=== PATIENT | male | born 1950 | race Caucasian/White ===

== ENCOUNTER 2022-08-11 20:00 | Outpatient (CLI) | payer MEDICARE, BC, SELFPAY | END 2022-08-11 20:01 | disposition home or self-care (01) | LOC: SLEEP 08-12 07:22 | PROVIDERS: Visit Provider Family Medicine | DX: G47.33 Obstructive sleep apnea (adult) (pediatric) (principal) | CPT/HCPCS: 95811 ==

== ENCOUNTER → 2025-08-13 10:20 | Outpatient (BNVA) | payer OTHER, SELFPAY | PROVIDERS: Referring Provider Family Medicine; Visit Provider Internal Medicine Rheumatology | DX: M25.50 Pain in unspecified joint (principal) | CPT/HCPCS: 36415; 80076; 82306; 82565; 83036; 85025; 85651; 86140; 86480; 86704; 86803; 87340 ==

== ENCOUNTER 2025-08-21 09:03 | Inpatient (IN) | payer MEDICARE, SELFPAY ==
[2025-08-21] VITALS (42 sets, daily range): BP systolic 83–146; BP diastolic 55–89; PULSE 67–86; RESP 15–22; TEMP 36.4–36.8; O2SAT 94–99; BMI 36.6
--- OUTSIDE RECORDS SUMMARY | 2025-08-21 09:09 | XMS_ITS | Encounter Summary ---
Author Organization [employer] [facility] Address [address] [place] [address] Care Team Providers Care Health Information Systems Technician Name Role Phone Unavailable Primary Care Provider Unavailabl e Encounter Details Date Type Department Care Team (Latest Contact Info) Description 09/10/1999 Outpatient Historical [facility] Jose Angel Martinez, Ermias Peñaloza MD [address] [place] [phone] Backache, unspecified (Primary Dx) Social History Tobacco Use Types Packs/Day Years Used Date Smoking Tobacco: Never Assessed Sex and Gender Information Value Date Recorded Sex Assigned at Not on file 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
--- OUTSIDE RECORDS SUMMARY | 2025-08-21 09:09 | XMS_ITS | Encounter Summary ---
Author Organization [employer] [facility] Address [address] [place] [address] Care Team Providers Care Lithographic Artist Name Role Phone Unavailable Primary Care Provider Unavailabl e Encounter Details Date Type Department Care Team (Latest Contact Info) Description 09/09/1999 Outpatient Historical [facility] Jose Angel Martinez, Ermias Peñaloza MD [address] [place] [phone] Lumbago (Primary Dx) Social History Tobacco Use Types Packs/Day Years Used Date Smoking Tobacco: Never Assessed Sex and Gender Information Value Date Recorded Sex Assigned at Not on file 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
--- OUTSIDE RECORDS SUMMARY | 2025-08-21 09:09 | XMS_ITS | Encounter Summary ---
Author Organization [employer] [facility] Address [address] [place] [address] Care Team Providers Care Chemist Assistant Name Role Phone Unavailable Primary Care Provider Unavailabl e Encounter Details Date Type Department Care Team (Latest Contact Info) Description 01/05/2000 Outpatient Historical [facility] Martin Whitaker MD [address] [place] [address] Enthesopathy of unspecified site (Primary Dx) Social History Tobacco Use Types Packs/Day Years Used Date Smoking Tobacco: Never Assessed Sex and Gender Information Value Date Recorded Sex Assigned at Not on file 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
--- OUTSIDE RECORDS SUMMARY | 2025-08-21 09:09 | XMS_ITS | Encounter Summary ---
Author Organization [employer] [facility] Address [address] [place] [address] Care Team Providers Care Toggle Press Folder And Feeder Name Role Phone Unavailable Primary Care Provider Unavailabl e Encounter Details Date Type Department Care Team (Latest Contact Info) Description 03/03/1999 Outpatient Historical [facility] Martin Whitaker MD [address] [place] [address] Edema (Primary Dx); Pain in limb Social History Tobacco Use Types Packs/Day Years Used Date Smoking Tobacco: Never Assessed Sex and Gender Information Value Date Recorded Sex Assigned at Not on file 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
--- OUTSIDE RECORDS SUMMARY | 2025-08-21 09:09 | XMS_ITS | Encounter Summary ---
Author Organization [employer] [facility] Address [address] [place] [address] Care Team Providers Care Stencil Machine Operator Name Role Phone Unavailable Primary Care Provider Unavailabl e Encounter Details Date Type Department Care Team (Latest Contact Info) Description 02/09/1999 Outpatient Historical [facility] Martin Whitaker MD [address] [place] [address] Pain in limb (Primary Dx); Arthropathy, unspecified, site unspecified Social History Tobacco Use Types Packs/Day Years Used Date Smoking Tobacco: Never Assessed Sex and Gender Information Value Date Recorded Sex Assigned at Not on file 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
--- OUTSIDE RECORDS SUMMARY | 2025-08-21 09:09 | XMS_ITS | Encounter Summary ---
Author Organization [employer] [facility] Address [address] [place] [address] Care Team Providers Care Profile Grinder Technician Name Role Phone Unavailable Primary Care Provider Unavailabl e Encounter Details Date Type Department Care Team (Latest Contact Info) Description 05/08/1999 Outpatient Historical [facility] Jose Angel Martinez, Ermias Peñaloza MD [address] [place] [phone] Calcaneal spur (Primary Dx); Obesity, unspecified Social History Tobacco Use Types Packs/Day Years Used Date Smoking Tobacco: Never Assessed Sex and Gender Information Value Date Recorded Sex Assigned at Not on file 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
--- OUTSIDE RECORDS SUMMARY | 2025-08-21 09:09 | XMS_ITS | Clinical Summary ---
Author Organization [facility] Address [address] 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
--- OUTSIDE RECORDS SUMMARY | 2025-08-21 09:09 | XMS_ITS | Encounter Summary ---
Author Organization [employer] [facility] Address [address] [place] [address] Care Team Providers Care Manuscripts Archivist Name Role Phone Unavailable Primary Care Provider Unavailabl e Encounter Details Date Type Department Care Team (Latest Contact Info) Description 09/07/1999 Outpatient Historical [facility] Martin Whitaker MD [address] [place] [address] Lumbago (Primary Dx); Mononeuritis of unspecified site Social History Tobacco Use Types Packs/Day Years Used Date Smoking Tobacco: Never Assessed Sex and Gender Information Value Date Recorded Sex Assigned at Not on file 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
--- OUTSIDE RECORDS SUMMARY | 2025-08-21 09:09 | XMS_ITS | Encounter Summary ---
Author Organization [employer] [facility] Address [address] [place] [address] Care Team Providers Care Upholstery Restorer Name Role Phone Unavailable Primary Care Provider Unavailabl e Encounter Details Date Type Department Care Team (Latest Contact Info) Description 04/08/1999 Outpatient Historical [facility] Jose Angel Martinez, Ermias Peñaloza MD [facility] [place] [address] Peripheral vascular disease, unspecified (Primary Dx); Calcaneal spur; Osteoarthrosis, unspecified whether generalized or localized, unspecified site; Obesity, unspecified Social History Tobacco Use Types Packs/Day Years Used Date Smoking Tobacco: Never Assessed Sex and Gender Information Value Date Recorded Sex Assigned at Not on file 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
--- OUTSIDE RECORDS SUMMARY | 2025-08-21 09:09 | XMS_ITS | Patient Health Record ---
Author Organization [facility] Address [address] [place], [place] [address] Care Team Providers Care Marketing Outreach Coordinator Name Role Phone Gurdeep Leblanc MD Primary Care Provider Unav ailable NimaAriel Unavailable [phone] Keep the, Beat Unavailable Unavailable ALLERGIES No Known Allergies REASON FOR REFERRAL No Information MEDICATIONS Medication SIG (Take, Route, Fr equency, Duration) Notes Start Date End Date Status Lasix 20 MG 1 tablet Orally Once a day PRN Active Aspirin 325 MG 1 tablet Orally Once a day Active Simvastatin 40 MG 1 tablet in the even ing Orally Once a day Active metFORMIN HCl 500 MG 1 tablet with a suni l Orally Once a day Active SOCIAL HISTORY Tobacco Use: Social History Observation Description Date Details (start date - stop date) Never Smoker NA - NA Sex Assigned At : Social History Observation Description Sex Assigned At Unknown Tobacco Use/Smoking Question Answer Notes Smoking Status: nonsmoker Alcohol Screen Question Answer Notes Did you have a drink containing alcohol in the p ast year? No Points 0 Interpretation Negative PROBLEMS Problem Type ICD Code Onset Dates Problem Status W/U Status Risk SNOMED Code Notes Problem CT (obstructive sleep apnea) (G47.33) Active confirmed 52795512 Problem Mixed hyperlipidemia (E78.2) Active confirmed 636012222 Problem Bilateral leg edema (R60.0) Active confirmed 675485150 Problem H/O deep venous thrombosis (Z86.718) Active confirmed 758060182 1990s LLE Problem Morbid obesity (E66.01) Active confirmed 181455367 Problem Mild concentric left ventricular hypertrophy (LVH) (I51.7) Active confirmed Cardiomegaly (7913446) Problem Anginal equivalent (I20.8) Active confirmed 956274709 Problem Agatston CAC score, >400 (R93.1) Active confirmed 399794610 Problem Impaired left ventricular relaxation (I51.9) Active confirmed Heart disease (07101739) Problem Type 2 diabetes mellitus without complication, without long-term current use of insulin (E11.9) Active confirmed 849367954 Problem Dyspnea on exertion (R06.00) Active confirmed 03853866 Problem Body mass index [BMI] 40.0-44.9, adult (Z68.41) Active confirmed 381660547 Problem Primary osteoarthritis involving multiple joints (M15.9) Active confirmed 629688750 PLAN OF TREATMENT Pending Test Test Name Order Date CT - Cardiac Calcium Score 04/14/2022 ECG 04/14/2022 ECG 04/15/2022 ECG 11/30/2022 Nuclear - MPI Lexiscan 05/17/2022 Echo - 2D Echo (with 3D if indicated) Future Test Test Name Order Date Echo - 2D Echo (with 3D if indicated) Insurance Providers Payer Name Payer Address Payer Phone Subscriber Number Group Number Insured Name Patient Relationship to Insured Coverage Start Date Coverage End Date Medicare Part B [address] [place] [phone] [id number] Kenneth Scott Self - patient is the insured [employer] SUPPLEMENT [address] [place] [address] [id number] Kenneth Scott Self - patient is the insured MEDICAL (GENERAL) HISTORY Medical History History ICD Code bradycardia Surgical History Surgery Date(Month/Year) right knee replacement 2018 left knee replacement 2016 cataract-lens implants cholecystectomy 2009 Hospitalization History Reason Date(Month/Year) proferated colon Ca Score (03/2022)- Total ca lcium was measured at 706.82 (78th percentile) MPI (04/2022)- Normal myocardial perfusi on scan TTE (04/2022)- Mod LAE, mild cLVH, nl LVSF/EF 55-60%, grade I diast dysfxn, mod AoV sclerosis/calcification s evidence of , nl IVC
--- NOTE | 2025-08-21 09:41 | CT_ITS ---
WS: [id number] CT ABDOMEN PELVIS TECHNIQUE: Noncontrast CT of the abdomen and pelvis with coronal and sagittal reformatted images. CLINICAL INFORMATION: Abdominal pain COMPARISON: CT 2009 DLP: 1063.[address] scans at [facility] use at least one of these dose optimization techniques: automated exposure control; mA and/or kV adjustment per patient size (includes targeted exams where dose is matched to clinical indication); or iterative reconstruction. FINDINGS: Prior cholecystectomy. Pneumobilia. Prior RIGHT hemicolectomy. Normal sigmoid colon. Fat-containing LEFT inguinal hernia. Fluid-filled dilated small bowel loops in the mid abdomen and pelvis suspicious for developing partial small bowel obstruction. Anastomosis appears patent. Swirling of the mesentery in the midabdomen and LEFT lower quadrant suspicious for internal hernia or retraction with adhesions with areas of small bowel transition. See bookmarked images. Induration in this area with a few reactive lymph nodes and mesenteric congestion. Residual colon is normal in appearance Normal noncontrast liver. Prior cholecystectomy. Pneumobilia. Noncontrast spleen is normal. Small esophageal hiatal hernia. Fatty atrophy of the pancreas. Adrenal glands are normal. No hydronephrosis. Small amount of free fluid in the cul-de-sac. Normal caliber abdominal aorta. Aortic calcification. Tiny fat- containing umbilical hernia. Subsegmental atelectasis LEFT lower lobe. Chronic spondylolysis L5-S1 with grade [address]/CT abdomen pelvis wo con [id number] IMPRESSION: 1. Prior RIGHT hemicolectomy with anastomosis. Anastomosis appears patent invo lving the transverse colon. 2. Dilated loops of fluid distended small bowel with swirling in the mesentery with mesenteric congestion and reactive lymph nodes in the mid abdomen and LEF T lower quadrant. Segmental areas of collapsed small bowel, see bookmarked imag es suspicious for internal hernia or adhesions with partial small bowel obstruc tion. 3. Residual colon is normal in appearance. 4. Prior cholecystectomy with pneumobilia. 5. Small amount of free fluid in the cul-de-sac Notified José Antonio Giordano DO at 08/21/2025 10:40 AM.
--- NOTE | 2025-08-21 09:42 | W.ED.ABDPA2 ---
HPI - Abdominal Pain General: Chief Complaint: Abdominal Pain Stated Complaint: sent by geovani gonsales abd pain [id number] Time Seen by Provider: 08/21/25 09:15 History of Present Illness: 75-year-old male presents to the emergency room with complaint of abdominal pain for the last 3 weeks intermittently had some loose stools with it as well. He has a history of colon cancer in the past. He denies any vomiting. He has had a few streaks of blood in his stool he is not on any anticoagulation he equates to streaking of blood with hemorrhoids he has had problems intermittently with that in the past. He is diabetic is on metformin. No recent dose changes. Patient had a previous colon resection related to his colon cancer he denies any other abdominal surgeries. Associated Symptoms: Reports nausea and vomiting; Denies chills, dysuria and fever(s) Related Data Home Medications ?Medication ?Instructions ?Recorded ?Confirmed aspirin 325 mg tablet 325 mg PO DAILY 08/12/25 08/21/25 clotrimazole 1 % topical cream 1 applic topical BID PRN Rash 08/12/25 08/21/25 metformin 500 mg tablet 500 mg PO DAILY 08/12/25 08/21/25 potassium chloride 10 mEq 10 meq PO DAILY 08/12/25 08/21/25 capsule,extended release simvastatin 40 mg tablet 40 mg PO DAILY 08/12/25 08/21/25 fluticasone propionate 50 2 spray intranasal DAILY PRN 08/21/25 08/21/25 mcg/actuation nasal allergies spray,suspension methotrexate sodium 2.5 mg tablet 125 mg PO Q7D 08/21/25 08/21/25 Previous Rx's ?Medication ?Instructions ?Recorded folic acid 1 mg tablet 1 mg PO DAILY #90 tabs 08/13/25 prednisone 10 mg tablet See Rx Instructions PO .COMPLEX 08/13/25 PRN joint pain #30 tabs adalimumab 40 mg/0.4 mL 40 mg (0.4 mL) SUBCUT Q14D #2 ea 08/15/25 subcutaneous pen kit (Humira(CF) Pen) Allergies Allergy/AdvReac Type Severity Reaction Status Date / Time No Known Allergies Allergy Verified 08/21/25 09:21 Review of Systems Const: Denies: fever(s) or chills Card: Denies: chest pain Resp: Denies: dyspnea GI: Reports: abdominal pain, nausea and vomiting : Denies: dysuria, urinary frequency or urinary urgency Musc: Denies: neck pain or back pain Skin/Breast: Denies: rash PFSH ED PFSH: Medical History Immunization counseling High risk medication use Seronegative rheumatoid arthritis of both hands Polyarthralgia Diabetes Hyperlipidemia Elevated antinuclear antibody (ADELINA) level Obstructive sleep apnea PVD (peripheral vascular disease) Low back pain Surgical History History of colon resection ruptured not cancer History of bilateral knee replacement Family History Other Brain cancer Diabetes Heart disease Hypertension Lung cancer Peripheral vascular disease Rheumatoid arthritis Skin cancer Skin disease Denies family history of Lupus (systemic lupus erythematosus) Liver disease Migraines Stroke Social History Smoking and tobacco/nicotine status: never used tobacco/nicotine Physical Exam Const: GENERAL APPEARANCE: cooperative ORIENTATION/CONSCIOUSNESS: Yes awake, Yes oriented to person, Yes oriented to place and Yes oriented to time HENMT: COMMON NORMALS: normocephalic, atraumatic and hearing grossly normal bilaterally HEAD & SCALP: normocephalic and atraumatic Resp: COMMON NORMALS: normal respiratory effort, No retractions, No use of accessory muscles and clear to auscultation bilaterally AUSCULTATION: clear to auscultation bilaterally Cardio: COMMON NORMALS: regular rate, regular rhythm and No murmurs present (Cardio) RATE: regular rate RHYTHM: regular rhythm GI: COMMON NORMALS: No hepatosplenomegaly present AUSCULTATION: Yes Hypoactive bowel sounds present PALPATION: Yes Tenderness to palpation present (GI) (Diffusely tender no guarding), No Guarding due to palpation present (GI), No Rigid due to palpation and Yes No hepatosplenomegaly present Extremity: COMMON NORMALS: normal to inspection, capillary refill normal, no clubbing, cyanosis or edema, no calf tenderness and no pedal edema Neuro: SENSORIUM/ORIENTATION: Yes oriented to person, Yes oriented to place and Yes oriented to time Skin: COMMON NORMALS: no rashes or lesions noted GENERAL SKIN EXAM: no rashes or lesions noted Course Vital Signs: Vital signs: Vital Signs Temperature 97.5 F L 08/21/25 11:45 Pulse Rate 70 08/21/25 11:45 Respiratory Rate 18 08/21/25 11:45 Blood Pressure 139/85 08/21/25 11:45 Pulse Oximetry 95 08/21/25 11:45 Oxygen Delivery Me thod Room Air 08/21/25 11:45 MDM - Abdominal Pain Medical Decision Making CT shows closed-loop partial obstruction of the small bowel with some tethering. Discussed with Dr. Burrell he has seen the patient and is recommending exploratory laparoscopy. Patient was taken directly from the department to the operating room. Dr. Burrell did see the patient in the emergency room. Orders per Dr. Burrell. Medical Records I reviewed the patient's medical records. Lab Data I reviewed the patient's lab results. 08/21/25 09:48 08/21/25 09:48 Labs/Radiology: Radiology Impressions Abdomen/Pelvis CT 08/21/25 09:41 IMPRESSION: 1. Prior RIGHT hemicolectomy with anastomosis. Anastomosis appears patent involving the transverse colon. 2. Dilated loops of fluid distended small bowel with swirling in the mesentery with mesenteric congestion and reactive lymph nodes in the mid abdomen and LEFT lower quadrant. Segmental areas of collapsed small bowel, see bookmarked images suspicious for internal hernia or adhesions with partial small bowel obstruction. 3. Residual colon is normal in appearance. 4. Prior cholecystectomy with pneumobilia. 5. Small amount of free fluid in the cul-de-sac Notified José Antonio Giordano DO at 08/21/2025 10:40 AM. Laboratory Results WBC 6.73 10^3/uL (3.29-11.43) 08/21/25 09:48 RBC 4.28 10^6/uL (3.85-5.65) 08/21/25 09:48 Hgb 14.20 g/dL (11.27-16.99) 08/21/25 09:48 Hct 43.4 % (37-53) 08/21/25 09:48 MCV 101.4 fl (82-101) H 08/21/25 09:48 MCH 33.2 pg (27-33) H 08/21/25 09:48 MCHC 32.7 g/dL (30-55) 09/24/25 09:48 RDW 21.0 % (12.1-15.1) H 08/21/25 09:48 Plt Count 239 10^3/cmm (157-399) 08/21/25 09:48 MPV 9.3 fL (7.4-10.4) 08/21/25 09:48 Neut % (Auto) 72.9 % 08/21/25 09:48 Lymph % (Auto) 7.9 % 08/21/25 09:48 Tyrrell % (Auto) 14.7 % 08/21/25 09:48 Eos % (Auto) 3.3 % 08/21/25 09:48 Baso % (Auto) 0.6 % 08/21/25 09:48 Neut # (Auto) 4.91 10^3/uL (1.8-7.7) 08/21/25 09:48 Lymph # (Auto) 0.5 10^3/uL (0.8-4.8) L 08/21/25 09:48 Tyrrell # (Auto) 1.0 10^3/uL (0.2-0.9) H 08/21/25 09:48 Eos # (Auto) 0.2 10^3/uL (0.0-0.8) 08/21/25 09:48 Baso # (Auto) 0.0 10^3/uL (0.0-0.1) 08/21/25 09:48 Nucleated RBC % (auto) 0 % 08/21/25 09:48 Nucleated RBCs # 0.0 /100WBC 08/21/25 09:48 Sodium 138 mmol/L (136-145) 08/21/25 09:48 Potassium 4.2 mmol/L (3.5-5.1) 08/21/25 09:48 Chloride 102 mmol/L (98-107) 08/21/25 09:48 Carbon Dioxide 23 mmol/L (22-29) 08/21/25 09:48 Anion Gap 17.2 (5-19) 08/21/25 09:48 BUN 15 mg/dL (8-23) 08/21/25 09:48 Creatinine 0.8 mg/dL (0.7-1.2) 08/21/25 09:48 GFR Calculation Not Reportable 08/21/25 09:48 Glucose 136 mg/dL (65-115) H 08/21/25 09:48 Calculated Osmolality 289 mOsm/kg (285-295) 08/21/25 09:48 Lactic Acid 1.9 mmol/L (0.5-2.2) 08/21/25 09:48 Calcium 9.0 mg/dL (8.5-10.5) 08/21/25 09:48 Total Bilirubin 0.5 mg/dL (0.15-1.2) 08/21/25 09:48 AST 32 U/L (0-40) 08/21/25 09:48 ALT 29 U/L (0-41) 08/21/25 09:48 Alkaline Phosphatase 86 U/L (40-130) 08/21/25 09:48 Total Protein 7.8 g/dL (6.6-8.7) 08/21/25 09:48 Albumin 3.7 g/dL (3.5-5.2) 08/21/25 09:48 Globulin 4.1 g/dL (1.3-4.6) 08/21/25 09:48 Lipase 17 U/L (13-60) 08/21/25 09:48 Urine Color [facility] (Yellow) A 08/21/25 10:25 Urine Appearance Cloudy (CLEAR) A 08/21/25 10:25 Urine pH 5.0 (5-7) 08/21/25 10:25 Ur Specific [facility] 1.032 (1.005-1.030) H 08/21/25 10:25 Urine Protein 1+ (Negative) A 08/21/25 10:25 Urine Glucose (UA) Negative (Normal) 08/21/25 10:25 Urine Ketones Trace (Negative) 08/21/25 10:25 Urine Blood Negative (Negative) 08/21/25 10:25 Urine Nitrate Negative (Negative) 08/21/25 10:25 Urine Bilirubin 1+ (Negative) H 08/21/25 10:25 Urine Urobilinogen 1.0 mg/dL (Negative) 08/21/25 10:25 Ur Leukocyte Esterase Trace (Negative) A 08/21/25 10:25 Urine RBC 0-2 /hpf (0-2) 08/21/25 10:25 Urine WBC 0-5 /hpf (0-5) 08/21/25 10:25 Ur Squamous Epith Cells 0-5 /hpf (0-5) 08/21/25 10:25 Amorphous Sediment Not Reportable 08/21/25 10:25 Urine Bacteria None seen /hpf (NONE) 08/21/25 10:25 Hyaline Casts 9.07 /lpf 08/21/25 10:25 All radiology interpretation(s) finalized by discharge Discharge Plan Discharge Patient Disposition: Admitted As Inpatient Admit Provider: Bishnu Burrell Clinical Impression: Internal hernia, History of colon cancer, Hx of right hemicolectomy Condition: Stable Coding Level of Care Code ED Vice President Of Human Resources for [facility]
[2025-08-21 10:06] LABS: Hematocrit 43.4 % (37-53); Hemoglobin 14.20 g/dL (11.27-16.99); Mean Corpuscular HGB Conc 32.7 g/dL (30-55); Mean Corpuscular Hemoglobin 33.2 pg (27-33); Mean Corpuscular Volume 101.4 fl (82-101); Nucleated Red Blood Cells % 0 %; Platelet Count 239 10^3/cmm (157-399); Red Blood Count 4.28 10^6/uL (3.85-5.65); White Blood Count 6.73 10^3/uL (3.29-11.43)
[2025-08-21 10:24] LABS: Alanine Aminotransferase 29 U/L (0-41); Albumin Level 3.7 g/dL (3.5-5.2); Alkaline Phosphatase 86 U/L (40-130); Anion Gap 17.2 (5-19); Aspartate Amino Transferase 32 U/L (0-40); Blood Urea Nitrogen 15 mg/dL (8-23); Calcium 9.0 mg/dL (8.5-10.5); Carbon Dioxide 23 mmol/L (22-29); Chloride 102 mmol/L (98-107); Creatinine Clr Calc Pharmacy 97.7520; Globulin 4.1 g/dL (1.3-4.6); Glucose 136 mg/dL (65-115); Lipase 17 U/L (13-60); Osmolality Calculated 289 mOsm/kg (285-295); Potassium 4.2 mmol/L (3.5-5.1); Sodium 138 mmol/L (136-145); Total Protein 7.8 g/dL (6.6-8.7)
[2025-08-21 10:33] LABS: Glucose Urine UA Negative (Normal); Nitrate Urine Negative (Negative)
[2025-08-21 10:35] LABS: Add Urine Microscopic? YES
[2025-08-21 10:38] LABS: Specific Gravity, Urine 1.032 (1.005-1.030); UA Slide Review UA Slide Review Perf
--- NOTE | 2025-08-21 11:17 | PM.HP ---
Providers/Chief Complaint Chief Complaint: sent by geovani gonsales abd pain [id number] History of Present Illness Kenneth Scott is a 75 year old male who presented with a closed-loop SBO. Patient had an open right colectomy for cancer about 10 years ago. Now in remission. Patient reports 3 weeks of abdominal pain. Intermittent diarrhea. No nausea no vomiting. CT scan showed evidence of a closed-loop SBO. Clinically patient is hemodynamically stable. Abdomen is soft, tender in mesogastrium, nonperitonitic. No leukocytosis. Lactic acid pending. Medications/Allergies Home Medications ?Medication ?Instructions ?Recorded ?Confirmed ?Last Taken ?Type aspirin 325 mg tablet 325 mg PO DAILY 08/12/25 08/21/25 08/20/25 History clotrimazole 1 % topical cream 1 applic topical BID PRN Rash 08/12/25 08/21/25 Unknown History metformin 500 mg tablet 500 mg PO DAILY 08/12/25 08/21/25 08/20/25 History potassium chloride 10 mEq 10 meq PO DAILY 08/12/25 08/21/25 08/20/25 History capsule,extended release simvastatin 40 mg tablet 40 mg PO DAILY 08/12/25 08/21/25 08/20/25 History folic acid 1 mg tablet 1 mg PO DAILY #90 tabs 08/13/25 08/21/25 Unknown Rx prednisone 10 mg tablet See Rx Instructions PO .COMPLEX 08/13/25 08/21/25 Unknown Rx PRN joint pain #30 tabs adalimumab 40 mg/0.4 mL 40 mg (0.4 mL) SUBCUT Q14D #2 ea 08/15/25 08/21/25 Unknown Rx subcutaneous pen kit (Humira(CF) Pen) fluticasone propionate 50 2 spray intranasal DAILY PRN 08/21/25 08/21/25 Unknown History mcg/actuation nasal allergies spray,suspension methotrexate sodium 2.5 mg tablet 125 mg PO Q7D 08/21/25 08/21/25 Unknown History Allergies Allergy/AdvReac Type Severity Reaction Status Date / Time No Known Allergies Allergy Verified 08/21/25 09:21 PFSH Acute PFSH: Medical History (Updated 08/21/25 @ 11:19 by Bishnu Burrell MD) Immunization counseling High risk medication use Seronegative rheumatoid arthritis of both hands Polyarthralgia Diabetes Hyperlipidemia Elevated antinuclear antibody (ADELINA) level Obstructive sleep apnea PVD (peripheral vascular disease) Low back pain Surgical History History of colon resection ruptured not cancer History of bilateral knee replacement Family History Other Brain cancer Diabetes Heart disease Hypertension Lung cancer Peripheral vascular disease Rheumatoid arthritis Skin cancer Skin disease Denies family history of Lupus (systemic lupus erythematosus) Liver disease Migraines Stroke Social History Smoking and tobacco/nicotine status: never used tobacco/nicotine Vitals/I&O/Wt Last Vital Signs Temp 98.2 F 08/21/25 09:14 Pulse 69 08/21/25 11:00 Resp 18 08/21/25 10:20 BP 121/71 08/21/25 11:00 Pulse Ox 96 08/21/25 11:00 O2 Del Method Room Air 08/21/25 10:20 Weight last 48 hrs Weight 244 lb Physical Exam Narrative: Chest: Unlabored breathing room air. No lymphadenopathy. Heart: Regular rate and rhythm. Abdomen: Soft, mesogastric tenderness. Non peritonitic. Nondistended. Midline scar present from prior right colectomy. Data 08/21/25 09:48 08/21/25 09:48 A&P Assessment and plan 1. Internal hernia: Plan: 75-year-old male who had a right colectomy 10 years ago for cancer now in remission. Presents with 3 weeks of mesogastric abdominal pain. CT scan concerning for closed-loop SBO secondary to ventral hernia. Had an extensive discussion with the patient and answered all of his questions. My recommendation is to proceed with exploratory laparotomy, possible bowel resection, possible ostomy, possible ABThera. I explained the risks and benefits and patient agrees to proceed. Patient understands that he is at risk of bowel injury, anastomotic leak, infection, bleeding, incisional hernia, prolonged intubation, prolonged ICU and hospital course, and . Explained that the alternative is to not do surgery but the risk of that is that his bowel may progress to ischemia and subsequent necrosis which may lead to his . PDMP PDMP Reviewed: Not Reviewed Attestations Medical Necessity Statement*: Closed-loop SBO with threatened bowel. Hospital stay expected to cross 2 midnights. Coding Level of Care Code 74698 Diagnoses Internal hernia K45.8
[2025-08-21 11:24] LABS: Lactic Sepsis W/Reflex 1.9 mmol/L (0.5-2.2)
--- NOTE | 2025-08-21 12:01 | ANES.PREANE2 ---
Pre-Anesthetic Assessment Height/Weight: Height 1.73 m Weight 110.677 kg Temp Pulse Resp BP Pulse Ox O2 Del Method 97.5 F L 70 18 139/85 95 Room Air 08/21/25 11:45 08/21/25 11:45 08/21/25 11:45 08/21/25 11:45 08/21/25 11:45 08/21/25 11:45 Operation Date: 08/21/25 13:55 Proposed Procedures p Exploratory Laparotomy, possible bowel resection,abthera(Not Applicable) - Bishnu Burrell MD Familial anesthetic complications: none Was Beta Marie taken within 24 hours: N/A Was Clonidine taken within 24 hours: N/A Last intake: Intake Last Liquid Date 08/21/25 Last Liquid Time 04:00 Last Solid Date 08/20/25 Last Solid Time 12:00 Social No alcohol and No tobacco Exam alert, oriented x 3, clear to auscultation bilaterally and regular rate & rhythm Airway Mallampati: Class II Dentition: false Pulmonary Sleep Apnea Metabolic Diabetes Mellitus, Hyperlipidemia and Morbid Obesity Anesthetic Plan ASA status: 3E Anesthesia: General Risk of > 500 ml blood loss (7ml/kg in children): No Medications/Allergies Home Medications ?Medication ?Instructions ?Recorded ?Confirmed ?Last Taken ?Type aspirin 325 mg tablet 325 mg PO DAILY 08/12/25 08/21/25 08/20/25 History clotrimazole 1 % topical cream 1 applic topical BID PRN Rash 08/12/25 08/21/25 Unknown History metformin 500 mg tablet 500 mg PO DAILY 08/12/25 08/21/25 08/20/25 History potassium chloride 10 mEq 10 meq PO DAILY 08/12/25 08/21/25 08/20/25 History capsule,extended release simvastatin 40 mg tablet 40 mg PO DAILY 08/12/25 08/21/25 08/20/25 History folic acid 1 mg tablet 1 mg PO DAILY #90 tabs 08/13/25 08/21/25 Unknown Rx prednisone 10 mg tablet See Rx Instructions PO .COMPLEX 08/13/25 08/21/25 Unknown Rx PRN joint pain #30 tabs adalimumab 40 mg/0.4 mL 40 mg (0.4 mL) SUBCUT Q14D #2 ea 08/15/25 08/21/25 Unknown Rx subcutaneous pen kit (Humira(CF) Pen) fluticasone propionate 50 2 spray intranasal DAILY PRN 08/21/25 08/21/25 Unknown History mcg/actuation nasal allergies spray,suspension methotrexate sodium 2.5 mg tablet 125 mg PO Q7D 08/21/25 08/21/25 Unknown History Allergies Allergy/AdvReac Type Severity Reaction Status Date / Time No Known Allergies Allergy Verified 08/21/25 09:21 Current Medications Generic Name Dose Route Start Last Admin Trade Name Freq PRN Reason Stop Dose Admin Sodium Chloride 1,000 mls @ 30 mls/hr 08/21/25 11:30 08/21/25 11:38 Sodium Chloride 0.9% IV 08/22/25 11:29 30 mls/hr .Q24H JEANE Administration PFSH Anesthesia Medical History (Updated 08/21/25 @ 11:19 by Bishnu Burrell MD) Immunization counseling High risk medication use Seronegative rheumatoid arthritis of both hands Polyarthralgia Diabetes Hyperlipidemia Elevated antinuclear antibody (ADELINA) level Obstructive sleep apnea PVD (peripheral vascular disease) Low back pain Surgical History History of colon resection ruptured not cancer History of bilateral knee replacement Family History Other Brain cancer Diabetes Heart disease Hypertension Lung cancer Peripheral vascular disease Rheumatoid arthritis Skin cancer Skin disease Denies family history of Lupus (systemic lupus erythematosus) Liver disease Migraines Stroke Social History Smoking and tobacco/nicotine status: never used tobacco/nicotine Data Anesthesia 08/21/25 09:48 08/21/25 09:48 Short CBC 08/21/25 Range/Units 09:48 WBC 6.73 (3.29-11.43) 10^3/uL Hgb 14.20 (11.27-16.99) g/dL Hct 43.4 (37-53) % MCV 101.4 H (82-101) fl Plt Count 239 (157-399) 10^3/cmm Neut % (Auto) 72.9 % Neut # (Auto) 4.91 (1.8-7.7) 10^3/uL BMP 08/21/25 09:48 Sodium 138 Potassium 4.2 Chloride 102 Carbon Dioxide 23 BUN 15 Creatinine 0.8 Glucose 136 H Calcium 9.0 Liver Function 08/21/25 Range/Units 09:48 Total Bilirubin 0.5 (0.15-1.2) mg/dL AST 32 (0-40) U/L ALT 29 (0-41) U/L Alkaline Phosphatase 86 (40-130) U/L Albumin 3.7 (3.5-5.2) g/dL Urine 08/21/25 Range/Units 10:25 Urine Color [place] A (Yellow) Urine Appearance Cloudy A (CLEAR) Urine pH 5.0 (5-7) Ur Specific [place] 1.032 H (1.005-1.030) Urine Protein 1+ A (Negative) Urine Glucose (UA) Negative (Normal) Urine Ketones Trace (Negative) Urine Nitrate Negative (Negative) Urine Bilirubin 1+ H (Negative) Ur Leukocyte Esterase Trace A (Negative) Urine RBC 0-2 (0-2) /hpf Urine WBC 0-5 (0-5) /hpf
[2025-08-21] MEDS: metroNIDAZOLE IV 500 MG/100 ML PREMIX 100 MG IV (12:49)
[2025-08-21] MEDS: cefTRIAXone 2,000 mg SDV 2000 MG IVP (12:49)
--- NOTE | 2025-08-21 16:22 | PM.OP ---
Operative Report Date of procedure: August 21, 2025 Pre-op diagnosis: Closed-loop SBO secondary to internal hernia Post-op diagnosis: same Post-op findings: Extensive dense adhesions throughout the abdomen (most abundant in pelvis) which was technically difficult. Reduction of internal hernia in pelvis. Loop of small bowel in the right upper quadrant densely adhesed to the liver was dissected off. Adhesiolysis and dissection of right upper quadrant small bowel loop was extremely challenging and therefore I asked Dr. Alaniz to assist. At the end of the case ran the bowel 5 times from ligament of Treitz to the ileocolonic anastomosis (prior right colectomy) and only found one enterotomy in the mid ileum. We resected the 4cm segment of small bowel that had the entertomy and left the patient in discontinuity. The rest of the small bowel as well as transverse colon, descending colon and rectum were found to be intact. The abdomen was washed out with 2L of warm NS and 0.9L of irrisept. NGT positioning in stomach confirmed intraoperatively. All counts were correct. The abdomen was closed temporarily with an abthera. Patient transferred to ICU in stable condition. Procedure done: Opening of recent exploratory laparotomy, washout, small bowel anastomosis, closure of abdomen. Implants: N/A Specimens removed/disposition: Segment of small bowel Pathology: Segment of small bowel Surgeon: Bishnu Burrell MD [employer] Agent: Allan Alaniz Anesthesia: General Estimated blood loss (mL): 300 Complications: NA Findings: Extensive dense adhesions throughout the abdomen (most abundant in pelvis) which was technically difficult. Reduction of internal hernia in pelvis. Loop of small bowel in the right upper quadrant densely adhesed to the liver was dissected off. Adhesiolysis and dissection of right upper quadrant small bowel loop was extremely challenging and therefore I asked Dr. Alaniz to assist. At the end of the case ran the bowel 5 times from ligament of Treitz to the ileocolonic anastomosis (prior right colectomy) and only found one enterotomy in the mid ileum. We resected the 4cm segment of small bowel that had the entertomy and left the patient in discontinuity. The rest of the small bowel as well as transverse colon, descending colon and rectum were found to be intact. The abdomen was washed out with 2L of warm NS and 0.9L of irrisept. NGT positioning in stomach confirmed intraoperatively. All counts were correct. The abdomen was closed temporarily with an abthera. Patient transferred to ICU in stable condition. Condition: critical Disposition: ICU Brief History: 75-year-old male history of right colectomy for cancer in remission who presented with a closed-loop SBO and threatened bowel. Discussed risk and benefits and patient agreed to proceed with exploratory laparotomy, possible bowel resection, possible ostomy, possible ABThera. Had an extensive discussion with the patient and answered all his questions. Patient understands the alternative is to not do surgery but the risk of ischemic bowel progressing to necrotic bowel is high and therefore patient decided to proceed with surgery. Procedure: Consent obtained in the preop area. NG tube was placed successfully in the preop area. It was hooked up to suction and gastric contents were obtained. Prophylactic antibiotics administered. Patient was transferred to the OR. SCDs were on and working. General anesthesia was induced. The abdomen was prepped and draped in the usual sterile fashion. A midline incision was carried out using a 10 blade. The peritoneal cavity was entered using Metzenbaum scissors. I encountered dense adhesions on entering the peritoneal cavity. Adhesions were more prominent in the pelvis. I did find dilated loops of small bowel. I performed extensive adhesiolysis for at least an hour. I then managed to get to the internal hernia that was causing the closed-loop SBO in the pelvis. I lysed the adhesions that were causing the internal hernia and managed to reduce the internal hernia and therefore resolve the closed-loop SBO. I was still not able to run the bowel in its entirety given that there was a loop of bowel that was densely adhesed to the liver. I called my partner Dr. Alaniz given the difficulty of the lysis of adhesions in the right upper quadrant. Dissection was extremely challenging and we performed lysis of adhesions for at least 45 minutes in the right upper quadrant. We managed to free up this loop of bowel in the right upper quadrant. Upon inspection of this loop of bowel an enterotomy was found and there was spillage of succus. We controlled the enterotomy with a [place]. We then proceeded to run the bowel 5 times from ligament of Treitz all the way to the ileocolic anastomosis to the transverse colon. We did not identify any additional enterotomies and the small bowel appeared viable in its entirety. We also inspected the transverse colon as well as the descending colon and rectum which all appeared intact and healthy. Given the extensive dissection as well as the small bowel edema and the extensive lysis of adhesions, we elected to resect loop of bowel with the enterotomy, leave the patient in discontinuity, and explore a second time in 24 to 48 hours. At this point we performed to windows in the mesentery and using a DELFINO stapler with a 45 mm blue staple load we resected the small bowel segment with the enterotomy which represented about a 5 cm length. We then used a LigaSure impact to transect the mesentery. The specimen was passed off and sent to pathology. The abdomen was then washed out with 4 L of warm normal saline. I also used 900 cc of Irrisept to washout the abdomen. The patient was left in discontinuity. Adequate hemostasis was confirmed. Adequate NG tube positioning in the stomach was confirmed intraoperatively. An ABThera was then placed. The patient was then transferred to the ICU in critical condition. At the time of finishing the operation he was hemodynamically stable. The family was updated at the end of the surgery.
--- NOTE | 2025-08-21 16:22 | W.PM.BPON ---
Date of Procedure: 08/21/25 Surgeon: Dr. Burrell Airframe Technician(s): Dr. Alaniz Procedure(s) performed: exploratory laparotomy, extensive lysis of adhesions, reduction of internal hernia, small bowel resection, temporary closure with abthera. Findings of the procedure(s): extensive dense adhesions throughout the abdomen (most abundant in pelvis) which was technically difficult. Reduction of internal hernia in pelvis. Loop of small bowel in the right upper quadrant densely adhesed to the liver was dissected off. Adhesiolysis and dissection of right upper quadrant small bowel loop was extremely challenging and therefore I asked Dr. Alaniz to assist. At the end of the case ran the bowel 5 times from ligament of Treitz to the ileocolonic anastomosis (prior right colectomy) and only found one enterotomy in the mid ileum. We resected the 4cm segment of small bowel that had the entertomy and left the patient in discontinuity. The rest of the small bowel as well as transverse colon, descending colon and rectum were found to be intact. The abdomen was washed out with 2L of warm NS and 1L of irrisept. NGT positioning in stomach confirmed intraoperatively. All counts were correct. The abdomen was closed temporarily with an abthera. Patient transferred to ICU in stable condition. Family updated. Estimated blood loss: 300cc Specimen(s) removed: Segment of small bowel Post-operative diagnosis: internal hernia secondary to adhesions, enterotomy.
--- NOTE | 2025-08-21 17:00 | ANE.PACU2 ---
Inpatient post-anesthesia follow up: Airway intact: Yes Vital signs: Temperature 98.8 F Pulse Rate 92 Respiratory Rate 18 Blood Pressure 88/65 Pulse Oximetry 97 Oxygen Delivery Me thod Mechanical Ventila tion Oxygen Flow Rate Fraction of Inspir ed Oxygen 40 Hydration adequate: Yes Nausea and vomiting: No Pain level: 1 Mental status: Altered Additional Comments: intubated and sedated
[2025-08-21] MEDS: fentaNYL 1,000 MCG/100 ML BAG 2.5 MCG IV (17:08)
[2025-08-21] MEDS: propofol 1,000 MG/100 ML INJ 3.32 MG IV (17:09)
--- NOTE | 2025-08-21 17:24 | XRR_ITS ---
PROCEDURE INFORMATION: Exam: XR Chest Exam date and time: 08/21/2025 5:33 PM Age: 75 years old Clinical indication: Device placement; Ett placement (vent status); Additional info: Et tube placement TECHNIQUE: Imaging protocol: Radiologic exam of the chest. Views: 1 view. COMPARISON: CR XR chest 2V* [id number] 04/18/2025 1:35 PM FINDINGS: Tubes, catheters and devices: The ET tube is positioned 2.6 cm above the jacek. The NG tube is coiled in the proximal stomach. Lungs: Atelectatic changes in the left lung base laterally. There is a 14 mm calcified granuloma in the left lung base medially. Pleural spaces: Unremarkable. No pleural effusion. No pneumothorax. Heart/Mediastinum: Unremarkable. No cardiomegaly. Diaphragm: There is abnormal elevation of the left hemidiaphragm seen to better advantage on the abdominal CT dated 08/21/2025. Bones/joints: Unremarkable. XR/XR chest 1V portable [id number] IMPRESSION: 1. The ET tube is positioned 2.6 cm above the jacek. 2. The NG tube is coiled in the proximal stomach. 3. Atelectatic changes in the left lung base laterally.
--- NOTE | 2025-08-21 17:27 | PM.CONSULT ---
Providers/Reason For Consult Consulting Physician/Specialty*: General Surgery Reason for Consult*: Mechanical ventilation, sepsis, type 2 diabetes, sedation Attending Physician: Bishnu Burrell MD History of Present Illness History of Present Illness Kenneth Scott is a 75 year old male with a past medical history of seronegative rheumatoid arthritis, history of colon cancer, status post colon resection, methotrexate, type 2 diabetes, on metformin, who presents to [facility] for abdominal pain for the last 3 weeks, patient was admitted to [facility] taken to operating room for exploratory laparotomy, extensive lysis of adhesions, reduction of internal hernia, small bowel resection, temporary closure with ABThera, currently intubated, sedated, in the ICU, no family members at bedside, he is sedated, pupils are minimally reactive to light, he is on 50% FiO2, normotensive, nursing staff at bedside Review of Systems General: Reports: ROS unobtainable due to endotracheal tube Medications/Allergies Home Medications ?Medication ?Instructions ?Recorded ?Confirmed ?Last Taken ?Type aspirin 325 mg tablet 325 mg PO DAILY 08/12/25 08/21/25 08/20/25 History clotrimazole 1 % topical cream 1 applic topical BID PRN Rash 08/12/25 08/21/25 Unknown History metformin 500 mg tablet 500 mg PO DAILY 08/12/25 08/21/25 08/20/25 History potassium chloride 10 mEq 10 meq PO DAILY 08/12/25 08/21/25 08/20/25 History capsule,extended release simvastatin 40 mg tablet 40 mg PO DAILY 08/12/25 08/21/25 08/20/25 History folic acid 1 mg tablet 1 mg PO DAILY #90 tabs 08/13/25 08/21/25 Unknown Rx prednisone 10 mg tablet See Rx Instructions PO .COMPLEX 08/13/25 08/21/25 Unknown Rx PRN joint pain #30 tabs adalimumab 40 mg/0.4 mL 40 mg (0.4 mL) SUBCUT Q14D #2 ea 08/15/25 08/21/25 Unknown Rx subcutaneous pen kit (Humira(CF) Pen) fluticasone propionate 50 2 spray intranasal DAILY PRN 08/21/25 08/21/25 Unknown History mcg/actuation nasal allergies spray,suspension methotrexate sodium 2.5 mg tablet 125 mg PO Q7D 08/21/25 08/21/25 Unknown History Allergies Allergy/AdvReac Type Severity Reaction Status Date / Time No Known Allergies Allergy Verified 08/21/25 09:21 Current Medications Generic Name Dose Route Start Last Admin Trade Name Smith PRN Reason Stop Dose Admin Propofol 1,000 mg in 100 mls @ 0 mls/hr 08/21/25 16:45 08/21/25 17:09 Diprivan IV 5 mcg/kg/min .Q0M JEANE 3.32 mls/hr Protocol Administration Per Protocol Fentanyl 1,000 mcg in 100 mls @ 0 mls/hr 08/21/25 16:45 08/21/25 17:08 Sublimaze IV 25 mcg/hr .Q0M JEANE 2.5 mls/hr Protocol Administration Per Protocol PFSH Acute PFSH: Medical History Immunization counseling High risk medication use Seronegative rheumatoid arthritis of both hands Polyarthralgia Diabetes Hyperlipidemia Elevated antinuclear antibody (ADELINA) level Obstructive sleep apnea PVD (peripheral vascular disease) Low back pain Surgical History History of colon resection ruptured not cancer History of bilateral knee replacement Family History Other Brain cancer Diabetes Heart disease Hypertension Lung cancer Peripheral vascular disease Rheumatoid arthritis Skin cancer Skin disease Denies family history of Lupus (systemic lupus erythematosus) Liver disease Migraines Stroke Social History Smoking and tobacco/nicotine status: never used tobacco/nicotine Vitals/I&O/Wt Last Vital Signs Temp 97.5 F L 08/21/25 11:45 Pulse 70 08/21/25 11:45 Resp 18 08/21/25 16:37 BP 139/85 08/21/25 11:45 Pulse Ox 97 08/21/25 16:37 O2 Del Method Room Air 08/21/25 11:45 FiO2 50 08/21/25 16:37 08/21/25 08/21/25 08/21/25 06:59 14:59 22:59 Intake Total 100 / 100 Balance 100 / 100 Weight last 48 hrs Weight 110.677 kg Physical Exam Const: COMMON NORMALS: no acute distress HENMT: COMMON NORMALS: normocephalic HEAD & SCALP: normocephalic OTHER: Endotracheal tube in place Eye: OTHER: Reactive to light Neck/C-Spine: COMMON NORMALS: no JVD Resp: COMMON NORMALS: normal respiratory effort, No retractions, No use of accessory muscles and clear to auscultation bilaterally AUSCULTATION: clear to auscultation bilaterally Cardio: COMMON NORMALS: no JVD, regular rate, regular rhythm, S1 normal heart sound present and S2 normal heart sound present RATE: regular rate RHYTHM: regular rhythm HEART SOUNDS: S1 normal heart sound present and S2 normal heart sound present GI: OTHER: Abdomen soft, slightly distended, diminished bowel sounds in all 4 quadrants, ABThera in place, Extremity: COMMON NORMALS: no calf tenderness and no pedal edema NARRATIVE EXTREMITY EXAM: Right arm arterial line in place Urinary Catheter Management: Mast Latex: Cath Placed During This Visit: yes Urinary Catheter Date of Insertion: 08/21/25 Urinary Catheter Time of Insertion: 13:05 Data 08/21/25 09:48 08/21/25 09:48 A&P Assessment and plan 1. Internal hernia: 2. Acute hypoxic respiratory failure: 3. Diabetes: 4. Sepsis: 5. Small bowel obstruction due to adhesions: 6. On mechanically assisted ventilation: 7. Ledesma Agitation Sedation Scale (RASS) score minus 4, deep sedation: Plan: Acute hypoxic respiratory failure Plan - Currently intubated, sedated, RASS -4, on mechanical ventilation - Propofol for sedation - Fentanyl for pain - Precedex for sedation -DuoNeb as needed - Protonix for GI prophylaxis - General Surgery would like to hold off on Lovenox for today, start SCDs for DVT prophylaxis for now - Chest x-ray to confirm ET tube placement Sepsis - Blood pressures are soft, MAP around 65, will give 1 L LR bolus -Will consider stress dose steroids given history of prednisone use, check cortisol levels - Keep MAP greater than 65 - Fluid bolus to keep MAP more than 65 - will consider Levophed based on clinical progress Closed-loop small bowel obstruction due to ventral hernia CT/CT abdomen pelvis wo con [id number] IMPRESSION: 1. Prior RIGHT hemicolectomy with anastomosis. Anastomosis appears patent involving the transverse colon. 2. Dilated loops of fluid distended small bowel with swirling in the mesentery with mesenteric congestion and reactive lymph nodes in the mid abdomen and LEFT lower quadrant. Segmental areas of collapsed small bowel, see bookmarked images suspicious for internal hernia or adhesions with partial small bowel obstruction. 3. Residual colon is normal in appearance. 4. Prior cholecystectomy with pneumobilia. 5. Small amount of free fluid in the cul-de-sac -Patient's status post exploratory laparotomy, extensive lysis of adhesions, reduction internal hernia, small bowel resection, temporary closure with ABThera Plan - Serial abdominal exam - ABThera in place - Keep patient on deep sedation, RASS -4 - Continue IV Zosyn Type 2 diabetes mellitus, low-dose sliding scale Full code SCDs for DVT prophylaxis PDMP PDMP Reviewed: Not Reviewed Consult Attestations Medical Necessity Statement: Patient requires hospitalization, inpatient, greater than 2 midnights, acute hypoxic respiratory failure, sepsis, exploratory laparotomy extensive lysis of adhesions, reduction of internal hernia, small bowel resection, temporary closure with ABThera Coding Level of Care Code Critical Care >/= 30 minutes Critical care time (in minutes): 45 The high probability of a clinically significant, sudden or life threatening deterioration, as referenced in this documentation, required my full and direct attention, intervention and personal management. The critical care time shown is in addition to time spent performing any reported separately billable procedures and includes the following: [x] Data and vital sign review and interpretation [x] Patient assessment, examination and intervention [x] Medication orders and management [x] Patient/Family updates as able [x] Care Coordination and Documentation. Diagnoses Internal hernia K45.8 Acute hypoxic respiratory failure J96.01 Diabetes E11.9 Sepsis A41.9 Small bowel obstruction due to adhesions K56.50 On mechanically assisted ventilation Z99.11 Ledesma Agitation Sedation Scale (RASS) score minus 4, deep sedation Z78.9 Sepsis Event Note Evaluation Current stage of sepsis: sepsis Possible source: GI tract/intra-abdominal Focused Exam Vital Signs Temp Pulse Resp BP Pulse Ox O2 Del Method FiO2 08/21/25 16:37 18 97 50 08/21/25 11:45 97.5 F L 70 18 139/85 95 Room Air 08/21/25 11:00 69 121/71 96 08/21/25 10:20 78 18 118/68 95 Room Air 08/21/25 09:14 98.2 F 83 146/89 97 Room Air Peripheral pulse strength: 2+ Slightly Diminished Peripheral pulse location: Radial Skin exam: pale Date exam was performed: 08/21/25 Time exam was performed: 17:40 Problem List 1. Internal hernia: Status: Acute 2. Acute hypoxic respiratory failure: Status: Acute 3. Diabetes: Status: Acute 4. Sepsis: Status: Acute 5. Small bowel obstruction due to adhesions: Status: Acute 6. On mechanically assisted ventilation: Status: Acute 7. Ledesma Agitation Sedation Scale (RASS) score minus 4, deep sedation: Status: Acute
[2025-08-21] MEDS: norepinephrine 4 MG/250 ML BAG 7.5 MG IV (17:28)
[2025-08-21 18:14] LABS: Cholesterol 125 mg/dL (0-200); HDL Cholesterol 37 mg/dL (60-100); Thyroid Stimulating Hormone 2.86 uIU/mL (0.27-4.20); Triglycerides 105 mg/dL (0-150)
[2025-08-21] MEDS: piperacillin-tazobactam 3.375 GM in sodium chloride 0.9% (plus) 50 ML IV ×2 (18:24→23:52)
[2025-08-21] MEDS: pantoprazole 40 mg SDV IVP (18:25)
[2025-08-21 18:45] LABS: Estmated Average Glucose 134; Hemoglobin A1C 6.3 % (4.0-6.0)
[2025-08-21] MEDS: propofol 1,000 MG/100 ML INJ 26.56 MG IV (20:55)
[2025-08-21 21:04] LABS: ABG PCO2 36.0 mmHg (35-45); ABG PH Result 7.32 (7.35-7.45); Arterial Blood Gas Hematocrit 43.5 % (42-52); Blood Gas Allen Test Pos; Blood Gas Sample Type Arterial; Carboxyhemoglobin 1.0 %THgb (0.4-20.1); Glucose Level-ABG 151.0 mg/dL (70-115); HCO3 ABG 18.4 mmol/L (22-26); Ionized Calcium Level - ABG 1.1 mmol/L (1.1-1.4); Methemoglobin 0.0 % (0.4-1.5); Oxygen Saturation ABG 98.5; PO2 ABG 111.0 mmHg (80.0-100.0); Potassium Level - ABG 3.3 mmol/L (3.5-5.0); Sodium Level - ABG 140.0 mmol/L (131-143)
[2025-08-21 21:05] LABS: Alveolar-Arterial Oxygen Gradi 25.7 mmHg (5-10); Blood Gas Operator Identificat SAM; Blood Gas Sample Site Radial, left; Blood Gas Tidal Volume 0.50; PEEP 8.0 cmH20; PO2 FiO2 Ratio Arterial Blood 222
[2025-08-21] MEDS: chlorhexidine gluconate 4% Btl 118 mL 1 APPLIC TOPICAL (23:24)
[2025-08-21] MEDS: fentaNYL 1,000 MCG/100 ML BAG 12.5 MCG IV (23:45)
[2025-08-22] VITALS (104 sets, daily range): BP systolic 76–132; BP diastolic 36–89; PULSE 64–127; RESP 14–18; TEMP 36.4–37.2; O2SAT 96–99; BMI 37.5
[2025-08-22] MEDS: propofol 1,000 MG/100 ML INJ 26.56 MG IV (00:33)
--- NOTE | 2025-08-22 02:19 | P.MISC_ITS ---
Miscellaneous Note Note: Now at levo@16. Abthera output is serosanguineous. Suspect under resuscitation. Discussed with nurse. Hospitalist guiding resuscitation and recently ordered a bolus of crystalloid. May need stress dose steroids. Will hold off on re- exploration at 0700 until he's resuscitated so that I can construct his small bowel anatomosis off pressors. Discussed with family (daughter - Lou Herrera), unable to reach son via phone. Daughter expressed understanding.
[2025-08-22 02:29] LABS: Hematocrit 40.9 % (37-53); Hemoglobin 13.30 g/dL (11.27-16.99); Mean Corpuscular HGB Conc 32.5 g/dL (30-55); Mean Corpuscular Hemoglobin 34.0 pg (27-33); Mean Corpuscular Volume 104.6 fl (82-101); Nucleated Red Blood Cells % 0 %; Platelet Count 271 10^3/cmm (157-399); Red Blood Count 3.91 10^6/uL (3.85-5.65); White Blood Count 20.35 10^3/uL (3.29-11.43)
--- NOTE | 2025-08-22 02:32 | PC.NURSE ---
Low BP: Patient had multiple low BPs, levophed dose had increased. Dr. Crowder gave telephone orders for 1L NS bolus, CBC, CMP, Lactic, and c reactive protein.
--- NOTE | 2025-08-22 02:35 | PC.NURSE ---
Oral blood: Patient was gargling, this nurse suctioned a fair amount of beto red blood from patient's mouth. Dr. Lakesha lara.
[2025-08-22] MEDS: norepinephrine 4 MG/250 ML BAG 37.5 MG IV ×2 (02:42→08:41)
[2025-08-22 02:51] LABS: Alanine Aminotransferase 23 U/L (0-41); Albumin Level 2.4 g/dL (3.5-5.2); Alkaline Phosphatase 63 U/L (40-130); Anion Gap 15.7 (5-19); Aspartate Amino Transferase 27 U/L (0-40); Blood Urea Nitrogen 16 mg/dL (8-23); Calcium 7.4 mg/dL (8.5-10.5); Carbon Dioxide 18 mmol/L (22-29); Chloride 108 mmol/L (98-107); Creatinine Clr Calc Pharmacy 140.7593; Globulin 3.0 g/dL (1.3-4.6); Glucose 164 mg/dL (65-115); Osmolality Calculated 291 mOsm/kg (285-295); Potassium 3.7 mmol/L (3.5-5.1); Sodium 138 mmol/L (136-145); Total Protein 5.4 g/dL (6.6-8.7)
[2025-08-22 02:55] LABS: Slide Review Slide Review Perform
[2025-08-22 02:56] LABS: Lactic Sepsis W/Reflex 4.3 mmol/L (0.5-2.2)
--- NOTE | 2025-08-22 03:28 | PC.NURSE ---
[facility]: [facility], referral # [id number].
[2025-08-22 04:14] LABS: Reflex Lactate Order REFLEX LACTIC ORDERD
[2025-08-22] MEDS: pantoprazole 40 mg SDV IVP ×2 (04:50→16:46)
[2025-08-22] MEDS: propofol 1,000 MG/100 ML INJ 19.92 MG IV (05:26)
[2025-08-22 05:28] LABS: INR 1.05 (0.8-1.2); Prothrombin Time 14.40 SECONDS (12.1-14.9)
[2025-08-22 05:29] LABS: Partial Thromboplastin Time 30.6 SECONDS (23.9-36.7)
[2025-08-22 05:33] LABS: Lactic Acid level (Lactate) 3.0 mmol/L (0.5-2.2)
[2025-08-22 05:34] LABS: Alanine Aminotransferase 26 U/L (0-41); Albumin Level 2.7 g/dL (3.5-5.2); Alkaline Phosphatase 66 U/L (40-130); Anion Gap 18.2 (5-19); Aspartate Amino Transferase 28 U/L (0-40); Blood Urea Nitrogen 17 mg/dL (8-23); Calcium 7.6 mg/dL (8.5-10.5); Carbon Dioxide 17 mmol/L (22-29); Chloride 108 mmol/L (98-107); Creatinine Clr Calc Pharmacy 86.3916; Globulin 3.1 g/dL (1.3-4.6); Glucose 177 mg/dL (65-115); Osmolality Calculated 294 mOsm/kg (285-295); Potassium 4.2 mmol/L (3.5-5.1); Sodium 139 mmol/L (136-145); Total Protein 5.8 g/dL (6.6-8.7)
[2025-08-22 05:44] LABS: NT Pro B Type Natriuretic Pept 1057 pg/mL (0-125)
--- OUTSIDE RECORDS SUMMARY | 2025-08-22 06:19 | XMS_ITS | Encounter Summary ---
Author Organization [employer] [facility] Address [address] [place] [address] Care Team Providers Care Senior Research Project Manager Name Role Phone Unavailable Primary Care Provider Unavailabl e Encounter Details Date Type Department Care Team (Latest Contact Info) Description 03/03/1999 Outpatient Historical [facility] Martin Whitaker MD [address] [place] [address] Edema (Primary Dx); Pain in limb Social History Tobacco Use Types Packs/Day Years Used Date Smoking Tobacco: Never Assessed Sex and Gender Information Value Date Recorded Sex Assigned at Not on file 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
--- OUTSIDE RECORDS SUMMARY | 2025-08-22 06:19 | XMS_ITS | Encounter Summary ---
Author Organization [email or web address] [facility] Address [address] [place] [address] Care Team Providers Care Prevocational/Rehabilitation Counselor Name Role Phone Unavailable Primary Care Provider Unavailabl e Encounter Details Date Type Department Care Team (Latest Contact Info) Description 09/07/1999 Outpatient Historical [facility] Martin Whitaker MD [address] [place] [address] Lumbago (Primary Dx); Mononeuritis of unspecified site Social History Tobacco Use Types Packs/Day Years Used Date Smoking Tobacco: Never Assessed Sex and Gender Information Value Date Recorded Sex Assigned at Not on file 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
--- OUTSIDE RECORDS SUMMARY | 2025-08-22 06:19 | XMS_ITS | Patient Health Record ---
Author Organization [facility] Address [address] [place], [place] [id number] Care Team Providers Care Superintendent Automotive Name Role Phone Gurdeep Leblanc MD Primary Care Provider Unav ailable NimaAriel Unavailable [phone] Keep the, Beat Unavailable Unavailable ALLERGIES No [...] CT (obstructive sleep apnea) (G47.33) Active confirmed 61849064 Problem Mixed hyperlipidemia (E78.2) Active confirmed 226296862 Problem Bilateral leg edema (R60.0) Active confirmed 839969079 Problem H/O deep venous thrombosis (Z86.718) Active confirmed 928923999 1990s LLE Problem Morbid obesity (E66.01) Active confirmed 971029096 Problem Mild concentric left ventricular hypertrophy (LVH) (I51.7) Active confirmed Cardiomegaly (3279028) Problem Anginal equivalent (I20.8) Active confirmed 471116105 Problem Agatston CAC score, >400 (R93.1) Active confirmed 664810652 Problem Impaired left ventricular relaxation (I51.9) Active confirmed Heart disease (43903101) Problem Type 2 diabetes mellitus without complication, without long-term current use of insulin (E11.9) Active confirmed 865756106 Problem Dyspnea on exertion (R06.00) Active confirmed 37576849 Problem Body mass index [BMI] 40.0-44.9, adult (Z68.41) Active confirmed 420947572 Problem Primary osteoarthritis involving multiple joints (M15.9) Active confirmed 774812024 PLAN OF TREATMENT Pending Test Test Name [...] Part B [address] [place] [phone] [id number] Kenneth Scott Self - patient is the insured [employer] [address] [place] [address] [id number] Kenneth Scott Self - patient is the [...]
--- OUTSIDE RECORDS SUMMARY | 2025-08-22 06:19 | XMS_ITS | Encounter Summary ---
Author Organization [email or web address] [facility] Address [address] [place] [address] Care Team Providers Care Warp Tier Name Role Phone Unavailable Primary Care Provider Unavailabl e Encounter Details Date Type Department Care Team (Latest Contact Info) Description 05/08/1999 Outpatient Historical [facility] Jose Angel Martinez, Ermias Peñaloza MD [address] [place] [address] Calcaneal spur (Primary Dx); Obesity, unspecified Social History Tobacco Use Types Packs/Day Years Used Date Smoking Tobacco: Never Assessed Sex and Gender Information Value Date Recorded Sex Assigned at Not on file 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
--- OUTSIDE RECORDS SUMMARY | 2025-08-22 06:19 | XMS_ITS | Encounter Summary ---
Author Organization [email or web address] [facility] Address [address] [place] [address] Care Team Providers Care Traveling Inventory Associate Name Role Phone Unavailable Primary Care Provider Unavailabl e Encounter Details Date Type Department Care Team (Latest Contact Info) Description 04/08/1999 Outpatient Historical [facility] Jose Angel Martinez, Ermias Peñaloza MD [facility] [place] [address] Peripheral vascular disease, unspecified (Primary Dx); Calcaneal spur; Osteoarthrosis, unspecified whether generalized or localized, unspecified site; Obesity, unspecified Social History Tobacco Use Types Packs/Day Years Used Date Smoking Tobacco: Never Assessed Sex and Gender Information Value Date Recorded Sex Assigned at Not on file 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
--- OUTSIDE RECORDS SUMMARY | 2025-08-22 06:19 | XMS_ITS | Encounter Summary ---
Author Organization [employer] [facility] Address [address] [place] [address] Care Team Providers Care Cloth Mender Name Role Phone Unavailable Primary Care Provider Unavailabl e Encounter Details Date Type Department Care Team (Latest Contact Info) Description 01/05/2000 Outpatient Historical [facility] Martin Whitaker MD [address] [place] [address] Enthesopathy of unspecified site (Primary Dx) Social History Tobacco Use Types Packs/Day Years Used Date Smoking Tobacco: Never Assessed Sex and Gender Information Value Date Recorded Sex Assigned at Not on file 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
--- OUTSIDE RECORDS SUMMARY | 2025-08-22 06:19 | XMS_ITS | Clinical Summary ---
Author Organization [facility] [facility] Address [address] Magaña: Epic Prelude ADT LYNN GARRETT [address] Care Team Providers Care Pharmacy Tech Name Role Phone Unavailable Primary Care Provider Unavailabl e Social History Tobacco Use Types Packs/Day Years Used Date Smoking Tobacco: Never Assessed Sex and Gender Information Value Date Recorded Sex Assigned at Not on file Legal Sex Male 6:26 AM DISPATCH SPECIALIST Gender Identity Not on file Sexual [...]
--- OUTSIDE RECORDS SUMMARY | 2025-08-22 06:19 | XMS_ITS | Encounter Summary ---
Author Organization [employer] [facility] Address [address] [place] [address] Care Team Providers Care Customer Service And Sales Consultant Name Role Phone Unavailable Primary Care Provider Unavailabl e Encounter Details Date Type Department Care Team (Latest Contact Info) Description 02/09/1999 Outpatient Historical [facility] Martin Whitaker MD [address] [place] [address] Pain in limb (Primary Dx); Arthropathy, unspecified, site unspecified Social History Tobacco Use Types Packs/Day Years Used Date Smoking Tobacco: Never Assessed Sex and Gender Information Value Date Recorded Sex Assigned at Not on file 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
--- OUTSIDE RECORDS SUMMARY | 2025-08-22 06:19 | XMS_ITS | Encounter Summary ---
Author Organization [employer] [facility] Address [address] [place] [address] Care Team Providers Care Bi Tri Operator Name Role Phone Unavailable Primary Care Provider Unavailabl e Encounter Details Date Type Department Care Team (Latest Contact Info) Description 09/09/1999 Outpatient Historical [facility] Jose Angel Martinez, Ermias Peñaloza MD [address] [place] [phone] Lumbago (Primary Dx) Social History Tobacco Use Types Packs/Day Years Used Date Smoking Tobacco: Never Assessed Sex and Gender Information Value Date Recorded Sex Assigned at Not on file 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
--- OUTSIDE RECORDS SUMMARY | 2025-08-22 06:19 | XMS_ITS | Encounter Summary ---
Author Organization [email or web address] [facility] Address [address] [place] [address] Care Team Providers Care Mat Cleaning Machine Operator Name Role Phone Unavailable Primary Care Provider Unavailabl e Encounter Details Date Type Department Care Team (Latest Contact Info) Description 09/10/1999 Outpatient Historical [facility] Jose Angel Martniez, Ermias Peñaloza MD [address] [place] [phone] Backache, unspecified (Primary Dx) Social History Tobacco Use Types Packs/Day Years Used Date Smoking Tobacco: Never Assessed Sex and Gender Information Value Date Recorded Sex Assigned at Not on file Legal Sex Male 6:26 AM VP PATIENT Gender Identity Not on file Sexual Orientation Not on file documented as of this encounter Plan of Treatment Not on file documented as of this encounter Visit Diagnoses Diagnosis Backache, unspecified- Primary documented in this encounter
[2025-08-22] MEDS: fentaNYL 1,000 MCG/100 ML BAG 12.5 MCG IV ×3 (06:31→22:09)
[2025-08-22] MEDS: piperacillin-tazobactam 3.375 GM in sodium chloride 0.9% (plus) 50 ML IV ×2 (07:49→16:46)
[2025-08-22] MEDS: hydrocortisone 100 mg/2 mL SDV IVP (08:17)
[2025-08-22] MEDS: chlorhexidine gluconate 4% Btl 118 mL 1 APPLIC TOPICAL (08:19)
[2025-08-22 09:13] LABS: ABG PCO2 33.1 mmHg (35-45); ABG PH Result 7.33 (7.35-7.45); Alveolar-Arterial Oxygen Gradi 19.1 mmHg (5-10); Arterial Blood Gas Hematocrit 41.5 % (42-52); Blood Gas Operator Identificat CAK; Blood Gas Sample Site ALINE; Blood Gas Sample Type Arterial; Blood Gas Tidal Volume 0.50; Carboxyhemoglobin 0.9 %THgb (0.4-20.1); Glucose Level-ABG 189.0 mg/dL (70-115); HCO3 ABG 17.3 mmol/L (22-26); Ionized Calcium Level - ABG 1.0 mmol/L (1.1-1.4); Methemoglobin 1.1 % (0.4-1.5); Oxygen Saturation ABG > 99.1; PEEP 8.0 cmH20; PO2 ABG 164.0 mmHg (80.0-100.0); PO2 FiO2 Ratio Arterial Blood 328; Potassium Level - ABG 4.2 mmol/L (3.5-5.0); Sodium Level - ABG 138.0 mmol/L (131-143)
--- NOTE | 2025-08-22 09:28 | XR_ITS ---
WS: [id number] Exam: XR chest 1V portable [id number] Date/Time of Exam: 08/22/2025 9:41 AM Reason For Exam: post picc insertion Comparison 08/21/2025. Right-sided PICC line appears to and in the lower one third of the SVC in satisfactory position. Mild plaque atelectasis in the LEFT base. The lungs are otherwise clear. ET tube ends about 5 cm above the jacek in good position. An enteric tube is looped in the body of the stomach. Heart size within normal limits. Bony structures are intact. XR/XR chest 1V portable [id number] IMPRESSION: 1. Right-sided PICC line ending in the lower one third of the SVC. ET tube and enteric tube both in satisfactory position. 2. Plaque atelectasis in the LEFT base. No acute process noted.
[2025-08-22] MEDS: propofol 1,000 MG/100 ML INJ 23.24 MG IV ×4 (09:44→22:09)
--- NOTE | 2025-08-22 10:19 | PICC.NOTE ---
Triple lumen PICC placed to right basilic vein. Referred to vascular access nurse for PICC placement due to multiple IV meds and vasopressors. Risks and benefits discussed and informed consent obtained from pt son, Dennis, at bedside. Right arm assessed with right basilic vein measuring 5.2 mm, straight, and apparent best choice for placement. Using sterile technique and MST, right basilic vein accessed x 1 stick. Mid-arm circumference measured 10 cm from right AC 36 cm. Trimmed cath 43 cm with 0 cm external length noted. CXR shows tip in distal third of SVC, in good position for use per radiologist. Line secured with stat-lock. Insertion site covered with Biopatch and TSM. Report given to bedside nurse, YUMIKO Moctezuma.
--- NOTE | 2025-08-22 10:23 | USCV_ITS ---
Kenneth Scott Age: 75 Gender: M : 1950 Exam Date: 08/22/2025 15:32 Ordering Phys: Jose Laureano MD Technologist: Exam Location: [facility] [place] Indication: SoB BP: 94 / 51 HR: 83 Rhythm: Sinus Technical Quality: Adequate MEASUREMENTS (Male / Female) Normal Values 2D ECHO LV Diastolic Diameter PLAX 3.7 cm 4.2 - 5.9 / 3.9 - 5.3 cm IVS Diastolic Thickness 1.2 cm 0.6 - 1.0 / 0.6 - 0.9 cm IVS Systolic Thickness 2.0 cm LVPW Diastolic Thickness 1.1 cm 0.6 - 1.0 / 0.6 - 0.9 cm LVPW Systolic Thickness 1.1 cm LVOT Diameter 2.0 cm LV Ejection Fraction 2D Teich 66.0 % LV Ejection Fraction MOD 4C 69.0 % LV Ejection Fraction MOD 2C 72.6 % LV Ejection Fraction 2C AL 73.4 % LA Diameter 3.5 cm RA Systolic Volume 4C AL 60.3 ml RA Systolic Volume 4C MOD 57.3 ml LA Sys Volume AL 66.6 cm cubed LA Sys Volume Index AL 27.5 cm cubed/m squared Aorta at Sinotubular Diameter 3.0 cm M-MODE LA Ao Ratio MM 1.5 AV Cusp Separation MM 1.5 cm DOPPLER AV Peak Velocity 251.3 cm/s LVOT Peak Velocity 94.0 cm/s AV Area Cont Eq vti 1.3 cm squared AV Area Cont Eq pk 1.2 cm squared MV Peak Velocity 94.0 cm/s MV Area PHT 5.8 cm squared Mitral E to A Ratio 0.8 TR Peak Velocity 128.0 cm/s TR Peak Gradient 6.6 mmHg TV Peak E Velocity 84.0 cm/s PV Peak Velocity 117.0 cm/s FINDINGS Left Ventricle Normal left ventricular cavity size. Normal left ventricular systolic function. Left ventricular ejection fraction is 65%. Mild left ventricular hypertrophy. Grade I/IV diastolic dysfunction (abnormal relaxation filling pattern), normal to mildly elevated filling pressures. Right Ventricle Normal right ventricular size and systolic function. RVSP could not be calculated due to incomplete tricuspid regurgitation velocity profile. Right Atrium Normal right atrial size. Left Atrium Normal left atrial size. Mitral Valve No mitral valve stenosis. No mitral valve regurgitation. Aortic Valve Aortic valve not well visualized. Aortic valve calcification. Moderate aortic valve stenosis with a LVOT/AV velocity ratio of 0.37 and an AV max velocity of 2.4 m/s. No aortic valve regurgitation. Tricuspid Valve Trace tricuspid valve regurgitation. Pulmonic Valve No pulmonary valve stenosis. No pulmonary valve regurgitation. Pericardium No pericardial effusion. Aorta Normal size aortic root and proximal ascending aorta. IVC Inferior vena cava not visualized. CONCLUSIONS 1. Normal LV systolic cavity size and systolic function. EF 65%. 2. Mild concentric left ventricualr hypertrophy. 3. Moderate aortic valve stenosis. Brodie Harris MD, FACC (Electronically Signed) Final Date: 22 August 2025 19:55 S
--- NOTE | 2025-08-22 10:29 | ECG_ITS ---
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
--- NOTE | 2025-08-22 10:32 | PHA.VACGOAL ---
Vancomycin Goal - Goal Vancomycin Goal:: 15-20 mg/L Vancomycin Indication:: Other - Therapy Current therapy:: Pip/Tazo Day of therpy:: Day []of [] . Actual body weight (kg): 247 lb 1.6 oz - Data Labs: WBC 20.35 10^3/uL (3.29-11.43) H 08/22/25 02:08 RBC 3.91 10^6/uL (3.85-5.65) 08/22/25 02:08 Hgb 13.30 g/dL (11.27-16.99) 08/22/25 02:08 Hct 40.9 % (37-53) 08/22/25 02:08 MCV 104.6 fl (82-101) H 08/22/25 02:08 MCH 34.0 pg (27-33) H 08/22/25 02:08 MCHC 32.5 g/dL (30-55) 08/22/25 02:08 RDW 20.6 % (12.1-15.1) H 08/22/25 02:08 Sodium 139 mmol/L (136-145) 08/22/25 04:54 Potassium 4.2 mmol/L (3.5-5.1) 08/22/25 04:54 Chloride 108 mmol/L (98-107) H 08/22/25 04:54 Carbon Dioxide 17 mmol/L (22-29) L 08/22/25 04:54 Anion Gap 18.2 (5-19) 08/22/25 04:54 BUN 17 mg/dL (8-23) 08/22/25 04:54 Creatinine 0.9 mg/dL (0.7-1.2) 08/22/25 04:54 GFR Calculation Not Reportable 08/22/25 04:54 Last dialysis session:: N/A Treatment plan:: new consult Regimen:: LOADING DOSE OF 3000 MG X 1 PER DOSING PROTOCOL MAINTENANCE DOSE OF 1750 MG Q12H Follow up:: WILL CONTINUE TO MONITOR AND FOLLOW UP DAILY
[2025-08-22] MEDS: vasopressin 40 UNIT/100 ML PREMIX IV (10:41)
[2025-08-22] MEDS: albumin 25 G/100 ML BAG 60 G IV ×2 (10:44→17:48)
[2025-08-22 11:17] LABS: Alanine Aminotransferase 25 U/L (0-41); Albumin Level 2.6 g/dL (3.5-5.2); Alkaline Phosphatase 61 U/L (40-130); Anion Gap 22.3 (5-19); Aspartate Amino Transferase 24 U/L (0-40); Blood Urea Nitrogen 17 mg/dL (8-23); Calcium 7.3 mg/dL (8.5-10.5); Carbon Dioxide 16 mmol/L (22-29); Chloride 109 mmol/L (98-107); Creatinine Clr Calc Pharmacy 78.7171; Globulin 3.3 g/dL (1.3-4.6); Glucose 189 mg/dL (65-115); Osmolality Calculated 303 mOsm/kg (285-295); Potassium 4.3 mmol/L (3.5-5.1); Sodium 143 mmol/L (136-145); Total Protein 5.9 g/dL (6.6-8.7)
[2025-08-22 11:18] LABS: Troponin(5th) Baseline 16 ng/L (0-15)
--- NOTE | 2025-08-22 12:24 | ECG_ITS ---
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
--- NOTE | 2025-08-22 12:54 | P.PN_ITS ---
Subjective 2 Subjective: Levo at 10 ABThera output serosanguineous Patient sedated intubated BNP 1000 Urine output 0.1 cc per kg per hour Vitals/I&O/Wt Last Vital Signs Temp 98.8 F 08/22/25 08:00 Pulse 122 H 08/22/25 11:15 Resp 14 08/22/25 11:34 BP 97/73 08/22/25 11:15 Pulse Ox 99 08/22/25 11:34 O2 Del Method Mechanical Ventilation 08/22/25 08:00 FiO2 40 08/22/25 11:34 08/21/25 08/22/25 08/22/25 22:59 06:59 14:59 Intake Total 716.583 / 569.482 9383.667 / 2608.250 823.975 / 823.975 Output Total 660 / 660 500 / 1160 Balance 56.583 / 799.367 1511.667 / 1448.250 823.975 / 823.975 Weight last 48 hrs Weight 247 lb 1.6 oz Weight 241 lb 4.8 oz Weight 535 lb 8.045 oz Weight 244 lb Physical Exam 2 Narrative: Chest: On vent, sedated Heart: Regular rate and rhythm. Levo at 10 Abdomen: Soft, ABThera serosanguineous Urinary Catheter Management: Mast Latex: Cath Placed During This Visit: yes Reason for Continuing Indwelling Catheter: Accurate Measurement of Urinary Output in Critically Ill Patients Urinary Catheter Date of Insertion: 08/21/25 Urinary Catheter Time of Insertion: 13:05 Data 08/22/25 02:08 08/22/25 10:48 A&P Assessment and plan 1. Internal hernia: 2. Small bowel obstruction due to adhesions: Plan: 75-year-old male who was taken emergently to the OR yesterday for closed- loop SBO. Required resection of a loop of bowel that was perforated. Left in discontinuity given extensive lysis of adhesions and edematous bowel. Close temporary with an ABThera. Initially patient was hemodynamically stable but has required Levophed overnight. Levophed requirements slightly down this morning. ABThera output serosanguineous, not bilious. Noted leukocytosis which is expected given extensive lysis of adhesions performed yesterday. Noted BNP 1000. Low urine output. Suspect pressor requirement is due to under resuscitation. However, discussed with hospitalist the need for a cardiac workup including an echo given his high BNP and pressor requirement. Started stress dose steroids. Will hold off on exploration today to allow for resuscitation and plan for reexploration and small bowel anastomosis when on minimal vasopressor support. Had an extensive discussion with the son and family and explained that he is in critical condition. They understand that his prognosis is guarded and that he has had risk of rapid decompensation. I answered all of their questions. Appreciate ICU care by hospitalist. PDMP PDMP Reviewed: Not Reviewed Attestations 2 Medical Necessity Statement*: N/A Coding Level of Care Code 78368 Diagnoses Internal hernia K45.8 Small bowel obstruction due to adhesions K56.50
[2025-08-22] MEDS: norepinephrine 4 MG/250 ML BAG 60 MG IV (12:55)
[2025-08-22 12:57] LABS: Troponin 5 2HR 8.66 ng/L (0-15)
[2025-08-22 13:08] LABS: Troponin 5 2HR Delta -7.34 ABS# (0-10)
--- NOTE | 2025-08-22 13:11 | PC.NURSE ---
While off the floor for mandatory training [id number], YUMIKO Zarate in charge of care of this patient.
--- NOTE | 2025-08-22 15:18 | P.PN_ITS ---
Subjective 2 Subjective: - Patient was examined multiple times th roughout the morning into the afternoon - Early in the morning he was seen - Currently intubated, sedated on mechan ical ventilation - Overnight he received fluid therapy, r equired Levophed, currently on 10 of Levophed - Afebrile, currently MAP around 65, uri ne output 350 -Intubated, on 50% FiO2 - Patient's daughters at bedside - Discussed with daughter patient's curr ent septic shock, acute hypoxic respiratory failure, ELIAS, - Discussed support, PICC line placement , continue pressors, continued sedation, - Discussed case with general surgery, p lester on keeping patient sedated, potentially takeback to the OR tomorrow - PICC line placed - Examined throughout the afternoon, - Reexamined this afternoon, currently o n 20 of Levophed, on vasopressin, 50% FiO2, PICC line in place, urine output is about 300 cc, ABThera output serosanguineous, no family present bedside Vitals/I&O/Wt Last Vital Signs Temp 98.9 F 08/22/25 13:37 Pulse 81 08/22/25 14:27 Resp 15 08/22/25 15:12 BP 98/66 08/22/25 13:00 Pulse Ox 97 08/22/25 15:12 O2 Del Method Mechanical Ventilation 08/22/25 13:00 FiO2 35 08/22/25 15:12 08/22/25 08/22/25 08/22/25 06:59 14:59 22:59 Intake Total 1791.667 / 2608.250 1902.048 / 1902.048 85.5 / 1986.548 Output Total 500 / 1160 100 / 100 Balance 1291.667 / 1399.513 1661.048 / 1802.048 85.5 / 1887.548 Weight last 48 hrs Weight 112.083 kg Weight 109.452 kg Weight 242.9 kg Weight 110.677 kg Physical Exam 2 Const: COMMON NORMALS: no acute distress Eye: OTHER: Pupils pinpoint, minimally reactive to light Neck/C-Spine: OTHER: No JVD distention, Resp: COMMON NORMALS: normal respiratory effort, No retractions, No use of accessory muscles and clear to auscultation bilaterally AUSCULTATION: clear to auscultation bilaterally Cardio: COMMON NORMALS: regular rate, regular rhythm, S1 normal heart sound present and S2 normal heart sound present RATE: regular rate RHYTHM: r egular rhythm HEART SOUNDS: S1 normal heart sound present and S2 normal heart sound present GI: OTHER: Abdomen soft, slightly distended, no guarding, no rebound, no rigidity, diminished bowel sounds in all 4 quadrants, ABThera in place Extremity: COMMON NORMALS: no pedal edema Urinary Catheter Management: Mast Latex: Cath Placed During This Visit: yes Reason for Continuing Indwelling Catheter: Accurate Measurement of Urinary Output in Critically Ill Patients Urinary Catheter Date of Insertion: 08/21/25 Urinary Catheter Time of Insertion: 13:05 Data 08/22/25 02:08 08/22/25 10:48 A&P Assessment and plan 1. Internal hernia: 2. Acute hypoxic respiratory failure: 3. Diabetes: 4. Sepsis: 5. Small bowel obstruction due to adhesions: 6. On mechanically assisted ventilation: 7. Ledesma Agitation Sedation Scale (RASS) score minus 4, deep sedation: 8. Metabolic acidosis: 9. Septic shock: 10. Acute kidney injury: 11. Hypoalbuminemia: Plan: Acute hypoxic respiratory failure Plan - Currently intubated, sedated, RASS -4, on mechanical ventilation - Propofol for sedation - Fentanyl for pain - Precedex for sedation -DuoNeb as needed - Protonix for GI prophylaxis - Lovenox for DVT prophylaxis - PICC line in place - Arterial line in place Septic shock - PICC line in place -Arterial line in place -Levophed -Vasopressin - Albumin therapy -Stress dose steroids, history of chronic steroid use - Keep MAP greater than 65 - Blood cultures - Sputum cultures - Vancomycin - Zosyn NSTEMI - Serial EKGs, serial troponins, telemetry monitoring - Type I versus type II - Cardiac echo Metabolic acidosis - Likely sec to septic shock, lactic acidosis, renal failure - Bicarb drip Acute kidney injury - Secondary to sepsis, septic shock - Monitor urine output, monitor creatinine - Bicarbonate drip Closed-loop small bowel obstruction due to ventral hernia CT/CT abdomen pelvis wo con [id number] IMPRESSION: 1. Prior RIGHT hemicolectomy with anastomosis. Anastomosis appears patent involving the transverse colon. 2. Dilated loops of fluid distended small bowel with swirling in the mesentery with mesenteric congestion and reactive lymph nodes in the mid abdomen and LEFT lower quadrant. Segmental areas of collapsed small bowel, see bookmarked images suspicious for internal hernia or adhesions with partial small bowel obstruction. 3. Residual colon is normal in appearance. 4. Prior cholecystectomy with pneumobilia. 5. Small amount of free fluid in the cul-de-sac -Patient's status post exploratory laparotomy, extensive lysis of adhesions, reduction internal hernia, small bowel resection, temporary closure with ABThera Plan - Serial abdominal exam - ABThera in place - Keep patient on deep sedation, RASS -4 - Continue IV Zosyn Type 2 diabetes mellitus, low-dose sliding scale Full code SCDs for DVT prophylaxis Status critical Prognosis guarded PDMP PDMP Reviewed: Not Reviewed Attestations 2 Medical Necessity Statement*: Patient requires hospitalization, inpatient, greater than 2 midnights, for septic shock, acute hypoxic respiratory failure, closed-loop small bowel obstruction, metabolic acidosis, lactic acidosis Coding Level of Care Code Critical Care >/= 30 minutes Critical care time (in minutes): 60 The high probability of a clinically significant, sudden or life threatening deterioration, as referenced in this documentation, required my full and direct attention, intervention and personal management. The critical care time shown is in addition to time spent performing any reported separately billable procedures and includes the following: [x] Data and vital sign review and interpretation [x ] Patient assessment, examination and intervention [x] Medication orders and management [x] Patient/Family updates as able [x] Care Coordination and Documentation. Diagnoses Internal hernia K45.8 Acute hypoxic respiratory failure J96.01 Diabetes E11.9 Sepsis A41.9 Small bowel obstruction due to adhesions K56.50 On mechanically assisted ventilation Z99.11 Ledesma Agitation Sedation Scale (RASS) score minus 4, deep sedation Z78.9 Metabolic acidosis E87.20 Septic shock A41.9; R65.21 Acute kidney injury N17.9 Hypoalbuminemia E88.09 Sepsis Event Note Evaluation Current stage of sepsis: septic shock Initial hypotension due to sepsis/infection: SBP < 90 mmHg and MAP < 65 mmHg Persistent hypotension due to sepsis/infection: SBP < 90 mmHg and MAP < 65 mmHg Possible source: GI tract/intra-abdominal Focused Exam Vital Signs Temp Pulse Resp BP Pulse Ox O2 Del Method FiO2 08/22/25 15:12 15 97 35 08/22/25 14:27 81 08/22/25 13:37 98.9 F 08/22/25 13:20 16 98 40 08/22/25 13:00 113 H 98/66 97 Mechanical Ventilation 08/22/25 12:45 114 H 104/80 98 Mechanical Ventilation 08/22/25 12:30 112 H 91/67 98 Mechanical Ventilation 08/22/25 12:15 114 H 96/70 97 Mechanical Ventilation 08/22/25 12:00 117 H 97/71 97 Mechanical Ventilation 08/22/25 11:45 120 H 98/74 97 Mechanical Ventilation 08/22/25 11:34 14 99 40 08/22/25 11:30 120 H 94/75 97 Mechanical Ventilation 08/22/25 11:15 122 H 97/73 97 08/22/25 11:00 123 H 93/73 96 08/22/25 10:45 126 H 79/64 96 08/22/25 10:30 127 H 96/78 96 08/22/25 10:15 115 H 78/63 96 08/22/25 10:00 92 99/60 97 08/22/25 09:45 93 84/63 97 08/22/25 09:34 18 97 40 08/22/25 09:30 93 84/61 97 08/22/25 09:15 93 96/62 98 08/22/25 09:00 92 90/61 98 08/22/25 08:45 93 103/64 98 08/22/25 08:33 50 08/22/25 08:30 93 84/63 98 08/22/25 08:15 92 103/66 98 08/22/25 08:00 98.8 F 92 88/65 98 Mechanical Ventilation 50 08/22/25 07:45 91 89/65 98 Mechanical Ventilation 50 08/22/25 07:30 90 99/66 98 Mechanical Ventilation 50 08/22/25 07:15 92 95/64 98 Mechanical Ventilation 50 08/22/25 07:08 18 98 50 08/22/25 07:00 90 99/66 98 Mechanical Ventilation 50 08/22/25 06:45 90 91/66 98 Mechanical Ventilation 50 08/22/25 06:20 90 08/22/25 05:30 98.5 F 90 84/60 97 Mechanical Ventilation 50 08/22/25 05:15 90 81/59 97 Mechanical Ventilation 50 08/22/25 05:00 91 90/64 97 Mechanical Ventilation 50 08/22/25 04:45 88 94/65 Mechanical Ventilation 50 08/22/25 04:30 87 98/62 98 Mechanical Ventilation 50 08/22/25 04:15 89 94/60 98 Mechanical Ventilation 50 08/22/25 04:08 16 97 50 08/22/25 04:00 88 100/58 98 Mechanical Ventilation 50 08/22/25 03:45 88 102/64 98 Mechanical Ventilation 50 08/22/25 03:30 88 106/67 98 Mechanical Ventilation 50 Capillary refill: < 3 Seconds Peripheral pulse strength: 1+ Faint Peripheral pulse location: Radial Skin exam: flushed and pale Date exam was performed: 08/22/25 Time exam was performed: 15:24 Problem List 1. Internal hernia: Status: Acute 2. Small bowel obstruction due to adhesions: Status: Acute 3. Metabolic acidosis: Status: Acute 4. Septic shock: Status: Acute 5. Acute kidney injury: Status: Acute 6. Hypoalbuminemia: Status: Acute
--- NOTE | 2025-08-22 16:00 | PM.MISC ---
Miscellaneous Note Note: Updated family on rising vasopressor requirements. Now on Levophed at 18 and vasopressin. Concern for NSTEMI. Hospitalist guiding workup and resuscitation. At this point we will plan on a second look on 08/23/2025 to run the bowel again, however, suspect decompensation is medical in nature.
[2025-08-22] MEDS: norepinephrine 4 MG/250 ML BAG 67.5 MG IV (16:12)
--- NOTE | 2025-08-22 16:23 | ECG_ITS ---
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1950 Requested By: Jose Laureano Order Number: [id number] Genevieve MD: SASHA MARLOW Measurements Intervals [place] Rate: 85 P: 7 NC: 263 QRS: 64 QRSD: 133 T: 4 QT: 389 QTc: 463 Interpretive Statements SINUS RHYTHM WITH FIRST DEGREE AV BLOCK RIGHT BUNDLE BRANCH BLOCK [120+ ms QRS DURATION, UPRIGHT V1, 40+ ms S IN I/aVL/V4/V5/V6] Compared to ECG 08/22/2025 12:41:21 First degree AV block now present Junctional tachycardia no longer present Electronically Signed On 08-24-2025 21:41:42 CDT by SASHA MARLOW [email or web address] [id number]
[2025-08-22] MEDS: hydrocortisone 100 mg/2 mL SDV 50 MG IVP (17:20)
--- NOTE | 2025-08-22 18:18 | PC.NURSE ---
Shift note: Patients blood pressure fluctuated throughout shift. See MAR for titration of levo and vaso for pressure support. Urine output 350ml. NG 100ml. Wound vac 250ml. Difficulty with lab work, hemolysis of samples. PICC line placed today, does draw, however also hemolysis occurs. Son and daughter at bedside provided with updates throughout shift. Patient is diaphoretic. No fever, BG as documented. Turning Q2 HR as tolerated. Dr. Laureano to bedside several times through shift.
[2025-08-22 18:27] LABS: Troponin 5 6HR 13.12 ng/L (0-15)
[2025-08-22 18:28] LABS: Troponin 5 6HR Delta -2.88 ng/L (0-12)
[2025-08-22 18:45] LABS: Hematocrit 35.2 % (37-53); Hemoglobin 11.30 g/dL (11.27-16.99); Mean Corpuscular HGB Conc 32.1 g/dL (30-55); Mean Corpuscular Hemoglobin 34.0 pg (27-33); Mean Corpuscular Volume 106.0 fl (82-101); Platelet Count 275 10^3/cmm (157-399); Red Blood Count 3.32 10^6/uL (3.85-5.65)
[2025-08-22 18:55] LABS: INR 1.32 (0.8-1.2); Prothrombin Time 17.30 SECONDS (12.1-14.9)
[2025-08-22 19:07] LABS: White Blood Count 30.42 10^3/uL (3.29-11.43)
[2025-08-22 19:16] LABS: Slide Review Slide Review Perform
[2025-08-22 19:17] LABS: Absolute Segmented Neutrophil 12.5 10/cmm (1.6-7.1); Atypical Lymphs 1.0 % (0-5); Band Neutrophils Absolute 14.6 10^3/cmm (0.0-1.2); Total Cells Counted 100 (0-100)
[2025-08-22 19:18] LABS: Anisocytosis 2+; Macrocytosis 2+
[2025-08-22 19:47] LABS: Blood Urea Nitrogen 16 mg/dL (8-23); Calcium 7.1 mg/dL (8.5-10.5); Carbon Dioxide 14 mmol/L (22-29); Chloride 106 mmol/L (98-107); Creatinine Clr Calc Pharmacy 98.3964; Glucose 198 mg/dL (65-115); Osmolality Calculated 289 mOsm/kg (285-295); Sodium 136 mmol/L (136-145)
[2025-08-22 19:49] LABS: Anion Gap 20.1 (5-19); Potassium 4.1 mmol/L (3.5-5.1)
[2025-08-22] MEDS: norepinephrine 4 MG/250 ML BAG 52.5 MG IV (19:52)
[2025-08-22] MEDS: vancomycin 1,750 MG/350 ML PIGGYBACK 175 MG IV (22:09)
[2025-08-22 23:22] LABS: Hematocrit 27.8 % (37-53); Hemoglobin 9.20 g/dL (11.27-16.99)
[2025-08-23] VITALS (89 sets, daily range): BP systolic 65–157; BP diastolic 37–75; PULSE 52–95; RESP 14–15; TEMP 36.4–36.7; O2SAT 92–99
[2025-08-23] MEDS: piperacillin-tazobactam 3.375 GM in sodium chloride 0.9% (plus) 50 ML IV ×3 (01:26→16:20)
[2025-08-23] MEDS: norepinephrine 4 MG/250 ML BAG 56.25 MG IV (01:27)
[2025-08-23] MEDS: albumin 25 G/100 ML BAG 60 G IV ×3 (01:42→18:15)
[2025-08-23] MEDS: propofol 1,000 MG/100 ML INJ 23.24 MG IV (02:54)
[2025-08-23 04:04] LABS: Hematocrit 27.1 % (37-53); Hemoglobin 9.10 g/dL (11.27-16.99); Mean Corpuscular HGB Conc 33.6 g/dL (30-55); Mean Corpuscular Hemoglobin 35.1 pg (27-33); Mean Corpuscular Volume 104.6 fl (82-101); Nucleated Red Blood Cells % 0 %; Platelet Count 171 10^3/cmm (157-399); Red Blood Count 2.59 10^6/uL (3.85-5.65); White Blood Count 22.35 10^3/uL (3.29-11.43)
[2025-08-23 04:19] LABS: INR 1.38 (0.8-1.2); Prothrombin Time 17.90 SECONDS (12.1-14.9)
[2025-08-23 04:20] LABS: Partial Thromboplastin Time 36.6 SECONDS (23.9-36.7)
[2025-08-23 04:29] LABS: Albumin Level 2.6 g/dL (3.5-5.2); Alkaline Phosphatase 45 U/L (40-130); Blood Urea Nitrogen 13 mg/dL (8-23); Calcium 6.3 mg/dL (8.5-10.5); Carbon Dioxide 19 mmol/L (22-29); Chloride 108 mmol/L (98-107); Creatinine Clr Calc Pharmacy 98.3964; Globulin 1.6 g/dL (1.3-4.6); Glucose 219 mg/dL (65-115); Osmolality Calculated 295 mOsm/kg (285-295); Sodium 139 mmol/L (136-145); Total Protein 4.2 g/dL (6.6-8.7)
[2025-08-23 04:31] LABS: Lactate (Lactic Acid level) 1.9 mmol/L (0.5-2.2)
[2025-08-23 04:32] LABS: Procalcitonin 11.62 ng/mL (0-0.5)
[2025-08-23 04:42] LABS: Alanine Aminotransferase < 5 U/L (0-41); Aspartate Amino Transferase 5 U/L (0-40)
[2025-08-23 04:45] LABS: Anion Gap 15.7 (5-19); Potassium 3.7 mmol/L (3.5-5.1)
[2025-08-23 04:48] LABS: Slide Review Slide Review Perform
[2025-08-23] MEDS: norepinephrine 4 MG/250 ML BAG 60 MG IV (05:23)
[2025-08-23] MEDS: pantoprazole 40 mg SDV IVP ×2 (05:23→16:30)
[2025-08-23] MEDS: hydrocortisone 100 mg/2 mL SDV 50 MG IVP ×2 (05:24→11:08)
[2025-08-23 06:24] LABS: ABG PCO2 35.3 mmHg (35-45); ABG PH Result 7.39 (7.35-7.45); Arterial Blood Gas Hematocrit 36.6 % (42-52); Blood Gas Allen Test Pos; Blood Gas Operator Identificat SAM; Blood Gas Sample Site Radial, right; Blood Gas Sample Type Arterial; Blood Gas Tidal Volume 0.50; HCO3 ABG 21.6 mmol/L (22-26); PEEP 8.0 cmH20; PO2 ABG 106.0 mmHg (80.0-100.0); PO2 FiO2 Ratio Arterial Blood 302
[2025-08-23] MEDS: fentaNYL 1,000 MCG/100 ML BAG 12.5 MCG IV ×2 (06:38→16:06)
--- NOTE | 2025-08-23 07:00 | XR_ITS ---
WS: [id number] Exam: XR chest 1V portable [id number] Date/Time of Exam: 08/23/2025 6:51 AM Reason For Exam: sob Comparison 08/22/2025. Lungs are fully expanded and clear. ET tube ends about 6 cm above the jacek in good position. An enteric tube is looped in the fundus of the stomach. Right- sided PICC line ends in the lower one third of the SVC. Cardiomediastinal silhouette is unremarkable for technique. Bony structures are intact. XR/XR chest 1V portable [id number] IMPRESSION: 1. No acute cardiopulmonary finding. 2. PICC line, ET tube and enteric tube all in satisfactory position.
[2025-08-23] MEDS: propofol 1,000 MG/100 ML INJ 19.92 MG IV (07:56)
--- NOTE | 2025-08-23 08:31 | P.PN_ITS ---
Subjective 2 Subjective: Levo down to 10 from 20 overnight Vasopressin on ABThera output serosanguineous White count down to 22 Afebrile Cardiac workup unremarkable Urine output improved about 0.7 cc per kg per hour Vitals/I&O/Wt Last Vital Signs Temp 98.4 F 08/22/25 23:30 Pulse 81 08/23/25 06:15 Resp 14 08/23/25 08:00 BP 136/61 08/23/25 06:15 Pulse Ox 99 08/23/25 08:00 O2 Del Method Mechanical Ventilation 08/22/25 16:00 FiO2 30 08/23/25 08:00 08/22/25 08/23/25 08/23/25 22:59 06:59 14:59 Intake Total 3906.037 / 5808.085 1189.313 / 6997.398 100 / 100 Output Total 600 / 700 1425 / 2125 Balance 3306.037 / 5108.085 -235.687 / 4872.398 100 / 100 Weight last 48 hrs Weight 254 lb 6.4 oz Weight 247 lb 1.6 oz Weight 241 lb 4.8 oz Weight 535 lb 8.045 oz Weight 244 lb Physical Exam 2 Narrative: Chest: Intubated, sedated, on vent. Levo 10, vasopressin on. Heart: Regular rate and rhythm. Abdomen: Soft, ABThera in place. Serosanguineous ABThera output. Urinary Catheter Management: Mast Latex: Cath Placed During This Visit: yes Reason for Continuing Indwelling Catheter: Accurate Measurement of Urinary Output in Critically Ill Patients Urinary Catheter Date of Insertion: 08/21/25 Urinary Catheter Time of Insertion: 13:05 Data 08/23/25 03:20 08/23/25 03:20 Micro: Microbiology 08/22/25 16:37 Blood Culture - Preliminary Blood SPECIMEN COLLECTED 08/22/25 16:39 Blood Culture - Preliminary Blood SPECIMEN COLLECTED 08/22/25 11:40 Gram Stain - Final Sputum - Endotracheal Tube Aspirate A&P Assessment and plan 1. Small bowel obstruction due to adhesions: 2. Sepsis: 3. Internal hernia: Plan: 75-year-old male status post exploratory laparotomy for closed-loop SBO secondary to internal hernia. Extensive adhesiolysis. Small bowel resected and left in discontinuity. Cardiac workup unremarkable. White count down. Vasopressor requirement down. ABThera output serosanguineous. Had an extensive discussion with the family including the son who is the POA. Explained that the plan will be to take him back to the OR for a second look, possible bowel resection, possible ostomy, possible closure. Family understands that the patient is critically ill. If intra-abdominal findings are unremarkable may construct the small bowel anastomosis and close the abdomen as it may be harder to close the abdomen if we wait too long. The family understands that he is at risk of anastomotic leak given that he is so sick and on vasopressors. The family also understand that he is a risk of sudden decompensation. Discussed risk and benefits and POA agreed to proceed with opening a recent exploratory laparotomy, possible resection, possible ostomy, possible closure. PDMP PDMP Reviewed: Not Reviewed Attestations 2 Medical Necessity Statement*: Closed-loop SBO Coding Level of Care Code 78820 Diagnoses Small bowel obstruction due to adhesions K56.50 Sepsis A41.9 Internal hernia K45.8
--- NOTE | 2025-08-23 08:41 | PC.NURSE ---
Bradycardia: This morning patient has been bradycardic in the mid 50's. Has started occaisonally dropping into the 40's/ Nurse has reduced propofol per protocol, but this has not helped. Patient has a versed drip ordered. Nurse called Dr caballero to discuss changing from propofol drip to versed drip. Dr caballero ordered 1mg prn versed pushes for agitation.
[2025-08-23] MEDS: midazolam 1 mg/mL INJ 2 mL IVP (09:39)
[2025-08-23] MEDS: chlorhexidine gluconate 4% Btl 118 mL 1 APPLIC TOPICAL (09:45)
--- NOTE | 2025-08-23 10:43 | ECG_ITS ---
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
[2025-08-23] MEDS: norepinephrine 4 MG/250 ML BAG 30 MG IV (10:55)
[2025-08-23] MEDS: vancomycin 1,750 MG/350 ML PIGGYBACK 175 MG IV ×2 (11:08→22:10)
--- NOTE | 2025-08-23 11:53 | ANES.PREANE2 ---
Pre-Anesthetic Assessment Height/Weight: Height 5 ft 8 in Weight 254 lb 6.4 oz Temp Pulse Resp BP Pulse Ox O2 Del Method FiO2 98.1 F 57 L 14 121/60 99 Mechanical Ventilation 30 08/23/25 08:15 08/23/25 09:00 08/23/25 11:41 08/23/25 09:00 08/23/25 11:41 08/23/25 09:00 08/23/25 11:41 Preop Diagnosis: Open belly Operation Date: 08/21/25 13:55 Proposed Procedures p Exploratory Laparotomy, possible bowel resection,abthera(Not Applicable) - Bishnu Burrell MD Operation Date: 08/22/25 07:00 Proposed Procedures p Abdominal washout/ possible anastomosis/ possible closure(Not Applicable) - Bishnu Burrell MD Operation Date: 08/23/25 12:20 Proposed Procedures p washout/anastomsis/closure(Not Applicable) - Bishnu Burrell MD Was Beta Marie taken within 24 hours: N/A Was Clonidine taken within 24 hours: N/A Last intake: Intake Last Liquid Date 08/21/25 Last Liquid Time 04:00 Last Solid Date 08/20/25 Last Solid Time 12:00 Social No alcohol and No tobacco Exam Sedated currently, RR&R Airway Comments: Comments: Unable to examine due to ETT in place Anesthetic Plan ASA status: 4 Anesthesia: General Other: No prior issues with anesthesia Patient is currently intubated and sedated in the ICU Patient is currently on fentanyl and propofol gtt. with intermittent boluses of Versed Patient requiring significant amounts of vasopressors overnight, Levophed up to 20 and vasopressin at 0.2. Currently vasopressin is at 0.1 and Levophed is at 6 mics per minute Recent echo showing EF of 65% Labs from today showing a WBC 22.3, hemoglobin 9.1 Radial A-line is unreliable will plan on exchanging and surgery ABG showing 7.39, pCO2 35, pO2 106 Extensive discussion had with patient's family about anesthesia risks. Informed family that patient will remain intubated and sedated following surgery and taken directly to the ICU. Patient understands risks including but not limited to respiratory or cardiac events Plan for general anesthesia Medications/Allergies Home Medications ?Medication ?Instructions ?Recorded ?Confirmed ?Last Taken ?Type aspirin 325 mg tablet 325 mg PO DAILY 08/12/25 08/21/2525 History clotrimazole 1 % topical cream 1 applic topical BID PRN Rash 08/12/25 08/21/25 Unknown History metformin 500 mg tablet 500 mg PO DAILY 08/12/25 08/21/25 08/20/25 History potassium chloride 10 mEq 10 meq PO DAILY 08/12/25 08/21/25 08/20/25 History capsule,extended release simvastatin 40 mg tablet 40 mg PO DAILY 08/12/25 08/21/25 08/20/25 History folic acid 1 mg tablet 1 mg PO DAILY #90 tabs 08/13/25 08/21/25 Unknown Rx prednisone 10 mg tablet See Rx Instructions PO .COMPLEX 08/13/25 08/21/25 Unknown Rx PRN joint pain #30 tabs adalimumab 40 mg/0.4 mL 40 mg (0.4 mL) SUBCUT Q14D #2 ea 08/15/25 08/21/25 Unknown Rx subcutaneous pen kit (Humira(CF) Pen) fluticasone propionate 50 2 spray intranasal DAILY PRN 08/21/25 08/21/25 Unknown History mcg/actuation nasal allergies spray,suspension methotrexate sodium 2.5 mg tablet 125 mg PO Q7D 08/21/25 08/21/25 Unknown History Allergies Allergy/AdvReac Type Severity Reaction Status Date / Time No Known Allergies Allergy Verified 08/21/25 09:21 Current Medications Generic Name Dose Route Start Last Admin Trade Name Freq PRN Reason Stop Dose Admin Chlorhexidine Gluconate 1 applic 08/22/25 00:00 08/23/25 09:45 Chlorhexidine Gluconate 4% Btl 118 Ml TOPICAL 1 applic DAILY JEANE Administration Hydrocortisone Sodium Succinate 50 mg 08/23/25 11:30 08/23/25 11:08 Hydrocortisone 100 Mg/2 Ml Sdv IVP 50 mg Q6H JEANE Administration Propofol 1,000 mg in 100 mls @ 0 mls/hr 08/21/25 16:45 08/23/25 07:56 Diprivan IV 30 mcg/kg/min .Q0M JEANE 19.92 mls/hr Protocol Administration Per Protocol Fentanyl 1,000 mcg in 100 mls @ 0 mls/hr 08/21/25 16:45 08/23/25 06:38 Sublimaze IV 125 mcg/hr .Q0M JEANE 12.5 mls/hr Protocol Administration Per Protocol Piperacillin Sod/Tazobactam 50 mls @ 12.5 mls/hr 08/21/25 16:45 08/23/25 07:58 Sod 3.375 gm/ Sodium Chloride IV 12.5 mls/hr Q8H JEANE Administration Protocol Norepinephrine Bitartrate 4 mg in 250 mls @ 0 mls/hr 08/21/25 17:15 08/23/25 10:55 Levophed IV 8 mcg/min .Q0M JEANE 30 mls/hr Protocol Administration Per Protocol Albumin Human 25 g in 100 mls @ 60 mls/hr 08/22/25 10:30 08/23/25 10:18 Albumin IV 60 mls/hr Q8H JEANE Administration Sodium Bicarbonate 150 meq/ 1,150 mls @ 50 mls/hr 08/22/25 11:00 08/23/25 09:00 Dextrose IV 50 mls/hr .Q23H JEANE Administration Vasopressin 40 unit in 100 mls @ 0 mls/hr 08/22/25 10:30 08/23/25 01:35 Vasostrict IV 0.01 unit/min .Q0M JEANE 1.5 mls/hr Protocol Titration Per Protocol Vancomycin HCl 1,750 mg in 350 mls @ 175 mls/hr 08/22/25 23:00 08/23/25 11:08 Vancocin IV 175 mls/hr Q12H JEANE Administration Insulin Human Lispro 0 unit 08/21/25 18:00 08/23/25 11:25 Insulin Lispro 100 Unit/1 Ml SUBCUT 4 unit TIDWM JEANE Administration Protocol Midazolam HCl 1 mg 08/23/25 08:35 08/23/25 09:39 Midazolam 1 Mg/Ml Inj 2 Ml IVP 1 mg Q4H PRN Administration AGITATION Pantoprazole Sodium 40 mg 08/21/25 17:30 08/23/25 05:23 Pantoprazole 40 Mg Sdv IVP 40 mg Q12H JEANE Administration PFSH Anesthesia Medical History (Updated 08/22/25 @ 15:28 by Jose Laureano MD) Immunization counseling High risk medication use Seronegative rheumatoid arthritis of both hands Polyarthralgia Diabetes Hyperlipidemia Elevated antinuclear antibody (ADELINA) level Obstructive sleep apnea PVD (peripheral vascular disease) Low back pain Surgical History History of colon resection ruptured not cancer History of bilateral knee replacement Family History Other Brain cancer Diabetes Heart disease Hypertension Lung cancer Peripheral vascular disease Rheumatoid arthritis Skin cancer Skin disease Denies family history of Lupus (systemic lupus erythematosus) Liver disease Migraines Stroke Social History Smoking and tobacco/nicotine status: never used tobacco/nicotine Data Anesthesia 08/23/25 03:20 08/23/25 03:20 Short CBC 08/22/25 08/22/25 08/22/25 Range/Units 02:08 16:37 17:48 WBC 20.35 H Cancelled Cancelled (3.29-11.43) 10^3/uL Hgb 13.30 Cancelled Cancelled (11.27-16.99) g/dL Hct 40.9 Cancelled Cancelled (37-53) % MCV 104.6 H Cancelled Cancelled (82-101) fl Plt Count 271 Cancelled Cancelled (157-399) 10^3/cmm Neut % (Auto) 88.6 Cancelled Cancelled % Neut # (Auto) 18.02 H Cancelled Cancelled (1.8-7.7) 10^3/uL 08/22/25 08/22/25 08/23/25 Range/Units 18:26 23:00 03:20 WBC 30.42 H* 22.35 H (3.29-11.43) 10^3/uL Hgb 11.30 9.20 L 9.10 L (11.27-16.99) g/dL Hct 35.2 L 27.8 L 27.1 L (37-53) % MCV 106.0 H 104.6 H (82-101) fl Plt Count 275 171 D (157-399) 10^3/cmm Neut % (Auto) 89.4 % Neut # (Auto) 19.96 H (1.8-7.7) 10^3/uL BMP 08/22/25 08/22/25 08/22/25 02:08 04:54 10:48 Sodium 138 139 143 Potassium 3.7 4.2 4.3 Chloride 108 H 108 H 109 H Carbon Dioxide 18 L 17 L 16 L BUN 16 17 17 Creatinine 0.9 0.9 1.0 Glucose 164 H 177 H 189 H Calcium 7.4 L 7.6 L 7.3 L 08/22/25 08/22/25 08/23/25 16:37 17:48 03:20 Sodium Cancelled 136 139 Potassium Cancelled 4.1 3.7 Chloride Cancelled 106 108 H Carbon Dioxide Cancelled 14 L 19 L BUN Cancelled 16 13 Creatinine Cancelled 0.8 0.6 L Glucose Cancelled 198 H 219 H Calcium Cancelled 7.1 L 6.3 L Cardiac Enzymes 08/22/25 08/22/25 08/22/25 Range/Units 04:54 10:48 12:31 Creatine Kinase (39-308) U/L Troponin T Baseline 16 H (0-15) ng/L Troponin T 120 Minute 8.66 (0-15) ng/L Delta Troponin T -7.34 L (0-10) ABS# Troponin T Hi Sens 6Hr Troponin T Hi Sens 6Hr Delta NT-Pro-B Natriuret Pep 1057 H (0-125) pg/mL 08/22/25 08/22/25 08/23/25 Range/Units 16:37 17:48 03:20 Creatine Kinase 45 (39-308) U/L Troponin T Baseline (0-15) ng/L Troponin T 120 Minute (0-15) ng/L Delta Troponin T (0-10) ABS# Troponin T Hi Sens 6Hr Cancelled 13.12 Troponin T Hi Sens 6Hr Delta Cancelled -2.88 L NT-Pro-B Natriuret Pep (0-125) pg/mL Liver Function 08/22/25 08/22/25 08/22/25 Range/Units 02:08 04:54 10:48 Total Bilirubin 0.4 0.5 0.4 (0.15-1.2) mg/dL AST 27 28 24 (0-40) U/L ALT 23 26 25 (0-41) U/L Alkaline Phosphatase 63 66 61 (40-130) U/L Albumin 2.4 L 2.7 L 2.6 L (3.5-5.2) g/dL 08/23/25 Range/Units 03:20 Total Bilirubin 0.4 (0.15-1.2) mg/dL AST 5 (0-40) U/L ALT < 5 (0-41) U/L Alkaline Phosphatase 45 (40-130) U/L Albumin 2.6 L (3.5-5.2) g/dL Blood Bank 08/21/25 08/22/25 15:00 18:26 Blood Type Cancelled O Positive Rho(D) Type Cancelled Rh positive Antibody Screen Cancelled Negative Coags 08/22/25 08/22/25 08/22/25 02:08 04:54 17:48 PT 14.40 Cancelled INR 1.05 Cancelled APTT 30.6 C-Reactive Protein 42.3 H 08/22/25 08/23/25 18:26 03:20 PT 17.30 H 17.90 H INR 1.32 H 1.38 H APTT 36.6 C-Reactive Protein 184.7 H ABG 08/21/25 08/22/25 08/23/25 20:53 09:01 06:12 Specimen Type Arterial Arterial Arterial Sample Site Radial, left Mei Radial, right ABG pH 7.32 L 7.33 L 7.39 ABG pCO2 36.0 33.1 L 35.3 ABG pO2 111.0 H 164.0 H 106.0 H ABG PO2/FiO2 Ratio 222 328 302 ABG HCO3 18.4 L 17.3 L 21.6 L ABG O2 Saturation 98.5 > 99.1 ABG Base Excess -7.0 L -7.7 L -2.8 L A-a O2 Gradient 25.7 H 19.1 H O2 Delivery Device Vent Vent Vent FiO2 50.0 50.0 35.0 Tidal Volume 0.50 0.50 0.50 PEEP 8.0 8.0 8.0 Microbiology 08/22/25 11:40 Gram Stain - Final Sputum - Endotracheal Tube Aspirate Sputum Culture - Preliminary 08/22/25 16:37 Blood Culture - Preliminary Blood SPECIMEN COLLECTED 08/22/25 16:39 Blood Culture - Preliminary Blood SPECIMEN COLLECTED Cardiac Studies: Echocardiogram 08/22/25
--- NOTE | 2025-08-23 13:57 | P.BOP_ITS ---
Date of Procedure: 08/23/2025 Surgeon: Dr. Burrell Pediatric Speech Language Pathologist(s): N/A Procedure(s) performed: Opening of recent exploratory laparotomy, washout, small bowel anastomosis, closure of abdomen. Findings of the procedure(s): Washed out the abdomen. Took cultures from right upper quadrant. No abscess found. Entirety of the small bowel was healthy and viable. Examined the right colon, transverse colon, descending colon, and rectum which all looked viable and healthy. Performed a small bowel anastomosis of the mid ileum and restored continuity. Washed out the abdomen using 900 cc of Irrisept. Closed the abdomen. Estimated blood loss: 50 cc Specimen(s) removed: Cultures sent from peritoneal fluid Post-operative diagnosis: Closed-loop SBO
--- NOTE | 2025-08-23 13:57 | PM.OP ---
Operative Report Date of procedure: August 23, 2025 Pre-op diagnosis: Closed-loop SBO Post-op diagnosis: same Post-op findings: Washed out the abdomen. Took cultures from right upper quadrant. No abscess found. Entirety of the small bowel was healthy and viable. Examined ileocolonic anastomosis, transverse colon, descending colon, and rectum which all looked viable and healthy. Performed a small bowel anastomosis of the mid ileum and restored continuity. Washed out the abdomen using 900 cc of Irrisept. Closed the abdomen. Procedure done: Opening of recent exploratory laparotomy, abdominal washout, small bowel anastomosis Implants: N/A Specimens removed/disposition: Peritoneal fluid cultures from right upper quadrant sent to microbiology Pathology: none sent Surgeon: Bishnu Burrell MD Fiction And Nonfiction Prose Writer: N/A Anesthesia: General Estimated blood loss (mL): 50 Complications: N/A Findings: Washed out the abdomen. Took cultures from right upper quadrant. No abscess found. Entirety of the small bowel was healthy and viable. Examined ileocolonic anastomosis, transverse colon, descending colon, and rectum which all looked viable and healthy. Performed a small bowel anastomosis of the mid ileum and restored continuity. Washed out the abdomen using 900 cc of Irrisept. Closed the abdomen. Condition: critical Disposition: ICU Brief History: 75-year-old male who initially presented with a closed-loop SBO. On the first operation performed a small bowel resection and left in discontinuity. POA consented for opening of recent exploratory laparotomy, possible bowel resection, possible ostomy, possible closure. Procedure: Patient was transported from ICU to the OR. SCDs were on and working. Patient on scheduled antibiotics. The ABThera dressing was removed. The abdomen was prepped and draped in the usual sterile fashion. The abdomen was washed out with 500 cc of warm normal saline. The small bowel was ran 5 times from ligament of Treitz to the ileocolonic anastomosis to the transverse colon. The entirety of the small bowel was viable and healthy. I also inspected the transverse colon, descending colon, rectum and they all appeared healthy. At this time the patient was on low-dose Levophed and therefore decided to restore continuity by performing the small bowel anastomosis. An enterotomy was carried out using electrocautery on the proximal and distal small bowel loops that were used to create the small bowel anastomosis. A hemostat was used to dilate the enterotomy. Using an Endo DELFINO stapler with a 45 mm blue load I proceeded to create the small bowel anastomosis. I inspected the anastomosis prior to closing the enterotomy and was satisfied with the result. The enterotomy was closed using a TA stapler 30 mm with a blue load. I then proceeded to oversew the staple line using a running 3-0 silk. I closed the mesenteric defect using running 3-0 silk. I inspected the anastomosis again and was satisfied with its result. I ran the bowel 2 more times from ligament of Treitz towards the ileocolic anastomosis and again was satisfied with the viability of the small bowel as well as the result of the small bowel anastomosis. I washed the abdomen with 900 cc of Irrisept. I closed the peritoneal cavity using #1 looped PDS. I changed gloves. Washed out the wound. I then closed the skin using surgical judy. A sterile dressing was applied. The patient was transferred to the ICU in critical condition. Family was updated.
--- NOTE | 2025-08-23 14:14 | ANE.PACU2 ---
Inpatient post-anesthesia follow up: Airway intact: Yes Vital signs: Temperature 97.6 F Pulse Rate 95 Respiratory Rate 15 Blood Pressure 139/69 Pulse Oximetry 92 Oxygen Delivery Me thod Mechanical Ventila tion Oxygen Flow Rate Fraction of Inspir ed Oxygen 30 Hydration adequate: Yes Nausea and vomiting: No Pain level: 1 Mental status: Baseline
--- NOTE | 2025-08-23 15:39 | P.PN_ITS ---
Subjective 2 Subjective: - Patient was seen this morning - Currently intubated, sedated on mechan ical ventilation -Propofol and fentanyl for sedation - On 35% FiO2 - Currently 10 of Levophed, vasopressin - Has had good urine output overnight - Remains afebrile, normotensive - Spoke to general surgery, plan on taki ng to the OR today for for washout and closure - I had a family meeting with patient's family - Discussed patient's initial surgery, c urrent septic shock, requiring pressors, respiratory failure, overall clinical improvement, plan for surgery this afternoon - Family requested for Kenneth to be trans ferred to [facility] to [facility] - Spoke to [facility] , currently they do not have any beds, Kenneth has been put on the waiting list, as he is in [place] resident he has been given priority Vitals/I&O/Wt Last Vital Signs Temp 97.6 F 08/23/25 12:30 Pulse 95 08/23/25 14:00 Resp 15 08/23/25 14:21 BP 139/69 08/23/25 13:15 Pulse Ox 92 08/23/25 14:21 O2 Del Method Mechanical Ventilation 08/23/25 12:30 FiO2 30 08/23/25 14:21 08/23/25 08/23/25 08/23/25 06:59 14:59 22:59 Intake Total 1189.313 / 6997.398 1475.833 / 5804.017 1337.375 / 3099.208 Output Total 1425 / 2125 300 / 300 Balance -235.687 / 4872.398 1175.833 / 3937.739 0225.375 / 2799.208 Weight last 48 hrs Weight 115.394 kg Weight 112.083 kg Weight 109.452 kg Weight 242.9 kg Physical Exam 2 Const: COMMON NORMALS: no acute distress Eye: OTHER: Pupils are reactive to light, Resp: COMMON NORMALS: normal respiratory effort, No retractions, No use of accessory muscles and clear to auscultation bilaterally AUSCULTATION: clear to auscultation bilaterally Cardio: COMMON NORMALS: regular rate, regular rhythm, S1 normal heart sound present and S2 normal heart sound present RATE: regular rate RHYTHM: r egular rhythm HEART SOUNDS: S1 normal heart sound present and S2 normal heart sound present GI: OTHER: Abdomen soft, nondistended, scattered bowel sounds, ABThera in place, Extremity: COMMON NORMALS: no pedal edema Skin: NARRATIVE SKIN EXAM: Left arterial line in place Right PICC line in place Urinary Catheter Management: Mast Latex: Cath Placed During This Visit: yes Reason for Continuing Indwelling Catheter: Accurate Measurement of Urinary Output in Critically Ill Patients Urinary Catheter Date of Insertion: 08/21/25 Urinary Catheter Time of Insertion: 13:05 Data 08/23/25 03:20 08/23/25 03:20 Micro: Microbiology 08/22/25 11:40 Gram Stain - Final Sputum - Endotracheal Tube Aspirate Sputum Culture - Preliminary 08/22/25 16:37 Blood Culture - Preliminary Blood SPECIMEN COLLECTED 08/22/25 16:39 Blood Culture - Preliminary Blood SPECIMEN COLLECTED A&P Assessment and plan 1. Small bowel obstruction due to adhesions: 2. Sepsis: 3. Internal hernia: 4. Acute hypoxic respiratory failure: 5. Diabetes: 6. On mechanically assisted ventilation: 7. Ledesma Agitation Sedation Scale (RASS) score minus 4, deep sedation: 8. Metabolic acidosis: 9. Septic shock: 10. Acute kidney injury: 11. Hypoalbuminemia: Plan: Acute hypoxic respiratory failure Plan - Currently intubated, sedated, RASS -4, on mechanical ventilation - Propofol for sedation - Fentanyl for pain - Precedex for sedation -DuoNeb as needed - Protonix for GI prophylaxis - Lovenox for DVT prophylaxis - PICC line in place - Arterial line in place Septic shock - PICC line in place -Arterial line in place -Levophed -Vasopressin - Albumin therapy -Stress dose steroids, history of chronic steroid use - Keep MAP greater than 65 - Blood cultures - Sputum cultures - Vancomycin - Zosyn NSTEMI - Serial EKGs, serial troponins, telemetry monitoring - Type I versus type II - Cardiac echo CONCLUSIONS 1. Normal LV systolic cavity size and systolic function. EF 65%. 2. Mild concentric left ventricualr hypertrophy. 3. Moderate aortic valve stenosis. Metabolic acidosis - Likely sec to septic shock, lactic acidosis, renal failure - Bicarb drip Acute kidney injury - Secondary to sepsis, septic shock - Monitor urine output, monitor creatinine - Bicarbonate drip Acute anemia, recheck hemoglobin Closed-loop small bowel obstruction due to ventral hernia CT/CT abdomen pelvis wo con [id number] IMPRESSION: 1. Prior RIGHT hemicolectomy with anastomosis. Anastomosis appears patent involving the transverse colon. 2. Dilated loops of fluid distended small bowel with swirling in the mesentery with mesenteric congestion and reactive lymph nodes in the mid abdomen and LEFT lower quadrant. Segmental areas of collapsed small bowel, see bookmarked images suspicious for internal hernia or adhesions with partial small bowel obstruction. 3. Residual colon is normal in appearance. 4. Prior cholecystectomy with pneumobilia. 5. Small amount of free fluid in the cul-de-sac -Patient's status post exploratory laparotomy, extensive lysis of adhesions, reduction internal hernia, small bowel resection, temporary closure with ABThera Plan - Serial abdominal exam - ABThera in place - Keep patient on deep sedation, RASS -4 - Continue IV Zosyn, IV vancomycin Type 2 diabetes mellitus, low-dose sliding scale Full code SCDs for DVT prophylaxis, Lovenox for DVT prophylaxis Status stable Prognosis guarded PDMP PDMP Reviewed: Not Reviewed Attestations 2 Medical Necessity Statement*: Patient requires hospitalization, for septic shock, bowel obstruction, open abdomen, acute hypoxic respiratory failure, sedation, Coding Level of Care Code Critical Care >/= 30 minutes Critical care time (in minutes): 60 The high probability of a clinically significant, sudden or life threatening deterioration, as referenced in this documentation, required my full and direct attention, intervention and personal management. The critical care time shown is in addition to time spent performing any reported separately billable procedures and includes the following: [x] Data and vital sign review and interpretation [x ] Patient assessment, examination and intervention [x] Medication orders and management [x] Patient/Family updates as able [x] Care Coordination and Documentation. Diagnoses Small bowel obstruction due to adhesions K56.50 Sepsis A41.9 Internal hernia K45.8 Acute hypoxic respiratory failure J96.01 Diabetes E11.9 On mechanically assisted ventilation Z99.11 Ledesma Agitation Sedation Scale (RASS) score minus 4, deep sedation Z78.9 Metabolic acidosis E87.20 Septic shock A41.9; R65.21 Acute kidney injury N17.9 Hypoalbuminemia E88.09 Sepsis Event Note Evaluation Current stage of sepsis: septic shock Initial hypotension due to sepsis/infection: SBP < 90 mmHg Possible source: GI tract/intra-abdominal Focused Exam Vital Signs Temp Pulse Resp BP Pulse Ox O2 Del Method FiO2 08/23/25 14:21 15 92 30 08/23/25 14:00 95 08/23/25 13:15 139/69 08/23/25 13:00 139/69 08/23/25 12:45 139/69 08/23/25 12:30 97.6 F 52 L 14 126/61 98 Mechanical Ventilation 08/23/25 12:15 54 L 117/61 98 08/23/25 12:00 54 L 127/61 98 08/23/25 11:45 54 L 129/63 99 08/23/25 11:41 14 99 30 08/23/25 11:30 67 113/57 98 08/23/25 11:15 61 132/65 97 08/23/25 11:00 56 L 115/57 98 08/23/25 10:45 55 L 106/55 98 08/23/25 10:30 57 L 107/55 98 08/23/25 10:15 57 L 108/57 98 08/23/25 10:00 60 105/60 98 08/23/25 09:45 60 123/69 98 08/23/25 09:30 61 115/62 98 08/23/25 09:27 14 99 30 08/23/25 09:15 59 L 143/67 98 08/23/25 09:00 57 L 121/60 98 Mechanical Ventilation 08/23/25 08:45 53 L 115/57 98 08/23/25 08:30 53 L 120/61 98 08/23/25 08:15 98.1 F 58 L 14 123/62 98 Mechanical Ventilation 08/23/25 08:00 61 122/62 98 08/23/25 08:00 14 99 30 08/23/25 07:45 60 118/65 98 08/23/25 07:30 61 122/63 98 08/23/25 07:15 62 121/63 98 08/23/25 07:00 63 131/62 97 08/23/25 06:45 72 125/68 97 08/23/25 06:30 68 98 08/23/25 06:15 81 136/61 98 08/23/25 06:00 64 150/66 98 08/23/25 06:00 61 08/23/25 05:45 62 153/61 98 08/23/25 05:30 60 65/37 98 08/23/25 05:15 59 L 127/59 98 08/23/25 05:00 60 100/57 98 08/23/25 05:00 14 97 35 08/23/25 04:45 65 127/62 98 08/23/25 04:30 65 118/63 98 08/23/25 04:15 66 130/63 98 08/23/25 04:00 59 L 141/66 98 08/23/25 03:45 61 157/66 98 Peripheral pulse strength: 2+ Slightly Diminished Peripheral pulse location: Radial Skin exam: normal turgor Date exam was performed: 08/23/25 Time exam was performed: 15:53 Problem List 1. Small bowel obstruction due to adhesions: Status: Acute 2. Sepsis: Status: Acute 3. Internal hernia: Status: Acute 4. Acute hypoxic respiratory failure: Status: Acute 5. Diabetes: Status: Acute 6. On mechanically assisted ventilation: Status: Acute 7. Ledesma Agitation Sedation Scale (RASS) score minus 4, deep sedation: Status: Acute 8. Metabolic acidosis: Status: Acute 9. Septic shock: Status: Acute 10. Acute kidney injury: Status: Acute 11. Hypoalbuminemia: Status: Acute
[2025-08-23 16:18] LABS: Hematocrit 25.6 % (37-53); Hemoglobin 8.50 g/dL (11.27-16.99); Mean Corpuscular HGB Conc 33.2 g/dL (30-55); Mean Corpuscular Hemoglobin 34.1 pg (27-33); Mean Corpuscular Volume 102.8 fl (82-101); Nucleated Red Blood Cells % 0 %; Platelet Count 160 10^3/cmm (157-399); Red Blood Count 2.49 10^6/uL (3.85-5.65); White Blood Count 15.73 10^3/uL (3.29-11.43)
[2025-08-23 16:44] LABS: Slide Review Slide Review Perform
[2025-08-23] MEDS: propofol 1,000 MG/100 ML INJ 16.6 MG IV ×2 (17:04→23:21)
--- NOTE | 2025-08-23 18:16 | PC.SOCIAL ---
*IMM* Patient received copy of important message from [employer]. concert manager initialled and placed copy in chart.
--- NOTE | 2025-08-23 18:36 | PC.NURSE ---
Shift SUmmary: Went to surgery around 12 pm, was in surgery for 2 hours. Anastomosis performed. Since arrival back in ICU his pressor requirements have been much lower. CUrrently 6mcg/mon of levophed versus 12 mcg this morming. Vasopressing was at 0.02 units but is now turned off. Surgical site is unremarkable with a siverlon dressing in place. Plan is to start weaning sedation at 0400 (critical care message to nurse order). Total urine output: 1300
--- NOTE | 2025-08-23 20:58 | PC.NURSE ---
Cassie with MTA called for update. Informed pt belly closed and no longer on vaso.
[2025-08-23] MEDS: norepinephrine 4 MG/250 ML BAG 22.5 MG IV (21:28)
[2025-08-23] MEDS: fentaNYL 1,000 MCG/100 ML BAG 15 MCG IV (22:55)
[2025-08-24] VITALS (55 sets, daily range): BP systolic 103–144; BP diastolic 58–89; PULSE 65–130; RESP 7–23; TEMP 36.6–37; O2SAT 94–99
[2025-08-24] MEDS: piperacillin-tazobactam 3.375 GM in sodium chloride 0.9% (plus) 50 ML IV ×3 (00:34→16:39)
[2025-08-24] MEDS: albumin 25 G/100 ML BAG 60 G IV ×3 (02:28→15:23)
[2025-08-24 04:30] LABS: ABG PCO2 37.4 mmHg (35-45); ABG PH Result 7.48 (7.35-7.45); Arterial Blood Gas Hematocrit 22.8 % (42-52); Blood Gas Operator Identificat JDB; Blood Gas Sample Site Brachial, right; Blood Gas Sample Type Arterial; Blood Gas Tidal Volume 0.50; HCO3 ABG 27.7 mmol/L (22-26); PEEP 8.0 cmH20; PO2 ABG 87.7 mmHg (80.0-100.0); PO2 FiO2 Ratio Arterial Blood 292
[2025-08-24] MEDS: pantoprazole 40 mg SDV IVP ×2 (04:30→16:42)
[2025-08-24 04:43] LABS: Hematocrit 24.0 % (37-53); Hemoglobin 8.00 g/dL (11.27-16.99); Mean Corpuscular HGB Conc 33.3 g/dL (30-55); Mean Corpuscular Hemoglobin 33.9 pg (27-33); Mean Corpuscular Volume 101.7 fl (82-101); Platelet Count 165 10^3/cmm (157-399); Red Blood Count 2.36 10^6/uL (3.85-5.65); White Blood Count 13.58 10^3/uL (3.29-11.43)
[2025-08-24] MEDS: fentaNYL 1,000 MCG/100 ML BAG 15 MCG IV (04:43)
[2025-08-24 05:04] LABS: INR 1.21 (0.8-1.2); Partial Thromboplastin Time 35.8 SECONDS (23.9-36.7); Prothrombin Time 16.10 SECONDS (12.1-14.9)
[2025-08-24 05:15] LABS: Alanine Aminotransferase 10 U/L (0-41); Albumin Level 3.1 g/dL (3.5-5.2); Alkaline Phosphatase 49 U/L (40-130); Anion Gap 12.8 (5-19); Aspartate Amino Transferase 10 U/L (0-40); Blood Urea Nitrogen 10 mg/dL (8-23); Calcium 7.2 mg/dL (8.5-10.5); Carbon Dioxide 26 mmol/L (22-29); Chloride 109 mmol/L (98-107); Globulin 1.5 g/dL (1.3-4.6); Glucose 121 mg/dL (65-115); Osmolality Calculated 300 mOsm/kg (285-295); Sodium 145 mmol/L (136-145); Total Protein 4.6 g/dL (6.6-8.7)
[2025-08-24 05:19] LABS: Lactate (Lactic Acid level) 1.5 mmol/L (0.5-2.2)
[2025-08-24 05:20] LABS: Procalcitonin 8.73 ng/mL (0-0.5)
[2025-08-24 05:23] LABS: Slide Review Slide Review Perform
[2025-08-24 05:28] LABS: Creatinine Clr Calc Pharmacy 103.8221; Potassium 2.8 mmol/L (3.5-5.1)
[2025-08-24] MEDS: lidocaine 1% 5 ML in potassium chloride premix 100 ML 26.25 ML IV (05:54)
[2025-08-24 06:24] LABS: Absolute Segmented Neutrophil 7.9 10/cmm (1.6-7.1); Atypical Lymphs 0.0 % (0-5); Band Neutrophils Absolute 4.1 10^3/cmm (0.0-1.2); Total Cells Counted 100 (0-100)
[2025-08-24] MEDS: hydrocortisone 100 mg/2 mL SDV 50 MG IVP (08:06)
[2025-08-24] MEDS: dexmedeTOMIDine 0.9 % NaCL 400 MCG/100 ML PREMIX IV (08:43)
[2025-08-24] MEDS: lidocaine 1% 5 ML in potassium chloride premix 100 ML 52.5 ML IV ×2 (09:59→15:28)
[2025-08-24] MEDS: FUROsemide 10 mg/mL SDV 4mL 40 MG IVP ×2 (10:00→15:27)
--- NOTE | 2025-08-24 10:23 | P.PN_ITS ---
Subjective 2 Subjective: NAEON Levo@2 Leukocytosis trending down Vitals/I&O/Wt Last Vital Signs Temp 97.9 F 08/24/25 08:00 Pulse 66 08/24/25 09:30 Resp 12 08/24/25 09:46 BP 126/63 08/24/25 09:30 Pulse Ox 96 08/24/25 09:46 O2 Del Method Mechanical Ventilation 08/24/25 08:00 FiO2 30 08/24/25 09:46 08/23/25 08/24/25 08/24/25 22:59 06:59 14:59 Intake Total 1990.125 / 3565.958 1835.170 / 5401.128 1325.387 / 1325.387 Output Total 1000 / 1300 925 / 2225 150 / 150 Balance 990.125 / 2265.958 910.170 / 3176.128 1175.387 / 1175.387 Weight last 48 hrs Weight 273 lb 3.2 oz Weight 254 lb 6.4 oz Physical Exam 2 Narrative: Chest: Intubated sedated on mechanical ventilation Heart: Regular rate and rhythm. Abdomen: Soft, midline wound with dressing in place Urinary Catheter Management: Mast Latex: Cath Placed During This Visit: yes Reason for Continuing Indwelling Catheter: Accurate Measurement of Urinary Output in Critically Ill Patients Urinary Catheter Date of Insertion: 08/21/25 Urinary Catheter Time of Insertion: 13:05 Data 08/24/25 03:49 08/24/25 03:49 Micro: Microbiology 08/22/25 16:37 Blood Culture - Preliminary Blood NEGATIVE TO DATE 08/22/25 16:39 Blood Culture - Preliminary Blood NEGATIVE TO DATE 08/22/25 11:40 Gram Stain - Final Sputum - Endotracheal Tube Aspirate Sputum Culture - Preliminary A&P Assessment and plan 1. Small bowel obstruction due to adhesions: 2. Internal hernia: Plan: 75-year-old male status post ex lap and reexploration. Now in continuity. Minimal pressor requirements. Leukocytosis trending down. Progressing as expected. ICU working on extubation. Await return of bowel function. Keep NG tube to low intermittent suction. PDMP PDMP Reviewed: Not Reviewed Attestations 2 Medical Necessity Statement*: Closed-loop SBO Coding Level of Care Code 80511 Diagnoses Small bowel obstruction due to adhesions K56.50 Internal hernia K45.8
[2025-08-24] MEDS: vancomycin 1,750 MG/350 ML PIGGYBACK 175 MG IV ×2 (11:15→22:31)
--- NOTE | 2025-08-24 11:27 | P.PN_ITS ---
Subjective 2 Subjective: - Patient was seen this morning - Currently intubated, weaning sedation - family members at bedside - Continue Levophed -good urine output, - Normotensive, afebrile - Discussed plans on spontaneous breathi ng trial, weaning sedation, possibly extubating today - Discussed risk of reintubation, morbid ity mortality associated, voiced understanding, answered discussed plans: - Patient was given 40 of IV push Lasix, - Patient has had about 1000 mL urine ou tput, sedation is off, he is alert awake and follow commands, drowsy spontaneous breathing trial - Nursing staff reported continues to fo llow commands, 30% FiO2, doing well with spontaneous breathing trial, off all sedation, - Reexamined, patient is alert can nod h is head moves bilateral upper and lower extremities, equal strength bilaterally, he nods he understands what I am saying and my questions -Plan on extubation - Patient was extubated to nasal cannula , does have a weak cough, generalized deconditioning - initially on placed on 2 L reports up to 6 L, now trending down back to 2 L - Reexamine, he is drowsy, can still fol low commands, at times can be encephalopathic requires redirection, but I cannot discern any focal weakness, he moves bilateral upper extremities although generally weak moves bilateral lower extremities, generally weak, cannot turn his head tongue [id number] can nod his head to yes or no questions, pupils equal and reactive to light, - Will continue to monitor throughout e afternoon - Will give another dose of Lasix for fl uid overload/edema Vitals/I&O/Wt Last Vital Signs Temp 97.9 F 08/24/25 08:00 Pulse 66 08/24/25 09:30 Resp 7 L 08/24/25 11:10 BP 126/63 08/24/25 09:30 Pulse Ox 96 08/24/25 11:10 O2 Del Method Mechanical Ventilation 08/24/25 08:00 FiO2 30 08/24/25 11:10 08/23/25 08/24/25 08/24/25 22:59 06:59 14:59 Intake Total 1989.125 / 3565.958 1835.170 / 5401.128 1335.887 / 1335.887 Output Total 1000 / 1300 925 / 2225 150 / 150 Balance 990.125 / 2265.958 910.170 / 3176.128 1185.887 / 1185.887 Weight last 48 hrs Weight 123.921 kg Weight 115.394 kg Physical Exam 2 Const: COMMON NORMALS: no acute distress OTHER: Initially intubated, sedated, endotracheal tube in place, nasogastric tube in place extubated, orotracheal tube noted, NG tube with bilious Eye: OTHER: Pupils equal and reactive to light Resp: COMMON NORMALS: normal respiratory effort, No retractions and No use of accessory muscles AUSCULTATION: crackles Cardio: COMMON NORMALS: regular rate, regular rhythm, S1 normal heart sound present and S2 normal heart sound present RATE: regular rate RHYTHM: r egular rhythm HEART SOUNDS: S1 normal heart sound present and S2 normal heart sound present GI: OTHER: Surgical site looks clean and dry, abdomen soft, slightly distended, diminished bowel sounds in all 4 quadrants, Neuro: OTHER: Moves bilateral upper and lower extremities equal strength bilaterally but diffusely has weakness, is able to turn head [id number] without did not answer other questions, pupils equal reactive to light Urinary Catheter Management: Mast Latex: Cath Placed During This Visit: yes Reason for Continuing Indwelling Catheter: Accurate Measurement of Urinary Output in Critically Ill Patients Urinary Catheter Date of Insertion: 08/21/25 Urinary Catheter Time of Insertion: 13:05 Data 08/24/25 14:00 08/24/25 14:00 Micro: Microbiology 08/22/25 16:37 Blood Culture - Preliminary Blood NEGATIVE TO DATE 08/22/25 16:39 Blood Culture - Preliminary Blood NEGATIVE TO DATE 08/22/25 11:40 Gram Stain - Final Sputum - Endotracheal Tube Aspirate Sputum Culture - Preliminary A&P Assessment and plan 1. Small bowel obstruction due to adhesions: 2. Sepsis: 3. Internal hernia: 4. Acute hypoxic respiratory failure: 5. Diabetes: 6. On mechanically assisted ventilation: 7. Ledesma Agitation Sedation Scale (RASS) score minus 4, deep sedation: 8. Metabolic acidosis: 9. Septic shock: 10. Acute kidney injury: 11. Hypoalbuminemia: Plan: Acute hypoxic respiratory failure Plan - Extubated to nasal cannula - Monitor respiratory status closely - keep n.p.o. -For fluid overload/pulmonary edema, 2 doses of IV Lasix today -Hypokalemia will replace IV -Has some degree of encephalopathy, likely anesthetic effect, no focal weakness that it can discern, does follow commands, will monitor mentation closely neurochecks overnight stroke scale, - Precedex for agitation -DuoNeb as needed - Protonix for GI prophylaxis - Lovenox for DVT prophylaxis - PICC line in place - Arterial line removed Septic shock resolved - PICC line in place -Arterial line in place -Levophed -Vasopressin - Albumin therapy -Stress dose steroids, history of chronic steroid use - Keep MAP greater than 65 - Blood cultures - Sputum cultures - Vancomycin - Zosyn NSTEMI - Serial EKGs, serial troponins, telemetry monitoring - Type I versus type II - Cardiac echo CONCLUSIONS 1. Normal LV systolic cavity size and systolic function. EF 65%. 2. Mild concentric left ventricualr hypertrophy. 3. Moderate aortic valve stenosis. Metabolic acidosis, resolved - Likely sec to septic shock, lactic acidosis, renal failure - Bicarb drip Acute kidney injury, resolved - Secondary to sepsis, septic shock - Monitor urine output, monitor creatinine - Bicarbonate drip Acute anemia, recheck hemoglobin, monitor hemoglobin Closed-loop small bowel obstruction due to ventral hernia CT/CT abdomen pelvis wo con [id number] IMPRESSION: 1. Prior RIGHT hemicolectomy with anastomosis. Anastomosis appears patent involving the transverse colon. 2. Dilated loops of fluid distended small bowel with swirling in the mesentery with mesenteric congestion and reactive lymph nodes in the mid abdomen and LEFT lower quadrant. Segmental areas of collapsed small bowel, see bookmarked images suspicious for internal hernia or adhesions with partial small bowel obstruction. 3. Residual colon is normal in appearance. 4. Prior cholecystectomy with pneumobilia. 5. Small amount of free fluid in the cul-de-sac -Patient's status post exploratory laparotomy, extensive lysis of adhesions, reduction internal hernia, small bowel resection, temporary closure with ABThera -Status post opening a recent exploratory laparotomy washout, small bowel anastomosis, closure of abdomen Plan -Keep n.p.o. -NG tube in place -Serial abdominal exams - Serial abdominal exam - Continue IV Zosyn, IV vancomycin Type 2 diabetes mellitus, low-dose sliding scale Full code SCDs for DVT prophylaxis, Lovenox for DVT prophylaxis Status stable Prognosis guarded PDMP PDMP Reviewed: Not Reviewed Attestations 2 Medical Necessity Statement*: Patient requires hospitalization for acute hypoxic respiratory failure, closed- loop bowel obstruction, acute encephalopathy, closed-loop bowel obstruction Coding Level of Care Code Critical Care >/= 30 minutes Critical care time (in minutes): 60 The high probability of a clinically significant, sudden or life threatening deterioration, as referenced in this documentation, required my full and direct attention, intervention and personal management. The critical care time shown is in addition to time spent performing any reported separately billable procedures and includes the following: [x] Data and vital sign review and interpretation [x ] Patient assessment, examination and intervention [x] Medication orders and management [x] Patient/Family updates as able [x] Care Coordination and Documentation. Diagnoses Small bowel obstruction due to adhesions K56.50 Sepsis A41.9 Internal hernia K45.8 Acute hypoxic respiratory failure J96.01 Diabetes E11.9 On mechanically assisted ventilation Z99.11 Ledesma Agitation Sedation Scale (RASS) score minus 4, deep sedation Z78.9 Metabolic acidosis E87.20 Septic shock A41.9; R65.21 Acute kidney injury N17.9 Hypoalbuminemia E88.09
[2025-08-24 12:44] LABS: Blood Urea Nitrogen 11 mg/dL (8-23); Calcium 7.8 mg/dL (8.5-10.5); Carbon Dioxide 27 mmol/L (22-29); Chloride 109 mmol/L (98-107); Creatinine Clr Calc Pharmacy 103.8221; Glucose 178 mg/dL (65-115); Osmolality Calculated 306 mOsm/kg (285-295); Sodium 146 mmol/L (136-145)
[2025-08-24 12:47] LABS: Anion Gap 13.6 (5-19); Potassium 3.6 mmol/L (3.5-5.1)
[2025-08-24 14:12] LABS: Hematocrit 25.1 % (37-53); Hemoglobin 8.10 g/dL (11.27-16.99); Mean Corpuscular HGB Conc 32.3 g/dL (30-55); Mean Corpuscular Hemoglobin 33.2 pg (27-33); Mean Corpuscular Volume 102.9 fl (82-101); Nucleated Red Blood Cells % 0 %; Platelet Count 147 10^3/cmm (157-399); Red Blood Count 2.44 10^6/uL (3.85-5.65); White Blood Count 10.51 10^3/uL (3.29-11.43)
[2025-08-24 14:29] LABS: Blood Urea Nitrogen 11 mg/dL (8-23); Calcium 7.8 mg/dL (8.5-10.5); Carbon Dioxide 29 mmol/L (22-29); Chloride 108 mmol/L (98-107); Creatinine Clr Calc Pharmacy 103.8221; Glucose 169 mg/dL (65-115); Osmolality Calculated 305 mOsm/kg (285-295); Sodium 146 mmol/L (136-145)
[2025-08-24 14:30] LABS: Anion Gap 12.6 (5-19); Potassium 3.6 mmol/L (3.5-5.1)
--- NOTE | 2025-08-24 16:24 | ECG_ITS ---
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1950 Requested By: Jose Laureano Order Number: [id number] Reading MD: SASHA MARLOW Measurements Intervals Girard Rate: 120 P: -24 MD: 237 QRS: -18 QRSD: 141 T: 61 QT: 365 QTc: 516 Interpretive Statements SINUS TACHYCARDIA WITH FIRST DEGREE AV BLOCK RIGHT BUNDLE BRANCH BLOCK [120+ ms QRS DURATION, UPRIGHT V1, 40+ ms S IN I/aVL/V4/V5/V6] POSSIBLE SEPTAL MYOCARDIAL INFARCTION , PROBABLY OLD [30 ms Q WAVE IN V1/V2] Compared to ECG 08/23/2025 10:46:57 Myocardial infarct finding now present Sinus bradycardia no longer present Electronically Signed On 08-24-2025 21:37:54 CDT by SASHA MARLOW [email or web address]
--- NOTE | 2025-08-24 16:37 | PC.NURSE ---
Extubated at 1310 to 6L Nasal cannula. Was able to quickly titrate down to 2 L NC.
--- NOTE | 2025-08-24 16:37 | PC.NURSE ---
Tachycardia..... Heart rate has slowly increased since extubation. Now in the 120's. SVT, cannot identify any p waves. But there is variable in the rate. Nurse alerted Dr laureano. Received orders for ekg to rule out afib. Ekg shows sintus tach with first degree and bundle branch block ALerted Dr Laureano. Advised to continue monitoring.
--- NOTE | 2025-08-24 16:55 | CTR_ITS ---
PROCEDURE INFORMATION: Exam: CT Head Without Contrast Exam date and time: 08/24/2025 6:18 PM Age: 75 years old Clinical indication: Altered mental status/memory loss and malaise or fatigue; Confusion or disorientation; Additional info: Lethargy, AMS post extubation TECHNIQUE: Imaging protocol: Computed tomography of the head without contrast. Radiation optimization: All CT scans at this facility use at least one of these dose optimization techniques: automated exposure control; mA and/or kV adjustment per patient size (includes targeted exams where dose is matched to clinical indication); or iterative reconstruction. COMPARISON: No relevant prior studies available. RADIATION DOSE METRICS: Total DLP (mGy-cm): 1125.48 FINDINGS: Tubes, catheters and devices: Nasoenteric tube incompletely visualized. Brain: Global cortical atrophy commensurate with the patient's age. Basal cisterns are patent. No hemorrhage, mass effect, extra-axial collection. No acute intracranial abnormality. Punctate calcifications of the basal ganglia. Cerebral ventricles: No ventriculomegaly. Paranasal sinuses: Visualized sinuses are unremarkable. No fluid levels. Mastoid air cells: Visualized mastoid air cells are well aerated. Orbital cavities: Evidence of prior cataract surgery otherwise the intraorbital contents are unremarkable. Bones: Unremarkable. No acute fracture. Soft tissues: Unremarkable. CT/CT head wo con* [id number] IMPRESSION: No acute intracranial abnormality.
--- NOTE | 2025-08-24 17:04 | PC.NURSE ---
NIH: Patient scored 17 on the NIH scale. No one sided defecits detected, high score due to patient being unbable to participate in testing due to deconditioning post intubation. Nurse alerted Dr caballero. No concern for stroke at this time, but due to patient's continued lethargy post extubation, Dr caballero ordered a head CT. He feels that the patient should have become more alert by now.
--- NOTE | 2025-08-24 18:34 | PC.NURSE ---
Shift SUmmary: Extubated at 1310. Was uneventful. Currently on 2LNC Mental status continues to improve since extubation, but is still lethargic. Voice is a barely audible whisper, but it appears as though he is mouthing correct responses to name and questions. Bilateral instrument and control service person weak, but equal. CT head completed due to continued lethargy, results pending at time of this note. weaned off of pressors today. Voided 5050mL
[2025-08-25] VITALS (55 sets, daily range): BP systolic 115–146; BP diastolic 67–97; PULSE 74–103; RESP 14–18; TEMP 36.7–37.4; O2SAT 86–98
[2025-08-25] MEDS: piperacillin-tazobactam 3.375 GM in sodium chloride 0.9% (plus) 50 ML IV ×4 (00:33→23:51)
[2025-08-25 05:07] LABS: ABG PCO2 45.3 mmHg (35-45); ABG PH Result 7.48 (7.35-7.45); Arterial Blood Gas Hematocrit 27.4 % (42-52); Blood Gas Allen Test Pos; Blood Gas LPM 2.0 %; Blood Gas Operator Identificat JDB; Blood Gas Sample Site Radial, right; Blood Gas Sample Type Arterial; HCO3 ABG 33.3 mmol/L (22-26); PO2 ABG 92.4 mmHg (80.0-100.0)
[2025-08-25] MEDS: pantoprazole 40 mg SDV IVP ×2 (06:01→17:11)
[2025-08-25 06:08] LABS: Hematocrit 23.9 % (37-53); Hemoglobin 7.70 g/dL (11.27-16.99); Mean Corpuscular HGB Conc 32.2 g/dL (30-55); Mean Corpuscular Hemoglobin 33.2 pg (27-33); Mean Corpuscular Volume 103.0 fl (82-101); Nucleated Red Blood Cells % 0 %; Platelet Count 153 10^3/cmm (157-399); Red Blood Count 2.32 10^6/uL (3.85-5.65); White Blood Count 9.18 10^3/uL (3.29-11.43)
[2025-08-25 06:32] LABS: Lactate (Lactic Acid level) 1.2 mmol/L (0.5-2.2)
[2025-08-25 06:37] LABS: INR 1.13 (0.8-1.2); Prothrombin Time 15.30 SECONDS (12.1-14.9)
--- NOTE | 2025-08-25 07:00 | XRR_ITS ---
PROCEDURE INFORMATION: Exam: XR Chest Exam date and time: 08/25/2025 10:02 AM Age: 75 years old Clinical indication: Shortness of breath; Additional info: SOB TECHNIQUE: Imaging protocol: Radiologic exam of the chest. Views: 1 view. COMPARISON: CR XR chest 1V portable [id number] 08/23/2025 6:57 AM FINDINGS: Tubes, catheters and devices: Right arm PICC terminates in the SVC. NG tube terminates in the body of the stomach. Lungs: Increased atelectasis and/or pneumonitis in the lung bases. Unchanged low lung volumes. Pleural spaces: Increased small-moderate bilateral pleural effusions. No pneumothorax. Heart/Mediastinum: Heart borders are mostly obscured. Bones/joints: Nothing acute. No change. XR/XR chest 1V portable [id number] IMPRESSION: 1. Increased atelectasis and/or pneumonitis in the lung bases. 2. Unchanged low lung volumes. 3. Increased small-moderate bilateral pleural effusions.
[2025-08-25 07:42] LABS: Procalcitonin 5.47 ng/mL (0-0.5)
[2025-08-25 08:26] LABS: Alanine Aminotransferase 9 U/L (0-41); Albumin Level 3.2 g/dL (3.5-5.2); Alkaline Phosphatase 49 U/L (40-130); Anion Gap 16.8 (5-19); Aspartate Amino Transferase 15 U/L (0-40); Blood Urea Nitrogen 16 mg/dL (8-23); Calcium 7.5 mg/dL (8.5-10.5); Carbon Dioxide 30 mmol/L (22-29); Chloride 108 mmol/L (98-107); Creatinine Clr Calc Pharmacy 101.5667; Globulin 1.8 g/dL (1.3-4.6); Glucose 124 mg/dL (65-115); Magnesium 2.2 mg/dL (1.7-2.3); Osmolality Calculated 317 mOsm/kg (285-295); Sodium 152 mmol/L (136-145); Total Protein 5.0 g/dL (6.6-8.7)
[2025-08-25 08:29] LABS: Potassium 2.8 mmol/L (3.5-5.1)
[2025-08-25] MEDS: hydrocortisone 100 mg/2 mL SDV 25 MG IVP (08:49)
[2025-08-25] MEDS: potassium phosphate (mEq K) 40 MEQ in sodium chloride 0.9% (100 ml) 100 ML 27.25 MEQ IV (08:49)
[2025-08-25] MEDS: chlorhexidine gluconate 4% Btl 118 mL 1 APPLIC TOPICAL (10:16)
[2025-08-25] MEDS: vancomycin 1,750 MG/350 ML PIGGYBACK 175 MG IV ×2 (11:39→23:51)
--- NOTE | 2025-08-25 12:26 | PC.SLP ---
GIOVANNY hardin attempted. Nursing stated to hold evaluation at this time.
--- NOTE | 2025-08-25 13:37 | P.PN_ITS ---
Subjective 2 Subjective: Patient seen this morning, patient's son is at bedside, he is alert to person, to place, to time does easily fall back asleep during conversations, but can follow commands, denies any fevers, no chills, no cough, Vitals/I&O/Wt Last Vital Signs Temp 98.3 F 08/25/25 12:44 Pulse 80 08/25/25 12:44 Resp 16 08/25/25 12:44 BP 135/75 08/25/25 12:44 Pulse Ox 96 08/25/25 12:44 O2 Del Method Nasal Cannula 08/25/25 12:00 O2 Flow Rate 1 08/25/25 08:35 FiO2 30 08/24/25 12:50 08/24/25 08/25/25 08/25/25 22:59 06:59 14:59 Intake Total 965 / 2352.122 400 / 2752.025 948.4018 / 159.0909 Output Total 3125 / 5325 850 / 6175 350 / 350 Balance -2160 / -2972.878 -450 / -3422.878 -190.9091 / -190.9091 Weight last 48 hrs Weight 119 kg Weight 123.921 kg Physical Exam 2 Const: COMMON NORMALS: no acute distress ORIENTATION/CONSCIOUSNESS: Yes awake, Yes oriented to person and Yes oriented to place; not oriented to time OTHER: Does follow commands, requires redirection Eye: COMMON NORMALS: Equal, round and reactive pupils present PUPIL: Yes Equal, round and reactive pupils present Chest: COMMONS NORMALS: normal inspection of the chest Resp: COMMON NORMALS: normal respiratory effort, No retractions, No use of accessory muscles and clear to auscultation bilaterally AUSCULTATION: clear to auscultation bilaterally Cardio: COMMON NORMALS: regular rate, regular rhythm, S1 normal heart sound present and S2 normal heart sound present RATE: regular rate RHYTHM: r egular rhythm HEART SOUNDS: S1 normal heart sound present and S2 normal heart sound present GI: OTHER: Surgical site clean dry, judy in place with clean and dry, abdomen soft, slightly distended, diminished bowel sounds in all 4 quadrants, no guarding, rebound, rigidity Extremity: COMMON NORMALS: no calf tenderness OTHER: 1+ edema, anasarca Neuro: SENSORIUM/ORIENTATION: Yes oriented to person, Yes oriented to place and No oriented to time OTHER: Moves bilateral upper and lower extremity, has generalized weakness Urinary Catheter Management: Mast Latex: Cath Placed During This Visit: yes Reason for Continuing Indwelling Catheter: Accurate Measurement of Urinary Output in Critically Ill Patients Urinary Catheter Date of Insertion: 08/21/25 Urinary Catheter Time of Insertion: 13:05 Data 08/25/25 04:35 08/25/25 04:35 Micro: Microbiology 08/23/25 13:05 Gram Stain - Final Abdomen Anaerobic Culture - Preliminary Abscess Culture - Preliminary 08/22/25 11:40 Gram Stain - Final Sputum - Endotracheal Tube Aspirate Sputum Culture - Final A&P Assessment and plan 1. Small bowel obstruction due to adhesions: 2. Sepsis: 3. Internal hernia: 4. Acute hypoxic respiratory failure: 5. Diabetes: 6. On mechanically assisted ventilation: 7. Ledesma Agitation Sedation Scale (RASS) score minus 4, deep sedation: 8. Metabolic acidosis: 9. Septic shock: 10. Acute kidney injury: 11. Hypoalbuminemia: Plan: Acute hypoxic respiratory failure Plan - Extubated to nasal cannula - Monitor respiratory status closely - keep n.p.o. -Weak cough, generalized weakness - Diuresed 6 L yesterday hold diuresis for today given hypernatremia -Recheck serum BMP this afternoon -Hypokalemia # hypophosphatemia will replace IV -Has some degree of encephalopathy, likely anesthetic effect, no focal weakness that it can discern, does follow commands, will monitor mentation closely neurochecks overnight stroke scale, CT head no acute findings - Precedex for agitation -DuoNeb as needed - Protonix for GI prophylaxis - Lovenox for DVT prophylaxis - PICC line in place - Arterial line removed Acute encephalopathy -CT head - As above - Monitor mentation closely Septic shock resolved - PICC line in place -Arterial line in place -Levophed -Vasopressin - Albumin therapy currently on hold -Stress dose steroids, history of chronic steroid use, weaning hydrocortisone therapy - Keep MAP greater than 65 - Blood cultures - Sputum cultures - Vancomycin - Zosyn NSTEMI - Serial EKGs, serial troponins, telemetry monitoring - Type I versus type II - Cardiac echo CONCLUSIONS 1. Normal LV systolic cavity size and systolic function. EF 65%. 2. Mild concentric left ventricualr hypertrophy. 3. Moderate aortic valve stenosis. Metabolic acidosis, resolved - Likely sec to septic shock, lactic acidosis, renal failure - Bicarb drip Acute kidney injury, resolved - Secondary to sepsis, septic shock - Monitor urine output, monitor creatinine - Bicarbonate drip Acute anemia, recheck hemoglobin, monitor hemoglobin - Transfuse 1 unit PRBC Closed-loop small bowel obstruction due to ventral hernia CT/CT abdomen pelvis wo con [id number] IMPRESSION: 1. Prior RIGHT hemicolectomy with anastomosis. Anastomosis appears patent involving the transverse colon. 2. Dilated loops of fluid distended small bowel with swirling in the mesentery with mesenteric congestion and reactive lymph nodes in the mid abdomen and LEFT lower quadrant. Segmental areas of collapsed small bowel, see bookmarked images suspicious for internal hernia or adhesions with partial small bowel obstruction. 3. Residual colon is normal in appearance. 4. Prior cholecystectomy with pneumobilia. 5. Small amount of free fluid in the cul-de-sac -Patient's status post exploratory laparotomy, extensive lysis of adhesions, reduction internal hernia, small bowel resection, temporary closure with ABThera -Status post opening a recent exploratory laparotomy washout, small bowel anastomosis, closure of abdomen Plan -Keep n.p.o. -NG tube in place -Serial abdominal exams - Serial abdominal exam - Continue IV Zosyn, IV vancomycin Type 2 diabetes mellitus, low-dose sliding scale Generalized weakness, will need PT OT today Third spacing/hypoalbuminemia - Will hold diuresis for today Full code SCDs for DVT prophylaxis, Lovenox for DVT prophylaxis Status stable Prognosis guarded PDMP PDMP Reviewed: Not Reviewed Attestations 2 Medical Necessity Statement*: Patient requires hospitalization for closed-loop bowel obstruction requiring surgical invention, generalized deconditioning, respiratory failure, fluid overload, hypernatremia, hypokalemia,, hypophosphatemia Diagnoses Small bowel obstruction due to adhesions K56.50 Sepsis A41.9 Internal hernia K45.8 Acute hypoxic respiratory failure J96.01 Diabetes E11.9 On mechanically assisted ventilation Z99.11 Ledesma Agitation Sedation Scale (RASS) score minus 4, deep sedation Z78.9 Metabolic acidosis E87.20 Septic shock A41.9; R65.21 Acute kidney injury N17.9 Hypoalbuminemia E88.09
--- NOTE | 2025-08-25 14:49 | PC.NURSE ---
Patient sat to side of bed two person assist, Patient unable to stabilize and hold self upright. Patient encouraged to continue with exercises in bed.
[2025-08-25 16:40] LABS: Anion Gap 10.9 (5-19); Blood Urea Nitrogen 19 mg/dL (8-23); Calcium 7.8 mg/dL (8.5-10.5); Carbon Dioxide 30 mmol/L (22-29); Chloride 110 mmol/L (98-107); Creatinine Clr Calc Pharmacy 101.5667; Glucose 139 mg/dL (65-115); Osmolality Calculated 311 mOsm/kg (285-295); Sodium 148 mmol/L (136-145)
[2025-08-25 16:46] LABS: Potassium 2.9 mmol/L (3.5-5.1)
[2025-08-25] MEDS: potassium chloride premix 100 ML 25 MEQ IV (17:11)
--- NOTE | 2025-08-25 17:50 | PC.NURSE ---
Shift note: Patient encouraged to perform self care, suctioning and some exercises such as moving arms and wrists, moving feet and legs while in bed. Patient two person assist to the side of bed, does not support self. Multiple family members given updates through shift. Patient remains without fever, see stable vitals charted. Requires 1LNC. Patient continues to deny pain and refuse pain medication offered. Grandson and Son asks if pain medication can be given without patient reporting pain, family educated that to assess mentation pain medication would not be given if patient denies pain and that patient has right to refuse. Urine output: 600ml NG output:10ml Patient remains NPO, not passing gas, no bowel movements.
[2025-08-25] MEDS: dextrose 5%-sod chloride 0.9% 1,000 ML 30 ML IV (17:58)
[2025-08-26] VITALS (50 sets, daily range): BP systolic 121–150; BP diastolic 59–87; PULSE 70–91; RESP 18; TEMP 36.8–37.4; O2SAT 93–97; BMI 38.7
--- NOTE | 2025-08-26 01:42 | PC.NURSE ---
Lethargy: Patient continues to be lethargic, oriented to person and situation but not time. Reports zero pain but wishes to receive bed bath during the day.
[2025-08-26 05:06] LABS: Hematocrit 26.3 % (37-53); Hemoglobin 8.50 g/dL (11.27-16.99); Mean Corpuscular HGB Conc 32.3 g/dL (30-55); Mean Corpuscular Hemoglobin 32.7 pg (27-33); Mean Corpuscular Volume 101.2 fl (82-101); Nucleated Red Blood Cells % 0 %; Platelet Count 152 10^3/cmm (157-399); Red Blood Count 2.60 10^6/uL (3.85-5.65); White Blood Count 8.60 10^3/uL (3.29-11.43)
[2025-08-26 05:28] LABS: Alanine Aminotransferase 14 U/L (0-41); Albumin Level 3.0 g/dL (3.5-5.2); Alkaline Phosphatase 92 U/L (40-130); Anion Gap 11.1 (5-19); Aspartate Amino Transferase 22 U/L (0-40); Blood Urea Nitrogen 20 mg/dL (8-23); Calcium 7.8 mg/dL (8.5-10.5); Carbon Dioxide 31 mmol/L (22-29); Chloride 116 mmol/L (98-107); Globulin 2.4 g/dL (1.3-4.6); Glucose 115 mg/dL (65-115); Magnesium 2.4 mg/dL (1.7-2.3); Osmolality Calculated 324 mOsm/kg (285-295); Potassium 3.1 mmol/L (3.5-5.1); Sodium 155 mmol/L (136-145); Total Protein 5.4 g/dL (6.6-8.7)
[2025-08-26] MEDS: pantoprazole 40 mg SDV IVP ×2 (05:32→16:59)
[2025-08-26 05:34] LABS: Creatinine Clr Calc Pharmacy 101.5667
[2025-08-26] MEDS: dextrose 5 % 500 ML 100 ML IV (06:47)
--- NOTE | 2025-08-26 06:50 | PC.NURSE ---
Hypernatremia: Patient's Na was 155, Dr. Crowder gave the following orders; D/c D5 NS Give 500mL bag of D5W at 100mL/hr then redraw Na and contact provider.
[2025-08-26] MEDS: potassium phosphate (mEq K) 40 MEQ in sodium chloride 0.9% (100 ml) 100 ML 27.25 MEQ IV (08:37)
[2025-08-26] MEDS: hydrocortisone 100 mg/2 mL SDV 10 MG IVP (08:40)
[2025-08-26] MEDS: dextrose 5%-sod chloride 0.9% 1,000 ML 75 ML IV (08:43)
[2025-08-26] MEDS: piperacillin-tazobactam 3.375 GM in sodium chloride 0.9% (plus) 50 ML IV ×2 (08:55→16:59)
[2025-08-26 11:47] LABS: Urine Random Sodium 80 mmol/L
--- NOTE | 2025-08-26 11:53 | PC.SOCIAL ---
IMM Update pg 2 of IMM updated and reviewed w/ patient. Copy provided and copy dated, initialed and placed in chart.
--- NOTE | 2025-08-26 12:51 | PC.NUTR ---
Verbal consult for PPN recommendations received. Recommend beginning PPN 4.25% AA & 5% dextrose @23mls/hr, increasing 20mls Q4-8H until 83mls/hr is reached with fat emulsion 20 grams/100mls twice weekly, MV 10mls/day and standard electrolytes.
[2025-08-26 13:34] LABS: Blood Urea Nitrogen 18 mg/dL (8-23); Calcium 7.5 mg/dL (8.5-10.5); Carbon Dioxide 30 mmol/L (22-29); Chloride 116 mmol/L (98-107); Creatinine Clr Calc Pharmacy 99.9969; Glucose 147 mg/dL (65-115); Osmolality Calculated 321 mOsm/kg (285-295); Sodium 153 mmol/L (136-145)
[2025-08-26 13:36] LABS: Anion Gap 10.7 (5-19); Potassium 3.7 mmol/L (3.5-5.1)
--- NOTE | 2025-08-26 14:57 | P.PN_ITS ---
Subjective 2 Subjective: High G-tube output Distended otherwise abdomen benign Vitals/I&O/Wt Last Vital Signs Temp 99.4 F 08/26/25 08:30 Pulse 81 08/26/25 14:00 Resp 18 08/26/25 10:16 BP 136/77 08/26/25 13:30 Pulse Ox 96 08/26/25 13:30 O2 Del Method Nasal Cannula 08/26/25 10:16 O2 Flow Rate 1 08/26/25 10:16 FiO2 30 08/24/25 12:50 08/25/25 08/26/25 08/26/25 22:59 06:59 14:59 Intake Total 150 / 1009.0909 782.5 / 1791.5909 659.0909 / 659.0909 Output Total 260 / 610 400 / 1010 Balance -110 / 399.0909 382.5 / 781.5909 659.0909 / 659.0909 Weight last 48 hrs Weight 254 lb 12.8 oz Weight 262 lb 5.601 oz Physical Exam 2 Narrative: Chest: Unlabored breathing room air. No lymphadenopathy. Heart: Regular rate and rhythm. Abdomen: Soft, mildly tender, distended. Midline intact Urinary Catheter Management: Mast Latex: Cath Placed During This Visit: yes Reason for Continuing Indwelling Catheter: Accurate Measurement of Urinary Output in Critically Ill Patients Urinary Catheter Date of Insertion: 08/21/25 Urinary Catheter Time of Insertion: 13:05 Data 08/27/25 04:10 08/27/25 04:10 Micro: Microbiology 08/23/25 13:05 Gram Stain - Final Abdomen Anaerobic Culture - Preliminary Abscess Culture - Final A&P Assessment and plan 1. Small bowel obstruction due to adhesions: Plan: 75-year-old male who presented with a closed-loop SBO. Doing well. High NG tube output and distended. Keep NG tube to suction. Correct electrolytes. Encourage ambulation. Rest of care per hospitalist. PDMP PDMP Reviewed: Not Reviewed Attestations 2 Medical Necessity Statement*: N/A Coding Level of Care Code 49232 Diagnoses Small bowel obstruction due to adhesions K56.50
--- NOTE | 2025-08-26 16:10 | PC.SLP ---
Nursing stated patient was not able to consume food when speech therapy checked in for an evaluation today.
--- NOTE | 2025-08-26 17:03 | P.PN_ITS ---
Subjective 2 Subjective: Patient was seen this morning, he is currently alert to person, to place, to time he can follow commands, pupils are equal round reactive to light, no facial droop no slurring his words does have significant generalized weakness he moves bilateral upper extremities but very weak in bilateral upper extremities, I cannot discern any focal weakness he has better strength in his lower extremities, equal strength bilateral lower extremities but significantly deconditioned, and weak, denies any abdominal pain, has not passed any gas, does have a weak cough, Vitals/I&O/Wt Last Vital Signs Temp 99.4 F 08/26/25 08:30 Pulse 78 08/26/25 16:00 Resp 18 08/26/25 10:16 BP 129/76 08/26/25 16:00 Pulse Ox 95 08/26/25 16:00 O2 Del Method Nasal Cannula 08/26/25 10:16 O2 Flow Rate 1 08/26/25 10:16 FiO2 30 08/24/25 12:50 08/26/25 08/26/25 08/26/25 06:59 14:59 22:59 Intake Total 782.5 / 1791.5909 659.0909 / 659.0909 Output Total 400 / 1010 Balance 382.5 / 781.5909 659.0909 / 659.0909 Weight last 48 hrs Weight 115.575 kg Weight 119 kg Physical Exam 2 Const: COMMON NORMALS: no acute distress ORIENTATION/CONSCIOUSNESS: Yes awake, Yes oriented to person and Yes oriented to place; not oriented to time Eye: COMMON NORMALS: Equal, round and reactive pupils present PUPIL: Yes Equal, round and reactive pupils present Resp: COMMON NORMALS: normal respiratory effort, No retractions, No use of accessory muscles and clear to auscultation bilaterally AUSCULTATION: clear to auscultation bilaterally Cardio: COMMON NORMALS: regular rate, regular rhythm, S1 normal heart sound present and S2 normal heart sound present RATE: regular rate RHYTHM: r egular rhythm HEART SOUNDS: S1 normal heart sound present and S2 normal heart sound present GI: OTHER: Abdomen is soft, slightly distended, scattered bowel sounds, no guarding, no rebound, rigidity Extremity: COMMON NORMALS: no pedal edema Neuro: COMMON NORMALS: CN's II-XII intact bilaterally, moves all extremities and no focal motor deficits SENSORIUM/ORIENTATION: Yes oriented to person, Yes oriented to place and No oriented to time OTHER: Is able to track me around the room, able to turn his head side to side,, pupils equal round reactive to light, no facial droop, no slurring his words - He does have generalized profound weak ness - Bilateral upper extremities profoundly weak, he is has good skilled nursing facilities professional strength, but both arms fall to the bed when lifted, I have equal skilled nursing facilities professional strength - Bilateral lower extremity strength is weak, he is able to plantarflex, able to dorsiflex, is able to raise both legs, equal strength bilaterally Skin: NARRATIVE SKIN EXAM: Does have diffuse anasarca, edema Urinary Catheter Management: Mast Latex: Cath Placed During This Visit: yes Reason for Continuing Indwelling Catheter: Accurate Measurement of Urinary Output in Critically Ill Patients Urinary Catheter Date of Insertion: 08/21/25 Urinary Catheter Time of Insertion: 13:05 Data 08/26/25 04:18 08/26/25 13:11 Micro: Microbiology 08/23/25 13:05 Gram Stain - Final Abdomen Anaerobic Culture - Preliminary Abscess Culture - Final A&P Assessment and plan 1. Small bowel obstruction due to adhesions: 2. Sepsis: 3. Internal hernia: 4. Acute hypoxic respiratory failure: 5. Diabetes: 6. On mechanically assisted ventilation: 7. Ledesma Agitation Sedation Scale (RASS) score minus 4, deep sedation: 8. Metabolic acidosis: 9. Septic shock: 10. Acute kidney injury: 11. Hypoalbuminemia: Plan: Acute hypoxic respiratory failure Plan - Extubated to nasal cannula - Monitor respiratory status closely - keep n.p.o. -Weak cough, generalized weakness - Diuresed 6 L yesterday hold diuresis for today given hypernatremia -Recheck serum BMP this afternoon -Hypokalemia # hypophosphatemia will replace IV -Has some degree of encephalopathy, likely anesthetic effect, no focal weakness that it can discern, does follow commands, will monitor mentation closely neurochecks overnight stroke scale, CT head no acute findings - Precedex for agitation as needed -DuoNeb as needed - Protonix for GI prophylaxis - Lovenox for DVT prophylaxis - PICC line in place - Arterial line removed Hypernatremia - Likely secondary to dehydration, increased NG tube output - Gentle IV hydration Acute encephalopathy -Combination of hypernatremia, anesthetic, ICU delirium -CT head no acute findings - As above - Monitor mentation closely Septic shock resolved - PICC line in place -Arterial line in place -Levophed -Vasopressin - Albumin therapy currently on hold -Stress dose steroids, history of chronic steroid use, weaning hydrocortisone therapy - Keep MAP greater than 65 - Blood cultures - Sputum cultures - Vancomycin - Zosyn NSTEMI - Serial EKGs, serial troponins, telemetry monitoring - Type I versus type II - Cardiac echo CONCLUSIONS 1. Normal LV systolic cavity size and systolic function. EF 65%. 2. Mild concentric left ventricualr hypertrophy. 3. Moderate aortic valve stenosis. Metabolic acidosis, resolved - Likely sec to septic shock, lactic acidosis, renal failure - Bicarb drip Acute kidney injury, resolved - Secondary to sepsis, septic shock - Monitor urine output, monitor creatinine - Bicarbonate drip Acute anemia, recheck hemoglobin, monitor hemoglobin - Status post 1 unit PRBC - Hemoglobin 8.5 Closed-loop small bowel obstruction due to ventral hernia CT/CT abdomen pelvis wo con [id number] IMPRESSION: 1. Prior RIGHT hemicolectomy with anastomosis. Anastomosis appears patent involving the transverse colon. 2. Dilated loops of fluid distended small bowel with swirling in the mesentery with mesenteric congestion and reactive lymph nodes in the mid abdomen and LEFT lower quadrant. Segmental areas of collapsed small bowel, see bookmarked images suspicious for internal hernia or adhesions with partial small bowel obstruction. 3. Residual colon is normal in appearance. 4. Prior cholecystectomy with pneumobilia. 5. Small amount of free fluid in the cul-de-sac -Patient's status post exploratory laparotomy, extensive lysis of adhesions, reduction internal hernia, small bowel resection, temporary closure with ABThera -Status post opening a recent exploratory laparotomy washout, small bowel anastomosis, closure of abdomen Plan -Keep n.p.o. -NG tube in place, has had increased NG tube output -Serial abdominal exams - Serial abdominal exam - Continue IV Zosyn - De-escalate off IV vancomycin Type 2 diabetes mellitus, low-dose sliding scale Generalized weakness, will need PT OT today Third spacing/hypoalbuminemia - Will hold diuresis for today Full code SCDs for DVT prophylaxis, Lovenox for DVT prophylaxis Status stable Prognosis guarded Plan for today, gentle IV hydration, start on peripheral nutrition, de-escalate off vancomycin, PT OT, monitor NG tube output, monitor electrolytes, speech therapy eval, monitor mentation PDMP PDMP Reviewed: Not Reviewed Attestations 2 Medical Necessity Statement*: Patient requires hospitalization for generalized weakness, deconditioning, acute anemia, closed-loop bowel obstruction, acute respiratory failure, hypernatremia, encephalopathy, Diagnoses Small bowel obstruction due to adhesions K56.50 Sepsis A41.9 Internal hernia K45.8 Acute hypoxic respiratory failure J96.01 Diabetes E11.9 On mechanically assisted ventilation Z99.11 Ledesma Agitation Sedation Scale (RASS) score minus 4, deep sedation Z78.9 Metabolic acidosis E87.20 Septic shock A41.9; R65.21 Acute kidney injury N17.9 Hypoalbuminemia E88.09
[2025-08-26] MEDS: multivitamin inj 10 ML in AA-Dex 4.25%-5% w/Lytes 1,000 ML 83 ML IV (17:37)
[2025-08-26 18:56] LABS: Respiratory Syncytial Virus Ce NEGATIVE (Negative); SARS-CoV-2 PCR NEGATIVE (Negative)
[2025-08-26 19:50] LABS: MRSA PCR OZH (swab) MRSA Detected (Negative)
[2025-08-26] MEDS: dextrose 5%-sod chloride 0.9% 1,000 ML 65 ML IV (23:22)
[2025-08-27] VITALS (48 sets, daily range): BP systolic 114–148; BP diastolic 58–87; PULSE 67–86; RESP 18; TEMP 36.6–37.9; O2SAT 87–98
[2025-08-27] MEDS: piperacillin-tazobactam 3.375 GM in sodium chloride 0.9% (plus) 50 ML IV ×3 (00:29→17:16)
[2025-08-27 04:32] LABS: Hematocrit 28.2 % (37-53); Hemoglobin 8.90 g/dL (11.27-16.99); Mean Corpuscular HGB Conc 31.6 g/dL (30-55); Mean Corpuscular Hemoglobin 32.0 pg (27-33); Mean Corpuscular Volume 101.4 fl (82-101); Nucleated Red Blood Cells % 0 %; Platelet Count 155 10^3/cmm (157-399); Red Blood Count 2.78 10^6/uL (3.85-5.65); White Blood Count 8.27 10^3/uL (3.29-11.43)
[2025-08-27 05:01] LABS: Alanine Aminotransferase 13 U/L (0-41); Albumin Level 3.0 g/dL (3.5-5.2); Alkaline Phosphatase 70 U/L (40-130); Anion Gap 11.1 (5-19); Aspartate Amino Transferase 19 U/L (0-40); Blood Urea Nitrogen 17 mg/dL (8-23); Calcium 7.6 mg/dL (8.5-10.5); Carbon Dioxide 29 mmol/L (22-29); Chloride 118 mmol/L (98-107); Creatinine Clr Calc Pharmacy 99.9969; Globulin 2.6 g/dL (1.3-4.6); Glucose 178 mg/dL (65-115); Magnesium 2.5 mg/dL (1.7-2.3); Osmolality Calculated 326 mOsm/kg (285-295); Potassium 3.1 mmol/L (3.5-5.1); Sodium 155 mmol/L (136-145); Total Protein 5.6 g/dL (6.6-8.7)
[2025-08-27 05:07] LABS: NT Pro B Type Natriuretic Pept 2414 pg/mL (0-125); Procalcitonin 1.86 ng/mL (0-0.5)
[2025-08-27] MEDS: pantoprazole 40 mg SDV IVP ×2 (05:42→17:21)
--- NOTE | 2025-08-27 05:53 | PC.NURSE ---
HYPOKALEMIA Dr. Coats notified of patient having a potassium of 3.1 this morning, received orders for 20 meq Potassium IV. NAZARIO reflected to show orders.
[2025-08-27] MEDS: lidocaine 1% 5 ML in potassium chloride premix 100 ML 52.5 ML IV (06:10)
--- NOTE | 2025-08-27 07:00 | XRR_ITS ---
PROCEDURE INFORMATION: Exam: XR Chest Exam date and time: 08/27/2025 7:01 AM Age: 75 years old Clinical indication: Shortness of breath; Additional info: SOB. No history of recent trauma or surgery is provided. TECHNIQUE: Imaging protocol: Radiologic exam of the chest. 1image(s) are provided. Views: 1 view. COMPARISON: 1. CR (CHEST, ) 08/25/2025 10:02 AM 2. CR XR chest 1V portable [id number] 08/23/2025 6:57 AM 3. CR (CHEST, ) 08/21/2025 5:33 PM FINDINGS: Tubes, catheters and devices: The right PICC line remains along with the gastric tube. Lungs: There is some persistent patchy atelectatic consolidation of the left lung base with subtle improvement of aeration of the right lung base with some better definition of the hemidiaphragms. There is some chronic granulomatous calcific appearance on the left similar overall.There is some subsegmental atelectasis versus post inflammatory reticulonodular scarring demonstrated. Pleural spaces: There is some costophrenic angle blunting bilaterally similar overall.No pneumothorax is appreciated. Heart/Mediastinum: The cardiomediastinal silhouette is upper normal in size.This can be seen with central averaging as well as candice enlargement.No cardiac decompensation is appreciated.Atherosclerotic vascular changes are demonstrated. Diaphragm: The hemidiaphragms are somewhat obscured otherwise. Bones/joints: No interval displaced fracture or dislocation is appreciated.There are some degenerative changes of the shoulders and spine overall present. Soft tissues: No radiopaque foreign body or subcutaneous emphysema is appreciated. No other significant interval changes are appreciated. XR/XR chest 1V portable [id number] IMPRESSION: There is some persistent patchy atelectatic consolidation and pleural fluid about the lung bases with subtle intervally improved aeration on the right.
[2025-08-27] MEDS: hydrocortisone 100 mg/2 mL SDV 10 MG IVP (08:25)
[2025-08-27] MEDS: chlorhexidine gluconate 4% Btl 118 mL 1 APPLIC TOPICAL (08:26)
[2025-08-27] MEDS: lidocaine 1% 5 ML in potassium chloride premix 100 ML 26.25 ML IV ×2 (08:45→16:34)
[2025-08-27] MEDS: vancomycin 1,750 MG/350 ML PIGGYBACK 175 MG IV ×2 (12:22→22:54)
[2025-08-27 14:20] LABS: Anion Gap 11.3 (5-19); Blood Urea Nitrogen 17 mg/dL (8-23); Calcium 7.7 mg/dL (8.5-10.5); Carbon Dioxide 27 mmol/L (22-29); Chloride 118 mmol/L (98-107); Creatinine Clr Calc Pharmacy 101.0781; Glucose 196 mg/dL (65-115); Osmolality Calculated 323 mOsm/kg (285-295); Potassium 3.3 mmol/L (3.5-5.1); Sodium 153 mmol/L (136-145)
[2025-08-27] MEDS: multivitamin inj 10 ML in AA-Dex 4.25%-5% w/Lytes 1,000 ML 40 ML IV (17:16)
--- NOTE | 2025-08-27 17:30 | P.PN_ITS ---
Subjective 2 Subjective: Low NGT output Had 2BMs Passing gas Abdomen benign WBC down Vitals/I&O/Wt Last Vital Signs Temp 100.2 F H 08/27/25 08:30 Pulse 70 08/27/25 16:00 Resp 18 08/27/25 09:06 BP 132/66 08/27/25 16:00 Pulse Ox 95 08/27/25 16:00 O2 Del Method Room Air 08/27/25 09:06 O2 Flow Rate 1 08/26/25 10:16 FiO2 30 08/24/25 12:50 08/27/25 08/27/25 08/27/25 06:59 14:59 22:59 Intake Total 1212.599 / 2921.6899 822.25 / 822.25 600.984 / 1423.234 Output Total 525 / 1175 Balance 687.599 / 1746.6899 822.25 / 822.25 600.984 / 1423.234 Weight last 48 hrs Weight 260 lb Weight 254 lb 12.8 oz Physical Exam 2 Narrative: rrr unlabored breathing ra abdomen soft, appropriately tender, non distended Urinary Catheter Management: Mast Latex: Cath Placed During This Visit: yes Reason for Continuing Indwelling Catheter: Acute Urinary Retention or Obstruction Urinary Catheter Date of Insertion: 08/21/25 Urinary Catheter Time of Insertion: 13:05 Data 08/27/25 04:10 08/27/25 13:57 Micro: Microbiology 08/22/25 16:37 Blood Culture - Final Blood NO GROWTH AFTER 5 DAYS 08/22/25 16:39 Blood Culture - Final Blood NO GROWTH AFTER 5 DAYS 08/23/25 13:05 Gram Stain - Final Abdomen Anaerobic Culture - Preliminary Abscess Culture - Final 08/26/25 17:24 Blood Culture - Preliminary Blood SPECIMEN COLLECTED 08/26/25 17:20 Blood Culture - Preliminary Blood SPECIMEN COLLECTED A&P Assessment and plan 1. Internal hernia: Plan: 75yo male who presented with a closed loop SBO. Progressing as expected. Now having bowel function. OK to dc NGT. Speech eval. Start clears if able to swallow. OOB. Transfer to floor. PDMP PDMP Reviewed: Not Reviewed Attestations 2 Medical Necessity Statement*: closed looop sbo Coding Level of Care Code 93415 Diagnoses Internal hernia K45.8
[2025-08-28] VITALS (8 sets, daily range): BP systolic 129–138; BP diastolic 69–81; PULSE 61–75; RESP 15–24; TEMP 36.4–36.8; O2SAT 92–99
[2025-08-28] MEDS: piperacillin-tazobactam 3.375 GM in sodium chloride 0.9% (plus) 50 ML IV ×3 (00:48→16:37)
[2025-08-28] MEDS: pantoprazole 40 mg SDV IVP ×2 (04:35→16:37)
[2025-08-28 05:21] LABS: NT Pro B Type Natriuretic Pept 1792 pg/mL (0-125); Procalcitonin 1.06 ng/mL (0-0.5)
[2025-08-28 08:18] LABS: Hematocrit 28.2 % (37-53); Hemoglobin 8.40 g/dL (11.27-16.99); Mean Corpuscular HGB Conc 29.8 g/dL (30-55); Mean Corpuscular Hemoglobin 32.9 pg (27-33); Mean Corpuscular Volume 110.6 fl (82-101); Nucleated Red Blood Cells % 0 %; Platelet Count 150 10^3/cmm (157-399); Red Blood Count 2.55 10^6/uL (3.85-5.65); White Blood Count 8.81 10^3/uL (3.29-11.43)
[2025-08-28 08:25] LABS: Anion Gap 12.4 (5-19); Blood Urea Nitrogen 17 mg/dL (8-23); Calcium 7.6 mg/dL (8.5-10.5); Carbon Dioxide 24 mmol/L (22-29); Chloride 115 mmol/L (98-107); Creatinine Clr Calc Pharmacy 101.0781; Glucose 177 mg/dL (65-115); Osmolality Calculated 312 mOsm/kg (285-295); Potassium 3.4 mmol/L (3.5-5.1); Sodium 148 mmol/L (136-145)
[2025-08-28 08:47] LABS: Alanine Aminotransferase 12 U/L (0-41); Albumin Level 2.9 g/dL (3.5-5.2); Alkaline Phosphatase 61 U/L (40-130); Aspartate Amino Transferase 16 U/L (0-40); Globulin 2.6 g/dL (1.3-4.6); Total Protein 5.5 g/dL (6.6-8.7)
--- NOTE | 2025-08-28 09:04 | PC.SOCIAL ---
IMM Updated Updated pt on IMM. No questions voiced. Provided pt a copy. Initialed, dated, & timed copy in chart.
[2025-08-28] MEDS: lidocaine 1% 5 ML in potassium chloride premix 100 ML 26.25 ML IV (09:38)
--- NOTE | 2025-08-28 10:11 | P.PN_ITS ---
Subjective 2 Subjective: Having bowel movements Passing gas Abdomen benign Incision clean dry intact. Mild erythema, no fluctuance. Vitals/I&O/Wt Last Vital Signs Temp 98.2 F 08/28/25 08:00 Pulse 61 08/28/25 09:25 Resp 18 08/28/25 09:25 BP 138/69 08/28/25 08:00 Pulse Ox 93 08/28/25 09:25 O2 Del Method Nasal Cannula 08/28/25 09:25 O2 Flow Rate 1 08/28/25 09:25 FiO2 30 08/24/25 12:50 08/27/25 08/28/25 08/28/25 22:59 06:59 14:59 Intake Total 1813.317 / 2635.567 940.833 / 3576.400 862.5 / 862.5 Output Total 600 / 600 Balance 1213.317 / 2035.567 940.833 / 2976.400 862.5 / 862.5 Weight last 48 hrs Weight 260 lb Weight 260 lb Physical Exam 2 Narrative: Chest: Unlabored breathing room air. No lymphadenopathy. Heart: Regular rate and rhythm. Abdomen: Soft, nontender, nondistended. Midline with mild edema in the distal aspect. No fluctuance Urinary Catheter Management: Mast Latex: Cath Placed During This Visit: yes Reason for Continuing Indwelling Catheter: Other Urinary Catheter Date of Insertion: 08/21/25 Urinary Catheter Time of Insertion: 13:05 Data 08/28/25 04:33 08/28/25 07:51 Micro: Microbiology 08/23/25 13:05 Gram Stain - Final Abdomen Anaerobic Culture - Preliminary Abscess Culture - Final 08/26/25 17:24 Blood Culture - Preliminary Blood NEGATIVE TO DATE 08/26/25 17:20 Blood Culture - Preliminary Blood NEGATIVE TO DATE 08/22/25 16:37 Blood Culture - Final Blood NO GROWTH AFTER 5 DAYS 08/22/25 16:39 Blood Culture - Final Blood NO GROWTH AFTER 5 DAYS A&P Assessment and plan 1. Small bowel obstruction due to adhesions: Plan: 75-year-old male status post ex lap for closed-loop SBO. From a surgical perspective having bowel function and tolerating clears. Okay for regular diet. Hospitalist working on placement. May need LTAC. Rest of care per hospitalist. PDMP PDMP Reviewed: Not Reviewed Attestations 2 Medical Necessity Statement*: N/A Coding Level of Care Code 89047 Diagnoses Small bowel obstruction due to adhesions K56.50
[2025-08-28] MEDS: multivitamin inj 10 ML in AA-Dex 4.25%-5% w/Lytes 1,000 ML 60 ML IV (11:40)
[2025-08-28] MEDS: vancomycin 1,750 MG/350 ML PIGGYBACK 175 MG IV (11:42)
--- NOTE | 2025-08-28 13:43 | P.PN_ITS ---
Subjective 2 Subjective: - Patient was seen this morning - Son is at bedside -No fevers overnight - Alert oriented x 2, follows all comman ds - Does report generalized weakness, no f ocal weakness -His cough is improving, no choking no c oughing - Discussed my conversation with general surgery, they recommended diet to be advanced as tolerated -He has had 3 bowel movements overnight, passing gas, no abdominal pain - Advance of dysphagia diet, has speech therapy see him - PT OT - Discussed monitoring his mentation julian sely he does have evidence of encephalopathy but does follow commands, does require frequent reorientation, will monitor closely - Will stop IV fluids, start to de-escal ate PPN Vitals/I&O/Wt Last Vital Signs Temp 98.2 F 08/28/25 12:18 Pulse 63 08/28/25 12:18 Resp 19 H 08/28/25 12:18 BP 137/72 08/28/25 12:18 Pulse Ox 98 08/28/25 12:18 O2 Del Method Nasal Cannula 08/28/25 12:18 O2 Flow Rate 1 08/28/25 09:25 FiO2 30 08/24/25 12:50 08/27/25 08/28/25 08/28/25 22:59 06:59 14:59 Intake Total 1813.317 / 2635.567 940.833 / 3576.400 1718.501 / 1718.501 Output Total 600 / 600 Balance 1213.317 / 2035.567 940.833 / 2976.400 1718.501 / 1718.501 Weight last 48 hrs Weight 117.934 kg Weight 117.934 kg Physical Exam 2 Const: COMMON NORMALS: no acute distress GENERAL APPEARANCE: cooperative ORIENTATION/CONSCIOUSNESS: Yes awake, Yes oriented to person and Yes oriented to place; not oriented to time Eye: COMMON NORMALS: Equal, round and reactive pupils present and EOMs intact bilaterally PUPIL: Yes Equal, round and reactive pupils present Resp: COMMON NORMALS: normal respiratory effort, No retractions, No use of accessory muscles and clear to auscultation bilaterally AUSCULTATION: clear to auscultation bilaterally Cardio: COMMON NORMALS: regular rate, regular rhythm, S1 normal heart sound present and S2 normal heart sound present RATE: regular rate RHYTHM: r egular rhythm HEART SOUNDS: S1 normal heart sound present and S2 normal heart sound present GI: COMMON NORMALS: Normal to inspection, nondistended, normoactive bowel sounds present and non-tender OTHER: Surgical judy in place, looks clean and dry : COMMON NORMALS: Yes no CVA tenderness BLADDER/KIDNEY EXAM: Yes no CVA tenderness Back/Pelvis: COMMON NORMALS: no CVA tenderness Extremity: COMMON NORMALS: no pedal edema Neuro: COMMON NORMALS: CN's II-XII intact bilaterally S ENSORIUM/ORIENTATION: Yes oriented to person, Yes oriented to place and No oriented to time Psych: COMMON NORMALS: mental status grossly normal Urinary Catheter Management: Mast Latex: Cath Placed During This Visit: yes Reason for Continuing Indwelling Catheter: Other Urinary Catheter Date of Insertion: 08/21/25 Urinary Catheter Time of Insertion: 13:05 Data 08/28/25 04:33 08/28/25 07:51 Micro: Microbiology 08/26/25 11:08 Urine Culture - Preliminary Urine Catheterized 08/23/25 13:05 Gram Stain - Final Abdomen Anaerobic Culture - Preliminary Abscess Culture - Final 08/26/25 17:24 Blood Culture - Preliminary Blood NEGATIVE TO DATE 08/26/25 17:20 Blood Culture - Preliminary Blood NEGATIVE TO DATE 08/22/25 16:37 Blood Culture - Final Blood NO GROWTH AFTER 5 DAYS 08/22/25 16:39 Blood Culture - Final Blood NO GROWTH AFTER 5 DAYS A&P Assessment and plan 1. Small bowel obstruction due to adhesions: 2. Sepsis: 3. Internal hernia: 4. Acute hypoxic respiratory failure: 5. Diabetes: 6. On mechanically assisted ventilation: 7. Ledesma Agitation Sedation Scale (RASS) score minus 4, deep sedation: 8. Metabolic acidosis: 9. Septic shock: 10. Acute kidney injury: 11. Hypoalbuminemia: Plan: Acute hypoxic respiratory failure Plan - Extubated to nasal cannula - Monitor respiratory status closely -advance diet as tolerated -Weak cough, generalized weakness -Recheck serum BMP/CBC this afternoon -Hypokalemia # hypophosphatemia will replace IV -Has some degree of encephalopathy, likely anesthetic effect, no focal weakness that it can discern, does follow commands, will monitor mentation closely neurochecks overnight stroke scale, CT head no acute findings - Precedex for agitation as needed -DuoNeb as needed - Protonix for GI prophylaxis - Lovenox for DVT prophylaxis - PICC line in place Hypernatremia, resolving - Likely secondary to dehydration, increased NG tube output - Gentle IV hydration, will deescalate Acute encephalopathy -Combination of hypernatremia, anesthetic, ICU delirium -CT head no acute findings - As above - Monitor mentation closely Septic shock resolved - PICC line in place -off Levophed -off Vasopressin - Albumin therapy currently on hold -Stress dose steroids, history of chronic steroid use, weaning hydrocortisone therapy - Keep MAP greater than 65 - Blood cultures - Sputum cultures - Vancomycin - Zosyn NSTEMI - Serial EKGs, serial troponins, telemetry monitoring - Type I versus type II - Cardiac echo CONCLUSIONS 1. Normal LV systolic cavity size and systolic function. EF 65%. 2. Mild concentric left ventricualr hypertrophy. 3. Moderate aortic valve stenosis. Metabolic acidosis, resolved - Likely sec to septic shock, lactic acidosis, renal failure - Bicarb drip Acute kidney injury, resolved - Secondary to sepsis, septic shock - Monitor urine output, monitor creatinine - Bicarbonate drip Acute anemia, recheck hemoglobin, monitor hemoglobin - Status post 1 unit PRBC - Hemoglobin 8.4 Closed-loop small bowel obstruction due to ventral hernia CT/CT abdomen pelvis wo con [id number] IMPRESSION: 1. Prior RIGHT hemicolectomy with anastomosis. Anastomosis appears patent involving the transverse colon. 2. Dilated loops of fluid distended small bowel with swirling in the mesentery with mesenteric congestion and reactive lymph nodes in the mid abdomen and LEFT lower quadrant. Segmental areas of collapsed small bowel, see bookmarked images suspicious for internal hernia or adhesions with partial small bowel obstruction. 3. Residual colon is normal in appearance. 4. Prior cholecystectomy with pneumobilia. 5. Small amount of free fluid in the cul-de-sac -Patient's status post exploratory laparotomy, extensive lysis of adhesions, reduction internal hernia, small bowel resection, temporary closure with ABThera -Status post opening a recent exploratory laparotomy washout, small bowel anastomosis, closure of abdomen Plan -advance diet as tolerated -NG tube out -Serial abdominal exams - Serial abdominal exam - Continue IV Zosyn - IV vancomycin Type 2 diabetes mellitus, low-dose sliding scale Generalized weakness, will need PT OT today Third spacing/hypoalbuminemia - Will hold diuresis for today Full code SCDs for DVT prophylaxis, Lovenox for DVT prophylaxis Status stable Prognosis guarded Plan for today, peripheral nutrition, IV vancomycin and IV zosyn, PT OT, monitor NG tube output, monitor electrolytes, speech therapy eval, monitor mentation PDMP PDMP Reviewed: Not Reviewed Attestations 2 Medical Necessity Statement*: patient requires hospitalization for deconditioning, poor appetite, laura, acute anemia, hypernatremia, needing PPN Diagnoses Small bowel obstruction due to adhesions K56.50 Sepsis A41.9 Internal hernia K45.8 Acute hypoxic respiratory failure J96.01 Diabetes E11.9 On mechanically assisted ventilation Z99.11 Ledesma Agitation Sedation Scale (RASS) score minus 4, deep sedation Z78.9 Metabolic acidosis E87.20 Septic shock A41.9; R65.21 Acute kidney injury N17.9 Hypoalbuminemia E88.09
[2025-08-28 16:29] LABS: Anion Gap 12.9 (5-19); Blood Urea Nitrogen 18 mg/dL (8-23); Calcium 7.8 mg/dL (8.5-10.5); Carbon Dioxide 23 mmol/L (22-29); Chloride 114 mmol/L (98-107); Creatinine Clr Calc Pharmacy 101.0781; Glucose 206 mg/dL (65-115); Osmolality Calculated 310 mOsm/kg (285-295); Potassium 3.9 mmol/L (3.5-5.1); Sodium 146 mmol/L (136-145)
[2025-08-29] VITALS (10 sets, daily range): BP systolic 121–147; BP diastolic 76–82; PULSE 60–82; RESP 14–22; TEMP 36.3–37.1; O2SAT 90–99; BMI 40.5
[2025-08-29] MEDS: vancomycin 1,750 MG/350 ML PIGGYBACK 175 MG IV ×3 (00:09→23:22)
[2025-08-29] MEDS: piperacillin-tazobactam 3.375 GM in sodium chloride 0.9% (plus) 50 ML IV ×3 (00:15→16:56)
--- NOTE | 2025-08-29 01:04 | PC.NURSE ---
Vancomycin troph was drawn tonight before next dose given. Came back high at 16.3. Range is between 10-15. I called tele-pharmacy and asked them if it was okay to hang next dose of 1,750 mg in 350 mL and they said yes it is okay to hang this dose tonight and will pass on levels to day pharmacy and if they want to redose before next dose they can. I notified Dr. Coats of this and he okayed it. Vanc given per JAN.
[2025-08-29] MEDS: multivitamin inj 10 ML in AA-Dex 4.25%-5% w/Lytes 1,000 ML 40 ML IV (01:51)
[2025-08-29 04:44] LABS: Hematocrit 28.1 % (37-53); Hemoglobin 9.00 g/dL (11.27-16.99); Mean Corpuscular HGB Conc 32.0 g/dL (30-55); Mean Corpuscular Hemoglobin 34.1 pg (27-33); Mean Corpuscular Volume 106.4 fl (82-101); Nucleated Red Blood Cells % 0 %; Platelet Count 170 10^3/cmm (157-399); Red Blood Count 2.64 10^6/uL (3.85-5.65); White Blood Count 11.88 10^3/uL (3.29-11.43)
[2025-08-29 05:18] LABS: NT Pro B Type Natriuretic Pept 1806 pg/mL (0-125); Procalcitonin 0.79 ng/mL (0-0.5)
[2025-08-29] MEDS: chlorhexidine gluconate 4% Btl 118 mL 1 APPLIC TOPICAL (05:19)
[2025-08-29] MEDS: pantoprazole 40 mg SDV IVP ×2 (05:21→16:54)
[2025-08-29 05:24] LABS: Alanine Aminotransferase 12 U/L (0-41); Albumin Level 2.7 g/dL (3.5-5.2); Alkaline Phosphatase 73 U/L (40-130); Anion Gap 14.3 (5-19); Aspartate Amino Transferase 16 U/L (0-40); Blood Urea Nitrogen 18 mg/dL (8-23); Calcium 7.8 mg/dL (8.5-10.5); Carbon Dioxide 21 mmol/L (22-29); Chloride 112 mmol/L (98-107); Creatinine Clr Calc Pharmacy 102.4833; Globulin 3.0 g/dL (1.3-4.6); Glucose 170 mg/dL (65-115); Osmolality Calculated 304 mOsm/kg (285-295); Potassium 3.3 mmol/L (3.5-5.1); Sodium 144 mmol/L (136-145); Total Protein 5.7 g/dL (6.6-8.7)
--- NOTE | 2025-08-29 09:20 | P.PN_ITS ---
Subjective 2 Subjective: Tolerating clears Abdomen benign Removed 4 judy in the distal midline and drain a seroma. Packed with Kerlix. Son at bedside. Questions answered Very weak Vitals/I&O/Wt Last Vital Signs Temp 98.5 F 08/29/25 07:48 Pulse 77 08/29/25 07:48 Resp 14 08/29/25 07:48 BP 142/82 08/29/25 07:48 Pulse Ox 91 08/29/25 07:48 O2 Del Method Nasal Cannula 08/29/25 07:48 O2 Flow Rate 1 08/29/25 07:38 FiO2 30 08/24/25 12:50 08/28/25 08/29/25 08/29/25 22:59 06:59 14:59 Intake Total 442 / 2615.501 962.833 / 3578.334 Output Total 350 / 350 Balance 442 / 2615.501 612.833 / 3228.334 Weight last 48 hrs Weight 266 lb 12.149 oz Weight 260 lb Physical Exam 2 Narrative: Chest: Unlabored breathing room air. No lymphadenopathy. Heart: Regular rate and rhythm. Abdomen: Soft, nontender, nondistended. Midline with judy in place. Removed 4 judy and packed wound with Kerlix. Urinary Catheter Management: Mast Latex: Cath Placed During This Visit: yes Reason for Continuing Indwelling Catheter: Other Urinary Catheter Date of Insertion: 08/21/25 Urinary Catheter Time of Insertion: 13:05 Data 08/29/25 04:25 08/29/25 04:25 Micro: Microbiology 08/23/25 13:05 Gram Stain - Final Abdomen Anaerobic Culture - Preliminary Abscess Culture - Final 08/26/25 11:08 Urine Culture - Preliminary Urine Catheterized A&P Assessment and plan 1. Small bowel obstruction due to adhesions: Plan: 75-year-old male who presented with a closed-loop SBO and threatened bowel. Status post ex lap and reexploration and closure. Has a small bowel anastomosis. Patient is having bowel movements and passing gas. He is tolerating liquids. Very weak and frail. From a surgical standpoint okay to advance diet as tolerated. Daily packing changes to distal midline using Kerlix, nurse at bedside and was instructed on how to do it. Ready for dispo to LTAC potentially. Follow-up with me in 2 weeks. Rest of care per hospitalist. PDMP PDMP Reviewed: Not Reviewed Attestations 2 Medical Necessity Statement*: N/A Coding Level of Care Code 07117 Diagnoses Small bowel obstruction due to adhesions K56.50
[2025-08-29] MEDS: POTASSIUM PHOSPHATE IV (09:56)
[2025-08-29] MEDS: SODIUM CHLORIDE 0.9% IV (09:56)
--- NOTE | 2025-08-29 12:29 | P.PN_ITS ---
Subjective 2 Subjective: Patient was seen this morning, son is at bedside, no nausea, vomiting, his cough is improving, he had a bowel movement he tells me he ate last night, he is passing gas, no fevers, chills does report generalized weakness Vitals/I&O/Wt Last Vital Signs Temp 97.9 F 08/29/25 11:50 Pulse 75 08/29/25 11:50 Resp 18 08/29/25 11:50 BP 121/76 08/29/25 11:50 Pulse Ox 97 08/29/25 11:50 O2 Del Method Nasal Cannula 08/29/25 11:50 O2 Flow Rate 2 08/29/25 08:00 FiO2 30 08/24/25 12:50 08/28/25 08/29/25 08/29/25 22:59 06:59 14:59 Intake Total 442 / 2615.501 962.833 / 3578.334 122.917 / 122.917 Output Total 350 / 350 Balance 442 / 2615.501 612.833 / 3228.334 122.917 / 122.917 Weight last 48 hrs Weight 121 kg Weight 117.934 kg Physical Exam 2 Const: COMMON NORMALS: no acute distress and patient oriented x3 Resp: COMMON NORMALS: normal respiratory effort, No retractions, No use of accessory muscles and clear to auscultation bilaterally AUSCULTATION: clear to auscultation bilaterally Cardio: COMMON NORMALS: regular rate, regular rhythm, S1 normal heart sound present and S2 normal heart sound present RATE: regular rate RHYTHM: r egular rhythm HEART SOUNDS: S1 normal heart sound present and S2 normal heart sound present GI: COMMON NORMALS: Normal to inspection, nondistended, normoactive bowel sounds present and non-tender OTHER: Surgical site, abdomen, inferior part of abdomen, opening of surgical site, currently packed, judy superior to this look intact, clean and dry Extremity: COMMON NORMALS: no pedal edema Neuro: COMMON NORMALS: patient oriented x3 Psych: COMMON NORMALS: mental status grossly normal Urinary Catheter Management: Mast Latex: Cath Placed During This Visit: yes Reason for Continuing Indwelling Catheter: Other Urinary Catheter Date of Insertion: 08/21/25 Urinary Catheter Time of Insertion: 13:05 Data 08/29/25 04:25 08/29/25 04:25 Micro: Microbiology 08/26/25 11:08 Urine Culture - Final Urine Catheterized 08/23/25 13:05 Gram Stain - Final Abdomen Anaerobic Culture - Preliminary Abscess Culture - Final A&P Assessment and plan 1. Small bowel obstruction due to adhesions: 2. Sepsis: 3. Internal hernia: 4. Acute hypoxic respiratory failure: 5. Diabetes: 6. On mechanically assisted ventilation: 7. Led[place]ma Agitation Sedation Scale (RASS) score minus 4, deep sedation: 8. Metabolic acidosis: 9. Septic shock: 10. Acute kidney injury: 11. Hypoalbuminemia: Plan: Acute hypoxic respiratory failure Plan - Extubated to nasal cannula - Monitor respiratory status closely -advance diet as tolerated, currently on dysphagia level 4 diet, mildly thickened -Weak cough, generalized weakness -Hypokalemia # hypophosphatemia will replace IV -Has some degree of encephalopathy, likely anesthetic effect, no focal weakness that it can discern, does follow commands, will monitor mentation closely neurochecks overnight stroke scale, CT head no acute findings -DuoNeb as needed - Protonix for GI prophylaxis - Lovenox for DVT prophylaxis - PICC line in place Hypernatremia, resolving - Likely secondary to dehydration, increased NG tube output - Gentle IV hydration, will deescalate Acute encephalopathy -Combination of hypernatremia, anesthetic, ICU delirium -CT head no acute findings - As above - Monitor mentation closely Septic shock resolved - PICC line in place -off Levophed -off Vasopressin - Albumin therapy currently on hold -Stress dose steroids, history of chronic steroid use, weaning hydrocortisone therapy - Keep MAP greater than 65 - Blood cultures - Sputum cultures - Vancomycin - Zosyn NSTEMI - Serial EKGs, serial troponins, telemetry monitoring - Type I versus type II - Cardiac echo CONCLUSIONS 1. Normal LV systolic cavity size and systolic function. EF 65%. 2. Mild concentric left ventricualr hypertrophy. 3. Moderate aortic valve stenosis. Metabolic acidosis, resolved - Likely sec to septic shock, lactic acidosis, renal failure - Bicarb drip Acute kidney injury, resolved - Secondary to sepsis, septic shock - Monitor urine output, monitor creatinine - Bicarbonate drip currently off Acute anemia, recheck hemoglobin, monitor hemoglobin - Status post 1 unit PRBC - Hemoglobin 9 point Closed-loop small bowel obstruction due to ventral hernia CT/CT abdomen pelvis wo con [id number] IMPRESSION: 1. Prior RIGHT hemicolectomy with anastomosis. Anastomosis appears patent involving the transverse colon. 2. Dilated loops of fluid distended small bowel with swirling in the mesentery with mesenteric congestion and reactive lymph nodes in the mid abdomen and LEFT lower quadrant. Segmental areas of collapsed small bowel, see bookmarked images suspicious for internal hernia or adhesions with partial small bowel obstruction. 3. Residual colon is normal in appearance. 4. Prior cholecystectomy with pneumobilia. 5. Small amount of free fluid in the cul-de-sac -Patient's status post exploratory laparotomy, extensive lysis of adhesions, reduction internal hernia, small bowel resection, temporary closure with ABThera -Status post opening a recent exploratory laparotomy washout, small bowel anastomosis, closure of abdomen -Surgical site drainage, currently packed, requiring wound care Plan -advance diet as tolerated -NG tube out -Serial abdominal exams - Serial abdominal exam - Continue IV Zosyn - IV vancomycin Type 2 diabetes mellitus, low-dose sliding scale Generalized weakness, will need PT OT today Third spacing/hypoalbuminemia - Will hold diuresis for today Full code SCDs for DVT prophylaxis, Lovenox for DVT prophylaxis Status stable Prognosis guarded Plan for today, remove Mast catheter, de-escalate peripheral nutrition, remove PICC line, PT OT, speech therapy eval, working on transfer PDMP PDMP Reviewed: Not Reviewed Attestations 2 Medical Necessity Statement*: Patient requires hospitalization for closed-loop bowel obstruction Diagnoses Small bowel obstruction due to adhesions K56.50 Sepsis A41.9 Internal hernia K45.8 Acute hypoxic respiratory failure J96.01 Diabetes E11.9 On mechanically assisted ventilation Z99.11 Led[place]ma Agitation Sedation Scale (RASS) score minus 4, deep sedation Z78.9 Metabolic acidosis E87.20 Septic shock A41.9; R65.21 Acute kidney injury N17.9 Hypoalbuminemia E88.09
[2025-08-29] MEDS: multivitamin therapeutic Tablet 1 TAB PO (13:32)
[2025-08-29 13:39] LABS: Vitamin B12 835 pg/mL (232-1245)
[2025-08-30] VITALS (9 sets, daily range): BP systolic 100–130; BP diastolic 51–70; PULSE 65–79; RESP 16–18; TEMP 36.5–36.8; O2SAT 95–98
[2025-08-30] MEDS: piperacillin-tazobactam 3.375 GM in sodium chloride 0.9% (plus) 50 ML IV ×3 (00:03→17:04)
[2025-08-30 04:42] LABS: Hematocrit 26.8 % (37-53); Hemoglobin 8.70 g/dL (11.27-16.99); Mean Corpuscular HGB Conc 32.5 g/dL (30-55); Mean Corpuscular Hemoglobin 33.1 pg (27-33); Mean Corpuscular Volume 101.9 fl (82-101); Nucleated Red Blood Cells % 0 %; Platelet Count 174 10^3/cmm (157-399); Red Blood Count 2.63 10^6/uL (3.85-5.65); White Blood Count 14.14 10^3/uL (3.29-11.43)
[2025-08-30 04:58] LABS: Magnesium 1.9 mg/dL (1.7-2.3)
[2025-08-30 05:00] LABS: Alanine Aminotransferase 13 U/L (0-41); Albumin Level 2.6 g/dL (3.5-5.2); Alkaline Phosphatase 77 U/L (40-130); Anion Gap 15.4 (5-19); Aspartate Amino Transferase 19 U/L (0-40); Blood Urea Nitrogen 13 mg/dL (8-23); Calcium 7.5 mg/dL (8.5-10.5); Carbon Dioxide 22 mmol/L (22-29); Chloride 110 mmol/L (98-107); Creatinine Clr Calc Pharmacy 102.4833; Globulin 2.9 g/dL (1.3-4.6); Glucose 125 mg/dL (65-115); Osmolality Calculated 300 mOsm/kg (285-295); Potassium 3.4 mmol/L (3.5-5.1); Sodium 144 mmol/L (136-145); Total Protein 5.5 g/dL (6.6-8.7)
[2025-08-30] MEDS: multivitamin therapeutic Tablet 1 TAB PO (05:23)
[2025-08-30] MEDS: pantoprazole 40 mg SDV IVP ×2 (05:24→17:04)
--- NOTE | 2025-08-30 08:01 | XR_ITS ---
WS: [id number] XR chest 1V portable [id number] REASON FOR EXAM: sob FINDINGS: Bilateral PICC line in place with the tip in the mid to distal SVC. Moderate tortuosity and ectasia of the aortic arch and thoracic aorta. Mild cardiomegaly. Blunting of the costophrenic angles indicating the presence of bilateral pleural effusions. Pleural fluid volume is may be somewhat reduced compared to the previous examination 08/27/2025. Atelectasis in the left lower lung. XR/XR chest 1V portable [id number] IMPRESSION: Bilateral pleural effusions possibly reduced in volume. Atelectasis in the left lower lung.
--- NOTE | 2025-08-30 09:03 | PC.SOCIAL ---
IMM Updated Updated pt & pt's family on IMM. No questions voiced. Provided pt a copy. Initialed, dated, & timed copy in chart.
[2025-08-30] MEDS: potassium phosphate (mEq K) 40 MEQ in sodium chloride 0.9% (100 ml) 100 ML 27.25 MEQ IV (09:27)
[2025-08-30] MEDS: vancomycin 1,750 MG/350 ML PIGGYBACK 175 MG IV (13:19)
[2025-08-30] MEDS: chlorhexidine gluconate 4% Btl 118 mL 1 APPLIC TOPICAL (13:25)
--- NOTE | 2025-08-30 13:25 | P.PN_ITS ---
Subjective 2 Subjective: Patient was seen this morning, patient's son is at bedside, afebrile overnight, discussed his leukocytosis, does have a weak cough this morning, no aspiration, discussed his increased risk of pneumonias, atelectasis, on the incentive spirometer, he is able to get to 500, discussed that we have to get him up Vitals/I&O/Wt Last Vital Signs Temp 98.3 F 08/30/25 11:38 Pulse 71 08/30/25 11:38 Resp 16 08/30/25 11:38 BP 108/62 08/30/25 11:38 Pulse Ox 97 08/30/25 11:38 O2 Del Method Nasal Cannula 08/30/25 11:38 O2 Flow Rate 1 08/30/25 11:38 FiO2 30 08/24/25 12:50 08/29/25 08/30/25 08/30/25 22:59 06:59 14:59 Intake Total 879.516 / 1336.933 400 / 1736.933 Output Total 750 / 750 Balance 129.516 / 586.933 400 / 986.933 Weight last 48 hrs Weight 121.109 kg Weight 121 kg Physical Exam 2 Const: COMMON NORMALS: no acute distress and patient oriented x3 Eye: COMMON NORMALS: Equal, round and reactive pupils present PUPIL: Yes Equal, round and reactive pupils present Resp: COMMON NORMALS: normal respiratory effort, No retractions, No use of accessory muscles and clear to auscultation bilaterally AUSCULTATION: clear to auscultation bilaterally Cardio: COMMON NORMALS: regular rate, regular rhythm, S1 normal heart sound present and S2 normal heart sound present RATE: regular rate RHYTHM: r egular rhythm HEART SOUNDS: S1 normal heart sound present and S2 normal heart sound present GI: COMMON NORMALS: Normal to inspection, nondistended, normoactive bowel sounds present and non-tender OTHER: Surgical site, lower surgical site, packed, with ABD pad on top, : OTHER: CVA tenderness Extremity: COMMON NORMALS: no pedal edema Neuro: COMMON NORMALS: patient oriented x3, CN's II-XII intact bilaterally and moves all extremities Urinary Catheter Management: Mast Latex: Cath Placed During This Visit: yes, but has since been removed by the nurse Reason for Continuing Indwelling Catheter: Decision to DC Catheter Urinary Catheter Date of Insertion: 08/21/25 Urinary Catheter Time of Insertion: 13:05 Date Urinary Catheter Removed: 08/29/25 Time Urinary Catheter Discontinued: 17:00 Data 08/30/25 04:13 08/30/25 04:13 Micro: Microbiology 08/30/25 08:31 Blood Culture - Preliminary Blood SPECIMEN COLLECTED 08/30/25 08:18 Blood Culture - Preliminary Blood SPECIMEN COLLECTED 08/26/25 11:08 Urine Culture - Final Urine Catheterized 08/23/25 13:05 Gram Stain - Final Abdomen Anaerobic Culture - Preliminary Abscess Culture - Final A&P Assessment and plan 1. Small bowel obstruction due to adhesions: 2. Sepsis: 3. Internal hernia: 4. Acute hypoxic respiratory failure: 5. Diabetes: 6. On mechanically assisted ventilation: 7. Ledesma Agitation Sedation Scale (RASS) score minus 4, deep sedation: 8. Metabolic acidosis: 9. Septic shock: 10. Acute kidney injury: 11. Hypoalbuminemia: Plan: Acute hypoxic respiratory failure Plan - Extubated to nasal cannula - Monitor respiratory status closely -advance diet as tolerated, currently on dysphagia level 4 diet, mildly thickened -Weak cough, generalized weakness -Hypokalemia # hypophosphatemia will replace IV -Has some degree of encephalopathy, likely anesthetic effect, no focal weakness that it can discern, does follow commands, will monitor mentation closely neurochecks overnight stroke scale, CT head no acute findings -DuoNeb as needed - Protonix for GI prophylaxis - Lovenox for DVT prophylaxis - PICC line in place, will remove Leukocytosis? - Repeat UA - Repeat blood cultures - Chest x-ray shows bilateral pleural effusions, does show left lower lobe atelectasis - Monitor for fevers - Encourage incentive spirometer use - Up out of bed Hypernatremia, resolving - Likely secondary to dehydration, increased NG tube output - Gentle IV hydration, will deescalate Acute encephalopathy, resolving -Combination of hypernatremia, anesthetic, ICU delirium -CT head no acute findings - As above - Monitor mentation closely Septic shock resolved - PICC line in place, will remove -off Levophed -off Vasopressin - Albumin therapy currently on hold -Stress dose steroids, history of chronic steroid use, weaning hydrocortisone therapy - Keep MAP greater than 65 - Blood cultures - Sputum cultures - Vancomycin - Zosyn NSTEMI - Serial EKGs, serial troponins, telemetry monitoring - Type I versus type II - Cardiac echo CONCLUSIONS 1. Normal LV systolic cavity size and systolic function. EF 65%. 2. Mild concentric left ventricualr hypertrophy. 3. Moderate aortic valve stenosis. Metabolic acidosis, resolved - Likely sec to septic shock, lactic acidosis, renal failure - Bicarb drip Acute kidney injury, resolved - Secondary to sepsis, septic shock - Monitor urine output, monitor creatinine - Bicarbonate drip currently off Acute anemia, recheck hemoglobin, monitor hemoglobin - Status post 1 unit PRBC - Hemoglobin 9 point Closed-loop small bowel obstruction due to ventral hernia CT/CT abdomen pelvis wo con [id number] IMPRESSION: 1. Prior RIGHT hemicolectomy with anastomosis. Anastomosis appears patent involving the transverse colon. 2. Dilated loops of fluid distended small bowel with swirling in the mesentery with mesenteric congestion and reactive lymph nodes in the mid abdomen and LEFT lower quadrant. Segmental areas of collapsed small bowel, see bookmarked images suspicious for internal hernia or adhesions with partial small bowel obstruction. 3. Residual colon is normal in appearance. 4. Prior cholecystectomy with pneumobilia. 5. Small amount of free fluid in the cul-de-sac -Patient's status post exploratory laparotomy, extensive lysis of adhesions, reduction internal hernia, small bowel resection, temporary closure with ABThera -Status post opening a recent exploratory laparotomy washout, small bowel anastomosis, closure of abdomen -Surgical site/breakdown drainage, currently packed, requiring wound care Plan -advance diet as tolerated -NG tube out -Serial abdominal exams - Serial abdominal exam - Continue IV Zosyn - IV vancomycin Type 2 diabetes mellitus, low-dose sliding scale Generalized weakness, will need PT OT Weak cough, speech therapy eval, dysphagia level 4 diet, mildly thickened, aspiration precautions, supervised feeds Third spacing/hypoalbuminemia - Will hold diuresis for today Full code SCDs for DVT prophylaxis, Lovenox for DVT prophylaxis Status stable Prognosis guarded Plan for today, will remove PICC line, replace with peripheral IV, workup for leukocytosis, chest x-ray, UA, repeat blood cultures monitor for fevers replace electrolytes, PT OT, incentive spirometer use flutter valve, up into a chair, PDMP PDMP Reviewed: Not Reviewed Attestations 2 Medical Necessity Statement*: Patient require hospitalization due to acute hypoxic respiratory failure, closed-loop bowel obstruction, leukocytosis, deconditioning, Diagnoses Small bowel obstruction due to adhesions K56.50 Sepsis A41.9 Internal hernia K45.8 Acute hypoxic respiratory failure J96.01 Diabetes E11.9 On mechanically assisted ventilation Z99.11 Ledesma Agitation Sedation Scale (RASS) score minus 4, deep sedation Z78.9 Metabolic acidosis E87.20 Septic shock A41.9; R65.21 Acute kidney injury N17.9 Hypoalbuminemia E88.09
--- NOTE | 2025-08-30 14:00 | PC.NURSE ---
Patient's PICC line was removed by [facility] CALDERON at time.
[2025-08-30 21:47] LABS: Glucose Urine UA Negative (Normal); Nitrate Urine Negative (Negative); Specific Gravity, Urine 1.018 (1.005-1.030)
[2025-08-30 22:18] LABS: Add Urine Microscopic? YES; UA Manual Slide Review YES; UA Slide Review UA Slide Review Perf
[2025-08-31] VITALS (9 sets, daily range): BP systolic 99–124; BP diastolic 57–71; PULSE 64–70; RESP 16–20; TEMP 36.4–36.6; O2SAT 94–99
[2025-08-31] MEDS: vancomycin 1,750 MG/350 ML PIGGYBACK 175 MG IV ×2 (00:21→12:46)
[2025-08-31] MEDS: piperacillin-tazobactam 3.375 GM in sodium chloride 0.9% (plus) 50 ML IV ×3 (02:57→16:26)
[2025-08-31 04:15] LABS: Hematocrit 26.0 % (37-53); Hemoglobin 8.20 g/dL (11.27-16.99); Mean Corpuscular HGB Conc 31.5 g/dL (30-55); Mean Corpuscular Hemoglobin 32.7 pg (27-33); Mean Corpuscular Volume 103.6 fl (82-101); Nucleated Red Blood Cells % 0 %; Platelet Count 165 10^3/cmm (157-399); Red Blood Count 2.51 10^6/uL (3.85-5.65); White Blood Count 13.48 10^3/uL (3.29-11.43)
[2025-08-31 04:39] LABS: Procalcitonin 0.47 ng/mL (0-0.5)
[2025-08-31 04:41] LABS: Magnesium 2.0 mg/dL (1.7-2.3)
[2025-08-31 04:50] LABS: Alanine Aminotransferase 12 U/L (0-41); Albumin Level 2.6 g/dL (3.5-5.2); Alkaline Phosphatase 82 U/L (40-130); Anion Gap 13.5 (5-19); Aspartate Amino Transferase 19 U/L (0-40); Blood Urea Nitrogen 10 mg/dL (8-23); Calcium 7.4 mg/dL (8.5-10.5); Carbon Dioxide 23 mmol/L (22-29); Chloride 107 mmol/L (98-107); Globulin 2.5 g/dL (1.3-4.6); Glucose 106 mg/dL (65-115); Osmolality Calculated 289 mOsm/kg (285-295); Potassium 3.5 mmol/L (3.5-5.1); Sodium 140 mmol/L (136-145); Total Protein 5.1 g/dL (6.6-8.7)
[2025-08-31 05:02] LABS: Creatinine Clr Calc Pharmacy 102.5292
[2025-08-31] MEDS: multivitamin therapeutic Tablet 1 TAB PO (06:14)
[2025-08-31] MEDS: chlorhexidine gluconate 4% Btl 118 mL 1 APPLIC TOPICAL (06:14)
[2025-08-31] MEDS: pantoprazole 40 mg SDV IVP ×2 (06:16→16:32)
--- NOTE | 2025-08-31 08:37 | CTR_ITS ---
PROCEDURE INFORMATION: Exam: CT Chest With Contrast; Diagnostic Exam date and time: 08/31/2025 09:07 AM Age: 75 years old Clinical indication: Abdominal tenderness; Dyspnea; Prior surgery; Surgery date: <1 month; Surgery type: Colon, gb; Additional info: Leukocytosis, recent bowel obst, with surgery TECHNIQUE: Imaging protocol: Diagnostic computed tomography of the chest with contrast. Radiation optimization: All CT scans at this facility use at least one of these dose optimization techniques: automated exposure control; mA and/or kV adjustment per patient size (includes targeted exams where dose is matched to clinical indication); or iterative reconstruction. Contrast material: OMNIPAQUE 350; Contrast volume: 100 ml; Contrast route: INTRAVENOUS (IV); COMPARISON: CR XR chest 1V portable [id number] 08/30/2025 08:55 AM RADIATION DOSE METRICS: Total DLP (mGy-cm): 1671.48 FINDINGS: Lungs: Motion artifact is noted while evaluating the lungs. Left basilar calcified granulomas. Pleural spaces: Bilateral pleural effusions with bibasilar airspace disease, likely atelectasis, however pneumonia can not be excluded. Heart: Unremarkable. No cardiomegaly. No pericardial effusion. Coronary arteries: Coronary artery calcifications. Lymph nodes: Normal-sized prevascular lymph nodes. Normal-sized paratracheal and subcarinal lymph nodes. Calcified bilateral hilar lymph nodes. Vasculature: Atherosclerotic vascular disease. Thoracic aorta is unremarkable without dissection. Ectatic thoracic aorta. No occlusive pulmonary embolism. Bones/joints: Degenerative changes of the spine with osteophytic bridging. Soft tissues: Unremarkable. PROCEDURE INFORMATION: Exam: CT Abdomen And Pelvis With Contrast Exam date and time: 08/31/2025 09:07 AM Age: 75 years old Clinical indication: Abdominal tenderness; Dyspnea; Prior surgery; Surgery date: <1 month; Surgery type: Colon, gb; Additional info: Leukocytosis, recent bowel obst, with surgery TECHNIQUE: Imaging protocol: Computed tomography of the abdomen and pelvis with contrast. Radiation optimization: All CT scans at this facility use at least one of these dose optimization techniques: automated exposure control; mA and/or kV adjustment per patient size (includes targeted exams where dose is matched to clinical indication); or iterative reconstruction. Contrast material: OMNIPAQUE 350; Contrast volume: 100 ml; Contrast route: INTRAVENOUS (IV); COMPARISON: CT abdomen pelvis wo con [id number] 08/21/2025 10:07 AM RADIATION DOSE METRICS: Total DLP (mGy-cm): 1671.48 FINDINGS: Liver: Normal. No mass. Gallbladder and biliary ducts: Prior cholecystectomy. Previously seen pneumobilia has resolved. Pancreas: Normal. No ductal dilation. Spleen: Normal. No splenomegaly. Adrenal glands: Normal. No mass. Kidneys and ureters: Right inferior pole renal cyst versus dilated calyx. Stomach and bowel: Anastomotic staple line associated with the small bowel within the anterior aspect of the rightward abdomen. Anastomotic staple line associated with the colon in the right lower quadrant. Mild stool load is noted within the colon. The small bowel is predominantly decompressed. Appendix: No evidence of appendicitis. Intraperitoneal space: Hazy appearance to the mesentery that could represent edema versus inflammation. Vasculature: Atherosclerotic vascular disease. Lymph nodes: Unremarkable. No enlarged lymph nodes. Urinary bladder: Unremarkable as visualized. Reproductive: Unremarkable as visualized. Bones/joints: Unremarkable. No acute fracture. Soft tissues: Artifact from the patient's arms being at the side. Fatty left inguinal hernia with fluid in the left inguinal canal. Right paramidline subcutaneous incision with skin judy. The inferior aspect of this incision demonstrates soft tissue thickening, which is thought to be related to the umbilicus. Inferior to the umbilicus there is air in the soft tissues extending from the incision to the abdominal wall musculature (series 6, image 79). There are partially loculated fluid collections in the rightward abdomen that could be postoperative seroma versus developing abscess. The largest is in the right lower quadrant (series 6, image 59; series 11, image 31). Fluid level in the rectum is consistent with diarrhea. Other findings: No evidence for complete obstruction. CT/CT chest [facility] w/*[id number] IMPRESSION: 1. Bilateral pleural effusions with bibasilar airspace disease, likely atelectasis, however pneumonia can not be excluded. 2. Atherosclerotic vascular disease and coronary artery calcifications. 3. Left basilar calcified granulomas. Hilar calcified lymph nodes. IMPRESSION: 1. Inferior to the umbilicus there is air in the soft tissues extending from the incision to the abdominal wall musculature. Infectious or inflammatory process can not be excluded. No rim enhancing soft tissue fluid collection along the incision. 2. Partially loculated fluid collections in the rightward abdomen that could be postoperative seroma versus developing abscess. 3. Hazy appearance to the mesentery that could represent edema versus inflammation. 4. Fatty left inguinal hernia with fluid in the left inguinal canal. 5. Previously seen pneumobilia has resolved. COMMENTS: Consistent with the [employer]'s Incidental Findings Committee white paper (J Am Kristin Radiol 2018): Any incidental renal lesion less than 1 cm or classified as too small to characterize, or any incidental cystic renal lesion characterized as simple-appearing, is likely benign. No follow-up imaging is recommended for these lesions per consensus recommendations based on imaging criteria.
[2025-08-31] MEDS: iohexol 350 mg/mL 500 mL Btl (per mL) IV (09:11)
[2025-08-31] MEDS: FUROsemide 10 mg/mL SDV 4mL 40 MG IVP (11:48)
[2025-08-31] MEDS: potassium phosphate (mEq K) 40 MEQ in sodium chloride 0.9% (100 ml) 100 ML 27.25 MEQ IV (11:48)
--- NOTE | 2025-08-31 14:06 | P.PN_ITS ---
Subjective 2 Subjective: - Patient was seen this morning - Alert oriented x 3, follow commands - Denies any fevers, chills, - His cough is improving, - He did sit up in a chair yesterday acc ording to son, slid in the chair -Did use incentive spirometer he is up t o 500 - Discussed his CT scan findings - Discussed bilateral pleural effusions, bilateral lower lung travis atelectasis - Certainly there could be a pneumonia i n these areas, nonetheless he is on broad-spectrum antibiotic therapy, he remains afebrile, blood cultures so far unremarkable, - Would recommend for him to sit up in a chair with all meals, continue to use incentive spirometer, improve mobility - Discussed CT scan abdomen findings 1. Inferior to the umbilicus there is air in the soft tissues extending from the incision to the abdominal wall musculature. Infectious or inflammatory process can not be excluded. No rim enhancing soft tissue fluid collection along the incision. 2. Partially loculated fluid collectio ns in the rightward abdomen that could be postoperative seroma versus developing abscess. 3. Hazy appearance to the mesentery th at could represent edema versus inflammation. - Discussed the possibility of postopera tive seroma versus abscess - Will continue to monitor - Discussed the case with general surger y - Discussed the possibility that if thes e are abscess would require IR guided drainage, but will discuss case with general surgery and IR once available on Tuesday - Nonetheless plan is to continue antibi otics and clinical monitoring Vitals/I&O/Wt Last Vital Signs Temp 97.7 F 08/31/25 12:00 Pulse 64 08/31/25 12:00 Resp 17 08/31/25 12:00 BP 113/66 08/31/25 12:00 Pulse Ox 97 08/31/25 12:00 O2 Del Method Room Air 08/31/25 12:00 O2 Flow Rate 2 08/31/25 09:38 FiO2 30 08/24/25 12:50 08/30/25 08/31/25 08/31/25 22:59 06:59 14:59 Intake Total 556.1739 / 656.1739 350 / 1006.1739 50 / 50 Output Total 1275 / 1275 / 1975 Balance -718.8261 / -618.8261 -350 / -968.8261 50 / 50 Weight last 48 hrs Weight 121.1 kg Weight 121.109 kg Physical Exam 2 Const: COMMON NORMALS: no acute distress and patient oriented x3 Resp: COMMON NORMALS: normal respiratory effort, No retractions and No use of accessory muscles OTHER: Good air movement bilateral upper lung travis Diminished breath sounds bilateral lower lung travis Cardio: COMMON NORMALS: regular rate, regular rhythm, S1 normal heart sound present and S2 normal heart sound present RATE: regular rate RHYTHM: r egular rhythm HEART SOUNDS: S1 normal heart sound present and S2 normal heart sound present GI: COMMON NORMALS: Normal to inspection, nondistended, normoactive bowel sounds present and non-tender OTHER: Surgical site looks clean and dry Inferior surgical site, dressing on top does not appear to be saturated Extremity: COMMON NORMALS: no calf tenderness and no pedal edema Neuro: COMMON NORMALS: patient oriented x3 Psych: COMMON NORMALS: mental status grossly normal Urinary Catheter Management: Mast Latex: Cath Placed During This Visit: yes, but has since been removed by the nurse Reason for Continuing Indwelling Catheter: Decision to DC Catheter Urinary Catheter Date of Insertion: 08/21/25 Urinary Catheter Time of Insertion: 13:05 Date Urinary Catheter Removed: 08/29/25 Time Urinary Catheter Discontinued: 17:00 Data 08/31/25 02:32 08/31/25 02:32 Micro: Microbiology 08/30/25 08:31 Blood Culture - Preliminary Blood NEGATIVE TO DATE 08/30/25 08:18 Blood Culture - Preliminary Blood NEGATIVE TO DATE 08/23/25 13:05 Gram Stain - Final Abdomen Anaerobic Culture - Final Abscess Culture - Final A&P Assessment and plan 1. Small bowel obstruction due to adhesions: 2. Sepsis: 3. Internal hernia: 4. Acute hypoxic respiratory failure: 5. Diabetes: 6. On mechanically assisted ventilation: 7. Ledesma Agitation Sedation Scale (RASS) score minus 4, deep sedation: 8. Metabolic acidosis: 9. Septic shock: 10. Acute kidney injury: 11. Hypoalbuminemia: Plan: Acute hypoxic respiratory failure Plan - Extubated to nasal cannula -Bilateral pleural effusions, 1 dose IV Lasix today -Bilateral lower lung atelectasis versus pneumonia, has been on broad-spectrum antibiotic therapy since admission continue vancomycin and Zosyn -Needs to get up out of bed 3 times daily, into a chair, incentive spirometer use -Monitor for aspiration risk, aspiration precautions, dysphagia diet - Monitor respiratory status closely -advance diet as tolerated, currently on dysphagia level 4 diet, mildly thickened -Weak cough, generalized weakness -Hypokalemia # hypophosphatemia will replace IV -DuoNeb as needed - Protonix for GI prophylaxis - Lovenox for DVT prophylaxis - PICC line in place, removed Leukocytosis? Down to 13.48 today - Repeat UA within normal limits -Mast catheter out -PICC line removed - Repeat blood cultures, so far no growth - CT/CT chest abdpel w/*[id number] IMPRESSION: 1. Bilateral pleural effusions with bibasilar airspace disease, likely atelectasis, however pneumonia can not be excluded. 2. Atherosclerotic vascular disease and coronary artery calcifications. 3. Left basilar calcified granulomas. Hilar calcified lymph nodes. IMPRESSION: 1. Inferior to the umbilicus there is air in the soft tissues extending from the incision to the abdominal wall musculature. Infectious or inflammatory process can not be excluded. No rim enhancing soft tissue fluid collection along the incision. 2. Partially loculated fluid collections in the rightward abdomen that could be postoperative seroma versus developing abscess. 3. Hazy appearance to the mesentery that could represent edema versus inflammation. 4. Fatty left inguinal hernia with fluid in the left inguinal canal. 5. Previously seen pneumobilia has resolved. - Monitor for fevers - Encourage incentive spirometer use - Up out of bed 3 times daily - Aspiration precautions, dysphagia level 4 diet - Remains on vancomycin, Zosyn Hypernatremia, resolving - Likely secondary to dehydration, increased NG tube output - Gentle IV hydration, will deescalate Acute encephalopathy, resolving -Combination of hypernatremia, anesthetic, ICU delirium -CT head no acute findings - As above - Monitor mentation closely Septic shock resolved - PICC line in place, will remove -off Levophed -off Vasopressin - Albumin therapy currently on hold -Stress dose steroids, history of chronic steroid use, weaning hydrocortisone therapy - Keep MAP greater than 65 - Blood cultures - Sputum cultures - Vancomycin - Zosyn NSTEMI - Serial EKGs, serial troponins, telemetry monitoring - Type I versus type II - Cardiac echo CONCLUSIONS 1. Normal LV systolic cavity size and systolic function. EF 65%. 2. Mild concentric left ventricualr hypertrophy. 3. Moderate aortic valve stenosis. Metabolic acidosis, resolved - Likely sec to septic shock, lactic acidosis, renal failure - Bicarb drip Acute kidney injury, resolved - Secondary to sepsis, septic shock - Monitor urine output, monitor creatinine - Bicarbonate drip currently off Acute anemia, recheck hemoglobin, monitor hemoglobin - Status post 1 unit PRBC - Hemoglobin 9 point Closed-loop small bowel obstruction due to ventral hernia CT/CT abdomen pelvis wo con [id number] IMPRESSION: 1. Prior RIGHT hemicolectomy with anastomosis. Anastomosis appears patent involving the transverse colon. 2. Dilated loops of fluid distended small bowel with swirling in the mesentery with mesenteric congestion and reactive lymph nodes in the mid abdomen and LEFT lower quadrant. Segmental areas of collapsed small bowel, see bookmarked images suspicious for internal hernia or adhesions with partial small bowel obstruction. 3. Residual colon is normal in appearance. 4. Prior cholecystectomy with pneumobilia. 5. Small amount of free fluid in the cul-de-sac -Patient's status post exploratory laparotomy, extensive lysis of adhesions, reduction internal hernia, small bowel resection, temporary closure with ABThera -Status post opening a recent exploratory laparotomy washout, small bowel anastomosis, closure of abdomen -Surgical site/breakdown drainage, currently packed, requiring wound care CT scan abdomen pelvis IMPRESSION: 1. Inferior to the umbilicus there is air in the soft tissues extending from the incision to the abdominal wall musculature. Infectious or inflammatory process can not be excluded. No rim enhancing soft tissue fluid collection along the incision. 2. Partially loculated fluid collections in the rightward abdomen that could be postoperative seroma versus developing abscess. 3. Hazy appearance to the mesentery that could represent edema versus inflammation. 4. Fatty left inguinal hernia with fluid in the left inguinal canal. 5. Previously seen pneumobilia has resolved. Plan -advance diet as tolerated -NG tube out -Serial abdominal exams - Serial abdominal exam - Continue IV Zosyn - IV vancomycin - Will discuss case with general surgery - Discussed case with IR Type 2 diabetes mellitus, low-dose sliding scale Generalized weakness, will need PT OT Weak cough, speech therapy eval, dysphagia level 4 diet, mildly thickened, aspiration precautions, supervised feeds Third spacing/hypoalbuminemia - 1 dose IV Lasix today History of seronegative rheumatoid arthritis - Had received stress dose IV steroids initially during his hospitalization - Weaned down to prednisone - Will complete prednisone burst today - Last dose of prednisone Full code SCDs for DVT prophylaxis, Lovenox for DVT prophylaxis Status stable Prognosis guarded Plan for today, continue IV antibiotics, PT OT, speech therapy, up out of bed, PDMP PDMP Reviewed: Not Reviewed Attestations 2 Medical Necessity Statement*: Patient requires hospitalization for closed-loop bowel obstruction leukocytosis, respiratory failure Diagnoses Small bowel obstruction due to adhesions K56.50 Sepsis A41.9 Internal hernia K45.8 Acute hypoxic respiratory failure J96.01 Diabetes E11.9 On mechanically assisted ventilation Z99.11 Ledesma Agitation Sedation Scale (RASS) score minus 4, deep sedation Z78.9 Metabolic acidosis E87.20 Septic shock A41.9; R65.21 Acute kidney injury N17.9 Hypoalbuminemia E88.09
[2025-09-01] VITALS (9 sets, daily range): BP systolic 104–115; BP diastolic 60–78; PULSE 62–76; RESP 16–19; TEMP 36.3–36.8; O2SAT 96–99
[2025-09-01] MEDS: piperacillin-tazobactam 3.375 GM in sodium chloride 0.9% (plus) 50 ML IV ×3 (00:15→16:15)
[2025-09-01] MEDS: vancomycin 1,750 MG/350 ML PIGGYBACK 175 MG IV (00:15)
[2025-09-01 03:26] LABS: Hematocrit 26.9 % (37-53); Hemoglobin 8.70 g/dL (11.27-16.99); Mean Corpuscular HGB Conc 32.3 g/dL (30-55); Mean Corpuscular Hemoglobin 33.6 pg (27-33); Mean Corpuscular Volume 103.9 fl (82-101); Nucleated Red Blood Cells % 0 %; Platelet Count 197 10^3/cmm (157-399); Red Blood Count 2.59 10^6/uL (3.85-5.65); White Blood Count 12.30 10^3/uL (3.29-11.43)
[2025-09-01 03:54] LABS: Alanine Aminotransferase 13 U/L (0-41); Albumin Level 2.6 g/dL (3.5-5.2); Alkaline Phosphatase 80 U/L (40-130); Anion Gap 15.3 (5-19); Aspartate Amino Transferase 20 U/L (0-40); Blood Urea Nitrogen 11 mg/dL (8-23); Calcium 7.5 mg/dL (8.5-10.5); Carbon Dioxide 24 mmol/L (22-29); Chloride 107 mmol/L (98-107); Globulin 2.5 g/dL (1.3-4.6); Glucose 107 mg/dL (65-115); Osmolality Calculated 296 mOsm/kg (285-295); Potassium 3.3 mmol/L (3.5-5.1); Sodium 143 mmol/L (136-145); Total Protein 5.1 g/dL (6.6-8.7)
[2025-09-01 03:56] LABS: Creatinine Clr Calc Pharmacy 102.5292; Magnesium 2.1 mg/dL (1.7-2.3)
[2025-09-01 03:57] LABS: Procalcitonin 0.38 ng/mL (0-0.5)
[2025-09-01] MEDS: multivitamin therapeutic Tablet 1 TAB PO (05:19)
[2025-09-01] MEDS: pantoprazole 40 mg SDV IVP ×2 (05:19→17:28)
[2025-09-01] MEDS: potassium phosphate (mEq K) 40 MEQ in sodium chloride 0.9% (100 ml) 100 ML 27.25 MEQ IV (09:45)
--- NOTE | 2025-09-01 11:05 | P.PN_ITS ---
Subjective 2 Subjective: - Patient was seen this morning - Currently alert oriented x 3, followin g all commands - No fevers, no chills, -Passing gas, had a bowel movement last night - He has a good cough this morning, does report 2 episodes of productive cough - He is strength is improving sitting up in a chair - Discussed his decreasing leukocytosis - Medically he has atelectasis bilateral lung travis with bilateral pleural effusions, suspicious that he might have a pneumonia he needs to continue to use incentive spirometer, sit up in a chair, - Discussed normal CT scan findings with general surgery yesterday, general surgery recommended for us to discuss case with Dr. Burrell, and interventional radiology tomorrow - Discussed with family - Goal would be to discussed the case wi Dr. Burrell in IR tomorrow - Discussed with their opinion is - Discussion of seroma versus abscess - Viability of placing a drain, risks an d benefits based on location, and size, and opinion if this is a seroma versus abscess -Discussed source control - Versus medical management with oral an tibiotics for 2 weeks -Discussed long-term complications of in tra-abdominal abscess - Nonetheless I would recommend that pro bably within a week or so he should have another CT scan abdomen pelvis, with monitoring of CBC - For monitor leukocytosis and if he barrett s develop worsening leukocytosis or fevers then might require repeat CT scan of the abdomen and pelvis sooner - Patient and son voiced understanding, questions answered Vitals/I&O/Wt Last Vital Signs Temp 97.7 F 09/01/25 08:00 Pulse 63 09/01/25 08:01 Resp 16 09/01/25 08:01 BP 109/66 09/01/25 08:00 Pulse Ox 98 09/01/25 08:01 O2 Del Method Nasal Cannula 09/01/25 08:01 O2 Flow Rate 2 09/01/25 08:01 FiO2 30 08/24/25 12:50 08/31/25 09/01/25 09/01/25 22:59 06:59 14:59 Intake Total 749.0909 / 849.0909 640 / 1489.0909 Output Total 3075 / 3075 300 / 3375 Balance -2325.9091 / -2225.9091 340 / -1885.9091 Weight last 48 hrs Weight 115.8 kg Weight 121.1 kg Physical Exam 2 Const: COMMON NORMALS: no acute distress and patient oriented x3 Eye: COMMON NORMALS: Equal, round and reactive pupils present PUPIL: Yes Equal, round and reactive pupils present Resp: COMMON NORMALS: normal respiratory effort, No retractions, No use of accessory muscles and clear to auscultation bilaterally AUSCULTATION: clear to auscultation bilaterally Cardio: COMMON NORMALS: regular rate, regular rhythm, S1 normal heart sound present and S2 normal heart sound present RATE: regular rate RHYTHM: r egular rhythm HEART SOUNDS: S1 normal heart sound present and S2 normal heart sound present GI: COMMON NORMALS: Normal to inspection, nondistended, normoactive bowel sounds present and non-tender OTHER: Surgical site - Yary look clean and dry - Inferior surgical site Extremity: COMMON NORMALS: no calf tenderness and no pedal edema Neuro: COMMON NORMALS: patient oriented x3 Psych: COMMON NORMALS: mental status grossly normal Urinary Catheter Management: Mast Latex: Cath Placed During This Visit: yes, but has since been removed by the nurse Reason for Continuing Indwelling Catheter: Decision to DC Catheter Urinary Catheter Date of Insertion: 08/21/25 Urinary Catheter Time of Insertion: 13:05 Date Urinary Catheter Removed: 08/29/25 Time Urinary Catheter Discontinued: 17:00 Data 09/01/25 02:16 09/01/25 02:16 Micro: Microbiology 08/26/25 17:24 Blood Culture - Final Blood NO GROWTH AFTER 5 DAYS 08/26/25 17:20 Blood Culture - Final Blood NO GROWTH AFTER 5 DAYS 08/30/25 08:31 Blood Culture - Preliminary Blood NEGATIVE TO DATE 08/30/25 08:18 Blood Culture - Preliminary Blood NEGATIVE TO DATE A&P Assessment and plan 1. Small bowel obstruction due to adhesions: 2. Sepsis: 3. Internal hernia: 4. Acute hypoxic respiratory failure: 5. Diabetes: 6. On mechanically assisted ventilation: 7. Ledesma Agitation Sedation Scale (RASS) score minus 4, deep sedation: 8. Metabolic acidosis: 9. Septic shock: 10. Acute kidney injury: 11. Hypoalbuminemia: Plan: Acute hypoxic respiratory failure Plan - Extubated to nasal cannula -Lasix yesterday -3 L -Bilateral pleural effusions, 1 dose Lasix today -Bilateral lower lung atelectasis versus pneumonia, has been on broad-spectrum antibiotic therapy since admission continue vancomycin and Zosyn -Needs to get up out of bed 3 times daily, into a chair, incentive spirometer use -Monitor for aspiration risk, aspiration precautions, dysphagia diet - Monitor respiratory status closely -advance diet as tolerated, currently on dysphagia level 4 diet, mildly thickened - Strengthening cough, generalized weakness -Hypokalemia # hypophosphatemia will replace IV -DuoNeb as needed - Protonix for GI prophylaxis - Lovenox for DVT prophylaxis - PICC line in place, removed Leukocytosis? Down to 12.3 today - Repeat UA within normal limits -Mast catheter out -PICC line removed - Repeat blood cultures, so far no growth -Remains afebrile - CT/CT chest abdpel w/*[id number] IMPRESSION: 1. Bilateral pleural effusions with bibasilar airspace disease, likely atelectasis, however pneumonia can not be excluded. 2. Atherosclerotic vascular disease and coronary artery calcifications. 3. Left basilar calcified granulomas. Hilar calcified lymph nodes. IMPRESSION: 1. Inferior to the umbilicus there is air in the soft tissues extending from the incision to the abdominal wall musculature. Infectious or inflammatory process can not be excluded. No rim enhancing soft tissue fluid collection along the incision. 2. Partially loculated fluid collections in the rightward abdomen that could be postoperative seroma versus developing abscess. 3. Hazy appearance to the mesentery that could represent edema versus inflammation. 4. Fatty left inguinal hernia with fluid in the left inguinal canal. 5. Previously seen pneumobilia has resolved. - Monitor for fevers - Encourage incentive spirometer use - Up out of bed 3 times daily - Aspiration precautions, dysphagia level 4 diet - Remains on vancomycin, Zosyn Hypernatremia, resolving - Likely secondary to dehydration, increased NG tube output - Gentle IV hydration, will deescalate Acute encephalopathy, resolving -Combination of hypernatremia, anesthetic, ICU delirium -CT head no acute findings - As above - Monitor mentation closely Septic shock resolved - PICC line in place, will remove -off Levophed -off Vasopressin - Albumin therapy currently on hold -Stress dose steroids, history of chronic steroid use, weaning hydrocortisone therapy - Keep MAP greater than 65 - Blood cultures - Sputum cultures - Vancomycin - Zosyn NSTEMI - Serial EKGs, serial troponins, telemetry monitoring - Type I versus type II - Cardiac echo CONCLUSIONS 1. Normal LV systolic cavity size and systolic function. EF 65%. 2. Mild concentric left ventricualr hypertrophy. 3. Moderate aortic valve stenosis. Metabolic acidosis, resolved - Likely sec to septic shock, lactic acidosis, renal failure - Bicarb drip Acute kidney injury, resolved - Secondary to sepsis, septic shock - Monitor urine output, monitor creatinine - Bicarbonate drip currently off Acute anemia, recheck hemoglobin, monitor hemoglobin - Status post 1 unit PRBC - Hemoglobin 9 point Closed-loop small bowel obstruction due to ventral hernia CT/CT abdomen pelvis wo con [id number] IMPRESSION: 1. Prior RIGHT hemicolectomy with anastomosis. Anastomosis appears patent involving the transverse colon. 2. Dilated loops of fluid distended small bowel with swirling in the mesentery with mesenteric congestion and reactive lymph nodes in the mid abdomen and LEFT lower quadrant. Segmental areas of collapsed small bowel, see bookmarked images suspicious for internal hernia or adhesions with partial small bowel obstruction. 3. Residual colon is normal in appearance. 4. Prior cholecystectomy with pneumobilia. 5. Small amount of free fluid in the cul-de-sac -Patient's status post exploratory laparotomy, extensive lysis of adhesions, reduction internal hernia, small bowel resection, temporary closure with ABThera -Status post opening a recent exploratory laparotomy washout, small bowel anastomosis, closure of abdomen -Surgical site/breakdown drainage, currently packed, requiring wound care CT scan abdomen pelvis IMPRESSION: 1. Inferior to the umbilicus there is air in the soft tissues extending from the incision to the abdominal wall musculature. Infectious or inflammatory process can not be excluded. No rim enhancing soft tissue fluid collection along the incision. 2. Partially loculated fluid collections in the rightward abdomen that could be postoperative seroma versus developing abscess. 3. Hazy appearance to the mesentery that could represent edema versus inflammation. 4. Fatty left inguinal hernia with fluid in the left inguinal canal. 5. Previously seen pneumobilia has resolved. -Will discuss the case with Dr. Burrell in IR tomorrow Plan -advance diet as tolerated -NG tube out -Serial abdominal exams - Serial abdominal exam - Continue IV Zosyn - IV vancomycin - Will discuss case with general surgery - Need to discuss case with IR tomorrow Type 2 diabetes mellitus, low-dose sliding scale Generalized weakness, will need PT OT Weak cough, speech therapy eval, dysphagia level 4 diet, mildly thickened, aspiration precautions, supervised feeds Third spacing/hypoalbuminemia - 1 dose po Lasix today History of seronegative rheumatoid arthritis - Had received stress dose IV steroids initially during his hospitalization - Weaned down to prednisone - Will complete prednisone burst today - Last dose of prednisone Full code SCDs for DVT prophylaxis, Lovenox for DVT prophylaxis Status stable Prognosis guarded Plan for today, continue IV antibiotics, PT OT, speech therapy, up out of bed, PDMP PDMP Reviewed: Not Reviewed Attestations 2 Medical Necessity Statement*: Patient requires hospitalization for closed-loop bowel obstruction, intra- abdominal fluid collection seroma versus abscess, postoperative atelectasis versus pneumonia, acute anemia, fluid overload Diagnoses Small bowel obstruction due to adhesions K56.50 Sepsis A41.9 Internal hernia K45.8 Acute hypoxic respiratory failure J96.01 Diabetes E11.9 On mechanically assisted ventilation Z99.11 Ledesma Agitation Sedation Scale (RASS) score minus 4, deep sedation Z78.9 Metabolic acidosis E87.20 Septic shock A41.9; R65.21 Acute kidney injury N17.9 Hypoalbuminemia E88.09
[2025-09-02] VITALS (11 sets, daily range): BP systolic 103–118; BP diastolic 63–69; PULSE 62–75; RESP 16–22; TEMP 36.3–36.6; O2SAT 96–98
[2025-09-02] MEDS: piperacillin-tazobactam 3.375 GM in sodium chloride 0.9% (plus) 50 ML IV ×3 (00:11→17:30)
[2025-09-02 03:29] LABS: Hematocrit 27.7 % (37-53); Hemoglobin 8.90 g/dL (11.27-16.99); Mean Corpuscular HGB Conc 32.1 g/dL (30-55); Mean Corpuscular Hemoglobin 32.7 pg (27-33); Mean Corpuscular Volume 101.8 fl (82-101); Nucleated Red Blood Cells % 0 %; Platelet Count 209 10^3/cmm (157-399); Red Blood Count 2.72 10^6/uL (3.85-5.65); White Blood Count 11.65 10^3/uL (3.29-11.43)
[2025-09-02 03:43] LABS: Alanine Aminotransferase 14 U/L (0-41); Albumin Level 2.6 g/dL (3.5-5.2); Alkaline Phosphatase 80 U/L (40-130); Anion Gap 16.1 (5-19); Aspartate Amino Transferase 19 U/L (0-40); Blood Urea Nitrogen 9 mg/dL (8-23); Calcium 7.4 mg/dL (8.5-10.5); Carbon Dioxide 24 mmol/L (22-29); Chloride 106 mmol/L (98-107); Globulin 2.7 g/dL (1.3-4.6); Glucose 109 mg/dL (65-115); Osmolality Calculated 295 mOsm/kg (285-295); Potassium 3.1 mmol/L (3.5-5.1); Sodium 143 mmol/L (136-145); Total Protein 5.3 g/dL (6.6-8.7)
[2025-09-02 03:45] LABS: Procalcitonin 0.29 ng/mL (0-0.5)
[2025-09-02 03:56] LABS: Creatinine Clr Calc Pharmacy 100.1000
[2025-09-02] MEDS: multivitamin therapeutic Tablet 1 TAB PO (04:32)
[2025-09-02] MEDS: pantoprazole 40 mg SDV IVP ×2 (04:35→17:16)
--- NOTE | 2025-09-02 11:19 | P.PN_ITS ---
Subjective 2 Subjective: Tolerating p.o. Having bowel function Abdomen benign Midline intact, packing distal aspect of wound. Leukocytosis down. No fevers Albumin 2.6 Family at bedside Vitals/I&O/Wt Last Vital Signs Temp 97.8 F 09/02/25 11:09 Pulse 62 09/02/25 11:09 Resp 19 H 09/02/25 11:09 BP 104/63 09/02/25 11:09 Pulse Ox 98 09/02/25 11:09 O2 Del Method Nasal Cannula 09/02/25 11:09 O2 Flow Rate 2 09/02/25 08:00 FiO2 30 08/24/25 12:50 09/01/25 09/02/25 09/02/25 22:59 06:59 14:59 Intake Total 150 / 549.0909 300 / 849.0909 240 / 240 Output Total 975 / 1250 550 / 1800 400 / 400 Balance -825 / -700.9091 -250 / -950.9091 -160 / -160 Weight last 48 hrs Weight 251 lb 8.759 oz Weight 255 lb 4.725 oz Physical Exam 2 Narrative: Chest: Unlabored breathing room air. No lymphadenopathy. Heart: Regular rate and rhythm. Abdomen: Soft, nontender, nondistended. Midline intact. Packing distal end of wound. No cellulitis. Urinary Catheter Management: Mast Latex: Cath Placed During This Visit: yes, but has since been removed by the nurse Reason for Continuing Indwelling Catheter: Decision to DC Catheter Urinary Catheter Date of Insertion: 08/21/25 Urinary Catheter Time of Insertion: 13:05 Date Urinary Catheter Removed: 08/29/25 Time Urinary Catheter Discontinued: 17:00 Data 09/02/25 02:04 09/02/25 02:04 A&P Assessment and plan 1. Small bowel obstruction due to adhesions: Plan: 75-year-old male who was initially admitted with a closed-loop SBO. Underwent small bowel resection, small bowel anastomosis, subsequent closure. He has had bowel function since late last week. White count hovering at around 10. Afebrile. Patient is taking p.o. but not enough. Patient is severely deconditioned. Last week judy in the distal aspect of the wound were removed and the wound was packed. A seroma was drained. No beto purulence. Holding off on removing all judy since his albumin is 2.6, which raises concern about his risk for fascial dehiscence and evisceration. I reviewed the CT scan images myself and I can see a small amount of fluid in the abdomen with no rim- enhancement. I can also see what appears to be my packing in the distal aspect of the wound. Given this findings I would not pursue IR percutaneous drain. I do not think the risk-benefit justifies it. I will continue empiric antibiotics for now. It is entirely possible he has developed a pneumonia secondary to atelectasis. I have had an extensive discussion with the patient's family, answered all of their questions. I have also had an extensive discussion with Dr. Levy and the hospitalist. We will work on nutrition in the hopes of getting the albumin higher than 3.0 to allow for adequate healing from surgery. I have presented the option of a PEG tube but the family is not convinced the benefits outweigh the risks. From a surgical perspective, evaluation by machine pie maker for possible calorie count and protein supplementation is an option. Other options include TPN and Dobbhoff tube for tube feeds. PDMP PDMP Reviewed: Not Reviewed Attestations 2 Medical Necessity Statement*: N/A Coding Level of Care Code 81375 Diagnoses Small bowel obstruction due to adhesions K56.50
--- NOTE | 2025-09-02 13:05 | P.PN_ITS ---
Subjective 2 Subjective: 75-year-old male seen this aft [facility] with his son Dennis Scott, one of his cousins and a nephew all present at bedside. Patient states he ate half of his meat and potato patties today for lunch. He is also drinking some caloric shakes. Question of starting him on TPN but his PICC line was recently removed for persistently elevated white count. Blood cultures negative to date from August [address] scan yesterday shows some fluid collection in the right abdomen as well as some air in the wound inferior to the umbilicus. Patient denies being in much pain. He denies coughing or choking with his food. Patient is being considered for acute inpatient rehab. He has been declined by LT[facility]. Hospitalization thus far 12 days Vitals/I&O/Wt Last Vital Signs Temp 97.8 F 09/02/25 11:09 Pulse 62 09/02/25 11:09 Resp 19 H 09/02/25 11:09 BP 104/63 09/02/25 11:09 Pulse Ox 98 09/02/25 11:09 O2 Del Method Nasal Cannula 09/02/25 11:09 O2 Flow Rate 2 09/02/25 08:00 FiO2 30 08/24/25 12:50 09/01/25 09/02/25 09/02/25 22:59 06:59 14:59 Intake Total 150 / 549.0909 300 / 849.0909 240 / 240 Output Total 975 / 1250 550 / 1800 400 / 400 Balance -825 / -700.9091 -250 / -950.9091 -160 / -160 Weight last 48 hrs Weight 114.1 kg Weight 115.8 kg Physical Exam 2 Narrative: General well-developed obese male in no acute cardiopulmonary distress on room air Regular rate and rhythm with a 4/6 systolic ejection murmur best heard at the left sternal border but radiates to the right upper chest consistent with aortic stenosis. Lungs crackles heard in both bases partially clear with deep breaths and cough but not completely Abdomen diminished bowel tones soft obese incisional judy still in place is not tender to palpation Calves trace edema Urinary Catheter Management: Mats Latex: Cath Placed During This Visit: yes, but has since been removed by the nurse Reason for Continuing Indwelling Catheter: Decision to DC Catheter Urinary Catheter Date of Insertion: 08/21/25 Urinary Catheter Time of Insertion: 13:05 Date Urinary Catheter Removed: 08/29/25 Time Urinary Catheter Discontinued: 17:00 Data 09/02/25 02:04 09/02/25 02:04 Echo: Radiologist's impression: 1. Normal LV systolic cavity size and systolic function. EF 65%. 2. Mild concentric left ventricualr hypertrophy. 3. Moderate aortic valve stenosis. A&P Assessment and plan 1. Small bowel obstruction due to adhesions: Due to internal hernia and suffering from pain at home with intermittent pain and diarrhea for 3 weeks. This has been surgically repaired on 08/21/2025, closure 08/23/[address] scan 08/31/2025 shows no failure of the anastomosis. There are some fluid collections not ring-enhancing or abscess like yet but concerning for phlegmon, inflammatory fluid possibly infected. Continue with Zosyn and vancomycin. Not comfortable putting the patient on oral antibiotics at this time until we show an improvement of these collections. I concur with not operating or draining these fluid collections as he is at high risk of failure, wound dehiscence, fistula. Recommend repeat CT scan Tuesday or this week with contrast Patient had postoperatively patient was with respiratory failure, hypotension, metabolic acidosis, prolonged intubation and pressors recovered largely by August 24, 2025 and extubated 2. Seronegative rheumatoid arthritis: Patient is on chronic immune suppression with prednisone as needed and chronic methotrexate and Humira this complicates his recovery and puts him at risk for infection. For this reason patient requires additional IV antibiotics for his nonlocalized fluid collections to see if they will resolve without further surgery or IR drainage. He is at high risk of complication 3. Diabetes: A1c on admission was 6.3 4. Hypoalbuminemia: I do not think the patient requires TPN or feeding tube at this time. He is taking about 50% of his meal plus supplements. Will ask for nutritional consult. Encourage patient to eat more. Increase activity as tolerated. Plan: Full code SCDs for DVT prophylaxis, Lovenox for DVT prophylaxis Status stable Prognosis fair but at risk of developing complicating abscess or fistula Questions were sought and answered with the patient's son Dennis at bedside PDMP PDMP Reviewed: Not Reviewed Attestations 2 Medical Necessity Statement*: Patient remains hospitalized for IV antibiotics therapy and progression of diet anticipate repeat CT scan on Tuesday with IV and oral contrast Coding Level of Care Code Acute Code for Chg Fwd Diagnoses Small bowel obstruction due to adhesions K56.50 Seronegative rheumatoid arthritis M06.00 Diabetes E11.9 Hypoalbuminemia E88.09 Time Spent (min) 50
--- NOTE | 2025-09-02 13:34 | PC.SOCIAL ---
IMM Update pg 2 of IMM Updated and reviewed w/ patients son. Copy provided and copy dated, initialed and placed in chart.
[2025-09-03] VITALS (10 sets, daily range): BP systolic 90–114; BP diastolic 52–68; PULSE 56–83; RESP 16–18; TEMP 36.3–36.9; O2SAT 93–98
[2025-09-03] MEDS: piperacillin-tazobactam 3.375 GM in sodium chloride 0.9% (plus) 50 ML IV ×3 (02:04→18:30)
[2025-09-03] MEDS: pantoprazole 40 mg SDV IVP (05:03)
[2025-09-03] MEDS: chlorhexidine gluconate 4% Btl 118 mL 1 APPLIC TOPICAL (05:03)
[2025-09-03] MEDS: multivitamin therapeutic Tablet 1 TAB PO (05:07)
[2025-09-03 08:02] LABS: Hematocrit 27.8 % (37-53); Hemoglobin 8.70 g/dL (11.27-16.99); Mean Corpuscular HGB Conc 31.3 g/dL (30-55); Mean Corpuscular Hemoglobin 32.7 pg (27-33); Mean Corpuscular Volume 104.5 fl (82-101); Nucleated Red Blood Cells % 0 %; Platelet Count 232 10^3/cmm (157-399); Red Blood Count 2.66 10^6/uL (3.85-5.65); White Blood Count 10.54 10^3/uL (3.29-11.43)
[2025-09-03 08:34] LABS: Alanine Aminotransferase 12 U/L (0-41); Albumin Level 2.6 g/dL (3.5-5.2); Alkaline Phosphatase 80 U/L (40-130); Anion Gap 16.2 (5-19); Aspartate Amino Transferase 18 U/L (0-40); Blood Urea Nitrogen 10 mg/dL (8-23); Calcium 7.5 mg/dL (8.5-10.5); Carbon Dioxide 23 mmol/L (22-29); Chloride 105 mmol/L (98-107); Creatinine Clr Calc Pharmacy 99.4148; Globulin 2.7 g/dL (1.3-4.6); Glucose 137 mg/dL (65-115); Osmolality Calculated 293 mOsm/kg (285-295); Potassium 3.2 mmol/L (3.5-5.1); Sodium 141 mmol/L (136-145); Total Protein 5.3 g/dL (6.6-8.7)
--- NOTE | 2025-09-03 12:48 | P.PN_ITS ---
Subjective 2 Subjective: Tolerating p.o. Abdomen benign Incision clean dry intact. Distal end being packed. White count down. Afebrile Vitals/I&O/Wt Last Vital Signs Temp 97.7 F 09/03/25 11:56 Pulse 69 09/03/25 11:56 Resp 18 09/03/25 11:56 BP 110/63 09/03/25 11:56 Pulse Ox 98 09/03/25 11:56 O2 Del Method Nasal Cannula 09/03/25 11:56 O2 Flow Rate 1.5 09/03/25 09:33 FiO2 30 08/24/25 12:50 09/02/25 09/03/25 09/03/25 22:59 06:59 14:59 Intake Total 540 / 950 50 / 1000 240 / 240 Output Total 400 / 800 200 / 200 Balance 140 / 150 50 / 200 40 / 40 Weight last 48 hrs Weight 252 lb Weight 251 lb 8.759 oz Physical Exam 2 Narrative: Chest: Unlabored breathing 2 L nasal cannula. Heart: Regular rate and rhythm. Abdomen: Soft, nontender, nondistended. Incision clean dry intact. Distal end of wound being packed. Urinary Catheter Management: Mast Latex: Cath Placed During This Visit: yes, but has since been removed by the nurse Reason for Continuing Indwelling Catheter: Decision to DC Catheter Urinary Catheter Date of Insertion: 08/21/25 Urinary Catheter Time of Insertion: 13:05 Date Urinary Catheter Removed: 08/29/25 Time Urinary Catheter Discontinued: 17:00 Data 09/04/25 04:32 09/04/25 04:32 A&P Assessment and plan 1. Seronegative rheumatoid arthritis: 2. Small bowel obstruction due to adhesions: Plan: 75-year-old male admitted with a closed-loop SBO. Having bowel function and tolerating p.o. Severely deconditioned. Malnourished albumin 2.6. Working on placement. Rest of care per hospitalist. PDMP PDMP Reviewed: Not Reviewed Attestations 2 Medical Necessity Statement*: N/A Coding Level of Care Code 09211 Diagnoses Seronegative rheumatoid arthritis M06.00 Small bowel obstruction due to adhesions K56.50
--- NOTE | 2025-09-03 15:29 | P.PN_ITS ---
Subjective 2 Subjective: 75-[facility] with his son Dennis Scott present at bedside. Patient complains that he has buttock pain from being immobile. Patient and his son both report that he was ambulatory without a walker a month ago prior to the abdominal pain and diarrhea episodes that lasted 2 to 3 weeks. Patient states he thought it was going to go away and a temporary problem. Son reports that he was unaware of it being a problem until the day patient came in with need for emergent surgery Patient is being considered for acute inpatient rehab. He has been declined by LTAC. Hospitalization thus far 12 days. He is on IV antibiotics due to fluid collections in his abdomen that are not organized abscesses. He has had elevated white count now decreasing. Patient has been working with nutrition and eating better. Vitals/I&O/Wt Last Vital Signs Temp 97.7 F 09/03/25 11:56 Pulse 69 09/03/25 11:56 Resp 18 09/03/25 11:56 BP 110/63 09/03/25 11:56 Pulse Ox 98 09/03/25 11:56 O2 Del Method Nasal Cannula 09/03/25 11:56 O2 Flow Rate 1.5 09/03/25 09:33 FiO2 30 08/24/25 12:50 09/03/25 09/03/25 09/03/25 06:59 14:59 22:59 Intake Total 50 / 1000 360 / 360 Output Total 200 / 200 Balance 50 / 200 160 / 160 Weight last 48 hrs Weight 114.305 kg Weight 114.1 kg Physical Exam 2 Narrative: General well-developed obese male in no acute cardiopulmonary distress on room air Regular rate and rhythm with a 4/6 systolic ejection murmur best heard at the left sternal border but radiates to the right upper chest consistent with aortic stenosis. Lungs crackles heard in both bases partially clear with deep breaths and cough but not completely Abdomen diminished bowel tones soft obese incisional judy still in place is not tender to palpation Calves trace edema Urinary Catheter Management: Mast Latex: Cath Placed During This Visit: yes, but has since been removed by the nurse Reason for Continuing Indwelling Catheter: Decision to DC Catheter Urinary Catheter Date of Insertion: 08/21/25 Urinary Catheter Time of Insertion: 13:05 Date Urinary Catheter Removed: 08/29/25 Time Urinary Catheter Discontinued: 17:00 Data 09/03/25 07:44 10/07/25 07:44 A&P Assessment and plan 1. Small bowel obstruction due to adhesions: Due to internal hernia and suffering from pain at home with intermittent pain and diarrhea for 3 weeks. This has been surgically repaired on 08/21/2025, closure 08/23/[address] scan 08/31/2025 shows no failure of the anastomosis. There are some fluid collections not ring-enhancing or abscess like yet but concerning for phlegmon, inflammatory fluid possibly infected. Continue with Zosyn and vancomycin. Not comfortable putting the patient on oral antibiotics at this time until we show an improvement of these collections. I concur with not operating or draining these fluid collections as he is at high risk of failure, wound dehiscence, fistula. Recommend repeat CT scan Tuesday or this week with contrast Patient had postoperatively patient was with respiratory failure, hypotension, metabolic acidosis, prolonged intubation and pressors recovered largely by August 24, 2025 and extubated Patient is immunocompromised and malnourished currently with prolonged abdominal illness related to incarcerated hernia internally. Repeat CT scan with IV and oral contrast in morning. 2. Seronegative rheumatoid arthritis: Patient is on chronic immune suppression with prednisone as needed and chronic methotrexate and Humira this complicates his recovery and puts him at risk for infection. For this reason patient requires additional IV antibiotics for his nonlocalized fluid collections to see if they will resolve without further surgery or IR drainage. He is at high risk of complication 3. Diabetes: A1c on admission was 6.3. Continue with insulin and increased calories for healing 4. Hypoalbuminemia: I do not think the patient requires TPN or feeding tube at this time. He is taking about 50% of his meal plus supplements. Will ask for nutritional consult. Encourage patient to eat more. Increase activity as tolerated. 5. Moderate aortic stenosis: This along with LVH on echo done 08/22/2025 explains patient's murmur Plan: Full code SCDs for DVT prophylaxis, Lovenox for DVT prophylaxis Status stable Prognosis fair but at risk of developing complicating abscess or fistula Questions were sought and answered with the patient's son Dennis at bedside PDMP PDMP Reviewed: Not Reviewed Attestations 2 Medical Necessity Statement*: Patient remains in the hospital for 1-2 more midnights to ensure that his abdominal fluid collections are not uncontrolled infections and anticipate discharge to inpatient rehab Coding Level of Care Code 26461 Diagnoses Small bowel obstruction due to adhesions K56.50 Seronegative rheumatoid arthritis M06.00 Diabetes E11.9 Hypoalbuminemia E88.09 Moderate aortic stenosis I35.0 Time Spent (min) 35
[2025-09-04] VITALS (9 sets, daily range): BP systolic 96–123; BP diastolic 51–78; PULSE 65–81; RESP 14–18; TEMP 36.4–36.9; O2SAT 91–99
[2025-09-04] MEDS: piperacillin-tazobactam 3.375 GM in sodium chloride 0.9% (plus) 50 ML IV ×3 (01:59→17:56)
[2025-09-04 04:55] LABS: Hematocrit 27.3 % (37-53); Hemoglobin 8.70 g/dL (11.27-16.99); Mean Corpuscular HGB Conc 31.9 g/dL (30-55); Mean Corpuscular Hemoglobin 32.7 pg (27-33); Mean Corpuscular Volume 102.6 fl (82-101); Nucleated Red Blood Cells % 0 %; Platelet Count 252 10^3/cmm (157-399); Red Blood Count 2.66 10^6/uL (3.85-5.65); White Blood Count 9.15 10^3/uL (3.29-11.43)
[2025-09-04] MEDS: multivitamin therapeutic Tablet 1 TAB PO (05:16)
[2025-09-04] MEDS: chlorhexidine gluconate 4% Btl 118 mL 1 APPLIC TOPICAL (05:17)
[2025-09-04 05:18] LABS: Alanine Aminotransferase 14 U/L (0-41); Albumin Level 2.5 g/dL (3.5-5.2); Alkaline Phosphatase 94 U/L (40-130); Anion Gap 11.8 (5-19); Aspartate Amino Transferase 27 U/L (0-40); Blood Urea Nitrogen 12 mg/dL (8-23); Calcium 7.6 mg/dL (8.5-10.5); Carbon Dioxide 26 mmol/L (22-29); Chloride 108 mmol/L (98-107); Creatinine Clr Calc Pharmacy 99.4148; Globulin 3.6 g/dL (1.3-4.6); Glucose 138 mg/dL (65-115); Osmolality Calculated 298 mOsm/kg (285-295); Sodium 143 mmol/L (136-145); Total Protein 6.1 g/dL (6.6-8.7)
[2025-09-04 05:21] LABS: Magnesium 1.8 mg/dL (1.7-2.3)
[2025-09-04 05:28] LABS: Potassium 2.8 mmol/L (3.5-5.1)
[2025-09-04] MEDS: lidocaine 1% 5 ML in potassium chloride premix 100 ML 50 ML IV (06:58)
--- NOTE | 2025-09-04 09:04 | PC.SOCIAL ---
IMM Update pg 2 of IMM Updated and reviewed w/ patient. Copy provided and copy dated, initialed and placed in chart.
[2025-09-04] MEDS: iohexol 350 mg/mL 500 mL Btl (per mL) PO (09:28)
--- NOTE | 2025-09-04 10:00 | CT_ITS ---
WS: [id number] CT ABDOMEN PELVIS TECHNIQUE: Contrast-enhanced CT of the abdomen and pelvis with coronal and sagittal reformatted images. CLINICAL INFORMATION: Abdominal inflammation and fluid collection COMPARISON: 08/31/2025 DLP: 1207.[address] scans at [facility] use at least one of these dose optimization techniques: automated exposure control; mA and/or kV adjustment per patient size (includes targeted exams where dose is matched to clinical indication); or iterative reconstruction. FINDINGS: Previously described fluid collection in the RIGHT abdomen with slight thin peripheral enhancement is unchanged in size and appearance. Differential considerations are unchanged including postoperative fluid/seroma versus developing abscess. No associated air. Slightly improved induration and edema in the abdominal and RIGHT abdominal mesentery. Stable postoperative fluid along the incision and ventral abdominal wall. Anastomosis in the RIGHT abdomen and mid abdomen appears unchanged. No evidence of high-grade obstruction. Prior RIGHT hemicolectomy. Small amount of pneumobilia. Cholecystectomy. Bibasilar atelectasis. Trace bilateral pleural fluid. Pleural fluid appears slightly improved. Fatty atrophy of the pancreas. Adrenal glands are normal. Normal renal parenchymal enhancement. No hydronephrosis. Normal caliber abdominal aorta. Aortic calcification. Fat-containing LEFT inguinal hernia with fluid similar to previous. Advanced spondylitic changes lumbar spine with chronic spondylolysis L5-S1. Moderate central canal stenosis L3-4 with a RIGHT paracentral disc osteophyte protrusion. CT/CT abdomen pelvis w con* [id number] IMPRESSION: 1. Overall no significant changes in the RIGHT abdominal fluid collection sinc e 08/31/2025 with thin peripheral enhancement. Differential considerations are u nchanged including postoperative fluid/seroma or developing abscess. Recommend correlation with infectious symptoms. No associated air. Recommend follow-up to resolution. 2. Improving edema in the RIGHT central mesentery. 3. Stable fluid and edema along the incision and ventral abdomen. 4. Slightly improved aeration in the lung bases with improved pleural fluid. 5. No evidence of high-grade obstruction. 6. No other significant changes.
[2025-09-04] MEDS: iohexol 350 mg/mL 500 mL Btl (per mL) IV (10:45)
--- NOTE | 2025-09-04 12:43 | P.PN_ITS ---
Subjective 2 Subjective: Afebrile White count down Abdomen benign Incision clean dry intact. Packing to distal aspect of the wound Tolerating p.o. Vitals/I&O/Wt Last Vital Signs Temp 97.8 F 09/04/25 11:20 Pulse 68 09/04/25 11:20 Resp 14 09/04/25 11:20 BP 122/75 09/04/25 11:20 Pulse Ox 92 09/04/25 11:20 O2 Del Method Room Air 09/04/25 11:20 O2 Flow Rate 1.5 09/03/25 20:00 FiO2 30 08/24/25 12:50 09/03/25 09/04/25 09/04/25 22:59 06:59 14:59 Intake Total 290 / 650 100 / 750 240 / 240 Output Total 650 / 850 Balance 290 / 450 -550 / -100 240 / 240 Weight last 48 hrs Weight 252 lb Weight 252 lb Physical Exam 2 Narrative: Chest: Unlabored breathing room air. No lymphadenopathy. Heart: Regular rate and rhythm. Abdomen: Soft, nontender, nondistended. Incision clean dry intact. Distal aspect of wound being packed. Urinary Catheter Management: Mast Latex: Cath Placed During This Visit: yes, but has since been removed by the nurse Reason for Continuing Indwelling Catheter: Decision to DC Catheter Urinary Catheter Date of Insertion: 08/21/25 Urinary Catheter Time of Insertion: 13:05 Date Urinary Catheter Removed: 08/29/25 Time Urinary Catheter Discontinued: 17:00 Data 09/04/25 04:32 09/04/25 04:32 Micro: Microbiology 08/30/25 08:18 Blood Culture - Final Blood NO GROWTH AFTER 5 DAYS 08/30/25 08:31 Blood Culture - Final Blood NO GROWTH AFTER 5 DAYS A&P Assessment and plan 1. Internal hernia: Plan: 75-year-old male who initially presented with a closed-loop SBO. Reviewed repeat CT scan today. I have a low suspicion for intra-abdominal abscess. Therefore I would recommend holding off on any IR peritoneal drains. His white count is down. Afebrile. Nutrition and rehab should be the priority at this point. Rest of care per hospitalist. PDMP PDMP Reviewed: Not Reviewed Attestations 2 Medical Necessity Statement*: N/A Coding Level of Care Code 12907 Diagnoses Internal hernia K45.8
[2025-09-04] MEDS: potassium phosphate (mMol PO4) 15 MMOL in sodium chloride 0.9% (100 ml) 100 ML 47 MMOL IV (14:13)
[2025-09-04] MEDS: dextrose 5%-ns + KCl 20 20 MEQ/1,000 ML BAG 100 MEQ IV (14:13)
--- NOTE | 2025-09-04 17:16 | P.PN_ITS ---
Subjective 2 Subjective: 75-year-old male admitted with closed-loop small bowel obstruction underwent surgery and has had significant debilitation and slow to recover. He is reporting back pain and some right sided pain. His appetite is poor and his p.o. intake has been adequate only with supplements. Patient had bowel movement today and states he is having 1-2 a day that are loose but not diarrhea not bloody. Vitals/I&O/Wt Last Vital Signs Temp 97.7 F 09/04/25 15:58 Pulse 72 09/04/25 15:58 Resp 16 09/04/25 15:58 BP 104/61 09/04/25 15:58 Pulse Ox 95 09/04/25 15:58 O2 Del Method Room Air 09/04/25 15:58 O2 Flow Rate 1.5 09/03/25 20:00 FiO2 30 08/24/25 12:50 09/04/25 09/04/25 09/04/25 06:59 14:59 22:59 Intake Total 100 / 750 240 / 240 155 / 395 Output Total 650 / 850 Balance -550 / -100 240 / 240 155 / 395 Weight last 48 hrs Weight 114.305 kg Weight 114.305 kg Physical Exam 2 Narrative: General well-developed obese male in no acute cardiopulmonary distress on room air Regular rate and rhythm with a 4/6 systolic ejection murmur best heard at the left sternal border but radiates to the right upper chest consistent with aortic stenosis. Lungs crackles heard in both bases partially clear with deep breaths and cough but not completely Abdomen diminished bowel tones soft obese incisional judy still in place patient with mild tenderness right side abdomen but no rebound Calves trace edema Urinary Catheter Management: Mast Latex: Cath Placed During This Visit: yes, but has since been removed by the nurse Reason for Continuing Indwelling Catheter: Decision to DC Catheter Urinary Catheter Date of Insertion: 08/21/25 Urinary Catheter Time of Insertion: 13:05 Date Urinary Catheter Removed: 08/29/25 Time Urinary Catheter Discontinued: 17:00 Data 09/04/25 04:32 09/04/25 04:32 Micro: Microbiology 08/30/25 08:18 Blood Culture - Final Blood NO GROWTH AFTER 5 DAYS 08/30/25 08:31 Blood Culture - Final Blood NO GROWTH AFTER 5 DAYS A&P Assessment and plan 1. Small bowel obstruction due to adhesions: Due to internal hernia and suffering from pain at home with intermittent pain and diarrhea for 3 weeks. This has been surgically repaired on 08/21/2025, closure 08/23/[address] scan 09/04/2025 shows mild decrease in the inflammation and fluid collection is the same but has not formed an abscess Nutrition still marginal with albumin 2.5 2. Seronegative rheumatoid arthritis: Patient's son Dennis states the patient was on prednisone was prescribed methotrexate but possibly never took it and the patient has not yet been on Humira or other injectable Biologics 3. Diabetes: A1c on admission was 6.3. Continue with insulin and increased calories for healing 4. Hypoalbuminemia: I do not think the patient requires TPN or feeding tube at this time. He is taking about 50% of his meal plus supplements. Will ask for nutritional consult. Encourage patient to eat more. Increase activity as tolerated. Start Megace 400 mg twice daily first dose now. Speech therapy is evaluating patient now to see if diet consistencies can be advanced to make it more palatable to patient 5. Moderate aortic stenosis: This along with LVH on echo done 08/22/2025 explains patient's murmur Plan: Full code SCDs for DVT prophylaxis, Lovenox for DVT prophylaxis Status stable Prognosis fair but at risk of developing complicating abscess or fistula Questions were sought and answered with the patient's son Dennis at bedside. Case was also discussed with Dr. Burrell in detail PDMP PDMP Reviewed: Not Reviewed Attestations 2 Medical Necessity Statement*: Patient rossy in the hospital for IV antibiotics up till placement at inpatient rehab planned at [facility] Coding Level of Care Code 64990 Diagnoses Small bowel obstruction due to adhesions K56.50 Seronegative rheumatoid arthritis M06.00 Diabetes E11.9 Hypoalbuminemia E88.09 Moderate aortic stenosis I35.0 Time Spent (min) 45
[2025-09-04] MEDS: FUROsemide 10 mg/mL SDV 2mL 20 MG IVP (18:42)
[2025-09-05] VITALS (11 sets, daily range): BP systolic 94–112; BP diastolic 58–70; PULSE 66–89; RESP 16–18; TEMP 36.3–36.8; O2SAT 90–96
[2025-09-05] MEDS: piperacillin-tazobactam 3.375 GM in sodium chloride 0.9% (plus) 50 ML IV ×3 (01:32→18:34)
[2025-09-05] MEDS: chlorhexidine gluconate 4% Btl 118 mL 1 APPLIC TOPICAL (04:28)
[2025-09-05] MEDS: multivitamin therapeutic Tablet 1 TAB PO (04:28)
[2025-09-05 05:09] LABS: Hematocrit 28.1 % (37-53); Hemoglobin 8.80 g/dL (11.27-16.99); Mean Corpuscular HGB Conc 31.3 g/dL (30-55); Mean Corpuscular Hemoglobin 32.0 pg (27-33); Mean Corpuscular Volume 102.2 fl (82-101); Nucleated Red Blood Cells % 0 %; Platelet Count 281 10^3/cmm (157-399); Red Blood Count 2.75 10^6/uL (3.85-5.65); White Blood Count 8.27 10^3/uL (3.29-11.43)
[2025-09-05 05:33] LABS: Magnesium 1.8 mg/dL (1.7-2.3)
[2025-09-05 05:35] LABS: Alanine Aminotransferase 12 U/L (0-41); Albumin Level 2.6 g/dL (3.5-5.2); Alkaline Phosphatase 114 U/L (40-130); Anion Gap 12.7 (5-19); Aspartate Amino Transferase 27 U/L (0-40); Blood Urea Nitrogen 11 mg/dL (8-23); Calcium 8.0 mg/dL (8.5-10.5); Carbon Dioxide 26 mmol/L (22-29); Chloride 110 mmol/L (98-107); Creatinine Clr Calc Pharmacy 99.4148; Globulin 4.1 g/dL (1.3-4.6); Glucose 143 mg/dL (65-115); Osmolality Calculated 302 mOsm/kg (285-295); Potassium 3.7 mmol/L (3.5-5.1); Sodium 145 mmol/L (136-145); Total Protein 6.7 g/dL (6.6-8.7)
[2025-09-05] MEDS: potassium phosphate (mMol PO4) 15 MMOL in sodium chloride 0.9% (100 ml) 100 ML 47 MMOL IV (09:28)
--- NOTE | 2025-09-05 12:41 | P.PN_ITS ---
Subjective 2 Subjective: White count down Afebrile Tolerating p.o. Abdomen benign Distal end of the wound being packed. Midline otherwise intact Vitals/I&O/Wt Last Vital Signs Temp 98.1 F 09/05/25 08:06 Pulse 81 09/05/25 09:13 Resp 16 09/05/25 09:13 BP 110/66 09/05/25 08:06 Pulse Ox 94 09/05/25 09:13 O2 Del Method Room Air 09/05/25 09:13 O2 Flow Rate 1.5 09/04/25 19:20 FiO2 30 08/24/25 12:50 09/04/25 09/05/25 09/05/25 22:59 06:59 14:59 Intake Total 1018.333 / 1258.333 290 / 290 Balance 1018.333 / 1258.333 290 / 290 Weight last 48 hrs Weight 253 lb Weight 252 lb Physical Exam 2 Narrative: Chest: Unlabored breathing room air. No lymphadenopathy. Heart: Regular rate and rhythm. Abdomen: Soft, nontender, nondistended. Distal wound being packed. Otherwise midline intact. Urinary Catheter Management: Mast Latex: Cath Placed During This Visit: yes, but has since been removed by the nurse Reason for Continuing Indwelling Catheter: Decision to DC Catheter Urinary Catheter Date of Insertion: 08/21/25 Urinary Catheter Time of Insertion: 13:05 Date Urinary Catheter Removed: 08/29/25 Time Urinary Catheter Discontinued: 17:00 Data 09/05/25 04:37 09/05/25 04:37 Micro: Microbiology 08/30/25 08:18 Blood Culture - Final Blood NO GROWTH AFTER 5 DAYS 08/30/25 08:31 Blood Culture - Final Blood NO GROWTH AFTER 5 DAYS A&P Assessment and plan 1. Small bowel obstruction due to adhesions: Plan: 75-year-old male status post ex lap for closed-loop SBO. From a surgical perspective ready for discharge. Continue wound packing changes daily. Follow- up in the office 2 weeks after discharge from the hospital at which time may remove judy. Rest of care per hospitalist PDMP PDMP Reviewed: Not Reviewed Attestations 2 Medical Necessity Statement*: N/A Coding Level of Care Code 01079 Diagnoses Small bowel obstruction due to adhesions K56.50
--- NOTE | 2025-09-05 14:05 | P.PN_ITS ---
Subjective 2 Subjective: 75 yo male accompanied by his son Dennis and also his cousin Ruth present at bedside. I had a peer to peer with Dr. Cole who reviewed records indicating the patient still requiring STEDY lift and agreed that the patient needed therapy but thought it could be done at the residential facility. Dr. Cole medical representative for [facility] indicated that strengthening was appropriate for therapists and did not require physiatry to oversee. I spoke with patient, son, cousin and Robyn from discharge planning. Indeed the patient is weak from extensive surgery, prolonged illness prior to surgery, morbid obesity and his age. He does not have a stroke or specific injury that he is rehabilitating and specific. Vitals/I&O/Wt Last Vital Signs Temp 98.2 F 09/05/25 13:28 Pulse 89 09/05/25 13:28 Resp 18 09/05/25 13:28 BP 105/68 09/05/25 13:28 Pulse Ox 90 09/05/25 13:28 O2 Del Method Room Air 09/05/25 09:13 O2 Flow Rate 1.5 09/04/25 19:20 FiO2 30 08/24/25 12:50 09/04/25 09/05/25 09/05/25 22:59 06:59 14:59 Intake Total 1018.333 / 1258.333 650 / 650 Balance 1018.333 / 1258.333 650 / 650 Weight last 48 hrs Weight 114.759 kg Weight 114.305 kg Physical Exam 2 Narrative: General well-developed obese male in no acute cardiopulmonary distress on room air Regular rate and rhythm with a 4/6 systolic ejection murmur best heard at the left sternal border but radiates to the right upper chest consistent with aortic stenosis. Lungs clear on anterior exam bases could not be well examined today Abdomen diminished bowel tones soft obese incisional judy still in place patient with mild tenderness bilaterally but no rebound tenderness Calves no edema however there is a firm possibly calcified cord in the lower posterior calf this is not tender nor hot to touch Urinary Catheter Management: Mast Latex: Cath Placed During This Visit: yes, but has since been removed by the nurse Reason for Continuing Indwelling Catheter: Decision to DC Catheter Urinary Catheter Date of Insertion: 08/21/25 Urinary Catheter Time of Insertion: 13:05 Date Urinary Catheter Removed: 08/29/25 Time Urinary Catheter Discontinued: 17:00 Data 09/05/25 04:37 09/05/25 04:37 A&P Assessment and plan 1. Small bowel obstruction due to adhesions: Due to internal hernia and suffering from pain at home with intermittent pain and diarrhea for 3 weeks. This has been surgically repaired on 08/21/2025, closure 08/23/[address] scan 09/04/2025 shows mild decrease in the inflammation and fluid collection is the same but has not formed an abscess Nutrition still marginal with albumin 2.6. White count and fevers absent. Patient is slowly improving 2. Seronegative rheumatoid arthritis: Patient's son Dennis states the patient was on prednisone was prescribed methotrexate but possibly never took it and the patient has not yet been on Humira or other injectable Biologics 3. Diabetes: A1c on admission was 6.3. Continue with insulin and increased calories for healing 4. Hypoalbuminemia: I do not think the patient requires TPN or feeding tube at this time. He is taking about 50% of his meal plus supplements. Will ask for nutritional consult. Encourage patient to eat more. Increase activity as tolerated. Continue Megace 400 mg twice daily first dose now. Speech therapy is evaluating patient now to see if diet consistencies can be advanced to make it more palatable to patient 5. Moderate aortic stenosis: This along with LVH on echo done 08/22/2025 explains patient's murmur Plan: Full code SCDs for DVT prophylaxis, Lovenox for DVT prophylaxis Status stable Prognosis fair but at risk of developing complicating abscess or fistula Questions were sought and answered with the patient's son Dennis at bedside. PDMP PDMP Reviewed: Not Reviewed Attestations 2 Medical Necessity Statement*: Patient rossy hospitalized with placement anticipated in the next 1 to 2 days and will discharge on oral antibiotics Coding Level of Care Code 44028 Diagnoses Small bowel obstruction due to adhesions K56.50 Seronegative rheumatoid arthritis M06.00 Diabetes E11.9 Hypoalbuminemia E88.09 Moderate aortic stenosis I35.0 Time Spent (min) 45
[2025-09-06] VITALS (7 sets, daily range): BP systolic 102–114; BP diastolic 60–75; PULSE 68–79; RESP 16–18; TEMP 36.3–36.9; O2SAT 95–97
[2025-09-06] MEDS: piperacillin-tazobactam 3.375 GM in sodium chloride 0.9% (plus) 50 ML IV ×3 (03:37→17:50)
[2025-09-06] MEDS: multivitamin therapeutic Tablet 1 TAB PO (05:20)
[2025-09-06] MEDS: chlorhexidine gluconate 4% Btl 118 mL 1 APPLIC TOPICAL (05:21)
--- NOTE | 2025-09-06 09:53 | PC.OT ---
Pt. agreed to OT at later time today. Son present in room and stated possible discharge but unsure of date. Will check back later today.
--- NOTE | 2025-09-06 11:05 | P.PN_ITS ---
Subjective 2 Subjective: No acute events overnight Incision clean dry intact. Packing distal end. Afebrile. Tolerating p.o. Working on placement Vitals/I&O/Wt Last Vital Signs Temp 97.8 F 09/06/25 08:00 Pulse 79 09/06/25 08:15 Resp 18 09/06/25 08:15 BP 109/71 09/06/25 08:00 Pulse Ox 97 09/06/25 08:15 O2 Del Method Room Air 09/06/25 08:15 O2 Flow Rate 1.5 09/04/25 19:20 FiO2 30 08/24/25 12:50 09/05/25 09/06/25 09/06/25 22:59 06:59 14:59 Intake Total 100 / 855 410 / 410 Output Total 220 / 220 Balance 100 / 855 190 / 190 Weight last 48 hrs Weight 253 lb Weight 253 lb Physical Exam 2 Narrative: Chest: Unlabored breathing room air. No lymphadenopathy. Heart: Regular rate and rhythm. Abdomen: Soft, nontender, nondistended. Midline clean dry intact. Packing distal end of wound. Urinary Catheter Management: Mast Latex: Cath Placed During This Visit: yes, but has since been removed by the nurse Reason for Continuing Indwelling Catheter: Decision to DC Catheter Urinary Catheter Date of Insertion: 08/21/25 Urinary Catheter Time of Insertion: 13:05 Date Urinary Catheter Removed: 08/29/25 Time Urinary Catheter Discontinued: 17:00 Data 09/05/25 04:37 09/05/25 04:37 A&P Assessment and plan 1. Small bowel obstruction due to adhesions: Plan: 75-year-old male who initially presented with a closed-loop SBO. Progressing as expected from a surgical perspective. Very frail and deconditioned. Working on placement. Rest of care per hospitalist. PDMP PDMP Reviewed: Not Reviewed Attestations 2 Medical Necessity Statement*: N/A Coding Level of Care Code 67200 Diagnoses Small bowel obstruction due to adhesions K56.50
--- NOTE | 2025-09-06 13:54 | PC.SOCIAL ---
IMM update pg 2 of IMM Updated and reviewed w/ patients sonDennis. Copy provided and copy dated, initialed and placed in chart.
--- NOTE | 2025-09-06 14:31 | PM.PN ---
Subjective Subjective: 76 yo WM accompanied by his son Dennis and cousin Ruth. [facility] was there first choice for retirement facility but [employer] insurance does not work at [facility]. Patient states he feels better. Speech therapist says patient is looking better and advance his diet. They are considering [facility] skilled nursing here in [place] I spoke with Mukund from physical therapy. Patient is full assist just to get up to the STEDY machine which locks her knees in and does not allow walking. Son is asking about getting the patient walking but thus far therapist is concerned that he is requires too much assistance to stand. Patient reports some discomfort with the gait belt around his upper chest. Lower abdomen is obese and also he has had recent surgery Vitals/I&O/Wt Last Vital Signs Temp 98.3 F 09/06/25 11:37 Pulse 74 09/06/25 11:37 Resp 17 09/06/25 11:37 BP 102/68 09/06/25 11:37 Pulse Ox 97 09/06/25 11:37 O2 Del Method Room Air 09/06/25 11:37 O2 Flow Rate 1.5 09/04/25 19:20 FiO2 30 08/24/25 12:50 09/05/25 09/06/25 09/06/25 22:59 06:59 14:59 Intake Total 100 / 855 460 / 460 Output Total 220 / 220 Balance 100 / 855 240 / 240 Weight last 48 hrs Weight 114.759 kg Weight 114.759 kg Physical Exam Narrative: General well-developed obese male in no acute cardiopulmonary distress on room air Regular rate and rhythm with a 4/6 systolic ejection murmur best heard at the left sternal border but radiates to the right upper chest consistent with aortic stenosis. Chest ribs without crepitus minimal tenderness Lungs clear on anterior exam bases could not be well examined today Abdomen diminished bowel tones soft obese incisional judy still in place patient with mild tenderness bilaterally but no rebound tenderness Calves no edema however there is a firm possibly calcified cord in the lower posterior calf this is not tender nor hot to touch Urinary Catheter Management: Mast Latex: Cath Placed During This Visit: yes, but has since been removed by the nurse Reason for Continuing Indwelling Catheter: Decision to DC Catheter Urinary Catheter Date of Insertion: 08/21/25 Urinary Catheter Time of Insertion: 13:05 Date Urinary Catheter Removed: 08/29/25 Time Urinary Catheter Discontinued: 17:00 Data 09/05/25 04:37 09/05/25 04:37 A&P Assessment and plan 1. Small bowel obstruction due to adhesions: Due to internal hernia and suffering from pain at home with intermittent pain and diarrhea for 3 weeks. This has been surgically repaired on 08/21/2025, closure 08/23/[address] scan 09/04/2025 shows mild decrease in the inflammation and fluid collection is the same but has not formed an abscess Nutrition still marginal with albumin 2.6. White count and fevers absent. Patient is slowly improving 2. Seronegative rheumatoid arthritis: Patient's son Dennis states the patient was on prednisone was prescribed methotrexate but possibly never took it and the patient has not yet been on Humira or other injectable Biologics 3. Diabetes: A1c on admission was 6.3. Continue with insulin and increased calories for healing 4. Hypoalbuminemia: I do not think the patient requires TPN or feeding tube at this time. He is taking about 50% of his meal plus supplements. Will ask for nutritional consult. Encourage patient to eat more. Increase activity as tolerated. Continue Megace 400 mg twice daily first dose now. Speech therapy is evaluating patient now to see if diet consistencies can be advanced to make it more palatable to patient. Diet has been advanced 5. Moderate aortic stenosis: This along with LVH on echo done 08/22/2025 explains patient's murmur 6. Obesity (BMI 30-39.9): This complicates all aspects of care and we are awaiting placement at retirement facility likely [facility] Plan: Full code SCDs for DVT prophylaxis, Lovenox for DVT prophylaxis Status stable Prognosis fair but at risk of developing complicating abscess or fistula Questions were sought and answered with the patient's son Dennis at bedside. PDMP PDMP Reviewed: Not Reviewed Attestations Medical Necessity Statement*: Patient remains hospitalized for anticipated placement. I am told this will not be until Tuesday Coding Level of Care Code Acute Code for Chg Fwd Diagnoses Small bowel obstruction due to adhesions K56.50 Seronegative rheumatoid arthritis M06.00 Diabetes E11.9 Hypoalbuminemia E88.09 Moderate aortic stenosis I35.0 Obesity (BMI 30-39.9) E66.9 Time Spent (min) 25
[2025-09-07] VITALS (8 sets, daily range): BP systolic 103–124; BP diastolic 62–79; PULSE 73–85; RESP 16–22; TEMP 36.4–37; O2SAT 95–99
[2025-09-07] MEDS: piperacillin-tazobactam 3.375 GM in sodium chloride 0.9% (plus) 50 ML IV ×2 (01:31→11:39)
[2025-09-07 04:37] LABS: Hematocrit 33.4 % (37-53); Hemoglobin 10.60 g/dL (11.27-16.99); Mean Corpuscular HGB Conc 31.7 g/dL (30-55); Mean Corpuscular Hemoglobin 32.4 pg (27-33); Mean Corpuscular Volume 102.1 fl (82-101); Nucleated Red Blood Cells % 0 %; Platelet Count 284 10^3/cmm (157-399); Red Blood Count 3.27 10^6/uL (3.85-5.65); White Blood Count 7.03 10^3/uL (3.29-11.43)
[2025-09-07 04:56] LABS: Magnesium 2.1 mg/dL (1.7-2.3)
[2025-09-07 05:03] LABS: Alanine Aminotransferase 21 U/L (0-41); Albumin Level 3.0 g/dL (3.5-5.2); Alkaline Phosphatase 102 U/L (40-130); Anion Gap 17.1 (5-19); Aspartate Amino Transferase 29 U/L (0-40); Blood Urea Nitrogen 10 mg/dL (8-23); Calcium 8.2 mg/dL (8.5-10.5); Carbon Dioxide 22 mmol/L (22-29); Chloride 103 mmol/L (98-107); Globulin 4.1 g/dL (1.3-4.6); Glucose 99 mg/dL (65-115); Osmolality Calculated 285 mOsm/kg (285-295); Potassium 4.1 mmol/L (3.5-5.1); Sodium 138 mmol/L (136-145); Total Protein 7.1 g/dL (6.6-8.7)
[2025-09-07 05:04] LABS: Creatinine Clr Calc Pharmacy 96.9833
[2025-09-07] MEDS: multivitamin therapeutic Tablet 1 TAB PO (05:06)
[2025-09-07] MEDS: chlorhexidine gluconate 4% Btl 118 mL 1 APPLIC TOPICAL (05:07)
--- NOTE | 2025-09-07 12:50 | PM.PN ---
Subjective Subjective: 76 yo WM accompanied by his son Dennis. Patient has a hoarse voice but denies pain. He states he has not been wearing his CPAP for last 2 days. Patient did get up with a walker and walked a few steps yesterday He just had a bowel movement now and is feeling better. Labs have improved no fever Vitals/I&O/Wt Last Vital Signs Temp 97.6 F 09/07/25 11:48 Pulse 76 09/07/25 11:48 Resp 18 09/07/25 11:48 BP 119/73 09/07/25 11:48 Pulse Ox 99 09/07/25 11:48 O2 Del Method Room Air 09/07/25 11:48 O2 Flow Rate 1.5 09/04/25 19:20 FiO2 30 08/24/25 12:50 09/06/25 09/07/25 09/07/25 22:59 06:59 14:59 Intake Total 170 / 630 50 / 680 480 / 480 Output Total 200 / 420 Balance -30 / 210 50 / 260 480 / 480 Weight last 48 hrs Weight 109 kg Weight 114.759 kg Physical Exam Narrative: General well-developed obese male in no acute cardiopulmonary distress on room air Regular rate and rhythm with a 4/6 systolic ejection murmur best heard at the left sternal border but radiates to the right upper chest consistent with aortic stenosis. Lungs clear on anterior exam bases could not be well examined today Abdomen diminished bowel tones soft obese incisional judy still in place patient with mild tenderness bilaterally but no rebound tenderness Calves 1+ edema however there is a firm possibly calcified cord in the lower posterior calf this is not tender nor hot to touch Oropharynx Mallampati 2 and there is erythema and white plaques consistent with thrush in the posterior pharynx Urinary Catheter Management: Mast Latex: Cath Placed During This Visit: yes, but has since been removed by the nurse Reason for Continuing Indwelling Catheter: Decision to DC Catheter Urinary Catheter Date of Insertion: 08/21/25 Urinary Catheter Time of Insertion: 13:05 Date Urinary Catheter Removed: 08/29/25 Time Urinary Catheter Discontinued: 17:00 Data 09/07/25 02:22 09/07/25 02:22 A&P Assessment and plan 1. Small bowel obstruction due to adhesions: Due to internal hernia and suffering from pain at home with intermittent pain and diarrhea for 3 weeks. This has been surgically repaired on 08/21/2025, closure 08/23/[address] scan 09/04/2025 shows mild decrease in the inflammation and fluid collection is the same but has not formed an abscess Nutrition improved with albumin 3. White count and fevers absent. Patient is slowly improving now able to stand and walk a few steps. Bowel movements working okay Patient has a fluid collection in his abdomen that we have been concerned about but was not in need of drainage based on risk versus benefit ratio. White count has been normal for 4 days. No fevers. Albumin improving. With thrush I am going to change him to Augmentin and stop Zosyn. 2. Seronegative rheumatoid arthritis: Patient's son Dennis states the patient was on prednisone was prescribed methotrexate but possibly never took it and the patient has not yet been on Humira or other injectable Biologics 3. Diabetes: A1c on admission was 6.3. Continue with insulin and increased calories for healing 4. Hypoalbuminemia: Albumin improved to 3 Continue Megace 400 mg twice daily. Speech therapy has advanced his diet 5. Moderate aortic stenosis: This along with LVH on echo done 08/22/2025 explains patient's murmur 6. Obesity (BMI 30-39.9): This complicates all aspects of care and we are awaiting placement at long-term facility [facility] 7. Oral pharyngeal candidiasis: Treated with 3 days nystatin swish and swallow +1 dose of fluconazole change a box to Augmentin Plan: Full code SCDs for DVT prophylaxis, Lovenox for DVT prophylaxis Status stable Prognosis fair but at risk of developing complicating abscess or fistula Questions were sought and answered with the patient's son Dennis at bedside. PDMP PDMP Reviewed: Not Reviewed Attestations Medical Necessity Statement*: Patient rossy in the hospital for insurance approval for him to go to [facility]. Notably I spoke with Dr. Cole outside medical sales representative for [facility] who recommended the patient go to long-term facility and stated it was an appropriate placement per our discussion on 09/05/2025 Coding Level of Care Code 39565 Diagnoses Small bowel obstruction due to adhesions K56.50 Seronegative rheumatoid arthritis M06.00 Diabetes E11.9 Hypoalbuminemia E88.09 Moderate aortic stenosis I35.0 Obesity (BMI 30-39.9) E66.9 Oral pharyngeal candidiasis B37.0 Time Spent (min) 35
--- NOTE | 2025-09-07 13:56 | P.PN_ITS ---
Subjective 2 Subjective: No acute events overnight Tolerating p.o. Abdomen benign Packing distal end of wound Vitals/I&O/Wt Last Vital Signs Temp 97.6 F 09/07/25 11:48 Pulse 76 09/07/25 11:48 Resp 18 09/07/25 11:48 BP 119/73 09/07/25 11:48 Pulse Ox 99 09/07/25 11:48 O2 Del Method Room Air 09/07/25 11:48 O2 Flow Rate 1.5 09/04/25 19:20 FiO2 30 08/24/25 12:50 09/06/25 09/07/25 09/07/25 22:59 06:59 14:59 Intake Total 170 / 630 50 / 680 960 / 960 Output Total 200 / 420 Balance -30 / 210 50 / 260 960 / 960 Weight last 48 hrs Weight 240 lb 4.862 oz Weight 253 lb Physical Exam 2 Narrative: Chest: Unlabored breathing room air. No lymphadenopathy. Heart: Regular rate and rhythm. Abdomen: Soft, nontender, nondistended. Distal end of wound packed Urinary Catheter Management: Mast Latex: Cath Placed During This Visit: yes, but has since been removed by the nurse Reason for Continuing Indwelling Catheter: Decision to DC Catheter Urinary Catheter Date of Insertion: 08/21/25 Urinary Catheter Time of Insertion: 13:05 Date Urinary Catheter Removed: 08/29/25 Time Urinary Catheter Discontinued: 17:00 Data 09/07/25 02:22 09/07/25 02:22 A&P Assessment and plan 1. Small bowel obstruction due to adhesions: Plan: 75-year-old male who was initially admitted with closed-loop SBO. Having bowel function. Tolerating p.o. Waiting for dispo. PDMP PDMP Reviewed: Not Reviewed Attestations 2 Medical Necessity Statement*: N/A Coding Level of Care Code 43397 Diagnoses Small bowel obstruction due to adhesions K56.50
[2025-09-07] MEDS: nystatin 100,000 unit/mL UDC 5 mL 400000 UNIT PO ×2 (17:13→22:58)
[2025-09-08 04:00] VITALS: BP 116/73; PULSE 67; RESP 19; TEMP 36.7; O2SAT 96
[2025-09-08] MEDS: multivitamin therapeutic Tablet 1 TAB PO (04:58)
[2025-09-08] MEDS: nystatin 100,000 unit/mL UDC 5 mL 400000 UNIT PO ×3 (05:18→16:21)
[2025-09-08 07:24] VITALS: BP 106/62; PULSE 65; RESP 17; TEMP 36.4; O2SAT 96
[2025-09-08 07:55] VITALS: PULSE 62; RESP 18; O2SAT 94
[2025-09-08 11:37] VITALS: BP 110/72; PULSE 72; RESP 18; TEMP 36.3; O2SAT 94
--- NOTE | 2025-09-08 14:31 | PM.PN ---
Subjective Subjective: 75-year-old male accompanied by his Sister Ruth patient states that he has been up walking more. He feels better. States his abdominal pain has decreased some Vitals/I&O/Wt Last Vital Signs Temp 97.4 F L 09/08/25 11:37 Pulse 72 09/08/25 11:37 Resp 18 09/08/25 11:37 BP 110/72 09/08/25 11:37 Pulse Ox 94 09/08/25 11:37 O2 Del Method Room Air 09/08/25 07:55 O2 Flow Rate 1.5 09/04/25 19:20 FiO2 30 08/24/25 12:50 09/07/25 09/08/25 09/08/25 22:59 06:59 14:59 Intake Total 480 / 1472.083 300 / 1772.083 480 / 480 Output Total 300 / 300 Balance 480 / 1472.083 0 / 1472.083 480 / 480 Weight last 48 hrs Weight 108 kg Weight 109 kg Physical Exam Narrative: General well-developed obese male in no acute cardiopulmonary distress on room air Regular rate and rhythm with a 4/6 systolic ejection murmur best heard at the left sternal border but radiates to the right upper chest consistent with known aortic stenosis and LVH Lungs clear on anterior exam bases could not be well examined today Abdomen diminished but present bowel tones soft obese incisional judy still in place patient with mild tenderness bilaterally but no rebound tenderness Calves 1+ edema however there is a firm possibly calcified cord in the lower posterior calf this is not tender nor hot to touch Urinary Catheter Management: Mast Latex: Cath Placed During This Visit: yes, but has since been removed by the nurse Reason for Continuing Indwelling Catheter: Decision to DC Catheter Urinary Catheter Date of Insertion: 08/21/25 Urinary Catheter Time of Insertion: 13:05 Date Urinary Catheter Removed: 08/29/25 Time Urinary Catheter Discontinued: 17:00 Data 09/07/25 02:22 09/07/25 02:22 A&P Assessment and plan 1. Small bowel obstruction due to adhesions: Due to internal hernia and suffering from pain at home with intermittent pain and diarrhea for 3 weeks. This has been surgically repaired on 08/21/2025, closure 08/23/[address] scan 09/04/2025 shows mild decrease in the inflammation and fluid collection is the same but has not formed an abscess Nutrition still marginal with albumin 2.6. White count and fevers absent. Patient is slowly improving Patient is on oral antibiotics now repeat CHEM panel CBC in the morning and anticipate discharge to [facility] tomorrow 2. Seronegative rheumatoid arthritis: Patient's son Dennis states the patient was on prednisone was prescribed methotrexate but possibly never took it and the patient has not yet been on Humira or other injectable Biologics 3. Diabetes: A1c on admission was 6.3. Continue with insulin and increased calories for healing 4. Hypoalbuminemia: I do not think the patient requires TPN or feeding tube at this time. He is taking about 50% of his meal plus supplements. Will ask for nutritional consult. Encourage patient to eat more. Increase activity as tolerated. Continue Megace 400 mg twice daily first dose now. Speech therapy is evaluating patient now to see if diet consistencies can be advanced to make it more palatable to patient. Diet has been advanced Hematocrit and albumin have been rising. Repeat labs tomorrow 5. Moderate aortic stenosis: This along with LVH on echo done 08/22/2025 explains patient's murmur 6. Obesity (BMI 30-39.9): This complicates all aspects of care and we are awaiting placement at longterm facility [facility] 7. Oral pharyngeal candidiasis: Treated with fluconazole and 3 days of nystatin swish and swallow Plan: Full code SCDs for DVT prophylaxis, Lovenox for DVT prophylaxis Status stable Prognosis fair but at risk of developing complicating abscess or fistula Questions were sought and answered with the patient's son Dennis at bedside. PDMP PDMP Reviewed: Not Reviewed Attestations Medical Necessity Statement*: Patient remains hospitalized in preparation for placement to [facility] pending insurance authorization. I had already discussed this with Dr. Cole on but supply planner states that once inpatient rehab is declined by the insurance we have to submit a [place] new authorization for longterm facility even though it was recommended by Dr. Cole. Coding Level of Care Code Acute Code for Chg Fwd Diagnoses Small bowel obstruction due to adhesions K56.50 Seronegative rheumatoid arthritis M06.00 Diabetes E11.9 Hypoalbuminemia E88.09 Moderate aortic stenosis I35.0 Obesity (BMI 30-39.9) E66.9 Oral pharyngeal candidiasis B37.0 Time Spent (min) 25
[2025-09-08 16:00] VITALS: BP 106/57; PULSE 75; RESP 18; TEMP 36.5; O2SAT 100
[2025-09-08 19:38] VITALS: BP 112/68; PULSE 84; RESP 20; TEMP 36.8; O2SAT 96
[2025-09-09] VITALS (7 sets, daily range): BP systolic 110–126; BP diastolic 55–77; PULSE 71–94; RESP 15–19; TEMP 36.4–36.8; O2SAT 94–97
[2025-09-09] MEDS: nystatin 100,000 unit/mL UDC 5 mL 400000 UNIT PO ×5 (00:22→22:46)
[2025-09-09 04:12] LABS: Hematocrit 29.2 % (37-53); Hemoglobin 9.40 g/dL (11.27-16.99); Mean Corpuscular HGB Conc 32.2 g/dL (30-55); Mean Corpuscular Hemoglobin 32.1 pg (27-33); Mean Corpuscular Volume 99.7 fl (82-101); Nucleated Red Blood Cells % 0 %; Platelet Count 273 10^3/cmm (157-399); Red Blood Count 2.93 10^6/uL (3.85-5.65); White Blood Count 7.56 10^3/uL (3.29-11.43)
[2025-09-09 04:33] LABS: Alanine Aminotransferase 20 U/L (0-41); Albumin Level 2.6 g/dL (3.5-5.2); Alkaline Phosphatase 87 U/L (40-130); Anion Gap 18.0 (5-19); Aspartate Amino Transferase 26 U/L (0-40); Blood Urea Nitrogen 10 mg/dL (8-23); Calcium 7.9 mg/dL (8.5-10.5); Carbon Dioxide 22 mmol/L (22-29); Chloride 103 mmol/L (98-107); Creatinine Clr Calc Pharmacy 96.2958; Globulin 4.3 g/dL (1.3-4.6); Glucose 141 mg/dL (65-115); Osmolality Calculated 289 mOsm/kg (285-295); Potassium 4.0 mmol/L (3.5-5.1); Sodium 139 mmol/L (136-145); Total Protein 6.9 g/dL (6.6-8.7)
[2025-09-09 04:35] LABS: Magnesium 1.9 mg/dL (1.7-2.3)
[2025-09-09] MEDS: multivitamin therapeutic Tablet 1 TAB PO (05:02)
--- NOTE | 2025-09-09 12:42 | P.PN_ITS ---
Subjective 2 Subjective: No acute events overnight Vitals/I&O/Wt Last Vital Signs Temp 98.0 F 09/09/25 11:06 Pulse 81 09/09/25 11:06 Resp 19 H 09/09/25 11:06 BP 126/55 09/09/25 11:06 Pulse Ox 97 09/09/25 11:06 O2 Del Method Room Air 09/09/25 11:06 O2 Flow Rate 1.5 09/04/25 19:20 FiO2 30 08/24/25 12:50 09/08/25 09/09/25 09/09/25 22:59 06:59 14:59 Intake Total 240 / 720 240 / 240 Output Total 400 / 400 200 / 600 Balance -160 / 320 -200 / 120 240 / 240 Weight last 48 hrs Weight 236 lb 15.951 oz Weight 238 lb 1.6 oz Physical Exam 2 Narrative: Chest: Unlabored breathing room air. No lymphadenopathy. Heart: Regular rate and rhythm. Abdomen: Soft, nontender, nondistended. Midline intact. Packing distal portion of wound Urinary Catheter Management: Mast Latex: Cath Placed During This Visit: yes, but has since been removed by the nurse Reason for Continuing Indwelling Catheter: Decision to DC Catheter Urinary Catheter Date of Insertion: 08/21/25 Urinary Catheter Time of Insertion: 13:05 Date Urinary Catheter Removed: 08/29/25 Time Urinary Catheter Discontinued: 17:00 Data 09/09/25 02:30 09/09/25 02:30 A&P Assessment and plan 1. Small bowel obstruction due to adhesions: Plan: 75-year-old male who presented with a closed-loop SBO. From a surgical perspective ready for discharge. Working on placement. Rest of care per hospitalist. PDMP PDMP Reviewed: Not Reviewed Attestations 2 Medical Necessity Statement*: N/A Coding Level of Care Code 35347 Diagnoses Small bowel obstruction due to adhesions K56.50
--- NOTE | 2025-09-09 15:15 | P.PN_ITS ---
Subjective 2 Subjective: Chart reviewed extensively. Denies any complaints today. Complains of generalized weakness. Noted to have wound dehiscence at the inferior aspect. Medications: Reviewed: Yes Vitals/I&O/Wt Last Vital Signs Temp 98.0 F 09/09/25 11:06 Pulse 84 09/09/25 14:55 Resp 18 09/09/25 14:55 BP 126/55 09/09/25 11:06 Pulse Ox 94 09/09/25 14:55 O2 Del Method Room Air 09/09/25 14:55 O2 Flow Rate 1.5 09/04/25 19:20 FiO2 30 08/24/25 12:50 09/09/25 09/09/25 09/09/25 06:59 14:59 22:59 Intake Total 360 / 360 Output Total 200 / 600 Balance -200 / 120 360 / 360 Weight last 48 hrs Weight 107.5 kg Weight 108 kg Physical Exam 2 Narrative: General: No acute distress, AO x3 HEENT: PERRLA, pupils bilaterally equal and reactive, pallors not present Chest: Normal vesicular breath sounds, no added sounds, equal good air entry bilaterally CVS: S1-S2 regular, no murmurs, no tachycardia, no gallops, no rubs Abdomen: Soft, nontender, no organomegaly, bowel sounds present Urinary Catheter Management: Mast Latex: Cath Placed During This Visit: yes, but has since been removed by the nurse Reason for Continuing Indwelling Catheter: Decision to DC Catheter Urinary Catheter Date of Insertion: 08/21/25 Urinary Catheter Time of Insertion: 13:05 Date Urinary Catheter Removed: 08/29/25 Time Urinary Catheter Discontinued: 17:00 Data 09/09/25 02:30 09/09/25 02:30 A&P Assessment and plan 1. Small bowel obstruction due to adhesions: Due to internal hernia and suffering from pain at home with intermittent pain and diarrhea for 3 weeks. This has been surgically repaired on 08/21/2025, closure 08/23/[address] scan 09/04/2025 shows mild decrease in the inflammation and fluid collection is the same but has not formed an abscess Nutrition still marginal with albumin 2.6. White count and fevers absent. Patient is slowly improving Patient is on oral antibiotics now repeat CHEM panel CBC in the morning and anticipate discharge to [facility] tomorrow 2. Seronegative rheumatoid arthritis: Patient's son Dennis states the patient was on prednisone was prescribed methotrexate but possibly never took it and the patient has not yet been on Humira or other injectable Biologics 3. Diabetes: A1c on admission was 6.3. Continue with insulin and increased calories for healing 4. Hypoalbuminemia: I do not think the patient requires TPN or feeding tube at this time. He is taking about 50% of his meal plus supplements. Will ask for nutritional consult. Encourage patient to eat more. Increase activity as tolerated. Continue Megace 400 mg twice daily first dose now. Speech therapy is evaluating patient now to see if diet consistencies can be advanced to make it more palatable to patient. Diet has been advanced Hematocrit and albumin have been rising. Repeat labs tomorrow 5. Moderate aortic stenosis: This along with LVH on echo done 08/22/2025 explains patient's murmur 6. Obesity (BMI 30-39.9): This complicates all aspects of care and we are awaiting placement at [facility] 7. Oral pharyngeal candidiasis: Treated with fluconazole and 3 days of nystatin swish and swallow Plan: Full code SCDs for DVT prophylaxis, Lovenox for DVT prophylaxis Status stable Prognosis fair but at risk of developing complicating abscess or fistula Questions were sought and answered with the patient's son Dennis at bedside. September 09, 2025 75-year-old male admitted to the hospital on August 21, 2025 with SBO, status post ex lap, adhesiolysis, reduction of internal hernia, small bowel resection and temporary closure initially on 08/21/2025. Underwent a second intervention on August 23, 2025 for an abdominal washout where the entire bowel was noted to be healthy. Cultures were taken due to leukocytosis from the right upper quadrant, remained negative. hospital course was complicated by septic shock on admission for which patient required ICU care including pressor support and needed to be intubated. Eventually was able to be extubated and transferred to [facility]. Patient had leukocytosis postoperatively between August 30 to September 02 which has now resolved. Overall doing well from an infectious standpoint. Is on Augmentin 875 mg twice daily until September 17, 2025. He has area of wound dehiscence on the lower end of the incision site for which he is currently undergoing packing. Wound is without any signs of infection good granulation tissue at base. He is significantly deconditioned from his current hospitalization, working with physical therapy and Occupational Therapy. He is currently awaiting transfer to SNF. Auth is pending from insurance PDMP PDMP Reviewed: Not Reviewed Attestations 2 Medical Necessity Statement*: disposition planning Coding Level of Care Code Acute Code for Chg Fwd Diagnoses Small bowel obstruction due to adhesions K56.50 Seronegative rheumatoid arthritis M06.00 Diabetes E11.9 Hypoalbuminemia E88.09 Moderate aortic stenosis I35.0 Obesity (BMI 30-39.9) E66.9 Oral pharyngeal candidiasis B37.0
[2025-09-10] VITALS: BP 128/68; PULSE 90; RESP 17; TEMP 37.1; O2SAT 95
[2025-09-10 03:58] VITALS: BP 120/70; PULSE 92; RESP 16; TEMP 37; O2SAT 98
[2025-09-10] MEDS: nystatin 100,000 unit/mL UDC 5 mL 400000 UNIT PO (05:28)
[2025-09-10] MEDS: multivitamin therapeutic Tablet 1 TAB PO (05:29)
[2025-09-10 07:39] VITALS: BP 124/79; PULSE 74; RESP 19; TEMP 36.4; O2SAT 97
[2025-09-10 08:06] VITALS: PULSE 83; RESP 16; O2SAT 98
--- NOTE | 2025-09-10 09:11 | P.PN_ITS ---
Subjective 2 Subjective: No new complaints today. Medications: Reviewed: Yes Vitals/I&O/Wt Last Vital Signs Temp 97.6 F 09/10/25 07:39 Pulse 83 09/10/25 08:06 Resp 16 09/10/25 08:06 BP 124/79 09/10/25 07:39 Pulse Ox 98 09/10/25 08:06 O2 Del Method Room Air 09/10/25 08:06 O2 Flow Rate 1.5 09/04/25 19:20 FiO2 30 08/24/25 12:50 09/09/25 09/10/25 09/10/25 22:59 06:59 14:59 Intake Total 240 / 600 120 / 120 Balance 240 / 600 120 / 120 Weight last 48 hrs Weight 107.501 kg Weight 107.5 kg Physical Exam 2 Narrative: General: No acute distress, AO x3 HEENT: PERRLA, pupils bilaterally equal and reactive, pallors not present Chest: Normal vesicular breath sounds, no added sounds, equal good air entry bilaterally CVS: S1-S2 regular, no murmurs, no tachycardia, no gallops, no rubs Abdomen: Soft, nontender, no organomegaly, bowel sounds present Urinary Catheter Management: Mast Latex: Cath Placed During This Visit: yes, but has since been removed by the nurse Reason for Continuing Indwelling Catheter: Decision to DC Catheter Urinary Catheter Date of Insertion: 08/21/25 Urinary Catheter Time of Insertion: 13:05 Date Urinary Catheter Removed: 08/29/25 Time Urinary Catheter Discontinued: 17:00 Data 09/09/25 02:30 09/09/25 02:30 A&P Assessment and plan 1. Small bowel obstruction due to adhesions: Due to internal hernia and suffering from pain at home with intermittent pain and diarrhea for 3 weeks. This has been surgically repaired on 08/21/2025, closure 08/23/[address] scan 09/04/2025 shows mild decrease in the inflammation and fluid collection is the same but has not formed an abscess Nutrition still marginal with albumin 2.6. White count and fevers absent. Patient is slowly improving Patient is on oral antibiotics now repeat CHEM panel CBC in the morning and anticipate discharge to [facility] tomorrow 2. Seronegative rheumatoid arthritis: Patient's son Dennis states the patient was on prednisone was prescribed methotrexate but possibly never took it and the patient has not yet been on Humira or other injectable Biologics 3. Diabetes: A1c on admission was 6.3. Continue with insulin and increased calories for healing 4. Hypoalbuminemia: I do not think the patient requires TPN or feeding tube at this time. He is taking about 50% of his meal plus supplements. Will ask for nutritional consult. Encourage patient to eat more. Increase activity as tolerated. Continue Megace 400 mg twice daily first dose now. Speech therapy is evaluating patient now to see if diet consistencies can be advanced to make it more palatable to patient. Diet has been advanced Hematocrit and albumin have been rising. Repeat labs tomorrow 5. Moderate aortic stenosis: This along with LVH on echo done 08/22/2025 explains patient's murmur 6. Obesity (BMI 30-39.9): This complicates all aspects of care and we are awaiting placement at [facility] 7. Oral pharyngeal candidiasis: Treated with fluconazole and 3 days of nystatin swish and swallow Plan: Full code SCDs for DVT prophylaxis, Lovenox for DVT prophylaxis Status stable Prognosis fair but at risk of developing complicating abscess or fistula Questions were sought and answered with the patient's son Dennis at bedside. September 09, 2025 75-year-old male admitted to the hospital on August 21, 2025 with SBO, status post ex lap, adhesiolysis, reduction of internal hernia, small bowel resection and temporary closure initially on 08/21/2025. Underwent a second intervention on August 23, 2025 for an abdominal washout where the entire bowel was noted to be healthy. Cultures were taken due to leukocytosis from the right upper quadrant, remained negative. hospital course was complicated by septic shock on admission for which patient required ICU care including pressor support and needed to be intubated. Eventually was able to be extubated and transferred to [facility]. Patient had leukocytosis postoperatively between August 30 to September 02 which has now resolved. Overall doing well from an infectious standpoint. Is on Augmentin 875 mg twice daily until September 17, 2025. He has area of wound dehiscence on the lower end of the incision site for which he is currently undergoing packing. Wound is without any signs of infection good granulation tissue at base. He is significantly deconditioned from his current hospitalization, working with physical therapy and Occupational Therapy. He is currently awaiting transfer to SNF. Auth is pending from insurance September 10, 2025 No acute interval events. Peer to peer was requested today for transfer to SNF. This has been completed. Patient has been approved to transition to SNF today. MRSA nasal screen previously noted to be positive. Doxycycline added while lower end of the incision heals in addition to Augmentin. Both antibiotics to be continued for 7 more days. Continue participation with PT OT. Stable for discharge from medicine standpoint. PDMP PDMP Reviewed: Not Reviewed Attestations 2 Medical Necessity Statement*: per admitting Coding Level of Care Code Acute Code for Chg Fwd Diagnoses Small bowel obstruction due to adhesions K56.50 Seronegative rheumatoid arthritis M06.00 Diabetes E11.9 Hypoalbuminemia E88.09 Moderate aortic stenosis I35.0 Obesity (BMI 30-39.9) E66.9 Oral pharyngeal candidiasis B37.0
--- NOTE | 2025-09-10 09:35 | P.PN_ITS ---
Subjective 2 Subjective: No acute events overnight Vitals/I&O/Wt Last Vital Signs Temp 97.6 F 09/10/25 07:39 Pulse 83 09/10/25 08:06 Resp 16 09/10/25 08:06 BP 124/79 09/10/25 07:39 Pulse Ox 98 09/10/25 08:06 O2 Del Method Room Air 09/10/25 08:06 O2 Flow Rate 1.5 09/04/25 19:20 FiO2 30 08/24/25 12:50 09/09/25 09/10/25 09/10/25 22:59 06:59 14:59 Intake Total 240 / 600 120 / 120 Balance 240 / 600 120 / 120 Weight last 48 hrs Weight 237 lb Weight 236 lb 15.951 oz Physical Exam 2 Narrative: Chest: Unlabored breathing room air. No lymphadenopathy. Heart: Regular rate and rhythm. Abdomen: Soft, nontender, nondistended. Midline clean dry intact. Packing distal end. Urinary Catheter Management: Mast Latex: Cath Placed During This Visit: yes, but has since been removed by the nurse Reason for Continuing Indwelling Catheter: Decision to DC Catheter Urinary Catheter Date of Insertion: 08/21/25 Urinary Catheter Time of Insertion: 13:05 Date Urinary Catheter Removed: 08/29/25 Time Urinary Catheter Discontinued: 17:00 Data 09/09/25 02:30 09/09/25 02:30 A&P Assessment and plan 1. Small bowel obstruction due to adhesions: Plan: 75-year-old male status post ex lap x 2, small bowel resection with anastomosis, patient initially presented with a closed-loop SBO. Has done well the last few days. Having bowel function. Abdomen is benign. Packing distal end of wound. Patient is ready for discharge. Follow-up in general surgery clinic in 2 weeks. Continue packing distal end of wound. Keep judy in place until follow-up. PDMP PDMP Reviewed: Not Reviewed Attestations 2 Medical Necessity Statement*: N/A Coding Level of Care Code 21058 Diagnoses Small bowel obstruction due to adhesions K56.50
--- NOTE | 2025-09-10 09:36 | PM.DCS ---
Discharge Providers Date of Admission: 08/21/25 15:04 Date of Discharge: September 10, 2025 Attending Provider at Admission: Bishnu Burrell MD Attending Provider at Discharge: Nalini Adkins MD Diagnoses at Discharge Discharge Diagnosis 1. Small bowel obstruction due to adhesions: 2. Seronegative rheumatoid arthritis: 3. Diabetes: 4. Hypoalbuminemia: 5. Moderate aortic stenosis: 6. Obesity (BMI 30-39.9): 7. Oral pharyngeal candidiasis: Reason for Visit Reason for Visit: sent by geovani gonsales abd pain [id number] Hospital Course Hospital Course 75-year-old frail male who was admitted with a closed-loop SBO. Multiple medical comorbidities. History of right colectomy for colon cancer multiple years ago. Taken to the OR for exploratory laparotomy. Surgery was technically difficult given dense adhesions which required extensive adhesiolysis. Dr. Dahl was asked to assist due to the absence of any other qualified assistance. The closed-loop SBO was reduced. On inspection of the small bowel 1 enterotomy was identified. This loop of bowel was resected. Given the small bowel edema and extensive adhesiolysis the decision was made to leave in discontinuity for reexploration the following day. Postoperatively the patient did well initially. The following day was started on vasopressors. Patient required aggressive resuscitation for 2 days before returning to the OR for small bowel anastomosis. Patient was closed on his second abdominal exploration. Patient came off pressors postoperatively. Patient was extubated. Patient did experience a persistent leukocytosis which has been treated with IV antibiotics. Multiple CT scans ruled out concerns for anastomotic leak. The distal end of the midline wound was packed and the seroma was evacuated. The wound had healed appropriately ever since. Patient will continue with distal wound packing. He will follow-up in clinic in 2 weeks for possible staple removal. Physical Exam Narrative: Chest: Unlabored breathing room air. No lymphadenopathy. Heart: Regular rate and rhythm. Abdomen: Soft, nontender, nondistended. No masses or lymphadenopathy. Chest: Unlabored breathing room air. No lymphadenopathy. Heart: Regular rate and rhythm. Abdomen: Soft, nontender, nondistended. Distal end of wound being packed. Otherwise midline intact. Urinary Catheter Management: Mast Latex: Cath Placed During This Visit: yes, but has since been removed by the nurse Reason for Continuing Indwelling Catheter: Decision to DC Catheter Urinary Catheter Date of Insertion: 08/21/25 Urinary Catheter Time of Insertion: 13:05 Date Urinary Catheter Removed: 08/29/25 Time Urinary Catheter Discontinued: 17:00 Discharge Data Studies Completed and Pending Completed Studies During Hospitalization Category Date Time Status CT abdomen pelvis w con* [id number] Routine Cat Scan 09/04/25 10:[address] abdomen pelvis wo con [id number] Stat Cat Scan 08/21/25 09:[address] chest abdomen pelvis [CT chest abdpel w/*[id number] Cat Scan 08/31/25 08:37 Completed ] Stat CT head wo con* [id number] Routine Cat Scan 08/24/25 16:55 Completed CXRP [XR chest 1V portable [id number]] Routine Exams 08/22/25 09:28 Completed XR chest 1V portable [id number] Routine Exams 08/21/25 17:24 Completed XR chest 1V portable [id number] Routine Exams 08/23/25 07:00 Completed XR chest 1V portable [id number] Routine Exams 08/25/25 07:00 Completed XR chest 1V portable [id number] Routine Exams 08/27/25 07:00 Completed XR chest 1V portable [id number] Routine Exams 08/30/25 08:01 Completed Pathology: Surgical [PTH] Routine Pth 08/21/25 16:57 Completed CV. echo complete* [id number] Routine Ultrasound 08/22/25 10:23 Completed Pending at discharge Category Date Time Status Wound Culture Routine Lab 09/09/25 12:35 Received Radiology Impressions Head CT 08/24/25 16:55 IMPRESSION: No acute intracranial abnormality. Chest X-Ray 08/30/25 08:01 IMPRESSION: Bilateral pleural effusions possibly reduced in volume. Atelectasis in the left lower lung. Chest/Abdomen/Pelvis CT 08/31/25 08:37 IMPRESSION: 1. Bilateral pleural effusions with bibasilar airspace disease, likely atelectasis, however pneumonia can not be excluded. 2. Atherosclerotic vascular disease and coronary artery calcifications. 3. Left basilar calcified granulomas. Hilar calcified lymph nodes. IMPRESSION: 1. Inferior to the umbilicus there is air in the soft tissues extending from the incision to the abdominal wall musculature. Infectious or inflammatory process can not be excluded. No rim enhancing soft tissue fluid collection along the incision. 2. Partially loculated fluid collections in the rightward abdomen that could be postoperative seroma versus developing abscess. 3. Hazy appearance to the mesentery that could represent edema versus inflammation. 4. Fatty left inguinal hernia with fluid in the left inguinal canal. 5. Previously seen pneumobilia has resolved. COMMENTS: Consistent with the [employer]'s Incidental Findings Committee white paper (J Am Kristin Radiol 2018): Any incidental renal lesion less than 1 cm or classified as too small to characterize, or any incidental cystic renal lesion characterized as simple-appearing, is likely benign. No follow-up imaging is recommended for these lesions per consensus recommendations based on imaging criteria. ADDENDUM: 08/31/25 0953 Addendum: In the body of the CT abdomen and pelvis report it should state degenerative changes of the thoracolumbar spine with osteophytic lipping. Multilevel facet arthropathy. Disc space narrowing at L3-L4. Abdomen/Pelvis CT 09/04/25 10:00 IMPRESSION: 1. Overall no significant changes in the RIGHT abdominal fluid collection since 08/31/2025 with thin peripheral enhancement. Differential considerations are unchanged including postoperative fluid/seroma or developing abscess. Recommend correlation with infectious symptoms. No associated air. Recommend follow-up to resolution. 2. Improving edema in the RIGHT central mesentery. 3. Stable fluid and edema along the incision and ventral abdomen. 4. Slightly improved aeration in the lung bases with improved pleural fluid. 5. No evidence of high-grade obstruction. 6. No other significant changes. Laboratory Results WBC 7.56 10^3/uL (3.29-11.43) 09/09/25 02:30 Corrected WBC Cancelled 08/22/25 17:48 RBC 2.93 10^6/uL (3.85-5.65) L 09/09/25 02:30 Hgb 9.40 g/dL (11.27-16.99) L 09/09/25 02:30 Hct 29.2 % (37-53) L 09/09/25 02:30 MCV 99.7 fl (82-101) 09/09/25 02:30 MCH 32.1 pg (27-33) 09/09/25 02:30 MCHC 32.2 g/dL (30-55) 09/09/25 02:30 RDW 19.0 % (12.1-15.1) H 09/09/25 02:30 Plt Count 273 10^3/cmm (157-399) 09/09/25 02:30 MPV 10.8 fL (7.4-10.4) H 09/09/25 02:30 Gran % Cancelled 08/22/25 17:48 Neut % (Auto) 65.7 % 09/09/25 02:30 Lymph % (Auto) 15.2 % 09/09/25 02:30 [place] % (Auto) 14.3 % 09/09/25 02:30 Eos % (Auto) 3.2 % 09/09/25 02:30 Baso % (Auto) 0.9 % 09/09/25 02:30 Neut # (Auto) 4.97 10^3/uL (1.8-7.7) 09/09/25 02:30 Lymph # (Auto) 1.2 10^3/uL (0.8-4.8) 09/09/25 02:30 [place] # (Auto) 1.1 10^3/uL (0.2-0.9) H 09/09/25 02:30 Eos # (Auto) 0.2 10^3/uL (0.0-0.8) 09/09/25 02:30 Baso # (Auto) 0.1 10^3/uL (0.0-0.1) 09/09/25 02:30 Absolute Gran (auto) Cancelled 08/22/25 17:48 Nucleated RBC % (auto) 0 % 09/09/25 02:30 Total Counted 100 (0-100) 08/24/25 03:49 Atypical Lymphs % 0.0 % (0-5) 08/24/25 03:49 Absolute Neutrophils 12.0 10^3/cmm (1.4-6.5) H 08/24/25 03:49 Segmented Neutrophils 58 % 08/24/25 03:49 Band Neutrophils 30.0 % 08/24/25 03:49 Absolute Lymphocytes 0.8 10^3/cmm (1.2-3.4) L 08/24/25 03:49 Lymphocytes (Manual) 6 % 08/24/25 03:49 Monocytes (Manual) 1.0 % 08/24/25 03:49 Absolute Monocytes 0.1 10^3/cmm (0.1-0.6) 08/24/25 03:49 Eosinophils (Manual) 0 % 08/24/25 03:49 Absolute Eosinophils 0.0 10^3/cmm (0.0-0.7) 08/24/25 03:49 Basophils (Manual) 0.0 % 08/24/25 03:49 Absolute Basophils 0.0 10^3/cmm (0.0-0.2) 08/24/25 03:49 Metamyelocytes 5.0 % 08/24/25 03:49 Myelocytes 1.0 % 08/22/25 18:26 Nucleated RBCs # 0.0 /100WBC 09/09/25 02:30 Platelet Estimate Decreased (Normal) 08/24/25 03:49 Anisocytosis 2+ H 08/22/25 18:26 Macrocytosis 2+ H 08/22/25 18:26 Rouleaux Trace 08/24/25 03:49 PT 15.30 SECONDS (12.1-14.9) H 08/25/25 04:38 INR 1.13 (0.8-1.2) 08/25/25 04:38 APTT 35.8 SECONDS (23.9-36.7) 08/24/25 03:49 Specimen Type Arterial 08/25/25 04:50 Sample Site Radial, right 08/25/25 04:50 ABG pH 7.48 (7.35-7.45) H 08/25/25 04:50 ABG pCO2 45.3 mmHg (35-45) H 08/25/25 04:50 ABG pO2 92.4 mmHg (80.0-100.0) 08/25/25 04:50 ABG PO2/FiO2 Ratio 292 08/24/25 04:13 ABG HCO3 33.3 mmol/L (22-26) H 08/25/25 04:50 ABG O2 Saturation > 99.1 08/22/25 09:01 ABG Base Excess 8.8 mmol/L (-2.0-2.0) H 08/25/25 04:50 Dennis Test Pos 08/25/25 04:50 A-a O2 Gradient 19.1 mmHg (5-10) H 08/22/25 09:01 Hematocrit 27.4 % (42-52) L 08/25/25 04:50 Hgb O2 Saturation 97.9 % (95-100) 08/22/25 09:01 Carboxyhemoglobin 0.9 %THgb (0.4-20.1) 08/22/25 09:01 Methemoglobin 1.1 % (0.4-1.5) 08/22/25 09:01 Total Hemoglobin 13.5 g/dL (14-18) L 08/22/25 09:01 Sodium 138.0 mmol/L (131-143) 08/22/25 09:01 Potassium 4.2 mmol/L (3.5-5.0) 08/22/25 09:01 Glucose 189.0 mg/dL (70-115) H 08/22/25 09:01 Ionized Calcium 1.0 mmol/L (1.1-1.4) L 08/22/25 09:01 O2 Delivery Device Nc 08/25/25 04:50 O2 Liters/Min 2.0 % 08/25/25 04:50 FiO2 30.0 % 08/24/25 04:13 Tidal Volume 0.50 08/24/25 04:13 PEEP 8.0 cmH20 08/24/25 04:13 Side Boss ID Jdb 08/25/25 04:50 Sodium 139 mmol/L (136-145) 09/09/25 02:30 Potassium 4.0 mmol/L (3.5-5.1) 09/09/25 02:30 Chloride 103 mmol/L (98-107) 09/09/25 02:30 Carbon Dioxide 22 mmol/L (22-29) 09/09/25 02:30 Anion Gap 18.0 (5-19) 09/09/25 02:30 BUN 10 mg/dL (8-23) 09/09/25 02:30 Creatinine 0.7 mg/dL (0.7-1.2) 09/09/25 02:30 GFR Calculation Not Reportable 09/09/25 02:30 Glucose 141 mg/dL (65-115) H 09/09/25 02:30 POC Glucose 136 mg/dL (70-110) H 09/10/25 06:13 Estimat Average Glucose 134 08/21/25 09:48 Hemoglobin A1c 6.3 % (4.0-6.0) H 08/21/25 09:48 Serum Osmolality 325 mOsm/kg (278-305) H 08/26/25 13:11 Calculated Osmolality 289 mOsm/kg (285-295) 09/09/25 02:30 Lactic Acid 4.3 mmol/L (0.5-2.2) H* 08/22/25 02:08 Lactic Acid (Sepsis) 3.0 mmol/L (0.5-2.2) H 08/22/25 04:54 Lactate 1.2 mmol/L (0.5-2.2) 08/25/25 04:35 Calcium 7.9 mg/dL (8.5-10.5) L 09/09/25 02:30 Phosphorus 3.3 mg/dL (2.5-4.5) 09/09/25 02:30 Magnesium 1.9 mg/dL (1.7-2.3) 09/09/25 02:30 Total Bilirubin 0.3 mg/dL (0.15-1.2) 09/09/25 02:30 AST 26 U/L (0-40) 09/09/25 02:30 ALT 20 U/L (0-41) 09/09/25 02:30 Alkaline Phosphatase 87 U/L (40-130) 09/09/25 02:30 Creatine Kinase 191 U/L (39-308) 08/25/25 04:35 Troponin T Baseline 16 ng/L (0-15) H 08/22/25 10:48 Troponin T 120 Minute 8.66 ng/L (0-15) 08/22/25 12:31 Delta Troponin T -7.34 ABS# (0-10) L 08/22/25 12:31 Troponin T Hi Sens 6Hr 13.12 ng/L (0-15) 08/22/25 17:48 Troponin T Hi Sens 6Hr Delta -2.88 ng/L (0-12) L 08/22/25 17:48 C-Reactive Protein 134.1 mg/L (0.0-4.9) H 09/02/25 02:04 NT-Pro-B Natriuret Pep 1806 pg/mL (0-125) H 08/29/25 04:25 Total Protein 6.9 g/dL (6.6-8.7) 09/09/25 02:30 Albumin 2.6 g/dL (3.5-5.2) L 09/09/25 02:30 Globulin 4.3 g/dL (1.3-4.6) 09/09/25 02:30 Triglycerides 105 mg/dL (0-150) 08/21/25 09:48 Cholesterol 125 mg/dL (0-200) 08/21/25 09:48 LDL Cholesterol, Calc 67 mg/dL (50-129) 08/21/25 09:48 HDL Cholesterol 37 mg/dL (60-100) L 08/21/25 09:48 LDL/HDL Ratio 1.81 RATIO (0.00-3.22) 08/21/25 09:48 Cholesterol/HDL Ratio 3.38 mg/dL (1.0-5.00) 08/21/25 09:48 Lipase 17 U/L (13-60) 08/21/25 09:48 Vitamin B12 835 pg/mL (232-1245) 08/29/25 04:25 Folate 12.6 ng/mL (4.5-32.2) 09/02/25 12:04 Procalcitonin 0.29 ng/mL (0-0.5) 09/02/25 02:04 TSH 2.86 uIU/mL (0.27-4.20) 08/21/25 09:48 Random Cortisol 28.73 ug/dL (2.47-19.5) H 08/21/25 09:48 Urine Color Yellow (Yellow) 08/30/25 20:49 Urine Appearance Clear (CLEAR) 08/30/25 20:49 Urine pH 5.0 (5-7) 08/30/25 20:49 Ur Specific [place] 1.018 (1.005-1.030) 08/30/25 20:49 Urine Protein Trace (Negative) A 08/30/25 20:49 Urine Glucose (UA) Negative (Normal) 08/30/25 20:49 Urine Ketones Negative (Negative) 08/30/25 20:49 Urine Blood Negative (Negative) 08/30/25 20:49 Urine Nitrate Negative (Negative) 08/30/25 20:49 Urine Bilirubin Negative (Negative) 08/30/25 20:49 Urine Urobilinogen 0.2 mg/dL (Negative) 08/30/25 20:49 Ur Leukocyte Esterase Negative (Negative) 08/30/25 20:49 Urine RBC 0-2 /hpf (0-2) 08/30/25 20:49 Urine WBC None /hpf (0-5) 08/30/25 20:49 Ur Squamous Epith Cells 0-2 /hpf (0-5) 08/30/25 20:49 Amorphous Sediment Not Reportable 08/30/25 20:49 Urine Bacteria None /hpf (NONE) 08/30/25 20:49 Hyaline Casts 9.07 /lpf 08/21/25 10:25 Urine Osmolality 805 mOsm/kg (50-1200) 08/26/25 11:08 Ur Random Sodium 80 mmol/L 08/26/25 11:08 Nasal MRSA (PCR) Cancelled 09/09/25 12:35 Vancomycin Trough 12.1 ug/mL (09-11) 09/03/25 07:44 Influenza A (PCR) Negative (Negative) 08/26/25 17:12 Influenza Type B (PCR) Negative (Negative) 08/26/25 17:12 RSV (PCR) Negative (Negative) 08/26/25 17:12 SARS-CoV-2 (PCR) Negative (Negative) 08/26/25 17:12 Blood Type O Positive 08/22/25 18:26 Rho(D) Type Rh positive 08/22/25 18:26 Antibody Screen Negative 08/22/25 18:26 Crossmatch See Detail 08/22/25 18:26 Vitals Last Vital Signs Temp 97.6 F 09/10/25 07:39 Pulse 83 09/10/25 08:06 Resp 16 09/10/25 08:06 BP 124/79 09/10/25 07:39 Pulse Ox 98 09/10/25 08:06 O2 Del Method Room Air 09/10/25 08:06 O2 Flow Rate 1.5 09/04/25 19:20 FiO2 30 08/24/25 12:50 Discharge Plan Discharge Patient Disposition: Xfer SNF Condition: Stable Prescriptions: New furosemide 40 mg Tablet 40 mg PO DAILY@0800 PRN (Reason: edema) 30 Days Qty: 30 0RF nystatin 100,000 unit/mL Suspension 400,000 unit PO QID 7 Days Qty: 112 0RF acetaminophen 325 mg Tablet 650 mg PO Q6H PRN (Reason: Mild/Mod Pain Or Temp >/= 101) 15 Days Qty: 45 0RF cyanocobalamin (vitamin B-12) [Vitamin B-12] 1,000 mcg Tablet 500 mcg PO BID 30 Days Qty: 30 0RF aspirin 81 mg Tablet,Delayed Release (Dr/Ec) 81 mg PO DAILY 30 Days Qty: 30 0RF doxycycline monohydrate 100 mg Tablet 100 mg PO BID 7 Days Qty: 14 0RF spironolactone 25 mg Tablet 25 mg PO DAILY 30 Days Qty: 30 0RF potassium chloride [Klor-Con M20] 20 mEq Tablet,Er Particles/Crystals 20 meq PO DAILY PRN (Reason: with lasix) 30 Days Qty: 30 0RF magnesium oxide 400 mg (241.3 mg magnesium) Tablet 400 mg PO BID 30 Days Qty: 60 0RF pantoprazole 40 mg Tablet,Delayed Release (Dr/Ec) 40 mg PO DAILY 30 Days Qty: 30 0RF folic acid 1 mg Tablet 1 mg PO BID 30 Days Qty: 60 0RF amoxicillin-pot clavulanate 875-125 mg Tablet 1 tab PO BID 7 Days Qty: 14 0RF thiamine mononitrate (vit B1) [Vitamin B-1 (mononitrate)] 100 mg Tablet 50 mg PO BID 30 Days Qty: 30 0RF multivitamin with folic acid [Thera] 400 mcg Tablet 1 tab PO DAILY 30 Days Qty: 30 0RF Continued metformin 500 mg tablet 500 mg PO DAILY potassium chloride 10 mEq capsule, extended release 10 meq PO DAILY simvastatin 40 mg tablet 40 mg PO DAILY folic acid 1 mg tablet 1 mg PO DAILY Qty: 90 3RF prednisone 10 mg tablet See Rx Instructions PO .COMPLEX PRN (Reason: joint pain) Qty: 30 1RF Rx Instructions: take 1 or 2 tab daily for 3-7 days prn joint pain flare PO PRN; fluticasone propionate 50 mcg/actuation spray,suspension 2 spray INTRANASAL DAILY PRN (Reason: allergies) Discontinued aspirin 325 mg tablet 325 mg PO DAILY clotrimazole 1 % cream 1 applic topical BID PRN (Reason: Rash) Humira(CF) Pen 40 mg/0.4 mL pen injector kit 40 mg SUBCUT Q14D Qty: 2 5RF methotrexate sodium 2.5 mg tablet 125 mg PO Q7D Associate Accountant OK for DC: Hospitalist Discharge Order = DC NOW: Discharge Order (Routine); Ordered 09/10/25 Ordered By: Bishnu Burrell Referrals: [facility] [Outside] Bishnu Burrell MD [Physician, General Surgery] - 09/26/25 2:35 pm Discharge Diet: As Directed Discharge Activity: As per PT/OT instructions Patient Instructions: Doxycycline (By mouth), Amoxicillin/Clavulanate Potassium (By mouth), Bowel Resection (GEN), Opioid Safety, Patient Portal & [place] Instructions Activity Restrictions/Additional Instructions: dysphasia 6 diet as directed Pack distal end of wound with Kerlix. Wet to dry. Discharge Attestations Time Spent in Discharge Care*: greater than 30 min Quality Metrics Clinical Quality Measures [ No reported AMI, CVA or VTE this stay] Coding Level of Care Code Acute Code for Chg Fwd Diagnoses Small bowel obstruction due to adhesions K56.50 Seronegative rheumatoid arthritis M06.00 Diabetes E11.9 Hypoalbuminemia E88.09 Moderate aortic stenosis I35.0 Obesity (BMI 30-39.9) E66.9 Oral pharyngeal candidiasis B37.0
[2025-09-10 11:15] VITALS: BP 120/85; PULSE 84; RESP 18; TEMP 36.4; O2SAT 97
== END 2025-09-10 11:55 | disposition skilled nursing facility (03) | DRG 329 ==
LOC: ER 11:06 → OR 11:16 → ICU 16:05 → MEDSURG 08-27 23:51
PROVIDERS: Family Medicine; Internal Medicine; Admitting Provider Student in an Organized Health Care Education/Training Program; Emergency Provider Family Medicine; Visit Provider Student in an Organized Health Care Education/Training Program
PROC: 0DN80ZZ Release Small Intestine, Open Approach (ICD-10-PCS; CPT 49000; principal; 2025-08-21 13:45)
PROC: 0DN80ZZ Release Small Intestine, Open Approach (ICD-10-PCS; 2025-08-21 13:45)
PROC: 0DN80ZZ Release Small Intestine, Open Approach (ICD-10-PCS; CPT 44120; 2025-08-21 13:45)
PROC: 0DN80ZZ Release Small Intestine, Open Approach (ICD-10-PCS; 2025-08-21 13:45)
PROC: 0DQB0ZZ Repair Ileum, Open Approach (ICD-10-PCS; CPT 49000; principal; 2025-08-23 12:10)
DX: K43.6 Other and unspecified ventral hernia with obstruction, without gangrene (principal); A41.9 Sepsis, unspecified organism; J96.01 Acute respiratory failure with hypoxia; R65.21 Severe sepsis with septic shock; I21.4 Non-ST elevation (NSTEMI) myocardial infarction; K91.71 Accidental puncture and laceration of a digestive system organ or structure during a digestive system procedure; N17.9 Acute kidney failure, unspecified; E87.20 Acidosis, unspecified; G93.40 Encephalopathy, unspecified; E87.0 Hyperosmolality and hypernatremia; J98.11 Atelectasis; B37.0 Candidal stomatitis; L76.34 Postprocedural seroma of skin and subcutaneous tissue following other procedure; E11.9 Type 2 diabetes mellitus without complications; I73.9 Peripheral vascular disease, unspecified; E78.5 Hyperlipidemia, unspecified; M06.042 Rheumatoid arthritis without rheumatoid factor, left hand; K66.0 Peritoneal adhesions (postprocedural) (postinfection); M06.041 Rheumatoid arthritis without rheumatoid factor, right hand; E83.39 Other disorders of phosphorus metabolism; E86.0 Dehydration; G47.33 Obstructive sleep apnea (adult) (pediatric); E88.09 Other disorders of plasma-protein metabolism, not elsewhere classified; D64.9 Anemia, unspecified; R60.9 Edema, unspecified; E87.6 Hypokalemia; I35.0 Nonrheumatic aortic (valve) stenosis; Z85.038 Personal history of other malignant neoplasm of large intestine; Z90.49 Acquired absence of other specified parts of digestive tract; Z79.84 Long term (current) use of oral hypoglycemic drugs; Z79.82 Long term (current) use of aspirin; Z79.899 Other long term (current) drug therapy; Z96.653 Presence of artificial knee joint, bilateral; Z80.8 Family history of malignant neoplasm of other organs or systems; Z83.3 Family history of diabetes mellitus; Z82.49 Family history of ischemic heart disease and other diseases of the circulatory system; Z80.1 Family history of malignant neoplasm of trachea, bronchus and lung; Y83.8 Other surgical procedures as the cause of abnormal reaction of the patient, or of later complication, without mention of misadventure at the time of the procedure; Z79.60 Long term (current) use of unspecified immunomodulators and immunosuppressants; Z79.52 Long term (current) use of systemic steroids; E66.9 Obesity, unspecified; Z68.36 Body mass index [BMI] 36.0-36.9, adult
CPT/HCPCS: 36415; 36416; 36430; 36573; 36592; 36600; 51702; 70450; 71045; 71260; 74176; 74177; 80048; 80051; 80053; 80061; 80202; 81001; 82330; 82533; 82550; 82607; 82746; 82803; 82805; 82962; 83036; 83605; 83690; 83735; 83880; 83930; 83935; 84100; 84145; 84300; 84443; 84484; 85007; 85014; 85018; 85025; 85610; 85730; 86140; 86850; 86900; 86920; 87040; 87070; 87075; 87086; 87205; 87637; 88307; 92507; 92523; 92526; 92610; 93005; 93306; 94002; 94003; 94799; 96372; 97110; 97116; 97161; 97167; 97530; 97535; 99285; C1751; C9250; J0330; J0696; J1171; J1650; J1720; J1815; J1938; J2250; J2371; J2470; J2543; J2598; J2704; J3010; J3372; J3373; J3480; J3490; J7030; J7042; J7050; J7060; J7070; J7120; J7512; J9999; P9016; P9046

== ENCOUNTER 2025-09-16 17:13 | Emergency (ER) | payer MEDICARE, SELFPAY ==
--- OUTSIDE RECORDS SUMMARY | 2025-09-16 17:25 | XMS_ITS ---
Author Organization Unknown Immunizations Date Vaccine DateAdministered TimeAdministered VaccineCode Dose Strength Unit Starch Dumper DueDate CptCode CvxCode ManufacturerCode LocationCode AdministeredBy Custom 025 12:00 :00 AM RSV, recombin ant, protein subunit RSVpreF, adjuvant reconsti tuted, 0.5 mL, PF 09/11/2024 12:00:00 AM 0000 0.500 000 mL mL 303
--- OUTSIDE RECORDS SUMMARY | 2025-09-16 17:25 | XMS_ITS | Encounter Summary ---
Author Organization [employer] [facility] Address [address] [place] [address] Care Team Providers Care Hydraulic Press Tender Name Role Phone Unavailable Primary Care Provider Unavailabl e Encounter Details Date Type Department Care Team (Latest Contact Info) Description 05/08/1999 Outpatient Historical [facility] Jose Angel Martinez, Ermias Peñaloza MD [address] [place] [phone] Calcaneal spur (Primary Dx); Obesity, unspecified Social History Tobacco Use Types Packs/Day Years Used Date Smoking Tobacco: Never Assessed Sex and Gender Information Value Date Recorded Sex Assigned at Not on file 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
--- OUTSIDE RECORDS SUMMARY | 2025-09-16 17:25 | XMS_ITS | Encounter Summary ---
Author Organization [employer] [facility] Address [address] [place] [address] Care Team Providers Care Field Training Agent Name Role Phone Unavailable Primary Care Provider Unavailabl e Encounter Details Date Type Department Care Team (Latest Contact Info) Description 09/09/1999 Outpatient Historical [facility] Jose Angel Martinez, Ermias Peñaloza MD [address] [place] [phone] Lumbago (Primary Dx) Social History Tobacco Use Types Packs/Day Years Used Date Smoking Tobacco: Never Assessed Sex and Gender Information Value Date Recorded Sex Assigned at Not on file 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
--- OUTSIDE RECORDS SUMMARY | 2025-09-16 17:25 | XMS_ITS | Encounter Summary ---
Author Organization [employer] [facility] Address [address] [place] [address] Care Team Providers Care Vest Busheler Name Role Phone Unavailable Primary Care Provider Unavailabl e Encounter Details Date Type Department Care Team (Latest Contact Info) Description 04/08/1999 Outpatient Historical [facility] Jose Angel Martinez, Ermias Peñaloza MD [facility] [place] [address] Peripheral vascular disease, unspecified (Primary Dx); Calcaneal spur; Osteoarthrosis, unspecified whether generalized or localized, unspecified site; Obesity, unspecified Social History Tobacco Use Types Packs/Day Years Used Date Smoking Tobacco: Never Assessed Sex and Gender Information Value Date Recorded Sex Assigned at Not on file 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
--- OUTSIDE RECORDS SUMMARY | 2025-09-16 17:25 | XMS_ITS | Continuity of Care Document ---
Author Organization 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 Trevon Colin DO Attending Physician Medications Medication Frequency Instructions Diagnosis Start Date End Date Last Administered acetaminophen 325 mg tablet Every 6 Hours - PRN 2 tabs (650 mg), oral, Every 6 Hours - PRN, For pain/fever, for 15 days 09/10/2009/11/2025 02:52 AM amoxicillin-pot clavulanate 875-125 mg tablet Twice A Day 1 tab, oral, Twice A Day, For 7 days 09/10/2009/13/2025 08:12 AM aspirin 81 mg tablet,delayed release (/[place]ICA) Once A Day 1 tab, oral, Once A Day 09/10/2009/13/2025 08:12 AM cyanocobalamin (vitamin B-12) 500 mcg tablet Twice A Day 1 tab, oral, Twice A Day 09/10/2009/13/2025 08:12 AM Daily-Bruno (with folic acid) (multivitamin with folic acid) 400 mcg tablet Once A Day 1 tab, oral, Once A Day 09/10/2009/13/2025 08:12 AM doxycycline monohydrate 100 mg capsule Twice A Day 1 cap, oral, Twice A Day, For 7 days 09/10/2009/13/2025 08:12 AM Dulcolax (bisacodyl) (bisacodyl) 10 mg suppository Once A Day - PRN 1 suppository, rectal, Once A Day - PRN, Give rectally if can't take p/o, if no results from MOM 09/10/20 furosemide 40 mg tablet Once A Day - PRN 1 tab, oral, Once A Day - PRN, For edema 09/10/20 magnesium oxide 400 mg (241.3 mg magnesium) tablet Twice A Day 1 tab, oral, Twice A Day 09/10/2009/13/2025 08:12 AM metformin 500 mg tablet Once A Day 1 tab, oral, Once A Day 09/10/2009/13/2025 08:12 AM nystatin 100,000 unit/mL suspension Four Times A Day 400,000 units (4 mL), oral, Four Times A Day, For 7 days 09/10/2009/13/2025 11:47 AM nystatin-triamcino lone 100,000-0.1 unit/g-% cream Every Shift apply buttock/groin, topical, Every Shift, Apply to buttock/groin q shift till redness resolved then dc 09/10/2009/13/2025 08:13 AM omeprazole 20 mg capsule,delayed release(DR/EC) Once A Day 1 cap, oral, Once A Day, TI for pantoprazole 09/10/2009/13/2025 08:12 AM potassium chloride 20 mEq tablet extended release Once A Day - PRN 1 tab, oral, Once A Day - PRN, Give with furosemide 09/10/20 potassium chloride 10 mEq tablet extended release Once A Day 1 tab, oral, Once A Day 09/10/2009/13/2025 08:12 AM prednisone 10 mg tablet Once A Day - PRN 1-2 tabs (10-20 mg), oral, Once A Day - PRN, For joint pain flare 09/10/20 simvastatin 40 mg tablet Once A Day 1 tab, oral, Once A Day 09/10/2009/13/2025 08:12 AM spironolactone 25 mg tablet Once A Day 1 tab, oral, Once A Day 09/10/2009/13/2025 08:12 AM Tylenol (acetaminophen) 325 mg tablet Every 6 Hours - PRN 2 tabs/650mg, oral, Every 6 Hours - PRN, as needed for PRN pain/increased temp May give rectally if necessary 09/10/20 Afluria 9935-7667 (3yr up)(PF) (flu vac ax8185-53 36mos up(pf)) 45 mcg (15 mcg x 3)/0.5 m syringe Once - One Time 0.5ml, intramuscular, Once - One Time 09/10/2009/10/2025 02:43 PM Tubersol (tuberculin ppd) 5 tub. unit /0.1 mL solution Once - One Time 0.1ml, intradermal, Once - One Time, Administer the morning after admission 09/11/20 Tubersol (tuberculin ppd) 5 tub. 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 09/10/2025 Active ICD-10 Disruption of tape stringer al operation (surgical) wound, not elsewhere classified, subsequent encounter T81.31XD 09/10/2025 Active ICD-10 Dysphagia, oropharyngeal phase R13.12 09/10 Active ICD-10 Cognitive communication deficit R41.841 08/28 Active ICD-10 Muscle weakness (generalized) M62.81 2024 Active ICD-10 Other abnormalities of gait and mobility R26.89 09/11/2025 Active ICD-10 Nonrheumatic aortic (valve) stenosis I35.0 09/10/2025 Active ICD-10 Obstructive sleep apnea (adult) (pediatric) G47 .33 09/10/2025 Active ICD-10 Hyperlipidemia, unspecified E78.5 09/10/20 Active ICD-10 Type 2 diabetes luz maria itus with diabetic peripheral angiopathy without gangrene E11.51 09/10/2025 A ctive ICD-10 superintendent terminal (current) use of oral hypoglycemic drugs Z79.84 09/10/2025 Active ICD-10 USP (current) use of aspirin Z79.82 1 Active ICD-10 Unspecified protein-calorie malnutrition E46 09/10/2025 Active ICD-10 Obesity, unspecified E66.9 09/10/2025 Acti ve ICD-10 Body mass index [BMI] 35.0-35.9, adult Z68.35 09/10/2025 Active ICD-10 Immunodeficiency, unspecified D84.9 2024 Active ICD-10 Rheumatoid arthritis without rheumatoid factor, right hand M06.041 09/10/2025 Active ICD-10 Rheumatoid arthritis without rheumatoid factor, left hand M06.042 09/10/2025 Active ICD-10 superintendent terminal (current) use of systemic steroids Z7 9.52 09/10/2025 Active ICD-10 Low back pain, unspecified M54.50 Active ICD-10 Candidal stomatitis B37.0 09/10/2025 Activ e ICD-10 Do not resuscitate Z66 09/10/2025 Active Current Allergies and Intolerances Category Substance Type Reaction Severity Begin Date Status Drug Allergy No known drug allergies Allergy Active Vital Signs Height: 68.0 in Date / Time Temperature Pulse (per minute) Respirations (per minute) Systolic BP (mmHg) Diastolic BP (mmHg) O2 Saturation (%) Weight BMI 2024 03:08 PM 236.0 lbs 35.8 8 2024 10:20 AM 98.5 F 80 15 130 74 96.0 2024 03:29 AM 97.0 F 88 16 134 66 95.0 2024 12:07 PM 97.8 F 65 18 136 91 98.0 2024 08:33 AM 235.8 lbs 35.8 5 2024 08:59 PM 64 17 117 59 95.0 2024 08:26 AM 98.7 F 75 18 124 52 96.0 236.2 lbs 35.9 1 2024 12:55 PM 98.0 F 87 16 112 74 99.0 236.0 lbs 35.8 8 Advance Directives Directive Note Do Not Resuscitate (DNR) Insurance Providers Payer Policy type Group Name Group number Policy ID Address Ph one Medicare Part A Medicare Part A [id number] Phone: Fax: Lauryn Lopez Medicare Part A [id number] Phone: Fax: Private Private Phone: Fax: Private Copay - Ins/HMO Private Phone: Fax: Private Interest Private Phone: Fax: Immunizations Vaccine Press Maintainer Date Status Dose Series Complete COVID-19 Vaccine Moderna 08/20/2025 Completed COVID-19 Vaccine Moderna 09/10/2024 Completed COVID-19 Vaccine Moderna 09/23/2023 Completed COVID-19 Vaccine Moderna 09/28/2022 Completed COVID-19 Vaccine 09/10/2025 Refused Influenza Vaccine Alfuria 09/10/2025 Completed Influenza Vaccine 09/10/2025 Completed Pneumococcal Vaccine 09/10/2025 Refused RSV Vaccine Unknown 09/11/2024 Completed RSV Vaccine 09/10/2025 Refused Procedures Not available for this record Results Name Date Time Positive/Negative Value Unit Range TB test 09/12/2025 04:06 PM Unknown mm Goals Goal Date Will participate in at least one group activity of preference weekly through next assessment 11/13/2025 Will have a BM at least ever y 3 days for 120 days since update/last review AND/OR will not experience any complications r/t to colostomy for 120 days from update/ last review AND/OR Will not experience any GI complications for 120 days since update/last review AND/OR Will remain clean, dry between incontinent episodes thru 120days from update/last review 12/11/2025 ADL approaches will meet the resident?s needs to enhance ability, maintain abilities, or provide quality. 12/11/2025 Kenneth will maintain or improve nutrition al status through next review 12/12/2025 Social History Subject Status Smoking status Never smoker Encounters Admission Date Discharge Date Description MRN Visit Count 09/10/2025 12:20 LTPAC Admission [id number]
--- OUTSIDE RECORDS SUMMARY | 2025-09-16 17:25 | XMS_ITS | Continuity of Care Document ---
Author Organization [facility] ([facility]) Address [address] [place] [address] Insurance Providers Payer Plan Claims Address Claims Phone Policy Number Group Number Relation Employer Guarantor Name Guarantor Guarantor Address Guarantor Phone [employer] [id number] Self Kenneth Scott [address] [place] [id number] Medic are Part B [address], [place] [id number] Self Kenneth Scott [address] [place] [id number] MEDIP [place] SUP[employer] EMENT [address] [id number] Self Kenneth Scott [address] [place] [id number] Problems Condition ICD9 code ICD10 code SNOMED code Start Date End Date S tatus Encounter for surgical aftercare following surgery on the digestive system Z48.815 09/10/2025 Active 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 09/10/2025 Active Dysphagia, oropharyngeal phase R13.12 09/10/2025 Active Cognitive communication deficit R41.841 09/10/2025 Active Nonrheumatic aortic (valve) stenosis I35.0 09/10/2025 Active Obstructive sleep apnea (adult) (pediatric) G47.33 09/10/2025 Activ e Hyperlipidemia, unspecified E78.5 09/10/2025 Active Type 2 diabetes mellitus with diabetic peripheral angiopathy without gangrene E11.51 09/10/2025 Active group home (current) use of oral hypoglycemic drugs Z79.84 09/10/2025 Active terminal gauger (current) use of aspirin Z79.82 09/10/2025 Active Unspecified protein-calorie malnutrition E46 09/10/2025 Active Obesity, unspecified E66.9 09/10/2025 Active Body mass index (BMI) 35.0-35.9, adult Z68.35 09/10/2025 Active Immunodeficiency, unspecified D84.9 09/10/2025 Active Rheumatoid arthritis without rheumatoid factor, right hand M06.041 09/10/2025 Active Rheumatoid arthritis without rheumatoid factor, left hand M06.042 09/10/2025 Active terminal gauger (current) use of systemic steroids Z79.52 09/10/2025 Acti ve Low back pain, unspecified M54.50 09/10/2025 Active Candidal stomatitis B37.0 09/10/2025 A ctive Do not resuscitate Z66 09/10/2025 Ac tive Disruption of external operation (surgical) wound, not elsewhere classified, subsequent encounter T81.31XD 09/10/2025 Active Muscle weakness (generalized) M62.81 09/11/2025 Active Other abnormalities of gait and mobility R26.89 09/11/2025 Active Results Test Result Date/Time Value / Unit Interp. Refere nce Range Tuberculosis reaction wheal[ 44515-6] Tuberculosis reaction wheal [61662-6] 09/12/2025 09:06 AM 0 mm NEG Allergies, adverse reactions, alerts Substance Reaction Date Status Type No allergies have been recorded Non Drug Immunizations Vaccine Route Date Status COVID-19 Vaccine Unassigned Route of Administration Completed COVID-19 Vaccine Unassigned Route of Administration Completed COVID-19 Vaccine Unassigned Route of Administration Completed COVID-19 Vaccine Unassigned Route of Administration Completed Influenza Vaccine Unassigned Route of Administration 1 Completed COVID-19 Vaccine Unassigned Route of Administration Refused RSV Vaccine Unassigned Route of Administration 2023 Completed Medications Medication Instructions Route Dosage Frequency Start Date Stop Date Indications Status acetaminophen 325 mg tablet (acetaminophen) 2 tabs (650 mg), oral, Every 6 Hours - PRN, For pain/fever, for 15 days oral 1.0 6.0 h 09/25 Active amoxicillin-pot clavulanate 875-125 mg tablet (amoxicillin-po t clavulanate) 1 tab, oral, Twice A Day, For 7 days oral 1.0 12.0 h 09/17 Active aspirin 81 mg tablet,delayed release (DR/EC) (aspirin) 1 tab, oral, Once A Day oral 1.0 1.0 d 2024 Active cyanocobalamin (vitamin B-12) 500 mcg tablet (cyanocobalamin (vitamin B-12)) 1 tab, oral, Twice A Day oral 1.0 12.0 h 2024 Active Daily-Bruno (with folic acid) (multivitamin with folic acid) 400 mcg tablet (Daily-Bruno (with folic acid) (multivitamin with folic acid)) 1 tab, oral, Once A Day oral 1.0 1.0 d 2024 Active doxycycline monohydrate 100 mg capsule (doxycycline monohydrate) 1 cap, oral, Twice A Day, For 7 days oral 1.0 12.0 h 09/17 Active Dulcolax (bisacodyl) (bisacodyl) 10 mg suppository (Dulcolax (bisacodyl) (bisacodyl)) 1 suppository, rectal, Once A Day - PRN, Give rectally if can't take p/o, if no results from MOM rectal 1.0 1.0 d 2024 Active furosemide 40 mg tablet (furosemide) 1 tab, oral, Once A Day - PRN, For edema oral 1.0 1.0 d 2024 Active magnesium oxide 400 mg (241.3 mg magnesium) tablet (magnesium oxide) 1 tab, oral, Twice A Day oral 1.0 12.0 h 2024 Active metformin 500 mg tablet (metformin) 1 tab, oral, Once A Day oral 1.0 1.0 d 2024 Active nystatin 100,000 unit/mL suspension (nystatin) 400,000 units (4 mL), oral, Four Times A Day, For 7 days oral 1.0 6.0 h 09/17 Active nystatin-triamc inolone 100,000-0.1 unit/g-% cream (nystatin-triam cinolone) apply buttock/groin , topical, Every Shift, Apply to buttock/groin q shift till redness resolved then dc topical 1.0 8.0 h 2024 Active omeprazole 20 mg capsule,delayed release(DR/EC) (omeprazole) 1 cap, oral, Once A Day, TI for pantoprazole oral 1.0 1.0 d 2024 Active potassium chloride 20 mEq tablet extended release (potassium chloride) 1 tab, oral, Once A Day - PRN, Give with furosemide oral 1.0 1.0 d 2024 Active potassium chloride 10 mEq tablet extended release (potassium chloride) 1 tab, oral, Once A Day oral 1.0 1.0 d 2024 Active prednisone 10 mg tablet (prednisone) 1-2 tabs (10-20 mg), oral, Once A Day - PRN, For joint pain flare oral 1.0 1.0 d 2024 Active simvastatin 40 mg tablet (simvastatin) 1 tab, oral, Once A Day oral 1.0 1.0 d 2024 Active spironolactone 25 mg tablet (spironolactone ) 1 tab, oral, Once A Day oral 1.0 1.0 d 2024 Active Tylenol (acetaminophen) 325 mg tablet (Tylenol (acetaminophen) ) 2 tabs/650mg, oral, Every 6 Hours - PRN, as needed for PRN pain/increase d tempMay give rectally if necessary oral 1.0 6.0 h 2024 Active Afluria 2965-4531 (3yr up)(PF) (flu vac qy0189-21 36mos up(pf)) 45 mcg (15 mcg x 3)/0.5 m syringe (Afluria 0658-0163 (3yr up)(PF) (flu vac 36mos up(pf))) 0.5ml, intramuscular , Once - One Time intramuscu lar 1.0 09/10 Active Tubersol (tuberculin ppd) 5 tub. unit /0.1 mL solution (Tubersol (tuberculin ppd)) 0.1ml, intradermal, Once - One Time, Administer the morning after admission intraderma l 1.0 09/11 Active Tubersol (tuberculin ppd) 5 tub. unit /0.1 mL solution (Tubersol (tuberculin ppd)) 0.1ml, intradermal, Once - One Time, Administer the morning after admission intraderma l 1.0 09/12 Active Vital Signs Date Vital Result Comment 09/10/2025 12:55 PM Temperature (8310-5) 98 [degF] Oxygen Saturation (32054-4) 99 % Respiratory Rate (9279-1) 16 /min Heart Rate (8867-4) 87 /min Blood Pressure Systolic (8480-6) 112 mm[Hg] Blood Pressure Diastolic (8462-4) 74 mm[Hg] Body Height (8302-2) 68 [in_us] Body Weight (81109-3) 236 [lb_av] Body Mass Index (86728-7) 35.88 kg/m2 09/11/2025 08:26 AM Temperature (8310-5) 98.7 [degF] Oxygen Saturation (27938-2) 96 % Respiratory Rate (9279-1) 18 /min Heart Rate (8867-4) 75 /min Blood Pressure Systolic (8480-6) 124 mm[Hg] Blood Pressure Diastolic (8462-4) 52 mm[Hg] Body Weight (76003-8) 236.2 [lb_av] Body Mass Index (10592-0) 35.91 kg/m2 09/11/2025 08:59 PM Oxygen Saturation (52011-3) 95 % Respiratory Rate (9279-1) 17 /min Heart Rate (8867-4) 64 /min Blood Pressure Systolic (8480-6) 117 mm[Hg] Blood Pressure Diastolic (8462-4) 59 mm[Hg] 09/12/2025 08:33 AM Body Weight (17734-3) 235.8 [lb_av ] Body Mass Index (08255-5) 35.85 kg/m2 09/12/2025 12:07 PM Temperature (8310-5) 97.8 [degF] Oxygen Saturation (95446-1) 98 % Respiratory Rate (9279-1) 18 /min Heart Rate (8867-4) 65 /min Blood Pressure Systolic (8480-6) 136 mm[Hg] Blood Pressure Diastolic (8462-4) 91 mm[Hg] 09/13/2025 03:29 AM Temperature (8310-5) 97 [degF] Oxygen Saturation (25565-1) 95 % Respiratory Rate (9279-1) 16 /min Heart Rate (8867-4) 88 /min Blood Pressure Systolic (8480-6) 134 mm[Hg] Blood Pressure Diastolic (8462-4) 66 mm[Hg] 09/13/2025 10:20 AM Temperature (8310-5) 98.5 [degF] Oxygen Saturation (69676-4) 96 % Respiratory Rate (9279-1) 15 /min Heart Rate (8867-4) 80 /min Blood Pressure Systolic (8480-6) 130 mm[Hg] Blood Pressure Diastolic (8462-4) 74 mm[Hg] 09/13/2025 03:08 PM Body Weight (63935-7) 236 [lb_av] Body Mass Index (61354-2) 35.88 kg/m2 09/13/2025 11:45 PM Temperature (8310-5) 98 [degF] Oxygen Saturation (59437-7) 95 % Respiratory Rate (9279-1) 16 /min Heart Rate (8867-4) 70 /min Blood Pressure Systolic (8480-6) 120 mm[Hg] Blood Pressure Diastolic (8462-4) 78 mm[Hg] 09/14/2025 08:07 AM Temperature (8310-5) 100.2 [degF] Oxygen Saturation (56867-5) 93 % Respiratory Rate (9279-1) 17 /min Heart Rate (8867-4) 79 /min Blood Pressure Systolic (8480-6) 119 mm[Hg] Blood Pressure Diastolic (8462-4) 64 mm[Hg] 09/14/2025 11:50 PM Temperature (8310-5) 97 [degF] Oxygen Saturation (29162-9) 96 % Respiratory Rate (9279-1) 16 /min Heart Rate (8867-4) 77 /min Blood Pressure Systolic (8480-6) 123 mm[Hg] Blood Pressure Diastolic (8462-4) 88 mm[Hg] 09/15/2025 10:34 AM Respiratory Rate (9279-1) 18 /min Blood Pressure Systolic (8480-6) 120 mm[Hg] Blood Pressure Diastolic (8462-4) 71 mm[Hg] 09/15/2025 10:33 AM Heart Rate (8867-4) 84 /min 09/15/2025 10:36 AM Oxygen Saturation (29349-9) 98 % 09/15/2025 10:32 AM Temperature (8310-5) 98.6 [degF] 09/15/2025 11:03 PM Temperature (8310-5) 98 [degF] Oxygen Saturation (70861-5) 96 % Respiratory Rate (9279-1) 16 /min Heart Rate (8867-4) 80 /min Blood Pressure Systolic (8480-6) 122 mm[Hg] Blood Pressure Diastolic (8462-4) 77 mm[Hg] 09/16/2025 10:55 AM Oxygen Saturation (68092-2) 100 % Blood Pressure Systolic (8480-6) 113 mm[Hg] Blood Pressure Diastolic (8462-4) 65 mm[Hg] 09/16/2025 10:54 AM Temperature (8310-5) 97.4 [degF] Respiratory Rate (9279-1) 18 /min Heart Rate (8867-4) 52 /min 09/16/2025 03:51 PM Body Weight (17832-8) 236.1 [lb_av ] Body Mass Index (76391-1) 35.89 kg/m2 Social History No smoking Hx information available Encounters Type CPT Code Date Location Provider Indication s encounter report 09/10/2025 12:20 PM Yadira Colin DO 01 Advance Directives Directive Description Verification Date Supporting Document(s) Resuscitation
--- OUTSIDE RECORDS SUMMARY | 2025-09-16 17:25 | XMS_ITS | Encounter Summary ---
Author Organization [employer] [facility] Address [address] [place] [address] Care Team Providers Care Fitting Room Attendant Name Role Phone Unavailable Primary Care Provider Unavailabl e Encounter Details Date Type Department Care Team (Latest Contact Info) Description 03/03/1999 Outpatient Historical [facility] Martin Whitaker MD [address] [place] [address] Edema (Primary Dx); Pain in limb Social History Tobacco Use Types Packs/Day Years Used Date Smoking Tobacco: Never Assessed Sex and Gender Information Value Date Recorded Sex Assigned at Not on file 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
--- OUTSIDE RECORDS SUMMARY | 2025-09-16 17:25 | XMS_ITS | Encounter Summary ---
Author Organization [employer] [facility] Address [address] [place] [address] Care Team Providers Care Balance Recesser Name Role Phone Unavailable Primary Care Provider Unavailabl e Encounter Details Date Type Department Care Team (Latest Contact Info) Description 09/07/1999 Outpatient Historical [facility] Martin Whitaker MD [address] [place] [address] Lumbago (Primary Dx); Mononeuritis of unspecified site Social History Tobacco Use Types Packs/Day Years Used Date Smoking Tobacco: Never Assessed Sex and Gender Information Value Date Recorded Sex Assigned at Not on file 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
--- OUTSIDE RECORDS SUMMARY | 2025-09-16 17:25 | XMS_ITS | Encounter Summary ---
Author Organization [employer] [facility] Address [address] [place] [address] Care Team Providers Care Spring Machine Operator Name Role Phone Unavailable Primary Care Provider Unavailabl e Encounter Details Date Type Department Care Team (Latest Contact Info) Description 02/09/1999 Outpatient Historical [facility] Martin Whitaker MD [address] [place] [address] Pain in limb (Primary Dx); Arthropathy, unspecified, site unspecified Social History Tobacco Use Types Packs/Day Years Used Date Smoking Tobacco: Never Assessed Sex and Gender Information Value Date Recorded Sex Assigned at Not on file 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
--- OUTSIDE RECORDS SUMMARY | 2025-09-16 17:26 | XMS_ITS | Clinical Summary ---
Author Organization [facility] [facility] Address [address] 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
--- OUTSIDE RECORDS SUMMARY | 2025-09-16 17:26 | XMS_ITS | Patient Health Record ---
Author Organization [facility] Address [address], [place] [id number] Care Team Providers Care Leather Goods Assembler Name Role Phone Gurdeep Leblanc MD Primary Care Provider Unav ailable NimaAriel Unavailable [phone] Keep the, Beat Unavailable Unavailable Allergies No Known Allergies Reason For Referral No Information Medications Medication SIG (Take, Route, Frequency, Duration) Notes Start Date End Date Status Lasix 20 MG Tablet 1 tablet Orally Once a day PRN Active Aspirin 325 MG Tablet 1 tablet Orally On ce a day Active Simvastatin 40 MG Tablet 1 tablet in the evening Orally Once a day Active metFORMIN HCl 500 MG Tablet 1 tablet wit h a meal Orally Once a day Active Social History Tobacco Use: Social History Observation Description Date Details (start date - stop date) Never Smoker NA - NA Social History Drugs/Alcohol: Social Info Question Answer Notes Drugs Have you used drugs other than those for medical reasons in the past 12 months? No Alcohol Screen Did you have a drink containing alcohol in the past year? No Points 0 Interpretation Negative Tobacco Use: Social Info Question Answer Notes Tobacco Use/Smoking Smoking Status: nonsmoker Additional Details Category Social Info Options Details Miscellaneous: Exercise: none Caffeine: 1-2 cups per day Problems Problem Type SNOMED Code ICD Code Onset Dates Problem Status W/U Status Risk Notes Problem Obstructive sleep apnea syndrome (53324095) CT (obstructive sleep apnea) (G47.33) Active confirmed Problem Mixed hyperlipidemia (161560459) Mixed hyperlipidemia (E78.2) Active confirmed Problem Edema (584846372) Bilateral leg edema (R60.0) Active confirmed Problem History of thromboembolism of vein (291543592) H/O deep venous thrombosis (Z86.718) Active confirmed 1990s LLE Problem Morbid obesity (864553707) Morbid obesity (E66.01) Active confirmed Problem Cardiomegaly (5455986) Mild concentric left ventricular hypertrophy (LVH) (I51.7) Active confirmed Problem Anginal equivalent (00617143695064359 5) Anginal equivalent (I20.8) Active confirmed Problem Abnormal findings on diagnostic imaging of heart and coronary circulation (185909776) Agatston CAC score, >400 (R93.1) Active confirmed Problem Heart disease (62865561) Impaired left ventricular relaxation (I51.9) Active confirmed Problem Type II diabetes mellitus without complication (704165928) Type 2 diabetes mellitus without complication, without long-term current use of insulin (E11.9) Active confirmed Problem Dyspnea on exertion (55478007) Dyspnea on exertion (R06.00) Active confirmed Problem Body mass index 40+ - severely obese (963306584) Body mass index [BMI] 40.0-44.9, adult (Z68.41) Active confirmed Problem Primary osteoarthritis (573770699) Primary osteoarthritis involving multiple joints (M15.9) Active confirmed Plan Of Treatment Pending Test Test Name Order Date CT [...] Part B [address] [place] [id number] Kenneth Scott Self - patient is the insured Next Safety SUPPLEMENT [address] [place] [address] [id number] Kenneth Scott Self - patient is the insured Medical (General) History Medical History History ICD Code bradycardia Surgical History Surgery Date(Month/Year) right knee replacement 2018 left knee replacement 2015 cataract-lens implants cholecystectomy 2009 Hospitalization History Reason Date(Month/Year) proferated colon Ca Score (03/2022)- Total ca lcium was measured at 706.82 (78th percentile) MPI (04/2022)- Normal myocardial perfusi on scan TTE (04/2022)- Mod LAE, mild cLVH, nl LVSF/EF 55-60%, grade I diast dysfxn, mod AoV sclerosis/calcification s evidence of , nl IVC
--- OUTSIDE RECORDS SUMMARY | 2025-09-16 17:26 | XMS_ITS | Encounter Summary ---
Author Organization [employer] [facility] Address [address] [place] [address] Care Team Providers Care Assembler Installer Structures Name Role Phone Unavailable Primary Care Provider Unavailabl e Encounter Details Date Type Department Care Team (Latest Contact Info) Description 01/05/2000 Outpatient Historical [facility] Martin Whitaker MD [address] [place] [address] Enthesopathy of unspecified site (Primary Dx) Social History Tobacco Use Types Packs/Day Years Used Date Smoking Tobacco: Never Assessed Sex and Gender Information Value Date Recorded Sex Assigned at Not on file Legal Sex 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
--- OUTSIDE RECORDS SUMMARY | 2025-09-16 17:26 | XMS_ITS | Encounter Summary ---
Author Organization [facility] Address [address] [place] [address] Care Team Providers Care Creche Attendant Name Role Phone Unavailable Primary Care Provider Unavailabl e Encounter Details Date Type Department Care Team (Latest Contact Info) Description 09/10/1999 Outpatient Historical [facility] Jose Angel Martinez, Ermias Peñaloza MD [address] [place] [id number] Backache, unspecified (Primary Dx) Social History Tobacco Use Types Packs/Day Years Used Date Smoking Tobacco: Never Assessed Sex and Gender Information Value Date Recorded Sex Assigned at Not on file 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
[2025-09-16 17:45] VITALS: BP 102/67; PULSE 94; RESP 17; TEMP 36.7; O2SAT 98; BMI 38.7
--- NOTE | 2025-09-16 20:05 | ED_ITS ---
HPI - Wound/Laceration General: Chief Complaint: Wound/Laceration Stated Complaint: weeping post op Time Seen by Provider: 09/16/25 19:15 Source: patient and family (son) Mode of arrival: wheelchair Limitations: no limitations History of Present Illness: Patient is a 75-year-old male who presents to ED today along with his son from his retirement stating that the retirement was concerned with his abdominal surgical wound/incision. Patient underwent abdominal surgeries by general surgery here at [facility] on 08/21 and again on 08/23 after he was found to have a SBO due to an internal hernia. At some point he subsequently developed a seroma to his incision site thus, according to the son, a few judy were removed to allow the seroma to drain. He has since had a dressing to the area that gets c hanged twice daily to the retirement. Son states today that the retirement was concerned as they found a staple on the bandage today. Son states he has not noticed any change in the drainage from the wound. Patient has not been running fevers. Onset (ago): day(s) Location: abdomen Associated symptoms: Reports no associated symptoms; Denies chills, fever(s) or vomiting Treatments prior to arrival: bandage Related Data Home Medications ?Medication ?Instructions ?Recorded ?Confirmed metformin 500 mg tablet 500 mg PO DAILY 08/12/25 potassium chloride 10 mEq 10 meq PO DAILY 08/12/25 capsule,extended release simvastatin 40 mg tablet 40 mg PO DAILY 08/12/2507/30 fluticasone propionate 50 2 spray intranasal DAILY PRN 08/21/25 08/21/25 mcg/actuation nasal allergies spray,suspension Previous Rx's ?Medication ?Instructions ?Recorded folic acid 1 mg tablet 1 mg PO DAILY #90 tabs 08/13 prednisone 10 mg tablet See Rx Instructions PO .COMP ZENIA 08/13/25 PRN joint pain #30 tabs acetaminophen 325 mg tablet 650 mg (2 x 325 mg) PO Q6H PRN 09/10/25 Mild/Mod Pain Or Temp >/= 101 15 days #45 tabs amoxicillin 875 mg-potassium 1 tab PO BID 7 days #14 t abs 09/10/25 clavulanate 125 mg tablet aspirin 81 mg tablet,delayed 81 mg PO DAILY 30 days #3 0 tabs 10/14/25 release cyanocobalamin (vitamin B-12) 500 mcg (1/2 x 1,000 mcg ) PO BID 09/10/25 1,000 mcg tablet (Vitamin B-12) 30 days #30 tabs doxycycline monohydrate 100 mg 100 mg PO BID 7 days #1 4 tabs 09/10/25 tablet folic acid 1 mg tablet 1 mg PO BID 30 days #60 tabs 09/10/25 furosemide 40 mg tablet 40 mg PO DAILY@0800 PRN sharlene a 30 09/10/25 days #30 tabs magnesium oxide 400 mg (241.3 mg 400 mg PO BID 30 days #60 tabs 09/10/25 magnesium) tablet multivitamin with folic acid 400 1 tab PO DAILY 30 day s #30 tabs 09/10/25 mcg tablet (Thera) nystatin 100,000 unit/mL oral 400,000 unit (4 mL) PO Q ID 7 days 09/10/25 suspension #112 mL pantoprazole 40 mg tablet,delayed 40 mg PO DAILY 30 da ys #30 tabs 09/10/25 release potassium chloride 20 mEq 20 meq PO DAILY PRN with las ix 30 09/10/25 tablet,extended days #30 tabs release(part/cryst) (Klor-Con M) spironolactone 25 mg tablet 25 mg PO DAILY 30 days #30 tabs 09/10/25 thiamine mononitrate (vit B1) 100 50 mg (1/2 x 100 mg) PO BID 30 09/10/25 mg tablet (Vitamin B-1 days #30 tabs (mononitrate)) Allergies Allergy/AdvReac Type Severity Reaction Status Date / Time No Known Allergies Allergy Verified 08/21/25 09:21 Review of Systems Const: Denies: fever(s), chills, body aches, fatigue or malaise GI: Reports: other (abdominal incision draining); Denies: abdominal pain, vomiting, hematemesis or change in bowel habits PFSH ED PFSH: Medical History Obesity (BMI 30-39.9) Seronegative rheumatoid arthritis Immunization counseling High risk medication use Seronegative rheumatoid arthritis of both hands Polyarthralgia Diabetes Hyperlipidemia Elevated antinuclear antibody (ADELINA) level Obstructive sleep apnea PVD (peripheral vascular disease) Low back pain Surgical History History of colon resection ruptured not cancer History of bilateral knee replacement Family History Other Brain cancer Diabetes Heart disease Hypertension Lung cancer Peripheral vascular disease Rheumatoid arthritis Skin cancer Skin disease Denies family history of Lupus (systemic lupus erythematosus) Liver disease Migraines Stroke Social History Smoking and tobacco/nicotine status: never used tobacco/nicotine Physical Exam Const: COMMON NORMALS: no acute distress, average body habitus, no limitations, healthy appearing, alert and well nourished GI: COMMON NORMALS: Soft to palpation, non-tender, No hepatosplenomegaly present and no masses PALPATION: Yes Soft to palpation and Yes No hepatosplenomegaly present OTHER: large vertical stapled incision from open surgery appears well; judy appear intact-mid incision does have an area just distal to umbilicus where the judy have been intentionally removed and bandaged placed as well as packing-small amount of discharge present on bandage incision appears clean and non-odorous; mild erythema localized to wound edges Neuro: SENSORIUM/ORIENTATION: Yes alert Course Vital Signs: Vital signs: Vital Signs Temperature 98.1 F 09/16/25 17:45 Pulse Rate 94 09/16/25 17:45 Respiratory Rate 17 09/16/25 17:45 Blood Pressure 102/67 09/16/25 17:45 Pulse Oximetry 98 09/16/25 17:45 Oxygen Delivery Me thod Room Air 09/16/25 17:45 MDM - Wound/Laceration Medical Decision Making Patient surgical incision appears clean and well healing. The portion of the surgical incision that has intentionally been dehisced to allow for seroma evacuation appears clean and well cared for. Patient is not having systemic symptoms. No fevers. Attempted to contact his general surgeon, Dr. Burrell but this was unsuccessful. Ultimately I feel patient is stable for discharge from the emergency department with recommendation to follow-up with general surgery next week as scheduled. Medical Records I reviewed the patient's medical records. No radiology studies performed this visit Discharge Plan Discharge Patient Disposition: Home Clinical Impression: Draining postoperative wound Qualifiers: Encounter type: initial encounter Qualified Code(s): T81.89XA - Other complications of procedures, not elsewhere classified, initial encounter Condition: Stable Prescriptions: No Action metformin 500 mg tablet 500 mg PO DAILY potassium chloride 10 mEq capsule, extended release 10 meq PO DAILY simvastatin 40 mg tablet 40 mg PO DAILY folic acid 1 mg tablet 1 mg PO DAILY Qty: 90 3RF prednisone 10 mg tablet See Rx Instructions PO .COMPLEX PRN (Reason: joint pain) Qty: 30 1RF Rx Instructions: take 1 or 2 tab daily for 3-7 days prn joint pain flare PO PRN; fluticasone propionate 50 mcg/actuation spray,suspension 2 spray INTRANASAL DAILY PRN (Reason: allergies) furosemide 40 mg Tablet 40 mg PO DAILY@0800 PRN (Reason: edema) 30 Days Qty: 30 0RF nystatin 100,000 unit/mL Suspension 400,000 unit PO QID 7 Days Qty: 112 0RF acetaminophen 325 mg Tablet 650 mg PO Q6H PRN (Reason: Mild/Mod Pain Or Temp >/= 101) 15 Days Qty: 45 0RF cyanocobalamin (vitamin B-12) [Vitamin B-12] 1,000 mcg Tablet 500 mcg PO BID 30 Days Qty: 30 0RF aspirin 81 mg Tablet,Delayed Release (Dr/Ec) 81 mg PO DAILY 30 Days Qty: 30 0RF doxycycline monohydrate 100 mg Tablet 100 mg PO BID 7 Days Qty: 14 0RF spironolactone 25 mg Tablet 25 mg PO DAILY 30 Days Qty: 30 0RF potassium chloride [Klor-Con M20] 20 mEq Tablet,Er Particles/Crystals 20 meq PO DAILY PRN (Reason: with lasix) 30 Days Qty: 30 0RF magnesium oxide 400 mg (241.3 mg magnesium) Tablet 400 mg PO BID 30 Days Qty: 60 0RF pantoprazole 40 mg Tablet,Delayed Release (Dr/Ec) 40 mg PO DAILY 30 Days Qty: 30 0RF folic acid 1 mg Tablet 1 mg PO BID 30 Days Qty: 60 0RF amoxicillin-pot clavulanate 875-125 mg Tablet 1 tab PO BID 7 Days Qty: 14 0RF thiamine mononitrate (vit B1) [Vitamin B-1 (mononitrate)] 100 mg Tablet 50 mg PO BID 30 Days Qty: 30 0RF multivitamin with folic acid [Thera] 400 mcg Tablet 1 tab PO DAILY 30 Days Qty: 30 0RF Discharge Orders: Discharge ED (Routine); Ordered 09/16/25 Ordered By: Felisa Cantu Patient Instructions: Patient Portal & Pilo Instructions Activity Restrictions/Additional Instructions: As we discussed, you may reach out to his general surgeon for follow-up sooner than his currently scheduled appointment. It is normal for his wound to continue to drain. He does not appear acutely infected at this time. Continue normal wound care through the retirement. Print Language: Persian Coding Level of Care Code ED Car Dryer for Toño Carlos
== END 2025-09-16 20:57 | disposition home or self-care (01) ==
PROVIDERS: Emergency Provider Physician Assistant
DX: T81.89XA Other complications of procedures, not elsewhere classified, initial encounter (principal); X58.XXXA Exposure to other specified factors, initial encounter; Z79.82 Long term (current) use of aspirin; Z79.84 Long term (current) use of oral hypoglycemic drugs; E11.9 Type 2 diabetes mellitus without complications; E78.5 Hyperlipidemia, unspecified
CPT/HCPCS: 99281

== ENCOUNTER 2025-09-18 10:19 | Inpatient (IN) | payer MEDICARE, SELFPAY ==
[2025-09-18] VITALS (10 sets, daily range): BP systolic 97–128; BP diastolic 48–70; PULSE 73–91; RESP 17; TEMP 36.6–36.9; O2SAT 95–98; BMI 37.2; BMI 35.4
[2025-09-18 10:34] LABS: Hematocrit 32.0 % (37-53); Hemoglobin 10.50 g/dL (11.27-16.99); Mean Corpuscular HGB Conc 32.8 g/dL (30-55); Mean Corpuscular Hemoglobin 31.6 pg (27-33); Mean Corpuscular Volume 96.4 fl (82-101); Nucleated Red Blood Cells % 0 %; Platelet Count 213 10^3/cmm (157-399); Red Blood Count 3.32 10^6/uL (3.85-5.65); White Blood Count 8.57 10^3/uL (3.29-11.43)
--- NOTE | 2025-09-18 10:36 | ED_ITS ---
HPI - Wound/Laceration 2 General: Chief Complaint: Wound/Laceration Stated Complaint: ABD wound History of Present Illness: 75-year-old male [facility]. Last month (08/21) patient was admitted had a closed-loop bowel obstruction which was resected on the return to the operating room was reanastomosed (08/23). Patient had extended hospital stay developed some kidney issues. Ultimately was [facility] to the [facility] prior to discharge there was some drainage from the wound a couple of judy removed to allow the wound to drain was thought to be a seroma. They have been packing the wound at the penitentiary and noticed some fecal like drainage from the base of the wound. Patient denies any fever sweats or chills. He is awake and alert otherwise. No complaints of significant pain at this time. No nausea or vomiting. Patient has a history of diabetes mellitus aortic stenosis seronegative rheumatoid arthritis. Associated symptoms: Denies chills or fever(s) Related Data Home Medications ?Medication ?Instructions ?Recorded ?Confirmed metformin 500 mg tablet 500 mg PO DAILY 08/12/25 potassium chloride 10 mEq 10 meq PO DAILY 08/12/25 capsule,extended release simvastatin 40 mg tablet 40 mg PO DAILY 08/12/2508/29 acetaminophen 325 mg tablet 650 mg PO Q6H PRN Mild/Mod Pain Or 09/18/25 09/18/25 Temp bisacodyl 10 mg rectal suppository 10 mg ME DAILY PRN Constipation 09/18/25 09/18/25 nystatin-triamcinolone 100,000 See Rx Instructions .Ro habematolel .COMPLEX 09/18/25 09/18/25 unit/g-0.1 % topical cream omeprazole 20 mg capsule,delayed 20 mg PO DAILY 09/18/25 release Previous Rx's ?Medication ?Instructions ?Recorded prednisone 10 mg tablet See Rx Instructions PO .COMP ZENIA 08/13/25 PRN joint pain #30 tabs aspirin 81 mg tablet,delayed 81 mg PO DAILY 30 days #3 0 tabs 09/10/25 release cyanocobalamin (vitamin B-12) 500 mcg (1/2 x 1,000 mcg ) PO BID 09/10/25 1,000 mcg tablet (Vitamin B-12) 30 days #30 tabs folic acid 1 mg tablet 1 mg PO BID 30 days #60 tabs 09/10/25 furosemide 40 mg tablet 40 mg PO DAILY@0800 PRN sharlene a 30 09/10/25 days #30 tabs magnesium oxide 400 mg (241.3 mg 400 mg PO BID 30 days #60 tabs 09/10/25 magnesium) tablet multivitamin with folic acid 400 1 tab PO DAILY 30 day s #30 tabs 09/10/25 mcg tablet (Thera) pantoprazole 40 mg tablet,delayed 40 mg PO DAILY 30 da ys #30 tabs 09/10/25 release potassium chloride 20 mEq 20 meq PO DAILY PRN with las ix 30 09/10/25 tablet,extended days #30 tabs release(part/cryst) (Klor-Con M) spironolactone 25 mg tablet 25 mg PO DAILY 30 days #30 tabs 09/10/25 thiamine mononitrate (vit B1) 100 50 mg (1/2 x 100 mg) PO BID 30 09/10/25 mg tablet (Vitamin B-1 days #30 tabs (mononitrate)) Allergies Allergy/AdvReac Type Severity Reaction Status Date / Time No Known Allergies Allergy Verified 08/21/25 09:21 Review of Systems 2 Const: Denies: fever(s) or chills Card: Denies: chest pain Resp: Denies: dyspnea GI: Denies: abdominal pain : Denies: dysuria, urinary frequency or urinary urgency Musc: Denies: neck pain or back pain Skin/Breast: Denies: rash PFSH ED 2 PFSH: Medical History Obesity (BMI 30-39.9) Seronegative rheumatoid arthritis Immunization counseling High risk medication use Seronegative rheumatoid arthritis of both hands Polyarthralgia Diabetes Hyperlipidemia Elevated antinuclear antibody (ADELINA) level Obstructive sleep apnea PVD (peripheral vascular disease) Low back pain Surgical History History of colon resection ruptured not cancer History of bilateral knee replacement Family History Other Brain cancer Diabetes Heart disease Hypertension Lung cancer Peripheral vascular disease Rheumatoid arthritis Skin cancer Skin disease Denies family history of Lupus (systemic lupus erythematosus) Liver disease Migraines Stroke Social History Smoking and tobacco/nicotine status: never used tobacco/nicotine Physical Exam 2 Const: COMMON NORMALS: no acute distress GENERAL APPEARANCE: cooperative and comfortable ORIENTATION/CONSCIOUSNESS: Yes awake, Yes oriented to person, Yes oriented to place and Yes oriented to time HENMT: COMMON NORMALS: normocephalic, atraumatic and hearing grossly normal bilaterally HEAD & SCALP: normocephalic and atraumatic Resp: COMMON NORMALS: normal respiratory effort, No retractions, No use of accessory muscles and clear to auscultation bilaterally AUSCULTATION: clear to auscultation bilaterally Cardio: COMMON NORMALS: regular rate, regular rhythm and No murmurs present (Cardio) RATE: regular rate RHYTHM: regular rhythm GI: COMMON NORMALS: Soft to palpation and No hepatosplenomegaly present A USCULTATION: Yes normoactive bowel sounds PALPATION: Yes Soft to palpation, No Tenderness to palpation present (GI), No Guarding due to palpation present (GI) and Yes No hepatosplenomegaly present OTHER: Approximately 2-1/2 inch open portion of the incision inferior to the umbilicus. Wound packing removed there is fecal drainage from the base of the wound. Mild localized erythema nontender Extremity: COMMON NORMALS: normal to inspection, capillary refill normal, no clubbing, cyanosis or edema, no calf tenderness and no pedal edema Neuro: SENSORIUM/ORIENTATION: Yes oriented to person, Yes oriented to place and Yes oriented to time Skin: COMMON NORMALS: no rashes or lesions noted GENERAL SKIN EXAM: no rashes or lesions noted Course 2 Vital Signs: Vital signs: Vital Signs Temperature 98.2 F 09/19/25 11:24 Pulse Rate 70 09/19/25 11:24 Respiratory Rate 18 09/19/25 11:24 Blood Pressure 105/70 09/19/25 11:24 Pulse Oximetry 94 09/19/25 11:24 Oxygen Delivery Me thod Room Air 09/19/25 11:24 MDM - Wound/Laceration Medical Decision Making Fecal drainage from the area of the wound that is dehisced. CT shows some localized inflammation and cellulitis with some cellulitis and extending into the intra-abdominal area with fat stranding around some adjacent loops of bowel underlying the area of concern of the incision. Discussed with general surgery will admit. 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 Admit to hospitalist consult general surgery orders written Medical Records I reviewed the patient's medical records. Lab Data I reviewed the patient's lab results. 09/19/25 03:37 09/19/25 03:37 Radiology Impressions Abdomen/Pelvis CT 09/18/25 10:46 IMPRESSION: 1. Prior cholecystectomy with pneumobilia and RIGHT hemicolectomy. Anastomosis appears stable. 2. Previously described fluid collection in the RIGHT lower lateral abdomen appears improved and appears to be resolving. 3. In the area of concern, similar-appearing fluid and air along the incision site extending into the ventral abdomen. Fluid in this area has slightly improved and locules of air have slightly increased. Recommend correlation for cellulitis and infection with dehiscence along the skin site. No focal drainable abscess in this area 4. No other significant interval changes Laboratory Results WBC 8.57 10^3/uL (3.29-11.43) 09/18/25 10:10 RBC 3.32 10^6/uL (3.85-5.65) L 09/18/25 10:10 Hgb 10.50 g/dL (11.27-16.99) L 09/18/25 10:10 Hct 32.0 % (37-53) L 09/18/25 10:10 MCV 96.4 fl (82-101) 09/18/25 10:10 MCH 31.6 pg (27-33) 09/18/25 10:10 MCHC 32.8 g/dL (30-55) 09/18/25 10:10 RDW 18.6 % (12.1-15.1) H 09/18/25 10:10 Plt Count 213 10^3/cmm (157-399) 09/18/25 10:10 MPV 10.3 fL (7.4-10.4) 09/18/25 10:10 Neut % (Auto) 74.2 % 09/18/25 10:10 Lymph % (Auto) 12.3 % 09/18/25 10:10 [place] % (Auto) 10.3 % 09/18/25 10:10 Eos % (Auto) 2.3 % 09/18/25 10:10 Baso % (Auto) 0.5 % 09/18/25 10:10 Neut # (Auto) 6.37 10^3/uL (1.8-7.7) 09/18/25 10:10 Lymph # (Auto) 1.1 10^3/uL (0.8-4.8) 09/18/25 10:10 [place] # (Auto) 0.9 10^3/uL (0.2-0.9) 09/18/25 10:10 Eos # (Auto) 0.2 10^3/uL (0.0-0.8) 09/18/25 10:10 Baso # (Auto) 0.0 10^3/uL (0.0-0.1) 09/18/25 10:10 Nucleated RBC % (auto) 0 % 09/18/25 10:10 Nucleated RBCs # 0.0 /100WBC 09/18/25 10:10 Sodium 139 mmol/L (136-145) 09/18/25 11:47 Potassium 4.5 mmol/L (3.5-5.1) 09/18/25 11:47 Chloride 105 mmol/L (98-107) 09/18/25 11:47 Carbon Dioxide 21 mmol/L (22-29) L 09/18/25 11:47 Anion Gap 17.5 (5-19) 09/18/25 11:47 BUN 17 mg/dL (8-23) 09/18/25 11:47 Creatinine 0.6 mg/dL (0.7-1.2) L 09/18/25 11:47 GFR Calculation Not Reportable 09/18/25 11:47 Glucose 138 mg/dL (65-115) H 09/18/25 11:47 Estimat Average Glucose 128 09/18/25 10:10 Hemoglobin A1c 6.1 % (4.0-6.0) H 09/18/25 10:10 Calculated Osmolality 292 mOsm/kg (285-295) 09/18/25 11:47 Lactic Acid 1.6 mmol/L (0.5-2.2) 09/18/25 11:02 Calcium 8.5 mg/dL (8.5-10.5) 09/18/25 11:47 Total Bilirubin 0.3 mg/dL (0.15-1.2) 09/18/25 11:47 AST 31 U/L (0-40) 09/18/25 11:47 ALT 31 U/L (0-41) 09/18/25 11:47 Alkaline Phosphatase 89 U/L (40-130) 09/18/25 11:47 Total Protein 8.0 g/dL (6.6-8.7) 09/18/25 11:47 Albumin 2.7 g/dL (3.5-5.2) L 09/18/25 11:47 Globulin 5.3 g/dL (1.3-4.6) H 09/18/25 11:47 Triglycerides 102 mg/dL (0-150) 09/18/25 11:36 Cholesterol 102 mg/dL (0-200) 09/18/25 11:36 LDL Cholesterol, Calc 59 mg/dL (50-129) 09/18/25 11:36 HDL Cholesterol 23 mg/dL (60-100) L 09/18/25 11:36 LDL/HDL Ratio 2.57 RATIO (0.00-3.22) 09/18/25 11:36 Cholesterol/HDL Ratio 4.43 mg/dL (1.0-5.00) 09/18/25 11:36 Lipase 181 U/L (13-60) H 09/18/25 11:47 Procalcitonin 0.09 ng/mL (0-0.5) 09/18/25 11:36 TSH 1.23 uIU/mL (0.27-4.20) 09/18/25 11:36 All radiology interpretation(s) finalized by discharge Discharge Plan Discharge Patient Disposition: Admitted As Inpatient Admit Provider: Jose Laureano Clinical Impression: Enterocutaneous fistula, Draining postoperative wound, Anemia Condition: Stable Coding Level of Care Code ED Fish House Worker for Toño Carlos
--- NOTE | 2025-09-18 10:46 | CT_ITS ---
WS: [id number] CT ABDOMEN PELVIS TECHNIQUE: Contrast-enhanced CT of the abdomen and pelvis with coronal and sagittal reformatted images. CLINICAL INFORMATION: abd pain COMPARISON: 09/04/2025 DLP: 1616.[address] scans at [facility] use at least one of these dose optimization techniques: automated exposure control; mA and/or kV adjustment per patient size (includes targeted exams where dose is matched to clinical indication); or iterative reconstruction. FINDINGS: Cholecystectomy. RIGHT hemicolectomy with anastomosis. Previously described fluid collection in the RIGHT lower quadrant has decreased in size today and appears to be resolving. Persistent induration and edema in the RIGHT abdomen and mesentery. In the area of concern, small amount of air and fluid along the incision site extending into the anterior abdomen similar to previous with a few locules of air. Recommend correlation for cellulitis and infection along the incision site. The few locules of air increased compared to previous. No drainable abscess in this area. Anastomosis appears stable. Stable pneumobilia. No other changes. CT/CT abdomen pelvis w con* [id number] IMPRESSION: 1. Prior cholecystectomy with pneumobilia and RIGHT hemicolectomy. Anastomosis appears stable. 2. Previously described fluid collection in the RIGHT lower lateral abdomen ap pears improved and appears to be resolving. 3. In the area of concern, similar-appearing fluid and air along the incision site extending into the ventral abdomen. Fluid in this area has slightly improv ed and locules of air have slightly increased. Recommend correlation for cellul itis and infection with dehiscence along the skin site. No focal drainable absc ess in this area 4. No other significant interval changes
--- OUTSIDE RECORDS SUMMARY | 2025-09-18 11:24 | XMS_ITS | Encounter Summary ---
Author Organization [employer] [facility] Address [address] [place] [address] Care Team Providers Care Music Therapy Teacher Name Role Phone Unavailable Primary Care Provider Unavailabl e Encounter Details Date Type Department Care Team (Latest Contact Info) Description 02/09/1999 Outpatient Historical [facility] Martin Whitaker MD [address] [place] [address] Pain in limb (Primary Dx); Arthropathy, unspecified, site unspecified Social History Tobacco Use Types Packs/Day Years Used Date Smoking Tobacco: Never Assessed Sex and Gender Information Value Date Recorded Sex Assigned at Not on file 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
--- OUTSIDE RECORDS SUMMARY | 2025-09-18 11:24 | XMS_ITS | Encounter Summary ---
Author Organization [employer] [facility] Address [address] [place] [address] Care Team Providers Care Customer Strategy Manager Name Role Phone Unavailable Primary Care Provider Unavailabl e Encounter Details Date Type Department Care Team (Latest Contact Info) Description 09/09/1999 Outpatient Historical [facility] Jose Angel Martinez, Ermias Peñaloza MD [address] [place] [phone] Lumbago (Primary Dx) Social History Tobacco Use Types Packs/Day Years Used Date Smoking Tobacco: Never Assessed Sex and Gender Information Value Date Recorded Sex Assigned at Not on file 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
--- OUTSIDE RECORDS SUMMARY | 2025-09-18 11:25 | XMS_ITS | Encounter Summary ---
Author Organization [employer] [facility] Address [address] [place] [address] Care Team Providers Care Clinical Trial Specialist Name Role Phone Unavailable Primary Care Provider Unavailabl e Encounter Details Date Type Department Care Team (Latest Contact Info) Description 05/08/1999 Outpatient Historical [facility] Jose Angel Martinez, Ermias Peñaloza MD [address] [place] [phone] Calcaneal spur (Primary Dx); Obesity, unspecified Social History Tobacco Use Types Packs/Day Years Used Date Smoking Tobacco: Never Assessed Sex and Gender Information Value Date Recorded Sex Assigned at Not on file 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
--- OUTSIDE RECORDS SUMMARY | 2025-09-18 11:25 | XMS_ITS | Continuity of Care Document ---
Author Organization [employer] [facility] ([facility]) Address [address] [place] [address] Insurance Providers Payer Plan Claims Address Claims Phone Policy Number Group Number Relation Employer Guarantor Name Guarantor Guarantor Address Guarantor Phone [employer] [id number] Self Kenneth Scott [address] [place] [id number] Medic are Part B [address], [place] [id number] Self Kenneth Scott [address] [place] [id number] MEDIP [place] SUPPL EMENT [address] [id number] Self Kenneth Scott [address] [place] [id number] Problems Condition ICD9 code ICD10 code SNOMED [...] peripheral angiopathy without gangrene E11.51 09/10/2025 Active nursing home (current) use of oral hypoglycemic drugs [...] Interp. Refere nce Range Tuberculosis reaction wheal[ 22410-1] Tuberculosis reaction wheal [91593-5] 09/12/2025 09:06 AM 0 mm NEG Allergies, [...] oral 1.0 6.0 h 2024 Active Afluria 0221-2520 (3yr up)(PF) (flu vac gq0929-77 36mos up(pf)) 45 mcg (15 mcg x 3)/0.5 m syringe (Afluria 3736-1937 (3yr up)(PF) (flu vac 36mos up(pf))) 0.5ml, [...] PM Temperature (8310-5) 98 [degF] Oxygen Saturation (63916-5) 99 % Respiratory Rate (9279-1) 16 /min Heart Rate (8867-4) 87 /min Blood Pressure Systolic (8480-6) 112 mm[Hg] Blood Pressure Diastolic (8462-4) 74 mm[Hg] Body Height (8302-2) 68 [in_us] Body Weight (10010-0) 236 [lb_av] Body Mass Index (13021-2) 35.88 kg/m2 09/11/2025 08:26 AM Temperature (8310-5) 98.7 [degF] Oxygen Saturation (70851-6) 96 % Respiratory Rate (9279-1) 18 /min Heart Rate (8867-4) 75 /min Blood Pressure Systolic (8480-6) 124 mm[Hg] Blood Pressure Diastolic (8462-4) 52 mm[Hg] Body Weight (65857-2) 236.2 [lb_av] Body Mass Index (13016-2) 35.91 kg/m2 09/11/2025 08:59 PM Oxygen Saturation (08643-0) 95 % Respiratory Rate (9279-1) 17 /min Heart Rate (8867-4) 64 /min Blood Pressure Systolic (8480-6) 117 mm[Hg] Blood Pressure Diastolic (8462-4) 59 mm[Hg] 09/12/2025 08:33 AM Body Weight (27487-1) 235.8 [lb_av ] Body Mass Index (01673-3) 35.85 kg/m2 09/12/2025 12:07 PM Temperature (8310-5) 97.8 [degF] Oxygen Saturation (48391-5) 98 % Respiratory Rate (9279-1) 18 /min Heart Rate (8867-4) 65 /min Blood Pressure Systolic (8480-6) 136 mm[Hg] Blood Pressure Diastolic (8462-4) 91 mm[Hg] 09/13/2025 03:29 AM Temperature (8310-5) 97 [degF] Oxygen Saturation (27073-6) 95 % Respiratory Rate (9279-1) 16 /min Heart Rate (8867-4) 88 /min Blood Pressure Systolic (8480-6) 134 mm[Hg] Blood Pressure Diastolic (8462-4) 66 mm[Hg] 09/13/2025 10:20 AM Temperature (8310-5) 98.5 [degF] Oxygen Saturation (74285-8) 96 % Respiratory Rate (9279-1) 15 /min Heart Rate (8867-4) 80 /min Blood Pressure Systolic (8480-6) 130 mm[Hg] Blood Pressure Diastolic (8462-4) 74 mm[Hg] 09/13/2025 03:08 PM Body Weight (96843-2) 236 [lb_av] Body Mass Index (01943-3) 35.88 kg/m2 09/13/2025 11:45 PM Temperature (8310-5) 98 [degF] Oxygen Saturation (47323-1) 95 % Respiratory Rate (9279-1) 16 /min Heart Rate (8867-4) 70 /min Blood Pressure Systolic (8480-6) 120 mm[Hg] Blood Pressure Diastolic (8462-4) 78 mm[Hg] 09/14/2025 08:07 AM Temperature (8310-5) 100.2 [degF] Oxygen Saturation (88990-6) 93 % Respiratory Rate (9279-1) 17 /min Heart Rate (8867-4) 79 /min Blood Pressure Systolic (8480-6) 119 mm[Hg] Blood Pressure Diastolic (8462-4) 64 mm[Hg] 09/14/2025 11:50 PM Temperature (8310-5) 97 [degF] Oxygen Saturation (12160-9) 96 % Respiratory Rate (9279-1) 16 /min Heart Rate (8867-4) 77 /min Blood Pressure Systolic (8480-6) 123 mm[Hg] Blood Pressure Diastolic (8462-4) 88 mm[Hg] 09/15/2025 10:34 AM Respiratory Rate (9279-1) 18 /min Blood Pressure Systolic (8480-6) 120 mm[Hg] Blood Pressure Diastolic (8462-4) 71 mm[Hg] 09/15/2025 10:33 AM Heart Rate (8867-4) 84 /min 09/15/2025 10:36 AM Oxygen Saturation (46479-2) 98 % 09/15/2025 10:32 AM Temperature (8310-5) 98.6 [degF] 09/15/2025 11:03 PM Temperature (8310-5) 98 [degF] Oxygen Saturation (35018-6) 96 % Respiratory Rate (9279-1) 16 /min Heart Rate (8867-4) 80 /min Blood Pressure Systolic (8480-6) 122 mm[Hg] Blood Pressure Diastolic (8462-4) 77 mm[Hg] 09/16/2025 10:55 AM Oxygen Saturation (03508-8) 100 % Blood Pressure Systolic (8480-6) 113 mm[Hg] Blood Pressure Diastolic (8462-4) 65 mm[Hg] 09/16/2025 10:54 AM Temperature (8310-5) 97.4 [degF] Respiratory Rate (9279-1) 18 /min Heart Rate (8867-4) 52 /min 09/16/2025 03:51 PM Body Weight (96587-6) 236.1 [lb_av ] Body Mass Index (73573-1) 35.89 kg/m2 09/17/2025 08:25 AM Temperature (8310-5) 98.2 [degF] Oxygen Saturation (66561-3) 96 % Respiratory Rate (9279-1) 18 /min Heart Rate (8867-4) 82 /min Blood Pressure Systolic (8480-6) 120 mm[Hg] Blood Pressure Diastolic (8462-4) 62 mm[Hg] 09/17/2025 04:53 AM Temperature (8310-5) 97.5 [degF] Oxygen Saturation (81856-8) 96 % Respiratory Rate (9279-1) 16 /min Heart Rate (8867-4) 88 /min Blood Pressure Systolic (8480-6) 116 mm[Hg] Blood Pressure Diastolic (8462-4) 57 mm[Hg] 09/18/2025 02:58 AM Temperature (8310-5) 98 [degF] Oxygen Saturation (49197-1) 96 % Respiratory Rate (9279-1) 18 /min Heart Rate (8867-4) 80 /min Blood Pressure Systolic (8480-6) 120 mm[Hg] Blood Pressure Diastolic (8462-4) 64 mm[Hg] Social History No smoking Hx information available Encounters Type CPT Code Date Location Provider Indication s encounter report 09/10/2025 12:20 PM Yadira Colin DO 01 Advance Directives Directive Description Verification Date Supporting Document(s) Resuscitation
--- OUTSIDE RECORDS SUMMARY | 2025-09-18 11:26 | XMS_ITS | Encounter Summary ---
Author Organization [employer] [facility] Address [address] [place] [address] Care Team Providers Care Blasting Cap Assembler Name Role Phone Unavailable Primary Care Provider Unavailabl e Encounter Details Date Type Department Care Team (Latest Contact Info) Description 04/08/1999 Outpatient Historical [facility] Jose Angel Martinez, Ermias Peñaloza MD [facility] [place] [address] Peripheral vascular disease, unspecified (Primary Dx); Calcaneal spur; Osteoarthrosis, unspecified whether generalized or localized, unspecified site; Obesity, unspecified Social History Tobacco Use Types Packs/Day Years Used Date Smoking Tobacco: Never Assessed Sex and Gender Information Value Date Recorded Sex Assigned at Not on file 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
--- OUTSIDE RECORDS SUMMARY | 2025-09-18 11:26 | XMS_ITS | Encounter Summary ---
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
--- OUTSIDE RECORDS SUMMARY | 2025-09-18 11:26 | XMS_ITS | Encounter Summary ---
Author Organization [employer] [facility] Address [address] [place] [address] Care Team Providers Care Security And Compliance Project Manager Name Role Phone Unavailable Primary Care Provider Unavailabl e Encounter Details Date Type Department Care Team (Latest Contact Info) Description 09/07/1999 Outpatient Historical [facility] Martin Whitaker MD [address] [place] [address] Lumbago (Primary Dx); Mononeuritis of unspecified site Social History Tobacco Use Types Packs/Day Years Used Date Smoking Tobacco: Never Assessed Sex and Gender Information Value Date Recorded Sex Assigned at Not on file 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
--- OUTSIDE RECORDS SUMMARY | 2025-09-18 11:30 | XMS_ITS | Encounter Summary ---
Author Organization [employer] [facility] Address [address] [place] [address] Care Team Providers Care Station Detective Name Role Phone Unavailable Primary Care Provider Unavailabl e Encounter Details Date Type Department Care Team (Latest Contact Info) Description 01/05/2000 Outpatient Historical [facility] Martin Whitaker MD [address] [place] [address] Enthesopathy of unspecified site (Primary Dx) Social History Tobacco Use Types Packs/Day Years Used Date Smoking Tobacco: Never Assessed Sex and Gender Information Value Date Recorded Sex Assigned at Not on file 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
--- OUTSIDE RECORDS SUMMARY | 2025-09-18 11:30 | XMS_ITS | Encounter Summary ---
Author Organization [employer] [facility] Address [address] [place] [address] Care Team Providers Care Tree Girdler Name Role Phone Unavailable Primary Care Provider Unavailabl e Encounter Details Date Type Department Care Team (Latest Contact Info) Description 09/10/1999 Outpatient Historical [facility] Jose Angel Martinez, Ermias Peñaloza MD [address] [place] [phone] Backache, unspecified (Primary Dx) Social History Tobacco Use Types Packs/Day Years Used Date Smoking Tobacco: Never Assessed Sex and Gender Information Value Date Recorded Sex Assigned at Not on file 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
--- OUTSIDE RECORDS SUMMARY | 2025-09-18 11:30 | XMS_ITS | Clinical Summary ---
Author Organization [email or web address] Address [address] 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
--- OUTSIDE RECORDS SUMMARY | 2025-09-18 11:30 | XMS_ITS | Data Portability ---
Author Organization 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 [email or web address] Not available 05/30/2025 10:47:33 Plan of Treatment Reminders Order Date Submit Date Provider Last Modified By Organization Details Last Modified Time Details Appointments LAB 2024 07:00A M LAB Not available Not available Not available RECHEC K 2024 09:20A M Huang Sanchez MD Not available Not available Not available Lab CMP, serum or plasma 2024 025 [facility], [address], [place], [address], 06/20/2025 10:21:05 lipid panel, blood 2024 025 [facility], [address], [address], [place], [address], 06/20/2025 10:21:07 CBC 2024 025 [facility], [address], [address], [place], [address], 06/20/2025 08:49:33 microa lbumin /creat inine, mass ratio, urine 2024 025 [facility], [address], [address] [place], [address], 06/21/2025 08:39:43 hemogl obin A1C/he moglob in total, QN, blood 2024 025 [facility], [address], [address], [place], [address], 06/20/2025 09:14:45 Referral None record ed. Procedures None record ed. Surgeries None record ed. Imaging None record ed. Medication Orders methot rexate sodium 2.5 mg tablet 2024 025 [facility] #[id number], [address], [facility] [address], [place], [address], 06/25/2025 09:47:19 flutic asone propio myke 50 mcg/ac tuatio n nasal spray, suspen ramirez [address]/Pharmacy #[id number], [address], [facility] [address], [place], [address], 06/17/2025 14:04:20 benzon atate 200 mg capsul e [address]/Pharmacy #[id number], [address], [address], [place], [address], 06/17/2025 14:04:21 methot rexate sodium 2.5 mg tablet 2024 025 [facility] #[id number], [address], [address], [place], [address], 05/30/2025 10:45:33 predni sone 20 mg tablet 2024 025 [email or web address] #[id number], [address], [address], [place], [address], 06/25/2025 09:10:37 Patient TargetsNo targets recorded. Patient Instructions Encounter Date Encounter Id Patient Instructions Last Modified By Organization Details Last Modified Time 08/21/2025 [id number] Recommend ER [email or web address] Not available 09:36:30 Hx colon rupture [email or web address] Not available 08/21/2025 09:36:44 Reason for Referral None Reported. Results Created Date Observation Date Name Description Value Unit Range Abnormal Flag Note LastModifiedBy Organization Detail LastModifiedTime 06/20/2006/20/2025 CBC WBC 6.4 x10 4.5-10 .5 Not Available [facility] [address], [place], [address], 06/20/2025 08:49:33 06/20/2006/20/2025 CBC RBC 4.60 x10 4.30-5 .90 Not Available [facility] [address], [place], [address], 06/20/2025 08:49:33 06/20/2006/20/2025 CBC HGB 14.1 g/dL 13.5-1 8.0 Not Available [facility] [address], [place], [address], 06/20/2025 08:49:33 06/20/2006/20/2025 CBC HCT 45.2 % 35.0-6 0.0 Not Available [facility] [address], [place], [address], 06/20/2025 08:49:33 06/20/2006/20/2025 CBC MCV 98.3 fL 80.0-9 9.9 Not Available [facility] [address], [place], [address], 06/20/2025 08:49:33 06/20/20 25 06/20/2025 CBC MCH 30.7 pg 27.0-3 2.0 Not Available [facility] [address] [facility] 1, [place], [address], 06/20/2025 08:49:33 06/20/20 25 06/20/2025 CBC MCHC 31.3 g/dL 32.0-3 6.0 low Not Available [facility] [address] [facility] [address], [place], [address], 06/20/2025 08:49:33 06/20/20 25 06/20/2025 CBC RDW 14.8 % 11.5-1 4.5 high Not Available [facility] [address] [facility] [address], [place], [address], 06/20/2025 08:49:33 06/20/20 25 06/20/2025 CBC plt 157.3 x10 150.0- 451.0 Not Available [facility] [address] [facility] [address], [place], [address], 06/20/2025 08:49:33 06/20/20 25 06/20/2025 CBC lymphocytes % 14.6 % 20.0-5 0.0 low Not Available [facility] [address] [facility] [address], [place], [address], 06/20/2025 08:49:33 06/20/20 25 06/20/2025 CBC granulcytes % 70.5 % 30.0-7 0.0 high Not Available [facility] [address] [facility] [address], [place], [address], 06/20/2025 08:49:33 06/20/20 25 06/20/2025 CBC monocytes % 10.1 % 2.0-16 .0 Not Available [facility] [address], [place], [address], 06/20/2025 08:49:33 06/20/2006/20/2025 CBC granulcytes# 4.5 x10 Not Tiffanie ilable [facility] [address] [facility], [place], [address], 06/20/2025 08:49:33 06/20/2006/20/2025 CBC lymphocytes # 0.9 x10 Not Available [facility] [address] [facility], [place], [address], 06/20/2025 08:49:33 06/20/2006/20/2025 CBC monocytes # 0.7 x10 Not Avai lable [facility] [address] [address], [place], [address], 06/20/2025 08:49:33 06/20/2006/20/2025 HBA1C hemaglobin A1C 6.6 4.2-6. 5 high Not Available [facility] [address] [address], [place], [address], 06/20/2025 09:14:45 06/20/2006/20/2025 CMP (MALE ) glucose 126.0 mg/dL 60.0-9 9.0 high Not Available [facility] [address] [address], [place], [address], 06/20/2025 10:21:04 06/20/20 25 06/20/2025 CMP (MALE ) BUN (blood urea nitrogen) 12.0 mg/dL 10.0-2 6.0 Not Available [facility] [address] [facility] [address] [address], [place], [address], 06/20/2025 10:21:04 06/20/20 25 06/20/2025 CMP (MALE ) creatinine (serum) 0.8 mg/dL 0.4-1. 5 Not Available [facility] [address] [facility] [address], [place], [address], 06/20/2025 10:21:04 06/20/20 25 06/20/2025 CMP (MALE ) BUN/creatini ne ratio 15.00 ratio Not Available [facility] [address] [facility], [place], [address], 06/20/2025 10:21:04 06/20/20 25 06/20/2025 CMP (MALE ) eGFR calculated 100.4 Not Available [facility] [address] [facility] [address], [place], [address], 06/20/2025 10:21:04 06/20/20 25 06/20/2025 CMP (MALE ) total protein 7.3 g/dL 6.0-8. 5 Not Available [facility] [address] [facility], [place], [address], 06/20/2025 10:21:04 06/20/20 25 06/20/2025 CMP (MALE ) total bilirubin 0.9 mg/dL 0.2-1. 3 Not Available [facility] [address] [facility], [place], [address], 06/20/2025 10:21:04 06/20/20 25 06/20/2025 CMP (MALE ) albumin 3.8 g/dL 3.5-5. 5 Not Available [facility] [address] [facility], [place], [address], 06/20/2025 10:21:04 06/20/20 25 06/20/2025 CMP (MALE ) globulin 3.5 calc Not Available [facility] [address] [facility] 1, [place], [address], 06/20/2025 10:21:04 06/20/20 25 06/20/2025 CMP (MALE ) AST (SGOT) 30.0 U/L 0.0-46 .0 Not Available [facility] [address] [facility] [address], [place], [address], 06/20/2025 10:21:04 06/20/20 25 06/20/2025 CMP (MALE ) altv (SGPT) 21.0 U/L 13.0-6 9.0 normal Not Available [facility] [address] [facility] 1, [place], [address], 06/20/2025 10:21:04 06/20/20 25 06/20/2025 CMP (MALE ) A/G ratio 1.1 ratio Not Available [facility] [address] [facility] 1, [place], [address], 06/20/2025 10:21:04 06/20/20 25 06/20/2025 CMP (MALE ) ALP phos 79.0 U/L 30.0-1 40.0 normal Not Available [facility] [address] [facility] 1, [place], [address], 06/20/2025 10:21:04 06/20/20 25 06/20/2025 CMP (MALE ) calcium 9.4 mg/dL 8.4-10 .5 Not Available [facility] [address] [facility] 1, [place], [address], 06/20/2025 10:21:04 06/20/20 25 06/20/2025 CMP (MALE ) sodium 141.0 mmol/ L 136.0- 145.0 Not Available [facility] [address] [facility] 1, [place], [address], 06/20/2025 10:21:04 06/20/20 25 06/20/2025 CMP (MALE ) potassium 4.5 mmol/ L 3.5-5. 1 Not Available [facility] [address] [facility] [address], [place], [address], 06/20/2025 10:21:04 06/20/20 25 06/20/2025 CMP (MALE ) chloride 105.0 mmol/ L 98.0-1 10.0 normal Not Available [facility] [address] [facility], [place], [address], 06/20/2025 10:21:04 06/20/20 25 06/20/2025 CMP (MALE ) C02 29.0 mmol/ L 22.0-3 1.0 Not Available [facility] [address] [facility], [place], [address], 06/20/2025 10:21:04 06/20/20 25 06/20/2025 CMP (MALE ) anion gap 7.0 calc Not Available [facility] [address] [facility], [place], [address], 06/20/2025 10:21:04 06/20/20 25 06/20/2025 CMP (MALE ) osmolality 292.3 calc Not Available [facility] [address] [facility], [place], [address], 06/20/2025 10:21:04 06/20/20 25 06/20/2025 LIPID PROFI LE (MALE ) cholesterol 153.0 mg/dL 0.0-20 0.0 Not Available [facility] [address] [facility], [place], [address], 06/20/2025 10:21:07 06/20/20 25 06/20/2025 LIPID PROFI LE (MALE ) trig 113.0 mg/dL 0.0-15 0.0 Not Available [facility] [address] [facility], [place], [address], 06/20/2025 10:21:07 06/20/20 25 06/20/2025 LIPID PROFI LE (MALE ) HDL - direct 42.0 mg/dL >40.0 Not Available [facility] [address] [facility] 1, [place], [address], 06/20/2025 10:21:07 06/20/20 25 06/20/2025 LIPID PROFI LE (MALE ) VLDL - direct 22.6 mg/dL Not Available [facility] [address] [facility] [address], [place], [address], 06/20/2025 10:21:07 06/20/20 25 06/20/2025 LIPID PROFI LE (MALE ) LDL - direct 88.4 mg/dL 0.0-13 0.0 Not Available [facility] [address] [facility] 1, [place], [address], 06/20/2025 10:21:07 06/20/20 25 06/21/2025 ALBUM IN, RANDO M URINE W/CRE ATINI NE creatinine, random urine 158 mg/dL 20-320 normal Not Available [facility] [address] [place], [address], 06/21/2025 08:39:43 06/20/2006/21/2025 ALBUM IN, RANDO M URINE W/CRE ATINI NE albumin, urine 0.6 mg/dL see note: normal Refer ence Range : Refer ence Range Not estab lishe d Not Available [facility] [address] [place], [address], 06/21/2025 08:39:43 06/20/20 25 06/21/2025 ALBUM IN, RANDO M URINE W/CRE ATINI NE albumin/crea tinine ratio, random urine 4 mg/g_ creat <30 normal The ADA defin es abnor malit ies in album in excre tion as follo ws: Album inuri a Categ ory Resul t (mg/g creat inine ) Lakisha l to Mildl y incre ased <30 Moder ately incre ased 30-29 9 Sever lee incre ased > OR = 300 The ADA recom mends that at least two of three speci mens colle cted withi n a 3-6 month perio d be abnor mal befor e consi erlin g a patie nt to be withi n a diagn ostic categ ory. Not Available [facility] [address] [place], [address], 06/21/2025 08:39:43 Result Notes None recorded. Problems Name Problem SNOMED Code Status Onset Date Resolution Date Notes Provider Name and Address Organization Details Recorded Time Appendect diana Completed 202203/05/2025 [facility] 09:41:30 Arthritis 4859851 Active 2022 [facility] 5 09:41:32 Cholecyst ectomy Completed 202203/05/2025 Cholec ystect diana; 9 @[facility] 5 09:42:40 Colonosco py Completed 202203/05/2025 Colono scopy; [facility] on [address] [facility] L.L.CJoseph 5 09:43:49 Benign hypertens ion 99791679 Active 2022 [facility] 5 09:42:32 Low back pain 360420576 Active 2022 [facility] 5 09:43:54 Diabetes mellitus 46872225 Active 2023 LAISHA aguilera, [facility] 09:43:52 Tinea cruris 498928152 Active 2023 LAISHA aguilera, [facility] 09:44:01 Obstructi ve sleep apnea syndrome 72022533 Active 2024 TREBA NEUSCHWAN CHRISTO null, [facility] 5 08:49:36 Periphera l vascular disease 897304569 Active 2024 TREBA NEUSCHWAN CHRISTO null, [facility] 08:49:42 Atopic dermatiti s 68019486 Active 2024 TREBA NEUSCHWAN CHRISTO null, [facility] 08:49:32 Joint pain in right hand [id number] 9108 Active 2024 TREBA NEUSCHWAN CHRISTO null, [facility] 12:41:46 Breathing painful 41338200 Active 2024 TREBA NEUSCHWAN CHRISTO null, [facility] 12:41:43 Pneumonia 131206794 Completed 202405/23/2025 TREBA NEUSCHWAN CHRISTO null, [facility] 12:41:52 Anti-nucl ear factor detected 585131538 Active 2024 Huang Sanchez MD [address] [place] [address], [address] , [facility] 14:24:52 Autoimmun e disease 01526610 Active 2024 Huang Sanchez MD [address] [place] [address] [place], [address], [facility], L.LCarmelo 10:29:40 Problem Notes None recorded. Procedures Surgical History Date Name Laterality Status Provider Name and Address Organization Details Recorded Time 07/13/20 23 jr magalys garcia completed Huang Sanchez MD [address] [place], [address], [facility], Valeriy 07/16/2023 16:16:59 05/30/20 23 jr magalys garcia completed Huang Sanchez MD [address] [place], [address], [facility], Valeriy 05/30/2023 15:46:19 04/07/20 23 Colonoscopy completed [facility], Valeriy 04/07/2023 16:38:08 09/05/20 09 cholecystectomy completed [facility], L.LJosephCJoseph 03/05/2025 09:42:49 10/28/20 06 colonoscopy completed [facility], L.LJosephCJoseph 03/05/2025 09:43:33 appendectomy completed [facility], L.LJosephCJoseph 03/05/2025 09:41:45 Imaging Results None recorded. Procedure Notes None recorded. Medical Equipment None Reported. Allergies No known drug allergies Medications Name Sig Start Date Stop Date Status Note LastModified by Organization Details LastModified Time metformin 500 mg tablet TAKE 1 TABLET BY MOUTH EVERY DAY 2024 active vo JR/tn Not Available Not Available Not Avai lable azithromy patrick 250 mg tablet TAKE 2 TABLETS BY MOUTH TODAY, THEN TAKE 1 TABLET DAILY FOR 4 DAYS DIRECTED 05/23 completed Not Available Not Available Not Available tizanidin e 4 mg tablet TAKE 1 TABLET BY MOUTH THREE TIMES A DAY NEEDED 03/06 completed vo JR/tn Not Available Not Available Not Available benzonata te 200 mg capsule TAKE 1 CAPSULE 3 TIMES A DAY BY ORAL ROUTE NEEDED, FOR COUGH. active Not Available Not Available No t Available prednison e 20 mg tablet TAKE 1 TABLET BY MOUTH EVERY DAY 06/25 completed Not Available Not Available Not Available potassium chloride ER 10 mEq tablet,ex tended release Take 1 tablet every day by oral route as needed. active Not Available Not Available No t Available simvastat in 40 mg tablet TAKE 1 TABLET BY MOUTH EVERY DAY 2024 active vo JR/tn Not Available Not Available Not Avai lable meloxicam 7.5 mg tablet TAKE 1 TABLET BY MOUTH EVERY DAY FOR 10 DAYS 05/30 completed Not Available Not Available Not Available methotrex ate sodium 2.5 mg tablet Take 5 tablets every week by oral route. 2024 active Not Available Not Available Not Avai lable aspirin 325 mg tablet,de layed release TAKE 1 TABLET BY MOUTH EVERY DAY active Not Available Not Available No t Available triamcino lone acetonide 0.1 % topical ointment APPLY THIN COAT TO AFFECTED AREA TWICE A DAY active Not Available Not Available No t Available diclofena c sodium 75 mg tablet,de layed release Take 1 tablet every day by oral route for 21 days. 05/16 completed Not Available Not Available Not Available folic acid 1 mg tablet TAKE 1 TABLET BY MOUTH EVERY DAY 05/30 completed Not Available Not Available Not Available furosemid e 20 mg tablet TAKE 1 TABLET BY MOUTH EVERY DAY IN THE MORNING NEEDED 03/06 completed Not Available Not Available Not Available hydrocort isone 2.5 % topical ointment APPLY THIN COAT TO AFFECTED AREA TWICE A DAY active Not Available Not Available No t Available fluticaso ne propionat e 50 mcg/actua tion nasal spray,georges pension INSTILL 2 SPRAYS IN EACH NOSTRIL EVERY DAY active Not Available Not Available No t Available clotrimaz ole 1 % topical cream APPLY TO AFFECTED AREA TWICE A DAY IN THE MORNING AND IN THE EVENING active Not Available Not Available No t Available aspirin QD 09/05 completed Recorded 05/10/20 22 8:31AM by Huang Sanchez MD, Office Visit; Refill Quantity : 90; Tablet; Not Available Not Available Not Available furosemid e QAM prn 07/13 completed Recorded 05/10/20 22 8:31AM by Huang Sanchez MD, Office Visit; Refill Quantity : 90; Tablet; Not Available Not Available Not Available metformin QD 07/13 completed Recorded 09/01/20 22 8:45AM by Huang Sanchez MD, Office Visit; Refill Quantity : 90; Tablet; Not Available Not Available Not Available Vitals Date Recorded Body height Body mass index (BMI) Body weight Oxygen saturation Oxygen saturation in Arterial blood by Pulse oximetry Heart rate Respiratory rate Body temperature Systolic And Diastolic Provider Name and Address Organization Details Last Updated DateTime 5 172.72 cm 37.3 kg/m2 146606. 23 g 94 % 94 % 56 /min 18 /min 97.9 [degF] 122/74 mm[Hg] [facility] L.L[facility]CJoseph 5 09:29:48 Date Recorded Body height Body mass index (BMI) Body weight Oxygen saturation Oxygen saturation in Arterial blood by Pulse oximetry Heart rate Body temperature Systolic And Diastolic Provider Name and Address Organization Details Last Updated DateTime 5 172.72 cm 38.5 kg/m2 717602. 57 g 95 % 95 % 79 /min 97.9 [degF] 128/70 mm[Hg] [facility], L.L.CJoseph 5 13:27:01 Date Recorded Body height Body mass index (BMI) Body weight Oxygen saturation Oxygen saturation in Arterial blood by Pulse oximetry Heart rate Respiratory rate Body temperature Systolic And Diastolic Provider Name and Address Organization Details Last Updated DateTime 5 172.72 cm 37.6 kg/m2 259680. 32 g 98 % 98 % 57 /min 18 /min 98 [degF] 120/68 mm[Hg] [facility], L.L.CJoseph 5 09:18:10 Date Recorded Body height Oxygen saturation Oxygen saturation in Arterial blood by Pulse oximetry Heart rate Respiratory rate Body temperature Body mass index (BMI) Body weight Systolic And Diastolic Provider Name and Address Organization Details Last Updated DateTime 172.72 cm 95 % 95 % 77 /min 17 /min 97.9 [degF] 37.1 kg/m2 316025. 94 g 120/70 mm[Hg] SHAD DAVENPORT [facility] 09:07:41 Social History Question Answer Notes LastModified by Organizat ion Details LastModified Time Tobacco Smoking Status Never Smoker ZARIA aguilera [facility] 09/05/2023 08:51:39 Are You Blind Or Do You Have Difficulty Seeing? No Information not available 03/06/2025 Are You Deaf Or Do You Have Serious Difficulty Hearing? No Information not available 03/06/2025 What Was The Date Of Your Most Recent Tobacco Screening? 08/21/2025 [email or web address] Information not available 08/21/2025 What Is Your Relationship Status? Information not available 03/06/2025 Do You Have Difficulty Walking Or Climbing Stairs? No Information not available 03/06/2025 Sex: Unknown Functional Status Question Answer Note LastModified by Organizat ion Details LastModified Time Do you use any illicit or recreational drugs? No [email or web address] Information not available 07/20/2024 Do you or have you ever used any other forms of tobacco or nicotine? No Information not available 03/06/2025 What is your level of alcohol consumption? None [email or web address] Information not available 07/20/2024 Are you currently employed? No Information not available 03/06/2025 Do you have transportation difficulties? No Information not available 03/06/2025 Are you able to walk independently without assistance or assistive devices? [email or web address] Information not available 03/06/2025 Do you have difficulty doing errands alone? No Information not available 03/06/2025 Are you able to care for yourself independently? Yes [email or web address] Information not available 09/05/2023 Do you have difficulty dressing, bathing, grooming, or toileting? No Information not available 03/06/2025 Do you or have you ever used any nicotine-free cigarettes, vape, or chewing tobacco? No [email or web address] Information not available 08/21/2025 Mental Status Question Answer Note LastModified by Organization D etails LastModified Time Do you have difficulty concentrating, remembering or making decisions? No Information no t available 03/06/2025 Family History Nothing Reported Notes:Brother: Lung Cancer; , Diabetes, Hypertension Cancer; father-kind unknown, Coronary Artery Disease, Tuberculosis Sister: Diabetes, Hypertension Medical History Condition Response Coronary Artery Disease N Other N Gout N Kidney Stones N Blood Diseases N Hyperthyroidism N Breast Cancer N Blood Transfusion N Hypothyroidism N Depression N COPD N Lung Disease N Defects or Inherited Disease N Developmental or Behavioral Disorders N Breast Problem N Difficulty Swallowing N Anesthesia Complications N Anxiety Disorder N Meniere's disease N Muscle, Joint, or Bone Problems N Vision or Eye Problems N Arthritis Y Polyps N Infertility N Cancer N Varicosities N Stroke N Endometriosis N Bladder or Kidney Problems N High Cholesterol N Liver Disease N Headaches N Fibromyalgia N Kidney Disease N Allergies/Hayfever N Heart Problems N Ear or Hearing Problems N Hospitalizations N Thyroid Problems N GI Problems N ADD/ADHD N Skin Problems N Eating Disorder N Anemia N Constipation N Mental Illness N Ovarian Cancer N Diabetes N Bedwetting N Seizures/Epilepsy N Tuberculosis N Eczema N Diverticulitis N Abuse/Domestic Violence N Asthma N Reflux/GERD N Hepatitis N Heart Disease N Pulmonary Embolism N Chronic Ear Infections N Pre-Eclampsia N Hypertension Y Chicken Pox N Autism Spectrum Disorder (ASD) N Osteoporosis N Thrombophilias N Immunizations Vaccine Type Date Status Note Provider Nam e and Address Organization Details Recorded Time Influenza, high-dose, quadrivalent, PF 1 completed ZARIA aguilera [facility], L.LJosephCJoseph 05/30/2023 14:58:07 Influenza, high-dose, quadrivalent, PF 2 completed ZARIA aguilera [facility], LJosephLCarmelo 05/30/2023 14:58:07 COVID-19, mRNA, LNP-S, PF, 100 mcg/0.5mL dose or 50 mcg/0.25mL dose 1 completed ZARIA aguilera [facility] 05/30/2023 14:58:07 COVID-19, mRNA, LNP-S, bivalent, PF, 50 mcg/0.5 mL or 25mcg/0.25 mL dose 2 completed ZARIA aguilera, [facility] 05/30/2023 14:58:07 COVID-19, mRNA, LNP-S, PF, 50 mcg/0.5 mL 3 completed Not Available [facility] 06/25/2025 08:43:38 COVID-19, mRNA, LNP-S, PF, 50 mcg/0.5 mL 4 completed Not Available [facility] 06/25/2025 08:43:38 RSV, recombinant, protein subunit RSVpreF, adjuvant reconstituted, 0.5 mL, PF 4 completed Not Available [facility] 06/25/2025 08:43:38 Influenza, split virus, quadrivalent, PF 3 completed LAISHA aguilera, [facility] 09/05/2023 11:16:26 Pneumococcal conjugate PCV20, polysaccharide [id number] conjugate, adjuvant, PF 4 completed Huang Sanchez MD [address] [place] [address], [phone], [facility] 09/10/2024 23:53:06 Influenza, adjuvanted, trivalent, PF 4 completed Huang Sanchez MD [address] [place] [address], [phone], [facility] 09/10/2024 23:53:06 Influenza, split virus, trivalent, preservative 3 completed Not Available [facility] 09/23/2023 11:30:32 Influenza, MDCK, quadrivalent, PF 9 completed Not Available [facility] 09/23/2023 11:30:32 Pneumococcal conjugate PCV 13 9 completed Not Available [facility] 09/23/2023 11:30:32 Influenza, split virus, trivalent, preservative 2 completed Not Available [facility] 09/23/2023 11:30:32 Influenza, split virus, trivalent, preservative 8 completed Not Available [facility] 09/23/2023 11:30:32 Past Encounters Encounter ID Performer Location Encounter Start Date Encounter Closed Date Diagnosis/Indication Diagnosis SNOMED-CT Code Diagnosis ICD10 Code Diagnosis IMO Codes Diagnosis Note [id number] Huang Sanchez MD [facility] ([facility]) [address] [place] [address]671 5 03/02/2023 08:22:36 03/04/2023 11:49:07 Diabetes mellitus 87106440 E11.9 Screening for malignant neoplasm of colon 530104335 Z12.11 Due to his history of DVT, he will continue his aspirin. We discussed the risks and alternativ es to a colonoscop y. We discussed the risks of bleeding, perforatio n, and sedation. He had no further questions and wishes to proceed. Hypercholesterolemia 136 38686 E78.00 Sleep apnea 68664882 G47 .30 [id number] ERICKSON SCHWAB [facility] ([facility]) [address] [place] [address]95[address] 5 05/03/2023 10:21:26 05/03/2023 16:41:29 Pain of left shoulder joint 0436893755 9953267 M25.512 Start meloxicam today. Discussed with patient that this is a suspected rotator cuff injury, however, due to pain, unable to complete shoulder tests on patient. Will send x-ray for over read and will call patient tomorrow with final results. Discussed with patient that he should continue light movements of the shoulder, as immobilizi ng will cause frozen shoulder. Patient verbalized understand ing. Pending radiologis t read, will likely refer to ortho or physical therapy. Reassured patient that due to reproducib le pain, this is no cardiac in nature. If developing severe pain, SOB, HOYT, or chest pain, patient should go to ED. Patient verbalized understand ing. [id number] Huang Sanchez MD [facility] ([facility]) [address] [place] [id number] 5 05/30/2023 14:36:26 05/30/2023 16:14:53 Lesion of skin of left ear 4375255868 7281823 H93.8X2 Lesion of scalp 16383134 91 00 L98.9 Actinic keratosis 540447 007 L57.0 [id number] Huang Sanchez MD [facility] ([facility]) [address] [place] [id number] 5 07/13/2023 08:06:18 07/13/2023 16:48:36 Skin lesion 82436019 L98.9 Rash of groin 3086788414 7596653 R21 Actinic keratosis 323699 007 L57.0 Tinea cruris 309003855 B 35.6 [id number] Huang Sanchez MD [facility] ([facility]) [address] [place] [id number] 5 09/05/2023 08:29:55 09/05/2023 10:12:34 Benign hypertension 03575671 I10 Type 2 abi betes mellitus 29197282 E11.9 Administra tion of influenza vaccine 47814695 Z23 Dry skin dermatitis 2600 50507 L85.3 [id number] Huang Sanchez MD [facility] ([facility]) [address] [place] [address]470 5 09/23/2023 11:30:00 09/23/2023 15:05:59 Low back pain 674974420 M54.50 [id number] MADDISON MCINTYRE [facility] ([facility]) [address] [place] [address] [id number] 5 01/30/2024 10:01:39 01/30/2024 11:29:12 Contusion of left chest wall 7947540367 0703914 S20.212A Discussed heat or ice pack for 10 minutes every 2 hours while awake over a shirt to protect the skin.Perfo rm deep breathing exercises every 2 hours while awake.May take ibuprofen as label directs for discomfort .If you develop sob, wheezing, productive cough, or fever please return for re-eval. Accidental fall 37941104 2 W19.XXXA [id number] Huang Sanchez MD [facility] ([facility]) [address] [place] [id number] 5 02/28/2024 08:02:11 02/28/2024 08:12:29 Type 2 diabetes mellitus 57700160 E11.9 [id number] Huang Sanchez MD [facility] ([facility]) [address] [place] [address] [id number] 5 03/06/2024 09:00:40 03/06/2024 11:26:02 Type 2 diabetes mellitus 55122829 E11.9 Peripheral vascular disease 474026556 I73.9 Hypercholesterolemia 136 63159 E78.00 Obstructiv e sleep apnea syndrome 41051838 G47.33 [id number] LORNA SHRESTHA APRN [facility] ([facility]) [address] [place], [place] [address]34[address] 07/20/2024 10:36:10 07/20/2024 17:58:58 Impacted cerumen 25138335 H61.23 [id number] Huang Sanchez MD [facility] ([facility]) [address] [place], [place] [address] 5 08/27/2024 08:03:36 08/28/2024 10:58:45 Type 2 diabetes mellitus 22783328 E11.9 [id number] Huang Sanchez MD [facility] ([facility]) [address] [place] [address] [id number] 5 09/05/2024 09:05:43 09/05/2024 10:51:23 Diabetes mellitus 55389214 E11.9 Edema of l ower extremity 158042386 R60.0 Tinea cruris 535572719 B 35.6 Cough 76920728 R05.9 Administra tion of influenza vaccine 08563813 Z23 Administra tion of pneumococcal vaccine 50171274 Z23 Prophylact ic immunotherapy 383395149 Z29.11 [id number] MADDISON MCINTYRE [facility] ([facility]) [address] [place] [address] [phone] 5 01/22/2025 09:15:55 01/22/2025 10:06:06 Acute bacterial bronchitis 528037590 J20.9 Discussed use of otc medication s for symptom management .Push oral fluids and rest.If you develop fever, sob, or start feeling worse then return for re-evaluat ion. [id number] Huang Sanchez MD [facility] ([facility]) [address] [place] [address] [id number] 5 02/27/2025 08:01:54 02/27/2025 23:30:02 Diabetes mellitus 23040734 E11.9 Benign hypertension 1072 5009 I10 [id number] Huang Sanchez MD [facility] ([facility]) [address] [place] [address] [id number] 5 03/06/2025 08:49:03 03/06/2025 09:48:15 Benign hypertension 87579224 I10 Diabetes mellitus 505571 09 E11.9 Peripheral vascular disease 524904804 I73.9 Morbid obesity 389758455 E66.01 Obstructiv e sleep apnea syndrome 04072210 G47.33 Tinea cruris 391966061 B 35.6 Atopic dermatitis 822390 01 L20.9 [id number] Huang Sanchez MD [facility] ([facility]) [address] [place] [address] [id number] 5 04/10/2025 08:40:36 04/10/2025 09:39:35 Atopic dermatitis 58892070 L20.9 [id number] MADDISON MCINTYRE [facility] ([facility]) [address] [place] [address] [id number] 5 04/18/2025 14:00:57 04/18/2025 15:32:19 Chest pain on breathing 282693034 R07.1 523039 Costal chondritis 135717 04 M94.0 13354 Well localized area of pain that is reproduced with palpation and deep breathing. CXR normal today with no signs of infiltrate . EKG shows 1st degree AV block. No prior EKG for comparison . pt has no dizziness or symptoms with this.Discu ssed applicatio n of ice or heating pad for 10 minutes every 2 hours while awake. Will start on diclofenac with food. [id number] Huang Sanchez MD [facility] ([facility]) [address] [place] [address] [id number] 5 04/24/2025 13:03:49 04/25/2025 11:04:49 Pneumonia 889336797 J18.9 6426350298 Breathing painful 816114 01 R07.1 1253322 Joint pain in right hand 7381700856 996659 M25.541 000048 [id number] Huang Sanchez MD [facility] ([facility]) [address] [place] [address] [id number] 5 05/23/2025 12:34:48 05/23/2025 14:34:07 Joint pain in right hand 8648236686 343005 M25.541 917017 Pain of mu ltiple joints 85026696 M25.50 273597 Anti-nucle ar factor detected 506216303 R76.8 1353655 [id number] Orlin Santos DO [facility] ([facility]) [address] [place] [address] [id number] 5 05/27/2025 17:12:42 05/27/2025 18:34:11 Eruption caused by drug 48806486 L27.0 02159 concern for, from MTX. pt to stop this and the folic acid. If worsening well get labs to eval blood counts. If any severe bleeding, go directly to ER. Otherwise he is to keep appt with PCP in 1-2 wks. [id number] Huang Sanchez MD [facility] ([facility]) [address] [place] [address] [phone] 5 05/30/2025 08:58:51 05/30/2025 10:52:43 Atopic dermatitis 70177530 L20.9 Pain of mu ltiple joints 02538147 M25.50 172420 Autoimmune disease 11774 009 M35.9 60488 [id number] MADDISON FOLEY [facility] ([facility]) [address] [place] [address] [id number] 5 06/17/2025 13:17:24 06/17/2025 14:06:14 Acute pansinusitis 9101072 J01.40 33012079 Discussed with patient need for conservati ve treatment prior to antibiotic use for symptoms. Increase fluid intake. May use otc meds like zyrtec for symptoms. Return to clinic with any new or worsening symptoms. [id number] Huang Sanchez MD [facility] ([facility]) [address] [place] [address] 06/20/2025 08:02:45 06/21/2025 09:24:59 Benign hypertension 77709243 I10 Diabetes mellitus 534258 09 E11.9 [id number] Huang Sanchez MD [facility] ([facility]) [address] [place] [address] 06/25/2025 08:43:24 06/25/2025 09:51:23 Benign hypertension 04411030 I10 Arthritis 1309803 M19.90 Peripheral vascular disease 163561891 I73.9 Diabetes mellitus 576559 09 E11.9 Autoimmune disease 28988 009 M35.9 [id number] LORNA SHRESTHA APRN [facility] ([facility]) [address] [place] [address] 08/21/2025 09:00:36 08/21/2025 12:05:17 Health Concerns Section Related Observation LastModified by Organization Detai ls LastModified Time None Recorded Concern Status LastModified by Organization Details LastModified Time None Recorded Advance Directives Directive None Recorded Payers Insurance Date Sequence Insurance Name Policy Number Policy Sheppard Covered Member ID Sheppard Member ID Guarantor Name 08/28/2025 [place] - [facility] (MEDICARE) Kenneth Scott [id number] Kenneth Scott 08/28/2025 1 [employer] (MEDICARE REPLACEMENT/ ADVANTAGE - HMO) Kenneth Scott [id number] Kenneth Scott 08/28/2025 1 [place] [employer] Kenneth Scott [id number] Kenneth Tavarezon 08/28/2025 2 [place] [id number] Kenneth Scott [id number] Kenneth Scott Notes Date Note Type Note Provider Name and Address Organization Details Recorded Time 05/30/2025 text/html General Rash/Ski n LesionReported by PatientHPIFor location, patient reportslegs. For quality, patient reportsnot itchyandnot painful. For onset/timing, patient reportsabrupt onset. For associated symptoms, patient reportsno fever. HX-patient was seen at the walk in on 05/27/25 for a rash on his lower left leg that does not itch or hurt but is red and spreading up his leg. He was started on MTX and folate on 05/23/25 for polyarthropathy. He does not notice a difference in joint pain with this new medication. He is planning referral to Rheumatology. Pt is here for a f/u today. Pt states he still has the red spots on his left lower leg and some spots on his right leg. Pt has not been taking the MTX and folic acid. Pt states the arthritis in his hands,neck, shoulder and his getting worse, he is having trouble moving his hands in AM. Huang Sanchez MD [address] [place] [address], [phone], [facility] 05/30/2025 10:47:39 06/17/2025 text/html ROS as noted in the [facility] walk inx 2 weeks cough, nasal congestion, OHYT. Has not taken anything for symptoms. Denies any fever. MADDISON FOLEY [address] [place], [address], [facility] 06/17/2025 19:02:49 06/25/2025 text/html DiabetesReported by PatientHPIFor self care, patient reportsnot monitoring home glucosebut reportsseeing eye doctor regularlyandtaking aspirin daily. For associated symptoms, patient reportsheadaches (occasional),calluses on feet, andfatigue (with exertion)but reportsno dizziness,no sweats,no confusion,no increased thirst,no increased appetite,no increased urination, andno numbness of feet. For duration, patient reportschronic. For control, patient reportsusually well controlledandtreated with diet and oral medications. For compliance, patient reportscompliant with medications.Complicatio ns and Co-morbiditiesFor acute complications, patient reportsadmitted for dka: noandadmitted for hhs: no. For chronic complications, patient reportsdiabetic retinopathy: no,diabetic neuropathy: no,diabetic nephropathy: no,hypertension: no, andhyperlipidemia: __. For comorbidities, patient reportscoronary artery disease: no. Hypertension F/UReported by PatientHPIFor associated symptoms, patient reportschest pain (pressure),edema (feet/legs), andheadache (occ)but reportsno dizziness,no lightheadedness,no shortness of breath,no palpitations, andno calf pain with exertion. For medications, patient reportstaking medications as directedandno side effects from medication(pt stated that he does not check his blood pressure at home). Pt states he has been off the prednisone for a week and the the swelling and pain is coming back in his hands. Pt states he cant get in to rheumatology until 10/16/25. Pt states a week ago he was having a little SOB and chest pressure. Huang Sanchez MD [address] [place], [address], [facility] 06/25/2025 09:50:27 08/21/2025 text/html ROS as noted in the [facility] walk-in; PCP Dr. Sanchez Patient c/o lower abdominal pain and diarrhea that's been going on for three weeks. He states his abdomen is sore to the touch. Diarrhea worse when he eats. Pain 06/06. Hx colon rupture LORNA SHRESTHA, OB/GYN [address] [place], [address], [facility] 08/21/2025 12:03:29
--- OUTSIDE RECORDS SUMMARY | 2025-09-18 11:31 | XMS_ITS | Patient Health Record ---
Author Organization [facility] Address [address], [place] [id number] Care Team Providers Care Operations Support Manager Name Role Phone Gurdeep Leblanc MD Primary Care Provider Unav ailable NimaAriel Unavailable [phone] Keep the, Beat Unavailable Unavailable Allergies No [...] Risk Notes Problem Obstructive sleep apnea syndrome (85771631) CT (obstructive sleep apnea) (G47.33) Active confirmed Problem Mixed hyperlipidemia (758327001) Mixed hyperlipidemia (E78.2) Active confirmed Problem Edema (327138797) Bilateral leg edema (R60.0) Active confirmed Problem History of thromboembolism of vein (918842186) H/O deep venous thrombosis (Z86.718) Active confirmed 1990s LLE Problem Morbid obesity (934705281) Morbid obesity (E66.01) Active confirmed Problem Cardiomegaly (4405586) Mild concentric left ventricular hypertrophy (LVH) (I51.7) Active confirmed Problem Anginal equivalent (36550586882185284 5) Anginal equivalent (I20.8) Active confirmed Problem Abnormal findings on diagnostic imaging of heart and coronary circulation (103685826) Agatston CAC score, >400 (R93.1) Active confirmed Problem Heart disease (12211709) Impaired left ventricular relaxation (I51.9) Active confirmed Problem Type II diabetes mellitus without complication (011087653) Type 2 diabetes mellitus without complication, without long-term current use of insulin (E11.9) Active confirmed Problem Dyspnea on exertion (22876175) Dyspnea on exertion (R06.00) Active confirmed Problem Body mass index 40+ - severely obese (877810186) Body mass index [BMI] 40.0-44.9, adult (Z68.41) Active confirmed Problem Primary osteoarthritis (403219214) Primary osteoarthritis involving multiple joints (M15.9) Active confirmed Plan Of Treatment Pending Test Test Name Order Date CT - Cardiac Calcium Score 04/14/2022 ECG 04/14/2022 ECG 11/30/2022 ECG 04/15/2022 Nuclear - MPI Lexiscan 05/17/2022 Echo - 2D Echo (with 3D if indicated) Future Test Test Name Order Date Echo - 2D Echo (with 3D if indicated) Insurance Providers Payer Name Payer Address Payer Phone Subscriber Number Group Number Insured Name Patient Relationship to Insured Coverage Start Date Coverage End Date Medicare Part B [address] [place] [phone] [id number] Kenneth Scott Self - patient is the insured [employer] [address] [place] [address] [id number] Kenneth Scott Self - patient is the [...]
[2025-09-18 11:34] LABS: Lactic Sepsis W/Reflex 1.6 mmol/L (0.5-2.2)
[2025-09-18] MEDS: iohexol 350 mg/mL 500 mL Btl (per mL) IV (11:49)
[2025-09-18 12:25] LABS: Alanine Aminotransferase 31 U/L (0-41); Albumin Level 2.7 g/dL (3.5-5.2); Alkaline Phosphatase 89 U/L (40-130); Anion Gap 17.5 (5-19); Aspartate Amino Transferase 31 U/L (0-40); Blood Urea Nitrogen 17 mg/dL (8-23); Calcium 8.5 mg/dL (8.5-10.5); Carbon Dioxide 21 mmol/L (22-29); Chloride 105 mmol/L (98-107); Creatinine Clr Calc Pharmacy 97.9596; Globulin 5.3 g/dL (1.3-4.6); Glucose 138 mg/dL (65-115); Lipase 181 U/L (13-60); Osmolality Calculated 292 mOsm/kg (285-295); Potassium 4.5 mmol/L (3.5-5.1); Sodium 139 mmol/L (136-145); Total Protein 8.0 g/dL (6.6-8.7)
[2025-09-18] MEDS: piperacillin-tazobactam 3.375 GM in sodium chloride 0.9% (plus) 50 ML IV ×2 (13:08→21:30)
--- NOTE | 2025-09-18 13:31 | PC.PHAR ---
Pt is from [facility]
--- NOTE | 2025-09-18 14:17 | PC.PHAR ---
Pt is from [facility]
--- NOTE | 2025-09-18 15:30 | PC.NURSE ---
PT ABDOMEN DRESSING SATURATED. ABDOMINAL WOUND CLEANED AND DRESSED.
[2025-09-18] MEDS: D5-NS 0.45% + KCL 20 mEq 20 MEQ/1,000 ML BAG 100 MEQ IV (16:21)
--- NOTE | 2025-09-18 17:26 | PM.HP ---
Providers/Chief Complaint Admitting Physician: Jose Laureano MD Primary Care Provider: Gurdeep Hunter MD Chief Complaint: ABD wound History of Present Illness Kenneth Scott is a 75 year old male with a past medical history of seronegative rheumatoid arthritis, diabetes, moderate aortic stenosis, obesity, closed-loop bowel obstruction requiring exploratory laparotomy, adhesiolysis, reduction of internal hernia, small bowel obstruction, with temporary closure 08/21, and underwent abdominal washout on August 23, closure, septic shock, respiratory failure, overall clinically improved, extubated, discharged to senior living facility noted to have wound dehiscence lower end of the incision site, undergoing packing, who presents [facility] due to feculent drainage from dehiscence site. Currently patient is alert oriented x 3, following commands, he denies any fevers, no chills, no cough, no abdominal pain, still passing gas still having bowel movements, he reports that he is having feculent drainage, copious drainage from surgical site. No lightheaded, dizziness he is ambulatory at the [facility], and he is eating quite well he tells me no nausea, no vomiting -Discussed case with , currently in the operating room, he recommends we do not have the equipment for the wound VAC for enterocutaneous fistulas, he recommends for us to talk to tertiary level centers for consideration of transfer -Discussed with family, family would like transfer to tertiary level center, they would like to transfer to [facility] in [facility] as that is where Kenneth has most of his family, Review of Systems Const: Denies: fever(s) or chills Card: Denies: chest pain Resp: Denies: dyspnea GI: Denies: abdominal pain, nausea or vomiting : Denies: flank pain Medications/Allergies Home Medications ?Medication ?Instructions ?Recorded ?Confirmed ?Last Taken ?Type metformin 500 mg tablet 500 mg PO DAILY 08/12/25 09/18/25 09/18/25 History potassium chloride 10 mEq 10 meq PO DAILY 08/12/25 09/18/25 09/18/25 History capsule,extended release simvastatin 40 mg tablet 40 mg PO DAILY 08/12/25 09/18/25 09/18/25 History prednisone 10 mg tablet See Rx Instructions PO .COMPLEX 08/13/25 09/18/25 Unknown Rx PRN joint pain #30 tabs aspirin 81 mg tablet,delayed 81 mg PO DAILY 30 days #30 tabs 09/10/25 09/18/25 09/18/25 Rx release cyanocobalamin (vitamin B-12) 500 mcg (1/2 x 1,000 mcg) PO BID 09/10/25 09/18/25 09/18/25 Rx 1,000 mcg tablet (Vitamin B-12) 30 days #30 tabs folic acid 1 mg tablet 1 mg PO BID 30 days #60 tabs 09/10/25 09/18/25 Unknown Rx furosemide 40 mg tablet 40 mg PO DAILY@0800 PRN edema 30 09/10/25 09/18/25 Unknown Rx days #30 tabs magnesium oxide 400 mg (241.3 mg 400 mg PO BID 30 days #60 tabs 09/10/25 09/18/25 09/18/25 Rx magnesium) tablet multivitamin with folic acid 400 1 tab PO DAILY 30 days #30 tabs 09/10/25 09/18/25 09/18/25 Rx mcg tablet (Thera) pantoprazole 40 mg tablet,delayed 40 mg PO DAILY 30 days #30 tabs 09/10/25 09/18/25 Unknown Rx release potassium chloride 20 mEq 20 meq PO DAILY PRN with lasix 30 09/10/25 09/18/25 Unknown Rx tablet,extended days #30 tabs release(part/cryst) (Klor-Con M) spironolactone 25 mg tablet 25 mg PO DAILY 30 days #30 tabs 09/10/25 09/18/25 09/18/25 Rx thiamine mononitrate (vit B1) 100 50 mg (1/2 x 100 mg) PO BID 30 09/10/25 09/18/25 Unknown Rx mg tablet (Vitamin B-1 days #30 tabs (mononitrate)) acetaminophen 325 mg tablet 650 mg PO Q6H PRN Mild/Mod Pain Or 09/18/25 09/18/25 09/17/25 History Temp bisacodyl 10 mg rectal suppository 10 mg KS DAILY PRN Constipation 09/18/25 09/18/25 09/16/25 History nystatin-triamcinolone 100,000 See Rx Instructions .Route .COMPLEX 09/18/25 09/18/25 09/18/25 History unit/g-0.1 % topical cream omeprazole 20 mg capsule,delayed 20 mg PO DAILY 09/18/25 09/18/25 09/18/25 History release Allergies Allergy/AdvReac Type Severity Reaction Status Date / Time No Known Allergies Allergy Verified 08/21/25 09:21 PFSH Acute PFSH: Medical History Obesity (BMI 30-39.9) Seronegative rheumatoid arthritis Immunization counseling High risk medication use Seronegative rheumatoid arthritis of both hands Polyarthralgia Diabetes Hyperlipidemia Elevated antinuclear antibody (ADELINA) level Obstructive sleep apnea PVD (peripheral vascular disease) Low back pain Surgical History History of colon resection ruptured not cancer History of bilateral knee replacement Family History Other Brain cancer Diabetes Heart disease Hypertension Lung cancer Peripheral vascular disease Rheumatoid arthritis Skin cancer Skin disease Denies family history of Lupus (systemic lupus erythematosus) Liver disease Migraines Stroke Social History Smoking and tobacco/nicotine status: never used tobacco/nicotine Vitals/I&O/Wt Last Vital Signs Temp 98.3 F 09/18/25 10:20 Pulse 78 09/18/25 16:32 Resp 17 09/18/25 10:20 BP 111/68 09/18/25 16:32 Pulse Ox 97 09/18/25 16:32 O2 Del Method Room Air 09/18/25 15:30 09/18/25 09/18/25 09/18/25 06:59 14:59 22:59 Intake Total 50 / 50 1000 / 1050 Balance 50 / 50 1000 / 1050 Weight last 48 hrs Weight 111.13 kg Physical Exam Const: COMMON NORMALS: no acute distress and patient oriented x3 Eye: COMMON NORMALS: Equal, round and reactive pupils present and EOMs intact bilaterally Resp: COMMON NORMALS: normal respiratory effort, No retractions, No use of accessory muscles and clear to auscultation bilaterally AUSCULTATION: clear to auscultation bilaterally Cardio: COMMON NORMALS: regular rate, regular rhythm, S1 normal heart sound present and S2 normal heart sound present RATE: regular rate RHYTHM: regular rhythm HEART SOUNDS: S1 normal heart sound present and S2 normal heart sound present GI: COMMON NORMALS: Normal to inspection, nondistended, normoactive bowel sounds present, Soft to palpation and non-tender OTHER: Surgical judy clean and dry Lower incision site Wound dehiscence measuring 4 cm long 2 holes seen each measuring 1 x 1 cm With copious amounts of feculent drainage, Extremity: COMMON NORMALS: no calf tenderness and no pedal edema Neuro: COMMON NORMALS: patient oriented x3, CN's II-XII intact bilaterally and moves all extremities Psych: COMMON NORMALS: mental status grossly normal Data 09/18/25 10:10 09/18/25 11:47 Micro: Microbiology 09/18/25 11:36 Blood Culture - Preliminary Blood SPECIMEN COLLECTED 09/18/25 10:52 Blood Culture - Preliminary Blood SPECIMEN COLLECTED A&P Assessment and plan 1. Postoperative fistula: 2. Enterocutaneous fistula: Plan: Concerns for enterocutaneous fistula, postoperative fistula -closed-loop bowel obstruction requiring exploratory laparotomy, adhesiolysis, reduction of internal hernia, small bowel obstruction, with temporary closure 08/21, and subsequently underwent abdominal washout on August 23, closure, hospitalization complicated by septic shock, requiring pressors, respiratory failure, overall clinically improved, extubated, discharged to senior living facility noted to have wound dehiscence lower end of the incision site, ongoing wound care CT/CT abdomen pelvis w con* [id number] IMPRESSION: 1. Prior cholecystectomy with pneumobilia and RIGHT hemicolectomy. Anastomosis appears stable. 2. Previously described fluid collection in the RIGHT lower lateral abdomen appears improved and appears to be resolving. 3. In the area of concern, similar-appearing fluid and air along the incision site extending into the ventral abdomen. Fluid in this area has slightly improved and locules of air have slightly increased. Recommend correlation for cellulitis and infection with dehiscence along the skin site. No focal drainable abscess in this area 4. No other significant interval changes - Feculent drainage from inferior/surgical site, wound dehiscence site, with 2 holes/opening seen with feculent drainage - High output seen from enterocutaneous fistula seen Plan - N.p.o. - IV fluids - IV Zosyn - Speak to transfer center - General Surgery consult - Full code - Lovenox for DVT prophylaxis PDMP PDMP Reviewed: Not Reviewed Attestations Medical Necessity Statement*: Patient requires hospitalization for enterocutaneous fistula, inpatient, greater than 2 midnights Diagnoses Postoperative fistula T81.83XA Enterocutaneous fistula K63.2
[2025-09-18] MEDS: pantoprazole 40 mg SDV IVP (18:14)
[2025-09-18] MEDS: dextrose 5%-sod chloride 0.9% 1,000 ML 100 ML IV (18:16)
[2025-09-18 19:03] LABS: Procalcitonin 0.09 ng/mL (0-0.5); Thyroid Stimulating Hormone 1.23 uIU/mL (0.27-4.20)
[2025-09-18 19:14] LABS: Cholesterol 102 mg/dL (0-200); HDL Cholesterol 23 mg/dL (60-100); Triglycerides 102 mg/dL (0-150)
[2025-09-18 21:11] LABS: Estmated Average Glucose 128; Hemoglobin A1C 6.1 % (4.0-6.0)
[2025-09-18] MEDS: ATORVASTATIN 20 MG TABLET PO (21:29)
[2025-09-19] VITALS (9 sets, daily range): BP systolic 95–115; BP diastolic 61–70; PULSE 70–82; RESP 17–19; TEMP 36.4–37.2; O2SAT 93–97
[2025-09-19 03:44] LABS: Hematocrit 30.4 % (37-53); Hemoglobin 9.50 g/dL (11.27-16.99); Mean Corpuscular HGB Conc 31.3 g/dL (30-55); Mean Corpuscular Hemoglobin 30.8 pg (27-33); Mean Corpuscular Volume 98.7 fl (82-101); Nucleated Red Blood Cells % 0 %; Platelet Count 172 10^3/cmm (157-399); Red Blood Count 3.08 10^6/uL (3.85-5.65); White Blood Count 6.34 10^3/uL (3.29-11.43)
[2025-09-19 04:07] LABS: Alanine Aminotransferase 27 U/L (0-41); Albumin Level 2.5 g/dL (3.5-5.2); Alkaline Phosphatase 81 U/L (40-130); Anion Gap 16.2 (5-19); Aspartate Amino Transferase 27 U/L (0-40); Blood Urea Nitrogen 12 mg/dL (8-23); Calcium 8.2 mg/dL (8.5-10.5); Carbon Dioxide 21 mmol/L (22-29); Chloride 107 mmol/L (98-107); Creatinine Clr Calc Pharmacy 95.5689; Globulin 4.8 g/dL (1.3-4.6); Glucose 151 mg/dL (65-115); Magnesium 2.0 mg/dL (1.7-2.3); Osmolality Calculated 293 mOsm/kg (285-295); Potassium 4.2 mmol/L (3.5-5.1); Sodium 140 mmol/L (136-145); Total Protein 7.3 g/dL (6.6-8.7)
[2025-09-19 04:14] LABS: Procalcitonin 0.10 ng/mL (0-0.5)
[2025-09-19] MEDS: piperacillin-tazobactam 3.375 GM in sodium chloride 0.9% (plus) 50 ML IV ×2 (05:30→12:08)
[2025-09-19] MEDS: pantoprazole 40 mg SDV IVP (05:31)
[2025-09-19] MEDS: multivitamin therapeutic Tablet 1 TAB PO (05:32)
[2025-09-19] MEDS: dextrose 5%-sod chloride 0.9% 1,000 ML 100 ML IV (12:09)
--- NOTE | 2025-09-19 15:08 | P.PN_ITS ---
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 we do not have any surgical coverage, unfortunately our surgeon had a family emergency and has had to leave the hospital - I was told by the surgeon that he will not be seeing Kenneth as he has to attend to a family emergency - Discussed with Kenneth that I have reach ed out to [facility] in [place] but I have not received an answer as of yet, - Patient's family wants to try to trans pippa to [facility], try [facility], they also want to try [facility], Dr. Peterson, they have had family members have surgery from Dr. Peterson and they have had good experience - Spoke to [facility], spoke to [facility], spoke to Dr. Peterson, discussed case in detail, patient's enterocutaneous fistula, Dr. Peterson has excepted patient as a consultant electronics, - Spoke to their nurse practitioner, who has also accepted patient but will discuss with their hospitalist - Patient has been excepted at [facility], awaiting a bed, Vitals/I&O/Wt Last Vital Signs Temp 98.2 F 09/19/25 11:24 Pulse 70 09/19/25 11:24 Resp 18 09/19/25 11:24 BP 105/70 09/19/25 11:24 Pulse Ox 94 09/19/25 11:24 O2 Del Method Room Air 09/19/25 11:24 09/19/25 09/19/25 09/19/25 06:59 14:59 22:59 Intake Total 104.375 / 1789.375 672.292 / 672.292 Balance 104.375 / 1789.375 672.292 / 672.292 Weight last 48 hrs Weight 105.29 kg Weight 105.914 kg Weight 111.13 kg Physical Exam 2 Const: COMMON NORMALS: no acute distress and patient oriented x3 Resp: COMMON NORMALS: normal respiratory effort, No retractions, No use of accessory muscles and clear to auscultation bilaterally AUSCULTATION: clear to auscultation bilaterally Cardio: COMMON NORMALS: regular rate, regular rhythm, S1 normal heart sound present and S2 normal heart sound present RATE: regular rate RHYTHM: r egular rhythm HEART SOUNDS: S1 normal heart sound present and S2 normal heart sound present GI: COMMON NORMALS: Normal to inspection, nondistended, normoactive bowel sounds present and non-tender : OTHER: Inferior surgical site, with wound dehiscence site Hole measuring 1 x 1 cm, with feculent output, Extremity: COMMON NORMALS: no calf tenderness and no pedal edema Neuro: COMMON NORMALS: patient oriented x3, CN's II-XII intact bilaterally and moves all extremities Psych: COMMON NORMALS: mental status grossly normal Data 09/19/25 03:37 09/19/25 03:37 Micro: Microbiology 09/18/25 11:36 Blood Culture - Preliminary Blood NEGATIVE TO DATE 09/18/25 10:52 Blood Culture - Preliminary Blood NEGATIVE TO DATE A&P Assessment and plan 1. Postoperative fistula: 2. Enterocutaneous fistula: Plan: Concerns for enterocutaneous fistula, postoperative fistula -closed-loop bowel obstruction requiring exploratory laparotomy, adhesiolysis, reduction of internal hernia, small bowel obstruction, with temporary closure 08/21, and subsequently underwent abdominal washout on August 23, closure, hospitalization complicated by septic shock, requiring pressors, respiratory failure, overall clinically improved, extubated, discharged to group home facility noted to have wound dehiscence lower end of the incision site, ongoing wound care CT/CT abdomen pelvis w con* [id number] IMPRESSION: 1. Prior cholecystectomy with pneumobilia and RIGHT hemicolectomy. Anastomosis appears stable. 2. Previously described fluid collection in the RIGHT lower lateral abdomen appears improved and appears to be resolving. 3. In the area of concern, similar-appearing fluid and air along the incision site extending into the ventral abdomen. Fluid in this area has slightly improved and locules of air have slightly increased. Recommend correlation for cellulitis and infection with dehiscence along the skin site. No focal drainable abscess in this area 4. No other significant interval changes - Feculent drainage from inferior/surgical site, wound dehiscence site, today I only see 1 hole opening with feculent drainage, measuring 1 x 1 cm - High output seen from enterocutaneous fistula seen Plan - N.p.o. - IV fluids - IV Zosyn - Will transfer to [facility] in [facility] -Diabetes mellitus - Full code - Lovenox for DVT prophylaxis PDMP PDMP Reviewed: Not Reviewed Attestations 2 Medical Necessity Statement*: Patient requires hospitalization for enterocutaneous fistula Diagnoses Postoperative fistula T81.83XA Enterocutaneous fistula K63.2
--- NOTE | 2025-09-19 15:15 | P.TS_ITS ---
Transfer Summary Providers Date of Admission: 09/18/25 16:18 Date of Discharge/Transfer: 09/19/25 Attending Provider at Admission: Jose Laurenao MD Attending Provider at Transfer: Jose Laureano MD Primary Care Provider: Gurdeep Hunter MD Transfer Plans: Anticipated date of transfer: 09/19/25 . Diagnoses at Discharge Discharge Diagnosis 1. Postoperative fistula: 2. Enterocutaneous fistula: Reason for Visit Reason for Visit ABD wound Hospital Course Hospital Course Kenneth Scott is a 75 year old male with a past medical history of seronegative rheumatoid arthritis, diabetes, moderate aortic stenosis, obesity, closed-loop bowel obstruction requiring exploratory laparotomy, adhesiolysis, reduction of internal hernia, small bowel obstruction, with temporary closure 08/21, and underwent abdominal washout on August 23, closure, septic shock, respiratory failure, overall clinically improved, extubated, [facility] noted to have wound dehiscence lower end of the incision site, undergoing packing, who presents [facility] due to feculent drainage from dehiscence site. Currently patient is alert oriented x 3, following commands, he denies any fevers, no chills, no cough, no abdominal pain, still passing gas still having bowel movements, he reports that he is having feculent drainage, copious drainage from surgical site. No lightheaded, dizziness he [facility], and he is eating quite well he tells me no nausea, no vomiting -Discussed case with , currently in the operating room, he recommends we do not have the equipment for the wound VAC for enterocutaneous fistulas, he recommends for us to talk to tertiary level centers for consideration of transfer -Discussed with family, family would like transfer to tertiary level center, they would like to transfer to tertiary level hospital in [facility] where most of Kenneth family is present Concerns for enterocutaneous fistula, postoperative fistula -closed-loop bowel obstruction requiring exploratory laparotomy, adhesiolysis, reduction of internal hernia, small bowel obstruction, with temporary closure 08/21, and subsequently underwent abdominal washout on August 23, closure, hospitalization complicated by septic shock, requiring pressors, respiratory failure, overall clinically improved, extubated, [facility] noted to have wound dehiscence lower end of the incision site, ongoing wound care CT/CT abdomen pelvis w con* [id number] IMPRESSION: 1. Prior cholecystectomy with pneumobilia and RIGHT hemicolectomy. Anastomosis appears stable. 2. Previously described fluid collection in the RIGHT lower lateral abdomen appears improved and appears to be resolving. 3. In the area of concern, similar-appearing fluid and air along the incision site extending into the ventral abdomen. Fluid in this area has slightly improved and locules of air have slightly increased. Recommend correlation for cellulitis and infection with dehiscence along the skin site. No focal drainable abscess in this area 4. No other significant interval changes - Feculent drainage from inferior/surgical site, wound dehiscence site, today 1 hole/opening seen, 1 by 1 cm with feculent drainage - High output seen from enterocutaneous fistula seen Plan - N.p.o. - IV fluids - IV Zosyn - Speak to transfer center - General Surgery consult, unfortunately general surgery coverage was cut short due to a family emergency, general surgery could not see patient and had to urgently attend to family emergency, thus no surgical coverage was available at [facility] -Spoke to [facility], Dr. Peterson, who agreed to consult on patient, spoke to hospitalist nurse practitioner who agreed to accept patient as primary - Full code - Lovenox for DVT prophylaxis Physical Exam Const: COMMON NORMALS: no acute distress and patient oriented x3 Resp: COMMON NORMALS: normal respiratory effort, No retractions, No use of accessory muscles and clear to auscultation bilaterally AUSCULTATION: clear to auscultation bilaterally Cardio: COMMON NORMALS: regular rate, regular rhythm, S1 normal heart sound present and S2 normal heart sound present RATE: regular rate RHYTHM: regular rhythm HEART SOUNDS: S1 normal heart sound present and S2 normal heart sound present GI: COMMON NORMALS: Normal to inspection, nondistended, normoactive bowel sounds present and non-tender OTHER: Enterocutaneous fistula site seen, with feculent output measuring 1 x 1 cm, wound dehiscence Extremity: COMMON NORMALS: no pedal edema Neuro: COMMON NORMALS: patient oriented x3, CN's II-XII intact bilaterally and moves all extremities Psych: COMMON NORMALS: mental status grossly normal TS Data Studies Completed and Pending Pending at discharge Category Date Time Status Blood Culture Stat Lab 09/18/25 11:36 Results C Reactive Protein AM LABS Lab 09/20/25 04:00 Ordered C Reactive Protein AM LABS Lab 09/21/25 04:00 Ordered Complete Blood Count w/Auto AM LABS Lab 09/20/25 04:00 Ordered Complete Blood Count w/Auto AM LABS Lab 09/21/25 04:00 Ordered Comprehensive Metabolic Panel AM LABS Lab 09/20/25 04:00 Ordered Comprehensive Metabolic Panel AM LABS Lab 09/21/25 04:00 Ordered Magnesium AM LABS Lab 09/20/25 04:00 Ordered Magnesium AM LABS Lab 09/21/25 04:00 Ordered Phosphorus AM LABS Lab 09/20/25 04:00 Ordered Phosphorus AM LABS Lab 09/21/25 04:00 Ordered Procalcitonin AM LABS Lab 09/20/25 04:00 Ordered Procalcitonin AM LABS Lab 09/21/25 04:00 Ordered Completed Studies During Hospitalization Category Date Time Status CT abdomen pelvis w con* [id number] Stat Cat Scan 09/18/25 10:46 Completed Laboratory Last Values WBC 6.34 10^3/uL (3.29-11.43) 09/19/25 03:37 RBC 3.08 10^6/uL (3.85-5.65) L 09/19/25 03:37 Hgb 9.50 g/dL (11.27-16.99) L 09/19/25 03:37 Hct 30.4 % (37-53) L 09/19/25 03:37 MCV 98.7 fl (82-101) 09/19/25 03:37 MCH 30.8 pg (27-33) 09/19/25 03:37 MCHC 31.3 g/dL (30-55) 09/19/25 03:37 RDW 18.6 % (12.1-15.1) H 09/19/25 03:37 Plt Count 172 10^3/cmm (157-399) 09/19/25 03:37 MPV 9.2 fL (7.4-10.4) 09/19/25 03:37 Neut % (Auto) 69.2 % 09/19/25 03:37 Lymph % (Auto) 12.6 % 09/19/25 03:37 Duval % (Auto) 9.1 % 09/19/25 03:37 Eos % (Auto) 8.2 % 09/19/25 03:37 Baso % (Auto) 0.6 % 09/19/25 03:37 Neut # (Auto) 4.38 10^3/uL (1.8-7.7) 09/19/25 03:37 Lymph # (Auto) 0.8 10^3/uL (0.8-4.8) 09/19/25 03:37 Duval # (Auto) 0.6 10^3/uL (0.2-0.9) 09/19/25 03:37 Eos # (Auto) 0.5 10^3/uL (0.0-0.8) 09/19/25 03:37 Baso # (Auto) 0.0 10^3/uL (0.0-0.1) 09/19/25 03:37 Nucleated RBC % (auto) 0 % 09/19/25 03:37 Nucleated RBCs # 0.0 /100WBC 09/19/25 03:37 Sodium 140 mmol/L (136-145) 09/19/25 03:37 Potassium 4.2 mmol/L (3.5-5.1) 09/19/25 03:37 Chloride 107 mmol/L (98-107) 09/19/25 03:37 Carbon Dioxide 21 mmol/L (22-29) L 09/19/25 03:37 Anion Gap 16.2 (5-19) 09/19/25 03:37 BUN 12 mg/dL (8-23) 09/19/25 03:37 Creatinine 0.6 mg/dL (0.7-1.2) L 09/19/25 03:37 GFR Calculation Not Reportable 09/19/25 03:37 Glucose 151 mg/dL (65-115) H 09/19/25 03:37 Estimat Average Glucose 128 09/18/25 10:10 Hemoglobin A1c 6.1 % (4.0-6.0) H 09/18/25 10:10 Calculated Osmolality 293 mOsm/kg (285-295) 09/19/25 03:37 Lactic Acid 1.6 mmol/L (0.5-2.2) 09/18/25 11:02 Calcium 8.2 mg/dL (8.5-10.5) L 09/19/25 03:37 Phosphorus 3.9 mg/dL (2.5-4.5) 09/19/25 03:37 Magnesium 2.0 mg/dL (1.7-2.3) 09/19/25 03:37 Total Bilirubin 0.5 mg/dL (0.15-1.2) 09/19/25 03:37 AST 27 U/L (0-40) 09/19/25 03:37 ALT 27 U/L (0-41) 09/19/25 03:37 Alkaline Phosphatase 81 U/L (40-130) 09/19/25 03:37 C-Reactive Protein 92.0 mg/L (0.0-4.9) H 09/19/25 03:37 Total Protein 7.3 g/dL (6.6-8.7) 09/19/25 03:37 Albumin 2.5 g/dL (3.5-5.2) L 09/19/25 03:37 Globulin 4.8 g/dL (1.3-4.6) H 09/19/25 03:37 Triglycerides 102 mg/dL (0-150) 09/18/25 11:36 Cholesterol 102 mg/dL (0-200) 09/18/25 11:36 LDL Cholesterol, Calc 59 mg/dL (50-129) 09/18/25 11:36 HDL Cholesterol 23 mg/dL (60-100) L 09/18/25 11:36 LDL/HDL Ratio 2.57 RATIO (0.00-3.22) 09/18/25 11:36 Cholesterol/HDL Ratio 4.43 mg/dL (1.0-5.00) 09/18/25 11:36 Lipase 181 U/L (13-60) H 09/18/25 11:47 Procalcitonin 0.10 ng/mL (0-0.5) 09/19/25 03:37 TSH 1.23 uIU/mL (0.27-4.20) 09/18/25 11:36 Radiology Impressions Abdomen/Pelvis CT 09/18/25 10:46 IMPRESSION: 1. Prior cholecystectomy with pneumobilia and RIGHT hemicolectomy. Anastomosis appears stable. 2. Previously described fluid collection in the RIGHT lower lateral abdomen appears improved and appears to be resolving. 3. In the area of concern, similar-appearing fluid and air along the incision site extending into the ventral abdomen. Fluid in this area has slightly improved and locules of air have slightly increased. Recommend correlation for cellulitis and infection with dehiscence along the skin site. No focal drainable abscess in this area 4. No other significant interval changes Recent Clincial Data Last Vital Signs Temp 98.2 F 09/19/25 11:24 Pulse 70 09/19/25 11:24 Resp 18 09/19/25 11:24 BP 105/70 09/19/25 11:24 Pulse Ox 94 09/19/25 11:24 O2 Del Method Room Air 09/19/25 11:24 Vital Signs Temp Pulse Resp BP Pulse Ox O2 Del Method O2 Del Method 09/19/25 11:24 98.2 F 70 18 105/70 94 Room Air 09/19/25 08:03 72 95 Room Air 09/19/25 07:46 97.5 F L 72 19 H 113/69 95 Room Air 09/19/25 06:00 74 09/19/25 04:00 98.7 F 77 17 115/70 93 Room Air Intake & Output/Weight 09/17/25 09/18/25 09/19/25 09/20/25 06:59 06:59 06:59 06:59 Intake Total 1789.375 / 1789.375 672.292 / 672.292 Balance 1789.375 / 1789.375 672.292 / 672.292 Weight 105.29 kg Vitals Last Vital Signs Temp 98.2 F 09/19/25 11:24 Pulse 70 09/19/25 11:24 Resp 18 09/19/25 11:24 BP 105/70 09/19/25 11:24 Pulse Ox 94 09/19/25 11:24 O2 Del Method Room Air 09/19/25 11:24 TS Medications Medications Acetaminophen (Acetaminophen 325 Mg Tablet) 650 mg PO Q6H PRN PRN Reason: Mild/Mod Pain Or Temp >/= 101 Aspirin (Aspirin 81 Mg Ec Tablet) 81 mg PO DAILY JEANE Last Admin: 09/19/25 05:32 Dose: 81 mg Atorvastatin Calcium (Atorvastatin 20 Mg Tablet) 20 mg PO BEDTIME JEANE Last Admin: 09/18/25 21:29 Dose: 20 mg Enoxaparin Sodium (Enoxaparin 40 Mg/0.4 Ml Syringe) 40 mg SUBCUT Q24H JEANE Last Admin: 09/18/25 18:13 Dose: 40 mg Folic Acid (Folic Acid 1 Mg Tablet) 1 mg PO BID JEANE Last Admin: 09/19/25 05:32 Dose: 1 mg Glucagon (Glucagon 1 Mg/Ml Kit 1 Ml) 1 mg IM ONCE PRN; Protocol PRN Reason: Adult Acute Hypoglycemia Nursing Prot. Piperacillin Sod/Tazobactam (Sod 3.375 gm/ Sodium Chloride) 50 mls @ 12.5 mls/hr IV Q8H [facility] Last Admin: 09/19/25 12:08 Dose: 12.5 mls/hr Dextrose/Sodium Chloride (Dextrose 5%-Sod Chloride 0.9%) 1,000 mls @ 100 mls/hr IV .Q10H [facility] Last Admin: 09/19/25 12:09 Dose: 100 mls/hr Dextrose (D5w) 500 mls @ 0 mls/hr IV ONCE PRN; Protocol PRN Reason: Adult Acute Hypoglycemia Prot Dextrose (D10w) 125 mls @ 750 mls/hr IV PRN PRN; Protocol PRN Reason: Adult Acute Hypoglycemia Nursing Protocol Dextrose (D10w) 250 mls @ 1,000 mls/hr IV PRN PRN; Protocol PRN Reason: Adult Acute Hypoglycemia Nursing Protocol Morphine Sulfate (Morphine 4 Mg/Ml Sdv 1 Ml) 2 mg IVP Q4H PRN PRN Reason: SEVERE PAIN Multivitamins Therapeutic (Multivitamin Therapeutic Tablet) 1 tab PO DAILY [facility] Last Admin: 09/19/25 05:32 Dose: 1 tab Naloxone HCl (Naloxone 0.4 Mg/Ml Sdv) 0.1 mg IVP Q2M PRN PRN Reason: OPIATERV Ondansetron HCl (Ondansetron 2 Mg/Ml Sdv 2 Ml) 4 mg IVP Q8H PRN PRN Reason: vomiting, or N/V if npo Pantoprazole Sodium (Pantoprazole 40 Mg Sdv) 40 mg IVP Q12H [facility] Last Admin: 09/19/25 05:31 Dose: 40 mg Thiamine Mononitrate (Thiamine 100 Mg Tablet) 50 mg PO BID [facility] Last Admin: 09/19/25 05:32 Dose: 50 mg Discontinued Medications Piperacillin Sod/Tazobactam (Sod 3.375 gm/ Sodium Chloride) 50 mls @ 100 mls/hr IV ONCE ONE; Protocol Stop: 09/18/25 13:28 Last Infusion: 09/18/25 13:59 Dose: Infused Sodium Chloride (Sodium Chloride 0.9%) 1,000 mls @ 999 mls/hr IV .Q1H1M ONE Stop: 09/18/25 16:10 Last Infusion: 09/18/25 16:13 Dose: Infused Potassium Chloride/Dextrose/Sod Cl (D5-Ns 0.45% + Kcl 20 Meq) 20 meq in 1,000 mls @ 100 mls/hr IV .Q10H JEANE Last Infusion: 09/18/25 19:28 Dose: Infused Piperacillin Sod/Tazobactam (Sod / Sodium Chloride) 50 mls @ 0 mls/hr [id number] CONT JEANE; Protocol Piperacillin Sod/Tazobactam (Sod 3.375 gm/ Sodium Chloride) 50 mls @ 12.5 mls/h r IV Q8H JEANE Last Admin: 09/18/25 19:27 Dose: Not Given Iohexol (Iohexol 350 Mg/Ml 500 Ml Btl (Per Ml)) 0 ml IV ONCE ONE Stop: 09/18/25 11:50 Last Admin: 09/18/25 11:49 Dose: 100 ml Allergies No Known Allergies Allergy (Verified 08/21/25 09:21) Home Medications metformin 500 mg tablet 500 mg PO DAILY 08/12/25 [History Confirmed 09/18/25] potassium chloride 10 mEq capsule,extended release 10 meq PO DAILY 08/12/25 [History Confirmed 09/18/25] simvastatin 40 mg tablet 40 mg PO DAILY 08/12/25 [History Confirmed 09/18/25] prednisone 10 mg tablet See Rx Instructions PO .COMPLEX PRN joint pain #30 tabs 08/13/25 [Rx Confirmed 09/18/25] aspirin 81 mg tablet,delayed release 81 mg PO DAILY 30 days #30 tabs 09/10/25 [Rx Confirmed 09/18/25] cyanocobalamin (vitamin B-12) 1,000 mcg tablet (Vitamin B-12) 500 mcg (1/2 x 1,000 mcg) PO BID 30 days #30 tabs 09/10/25 [Rx Confirmed 09/18/25] folic acid 1 mg tablet 1 mg PO BID 30 days #60 tabs 09/10/25 [Rx Confirmed 09/18/25] furosemide 40 mg tablet 40 mg PO DAILY@0800 PRN edema 30 days #30 tabs 09/10/25 [Rx Confirmed 09/18/25] magnesium oxide 400 mg (241.3 mg magnesium) tablet 400 mg PO BID 30 days #60 tabs 09/10/25 [Rx Confirmed 09/18/25] multivitamin with folic acid 400 mcg tablet (Thera) 1 tab PO DAILY 30 days #30 tabs 09/10/25 [Rx Confirmed 09/18/25] pantoprazole 40 mg tablet,delayed release 40 mg PO DAILY 30 days #30 tabs 09/10/25 [Rx Confirmed 09/18/25] potassium chloride 20 mEq tablet,extended release(part/cryst) (Klor-Con M) 20 meq PO DAILY PRN with lasix 30 days #30 tabs 09/10/25 [Rx Confirmed 09/18/25] spironolactone 25 mg tablet 25 mg PO DAILY 30 days #30 tabs 09/10/25 [Rx Confirmed 09/18/25] thiamine mononitrate (vit B1) 100 mg tablet (Vitamin B-1 (mononitrate)) 50 mg (1/2 x 100 mg) PO BID 30 days #30 tabs 09/10/25 [Rx Confirmed 09/18/25] acetaminophen 325 mg tablet 650 mg PO Q6H PRN Mild/Mod Pain Or Temp 09/18/25 [History Confirmed 09/18/25] bisacodyl 10 mg rectal suppository 10 mg SC DAILY PRN Constipation 09/18/25 [History Confirmed 09/18/25] nystatin-triamcinolone 100,000 unit/g-0.1 % topical cream See Rx Instructions .Route .COMPLEX 09/18/25 [History Confirmed 09/18/25] omeprazole 20 mg capsule,delayed release 20 mg PO DAILY 09/18/25 [History Confirmed 09/18/25] Discharge Plan Discharge Patient Disposition: Xfer Short-Term Hosp Condition: Stable Prescriptions: No Action metformin 500 mg tablet 500 mg PO DAILY potassium chloride 10 mEq capsule, extended release 10 meq PO DAILY simvastatin 40 mg tablet 40 mg PO DAILY prednisone 10 mg tablet See Rx Instructions PO .COMPLEX PRN (Reason: joint pain) Qty: 30 1RF Rx Instructions: Take 1 or 2 tablets by mouth daily for 3-7 days as needed for joint pain flare. furosemide 40 mg Tablet 40 mg PO DAILY@0800 PRN (Reason: edema) 30 Days Qty: 30 0RF cyanocobalamin (vitamin B-12) [Vitamin B-12] 1,000 mcg Tablet 500 mcg PO BID 30 Days Qty: 30 0RF aspirin 81 mg Tablet,Delayed Release (Dr/Ec) 81 mg PO DAILY 30 Days Qty: 30 0RF spironolactone 25 mg Tablet 25 mg PO DAILY 30 Days Qty: 30 0RF potassium chloride [Klor-Con M20] 20 mEq Tablet,Er Particles/Crystals 20 meq PO DAILY PRN (Reason: with lasix) 30 Days Qty: 30 0RF magnesium oxide 400 mg (241.3 mg magnesium) Tablet 400 mg PO BID 30 Days Qty: 60 0RF pantoprazole 40 mg Tablet,Delayed Release (Dr/Ec) 40 mg PO DAILY 30 Days Qty: 30 0RF folic acid 1 mg Tablet 1 mg PO BID 30 Days Qty: 60 0RF thiamine mononitrate (vit B1) [Vitamin B-1 (mononitrate)] 100 mg Tablet 50 mg PO BID 30 Days Qty: 30 0RF multivitamin with folic acid [Thera] 400 mcg Tablet 1 tab PO DAILY 30 Days Qty: 30 0RF bisacodyl 10 mg Suppository 10 mg SC DAILY PRN (Reason: Constipation) nystatin-triamcinolone 100,000-0.1 unit/g-% Cream See Rx Instructions .ROUTE .COMPLEX Rx Instructions: Apply to buttock/groin area topically every shift until redness resolved. omeprazole 20 mg Capsule,Delayed Release(Dr/Ec) 20 mg PO DAILY acetaminophen 325 mg tablet 650 mg PO Q6H PRN (Reason: Mild/Mod Pain Or Temp ) Referrals: Gurdeep Hunter MD [Primary Care Provider, [facility]] Patient Instructions: Opioid Safety, Patient Portal & [place] Instructions Transfer Attestations Time Spent in Transfer Care: greater than 30 min Quality Metrics Clinical Quality Measures [ No reported AMI, CVA or VTE this stay] Coding Level of Care Code 20949 Total time (in minutes) for Discharge: 45 Diagnoses Postoperative fistula T81.83XA Enterocutaneous fistula K63.2
--- NOTE | 2025-09-19 20:00 | PC.NURSE ---
EMS here to transport patient to [place]. Family at beside.
== END 2025-09-19 20:00 | disposition short-term general hospital (02) | DRG 920 ==
LOC: ER 10:36 → MEDSURG 16:19
PROVIDERS: Admitting Provider Family Medicine; Emergency Provider Family Medicine; PCP Family Medicine; Visit Provider Family Medicine
DX: T81.83XA Persistent postprocedural fistula, initial encounter (principal); K63.2 Fistula of intestine; T81.320A Disruption or dehiscence of gastrointestinal tract anastomosis, repair, or closure, initial encounter; Y83.8 Other surgical procedures as the cause of abnormal reaction of the patient, or of later complication, without mention of misadventure at the time of the procedure; M06.00 Rheumatoid arthritis without rheumatoid factor, unspecified site; G47.33 Obstructive sleep apnea (adult) (pediatric); E11.51 Type 2 diabetes mellitus with diabetic peripheral angiopathy without gangrene; Z79.84 Long term (current) use of oral hypoglycemic drugs; Z79.82 Long term (current) use of aspirin; E78.5 Hyperlipidemia, unspecified
CPT/HCPCS: 36415; 36416; 74177; 80053; 80061; 82962; 83036; 83605; 83690; 83735; 84100; 84145; 84443; 85025; 86140; 87040; 94664; 96365; 96372; 99281; 99285; J1650; J2470; J2543; J7030; J7042; J9999